=== PATIENT | male | born 1960 | race Caucasian/White ===

== ENCOUNTER → 2017-07-27 07:38 | Outpatient (CLI) | payer BC, SELFPAY ==
--- NOTE | 2017-07-27 07:53 | CA_ITS ---
PROCEDURE: 2-D M-mode and color Doppler study INDICATIONS FOR THE TEST: Chest pain COPD Heart Murmur+ Tobacco Smoking Palpitations+ Fatigue+ Syncope Edema Hypertension+Diabetes Mellitus Rheumatic Fever SOB SHELDON+Obesity Hyperlipidemia Family History HD+ Additional History JULIO, Bradycardia PATIENT INFORMATION HEIGHT: 70 WEIGHT: 229 GENDER: Male B/P: 163/85 2-D/M-MODE INTERPRETATION: 2-D MEASUREMENTS OBSERVED VALUES IN CMS Right Ventricular Dimension (RVDd) 2.0 Interventricular Septum (Thickness)(IVsd) 1.0 Left Ventricular Internal Dimensions(LVIDd) 5.3 Left Ventricular Posterior Wall (Thickness)(LVPWd) 1.0 Aortic Root 3.3 Aortic Cusp Separation 2.1 Left Atrial Dimensions (LAD) 4.3 2D 1. Left atrium is mildly enlarged, left ventricle is normal size, mild concentric left ventricular hypertrophy, visually estimated ejection fraction 55% with no obvious regional wall motion abnormality. 2. The right atrium and right ventricle are normal size and contractility. 3. The aortic valve is minimally thickened and fibrosed. 4. The mitral and tricuspid valve leaflets are minimally thickened. 5. The pulmonic valve is poorly visualized. 6. No significant pericardial effusion noted. DOPPLER INTERROGATION: Doppler interrogation of the aortic, mitral and tricuspid valvular presence of mild mitral and tricuspid regurgitation, tricuspid regurgitant jet velocity is insufficient for calculation of the right ventricular systolic pressure, grade 1 diastolic dysfunction seen with tissue Doppler evidence of raised left atrial pressure. CONCLUSION: 1. Mildly enlarged left atrium, normal left ventricular size, mild concentric left ventricular hypertrophy, visually estimated ejection fraction 55% with no obvious regional wall motion abnormality, grade 1 diastolic dysfunction seen with tissue Doppler evidence of raised left atrial pressure. 2. Mild mitral and tricuspid regurgitation 3. No significant pericardial effusion noted.
--- NOTE | 2017-07-27 09:01 | CT_ITS ---
CT heart w calcium score CLINICAL INDICATION: ITS.REASON: JULIO SYNDROME, FATIGUE, PALPITIONS, HTN, BRADYCARDIA ORDERING PHYSICIAN: Tulio Meyer MD PATIENT AGE: 57 years COMPARISON: None FINDINGS: Coronary artery calcium score is 31 indicating mild plaque burden with moderate cardiovascular disease risk IMPRESSION: Coronary artery calcium score indicating mild plaque burden with moderate cardiovascular disease risk
== END ==
LOC: RT 07:45
PROVIDERS: Family Provider Family Medicine; PCP Family Medicine; Visit Provider Internal Medicine
DX: R53.83 Other fatigue (principal); R00.2 Palpitations; I10 Essential (primary) hypertension; R00.1 Bradycardia, unspecified; G47.33 Obstructive sleep apnea (adult) (pediatric)
CPT/HCPCS: 75571; 93306

== ENCOUNTER → 2017-07-31 11:34 | Outpatient (CLI) | payer BC, SELFPAY | PROVIDERS: PCP Family Medicine; Visit Provider Internal Medicine Cardiovascular Disease | DX: R00.2 Palpitations (principal); R53.83 Other fatigue; G47.33 Obstructive sleep apnea (adult) (pediatric); I10 Essential (primary) hypertension; R93.1 Abnormal findings on diagnostic imaging of heart and coronary circulation; Z13.220 Encounter for screening for lipoid disorders | CPT/HCPCS: 93225 ==

== ENCOUNTER → 2017-08-04 06:17 | Outpatient (CLI) | payer BC, SELFPAY ==
--- NOTE | 2017-08-04 06:29 | NM_ITS ---
NM killian perf SPECT rest str CLINICAL INDICATION: ITS.REASON: PALPITATIONS,FATIGUE, JULIO SYNDROME, HTN ORDERING PHYSICIAN: Valeriano Ford MD PATIENT AGE: 57 years COMPARISON: None available DOSE: 10.89 mCi technetium Myoview intravenously at rest followed by 31.1 mCi technetium Myoview at stress. The patient exercised7 minutes 45 seconds achieving a heart rate 125 bpm. Projected heart rate is 163 bpm. Resting blood pressure is 141/76. Stress blood pressure 180/80. FINDINGS: Ejection fraction is calculated to be 49% is slightly low. There is mild global hypokinesia SPECT and polar map images obtained.. There is slight decrease activity in the inferior wall towards the base of the heart showed some increased activity in this region on the delayed images suggesting a small area of ischemia. This is most prominent on the vertical long axis images. No fixed defects are evident IMPRESSION: 1. Slightly low ejection fraction of 49%. 2. Decrease activity in the inferior wall showing some redistribution on the delayed images consistent with ischemic change in the inferior wall
[2017-08-04 07:15] LABS: Alanine Aminotransferase 41 U/L (12-78); Albumin Level 3.8 gm/dL (3.4-5.0); Alkaline Phosphatase 92 U/L (46-116); Aspartate Amino Transferase 17 U/L (15-37); Bilirubin,Direct 0.1 mg/dL (0.0-0.2); Bilirubin,Total 0.3 mg/dL (0.2-1.0); Chol/HDL Ratio 5.3 (1-3.5); Cholesterol 175 mg/dL (140-200); HDL Cholesterol 33 mg/dL (27-67); LDL Cholesterol 117 mg/dL (0-130); Total Protein,Serum 7.3 gm/dL (6.4-8.2); Triglycerides 127 mg/dL (30-200); VLDL Cholesterol 25 mg/dL (0-40)
--- NOTE | 2017-08-04 07:31 | HMH.ITSHM ---
OLMESARTAN BISOPROLOL FINASTERIDE OMEPRAZOLE ASA
== END ==
PROVIDERS: Family Provider Family Medicine; PCP Family Medicine; Visit Provider Internal Medicine Cardiovascular Disease
DX: R00.2 Palpitations (principal); R53.83 Other fatigue; I10 Essential (primary) hypertension; G47.33 Obstructive sleep apnea (adult) (pediatric); R93.1 Abnormal findings on diagnostic imaging of heart and coronary circulation; Z13.220 Encounter for screening for lipoid disorders
CPT/HCPCS: 78452; 80061; 80076; 93017; A9502

== ENCOUNTER → 2017-08-11 15:30 | Outpatient (CLI) | payer BC, SELFPAY | PROVIDERS: PCP Family Medicine; Visit Provider Internal Medicine Cardiovascular Disease | DX: G47.33 Obstructive sleep apnea (adult) (pediatric) (principal); R53.83 Other fatigue; R00.2 Palpitations; I10 Essential (primary) hypertension; R00.1 Bradycardia, unspecified | CPT/HCPCS: G0399 ==

== ENCOUNTER 2017-08-17 07:16 | Day surgery (SDC) | payer BC, SELFPAY ==
[2017-08-17] VITALS (14 sets, daily range): BP systolic 105–147; BP diastolic 56–87; PULSE 48–57; RESP 16–20; TEMP 36.4; O2SAT 92–96; BMI 35.0
--- NOTE | 2017-08-17 | IR_ITS ---
CARDIAC CATHETERIZATION DATE OF CATHETERIZATION:08/17/2017 8:14 AM PROCEDURES: 1. Left heart catheterization 2. Left ventriculogram 3. Selective coronary angiogram INDICATION FOR TEST: 1. Abnormal Myoview high risk 2. Risk factors for coronary artery disease 3. Angina pectoris Informed consent was obtained prior to the procedure. COMPLICATIONS: None ESTIMATED BLOOD LOSS: Less than 10 ml. TECHNIQUE: One percent lidocaine used to anesthetize the right anterior aspect of the wrist. The right radial artery was accessed via the Seldinger technique. A 6 Welsh sheath was placed in the right radial artery. 2.5 mg of verapamil, 800 mcg of nitroglycerin and 5000 U Heparin were given through the arterial sheath. The trap catheter was also used to perform left heart catheterization and left ventriculography. At the end of the procedure the patient was transferred to the post-op holding area in stable condition for arterial sheath removal. ANGIOGRAPHIC RESULTS: 1. The left main artery normal 2. The left anterior descending artery is proximally normal and has a mid vessel concentric 40% stenosis 3. The circumflex artery nondominant and normal 4. The right coronary artery dominant normal 5. The JORGENSEN ventriculogram reveals normal 65% 6. The left ventricular end-diastolic pressure 15 mmHg IMPRESSION: 1. Moderate mid LAD disease which is nonflow limiting 2. Normal ejection fraction 3. Mildly elevated LVEDP PLAN: 1. Risk factor modification 2. LDL less than 55 3. Medical management
[2017-08-17 07:52] LABS: Basophils % 0.4 % (0.1-2.0); Eosinophils # 0.2 K/mm3 (0.0-0.4); Eosinophils % 2.2 % (0.1-12.0); Hematocrit 44.6 % (42.0-52.0); Hemoglobin 14.9 g/dL (14.1-18.0); Lymphocytes # 2.2 K/mm3 (0.7-4.5); Lymphocytes % 32.2 K/mm3 (10-50); Mean Corpuscular HGB Conc 33.3 g/dL (31.8-35.4); Mean Corpuscular Hemoglobin 31.3 pg (27.0-31.2); Mean Corpuscular Volume 93.9 fl (80-94); Mean Platelet Volume 8.5 fl (7.4-10.4); Monocytes # 0.5 K/mm3 (0.1-1.0); Monocytes % 6.9 % (1.7-9.3); Neutrophils % 58.4 % (37.0-80.0); Platelet Count 255 K/mm3 (142-424); Red Blood Count 4.75 M/mm3 (4.60-6.20); Red Cell Distribution Width 13.7 % (11.5-17.5); White Blood Count 6.9 K/mm3 (4.8-10.8)
[2017-08-17 08:02] LABS: Anion Gap 13.1 mEq/L (5-15); Blood Urea Nitrogen 16 mg/dL (7-18); Carbon Dioxide 27 mmol/L (21.0-32.0); Chloride 103 mmol/L (98-107); Creatinine Clearance Estimated 122 mL/min (0-300); Creatinine,Serum 1.02 mg/dL (0.70-1.30); Estimated Glomerular Filt Rate 75 ml/min (>60); GFR (African American) 91 ML/MIN (>60); Glucose 108 mg/dL (74-106); Potassium 4.1 mmoL/L (3.5-5.1); Sodium 139 mmol/L (136-145)
== END 2017-08-17 12:29 | disposition home or self-care (01) ==
LOC: CATHLAB 07:18
PROVIDERS: Family Provider Family Medicine; PCP Family Medicine; Visit Provider Internal Medicine
DX: R94.39 Abnormal result of other cardiovascular function study (principal); I10 Essential (primary) hypertension; R53.83 Other fatigue; R06.09 Other forms of dyspnea; R00.2 Palpitations
CPT/HCPCS: 80048; 85025; 93458; C1725; C1769; J1644; Q9967

== ENCOUNTER 2017-08-17 18:50 | Emergency (ER) | payer BC, SELFPAY ==
[2017-08-17 18:53] VITALS: BP 145/85; PULSE 54; RESP 18; TEMP 36.8; O2SAT 96; BMI 33.5
--- NOTE | 2017-08-17 19:14 | HMH.EDWNDL ---
ED Disposition Clinical Impression: Post procedure discomfort Disposition: Home, Self-Care Condition on Discharge: Good Instructions: DI for Cardiac Catheterization Additional Instructions: see dr horton in am Referrals: Francisco Chou MD [Primary Care Provider] - - Critical Care Critical Care Time: No Attestation: On , the high probability of a clinically significant, sudden or life threatening deterioration of the following system(s) required my full and direct attention, intervention and personal management. The time I documented below is in addition to time spent performing reported procedures but includes the following listed in this critical care notation. Medical Decision Making Vital Signs: 08/17/17 18:53 Temperature 98.3 F Temperature Source Oral Pulse Rate [Right Radial] 54 L Respiratory Rate 18 Blood Pressure [Left Arm] 145/85 Blood Pressure Mean [Left Arm] 105 02 Sat by Pulse Oximetry 96 - Physician Consults Physician Consulted: clifford Reason -: Pt condition - Mike Inquiry Pt receiving controlled substance: No Wound/Laceration HPI - General Chief Complaint: Extremity Injury, Upper Stated Complaint: SWELLING IN ARM Time Seen by Provider: 08/17/17 19:14 Mode of Arrival: Ambulatory Source of Information: Patient, Spouse, Medical Record Limitations: No Limitations Description of Symptoms (Recalled from ER Triage Doc. by RN): HEART CATH TODAY RIGHT WRIST SITE. NOTED TO BE SWOLLEN AT SITE AND UP ARM. NOT REDNESS. WARMTH IS NOTED. - History of Present Illness HPI narrative: this wm had heart cath this am and has elevated hand and presents with pain and hand swelling but no change in color Onset (ago): hour(s) Extremity Location: Right: hand Context: other (recent procedure ) Associated symptoms: pain - Related Data Home Medications Medication Instructions Recorded Confirmed bisoprolol fumarate 5 mg tablet 2.5 mg PO QDAY 07/09/17 finasteride 5 mg tablet 5 mg PO QDAY 07/09/17 Previous Rx's Medication Instructions Recorded olmesartan 20 1 tab PO QDAY #30 tab 07/14/17 mg-hydrochlorothiazide 12.5 mg tablet omeprazole 40 mg capsule,delayed 40 mg PO QDAY #30 cap 07/14/17 release Allergies Allergy/AdvReac Type Severity Reaction Status Date / Time codeine AdvReac Mild NA-NAUSEA/V Verified 08/17/17 19:01 OMITING hydrocodone AdvReac Mild NA-NAUSEA/V Verified 08/17/17 19:01 OMITING [facility] History I have reviewed the patient's past medical history: Yes Medical History: Reports:: Gastroesophageal Reflux Disease(GERD), Hypertension, Palpitations Denies:: Cancer, Diabetes Mellitus Type 1, Diabetes Mellitus Type 2, Internal Pacemaker, MRSA, Seizures Laterality Cases: Left: Arthroscopy Knee, Bilateral: Carpal Tunnel Release Other Surgeries: Yes: Hernia Repair. No: Pacemaker Amputation: No - Social History Smoking Status: Former smoker Tobacco Type: cigarettes Smoking End Date: 1990 Alcohol Intake: never Alcohol Intake Frequency:: other Occupational Status: employed Housing: house Household Members: spouse - Psychiatric History Expresses thoughts of harming self/others: None Suicide Plan Description: No Plan Family Hx:: Hypertension ROS Obtained: Yes All systems reviewed & no additional complaints - Constitutional Constitutional: Denies fever(s) - Eyes Eyes: Denies change in vision - ENT Ears, Nose, Mouth, and Throat: Denies sore throat - Cardiovascular Cardiovascular: Denies chest pain, Denies chest pain at rest - Respiratory Respiratory: No chest congestion, No cough - Gastrointestinal Gastrointestingal: Denies: abdominal pain - Genitourinary Male Genitourinary: Denies hematuria - Musculoskeletal Musculoskeletal: Denies joint pain, Reports other (see hx ) - Integumentary/Breasts Skin/Breast: Denies rash - Neurologic Neurologic: Denies seizure-like activity Physical Exam - General General appearance: a
--- NOTE | 2017-08-17 19:17 | ED_ITS ---
ED Disposition Clinical Impression: Post procedure discomfort Disposition: Home, Self-Care Condition on Discharge: Good Instructions: DI for Cardiac Catheterization Additional Instructions: see dr horton in am Referrals: Francisco Chou MD [Primary Care Provider] - - Critical Care Critical Care Time: No Attestation: On , the high probability of a clinically significant, sudden or life threatening deterioration of the following system(s) required my full and direct attention, intervention and personal management. The time I documented below is in addition to time spent performing reported procedures but includes the following listed in this critical care notation. Medical Decision Making Vital Signs: 08/17/17 18:53 Temperature 98.3 F Temperature Source Oral Pulse Rate [Right Radial] 54 L Respiratory Rate 18 Blood Pressure [Left Arm] 145/85 Blood Pressure Mean [Left Arm] 105 02 Sat by Pulse Oximetry 96 - Physician Consults Physician Consulted: clifford Reason -: Pt condition - Mike Inquiry Pt receiving controlled substance: No Wound/Laceration HPI - General Chief Complaint: Extremity Injury, Upper Stated Complaint: SWELLING IN ARM Time Seen by Provider: 08/17/17 19:14 Mode of Arrival: Ambulatory Source of Information: Patient, Spouse, Medical Record Limitations: No Limitations Description of Symptoms (Recalled from ER Triage Doc. by RN): HEART CATH TODAY RIGHT WRIST SITE. NOTED TO BE SWOLLEN AT SITE AND UP ARM. NOT REDNESS. WARMTH IS NOTED. - History of Present Illness HPI narrative: this wm had heart cath this am and has elevated hand and presents with pain and hand swelling but no change in color Onset (ago): hour(s) Extremity Location: Right: hand Context: other (recent procedure ) Associated symptoms: pain - Related Data Home Medications Medication Instructions Recorded Confirmed bisoprolol fumarate 5 mg tablet 2.5 mg PO QDAY 07/09/17 finasteride 5 mg tablet 5 mg PO QDAY 07/09/17 Previous Rx's Medication Instructions Recorded olmesartan 20 1 tab PO QDAY #30 tab 07/14/17 mg-hydrochlorothiazide 12.5 mg tablet omeprazole 40 mg capsule,delayed 40 mg PO QDAY #30 cap 07/14/17 release Allergies Allergy/AdvReac Type Severity Reaction Status Date / Time codeine AdvReac Mild NA-NAUSEA/V Verified 08/17/17 19:01 OMITING hydrocodone AdvReac Mild NA-NAUSEA/V Verified 08/17/17 19:01 OMITING [facility] History I have reviewed the patient's past medical history: Yes Medical History: Reports:: Gastroesophageal Reflux Disease(GERD), Hypertension, Palpitations Denies:: Cancer, Diabetes Mellitus Type 1, Diabetes Mellitus Type 2, Internal Pacemaker, MRSA, Seizures Laterality Cases: Left: Arthroscopy Knee, Bilateral: Carpal Tunnel Release Other Surgeries: Yes: Hernia Repair. No: Pacemaker Amputation: No - Social History Smoking Status: Former smoker Tobacco Type: cigarettes Smoking End Date: 1990 Alcohol Intake: never Alcohol Intake Frequency:: other Occupational Status: employed Housing: house Household Members: spouse - Psychiatric History Expresses thoughts of harming self/others: None Suicide Plan Description: No Plan Family Hx:: Hypertension ROS Obtained: Yes All systems reviewed &
[2017-08-17 19:34] VITALS: BP 135/55; PULSE 90; RESP 16; TEMP 36.7; O2SAT 99
== END 2017-08-17 19:25 | disposition home or self-care (01) ==
PROVIDERS: Emergency Provider Emergency Medicine; Family Provider Family Medicine; PCP Family Medicine
DX: G89.18 Other acute postprocedural pain (principal); I10 Essential (primary) hypertension; R00.2 Palpitations; Z87.891 Personal history of nicotine dependence; K21.9 Gastro-esophageal reflux disease without esophagitis; Z88.6 Allergy status to analgesic agent
CPT/HCPCS: 99281

== ENCOUNTER → 2017-09-18 06:55 | Outpatient (CLI) | payer BC, SELFPAY ==
[2017-09-18 10:12] LABS: Alanine Aminotransferase 36 U/L (12-78); Albumin Level 3.9 gm/dL (3.4-5.0); Alkaline Phosphatase 107 U/L (46-116); Aspartate Amino Transferase 19 U/L (15-37); Bilirubin,Direct 0.1 mg/dL (0.0-0.2); Bilirubin,Total 0.4 mg/dL (0.2-1.0); Chol/HDL Ratio 2.8 (1-3.5); Cholesterol 110 mg/dL (140-200); HDL Cholesterol 40 mg/dL (27-67); LDL Cholesterol 52 mg/dL (0-130); Total Protein,Serum 7.1 gm/dL (6.4-8.2); Triglycerides 88 mg/dL (30-200); VLDL Cholesterol 18 mg/dL (0-40)
== END ==
PROVIDERS: Family Provider Family Medicine; PCP Family Medicine; Visit Provider Internal Medicine
DX: I25.10 Atherosclerotic heart disease of native coronary artery without angina pectoris (principal); E78.5 Hyperlipidemia, unspecified; I10 Essential (primary) hypertension
CPT/HCPCS: 36415; 80061; 80076

== ENCOUNTER → 2017-12-28 08:28 | Outpatient (CLI) | payer BC, SELFPAY ==
--- NOTE | 2017-12-28 08:30 | CI_ITS ---
Cerebrovascular Exam IMPRESSIONS 1. The bilateral vertebral arteries are patent with normal antegrade flow. 2. Study suggests less than 20% stenosis involving the right internal carotid artery and the left internal carotid artery. No change from the study of 03-Jul-2014. History: Risk factors: Hypertension. Dizziness. Arm Numbness bilaterally. Headaches. Right leg pain when has headache on left side. Carotid duplex study. Complete study and Doppler flow study including spectral analysis, color and alberto scale imaging. Height: Height: 177.8cm. Height: 70in. Weight: Weight: 108.9kg. Weight: 239.5lb. Body mass index: BMI: 34.4kg/m^2. Body surface area: BSA: 2.36m^2. Location: Vascular laboratory. Patient status: Outpatient. Tables: Arterial flow: + +--------+--------+ Location V sys V ed + +--------+--------+ Right CCA - proximal 103cm/s 28.3cm/s + +--------+--------+ Right CCA - distal 72.6cm/s 18.9cm/s + +--------+--------+ Right ECA 103cm/s -------- + +--------+--------+ Right ICA - proximal 67.7cm/s 25.1cm/s + +--------+--------+ Right ICA - mid 81.7cm/s 32.1cm/s + +--------+--------+ Right ICA - distal 74.7cm/s 29.3cm/s + +--------+--------+ Right vertebral 56.6cm/s -------- + +--------+--------+ Left CCA - proximal 120cm/s 30.7cm/s + +--------+--------+ Left CCA - distal 76.8cm/s 24.4cm/s + +--------+--------+ Left ECA 86.6cm/s -------- + +--------+--------+ Left ICA - proximal 77.5cm/s 27.2cm/s + +--------+--------+ Left ICA - mid 83.8cm/s 30cm/s + +--------+--------+ Left ICA - distal 74.7cm/s 30cm/s + +--------+--------+ Left vertebral 47.5cm/s -------- + +--------+--------+ Velocity ratios: + + + + + + Right, V sys Right, V ed Left, V sys Left, V ed + + + + + + Max ICA/dist CCA 1.13 1.7 1.09 1.23 + + + + + + (Report amended ) Electronically signed by: Manuel Kraft [id number]
== END ==
PROVIDERS: Family Provider Family Medicine; PCP Family Medicine; Visit Provider Internal Medicine
DX: R42 Dizziness and giddiness (principal); R00.1 Bradycardia, unspecified; R20.0 Anesthesia of skin; I25.10 Atherosclerotic heart disease of native coronary artery without angina pectoris; I10 Essential (primary) hypertension; E78.4 Other hyperlipidemia
CPT/HCPCS: 93880

== ENCOUNTER → 2018-08-07 16:28 | Outpatient (CLI) | payer BC, SELFPAY ==
--- NOTE | 2018-08-07 | NVE_ITS ---
Venous Exam Indications: 729.81 Swelling of limb. IMPRESSIONS No evidence of deep or superficial vein thrombosis involving the right lower extremity History: Swelling of the right lower extremity. Risk factors: Hypertension. Medications: Clopidogrel (Plavix) daily. Patient had been taking an 81 mg ASA daily until a recent TIA. At which point he was switched to Plavix daily. He received Lovenox injections during his stay at [facility] 07/20/18-07/21/18 for treatment ofTIA. Kavita received a Lovenox injection last evening, 08/06/18, in the Emergency department. Right lower extremity venous duplex evaluation. Doppler flow study including spectral analysis, color and alberto scale imaging. Location: Vascular laboratory. Patient status: Outpatient. Tables: Venous flow and imaging: + +-------+ + Location Overall Flow properties + +-------+ + Right common femoral Patent Normal phasicity; spontaneous; normal augmentation; compressible + +-------+ + Right saphenofemoral junction Patent Compressible + +-------+ + Right profunda femoral Patent Compressible + +-------+ + Right femoral Patent Normal phasicity; spontaneous; normal augmentation; compressible + +-------+ + Right greater saphenous Patent Normal phasicity; spontaneous; normal augmentation; compressible + +-------+ + Right popliteal Patent Normal phasicity; spontaneous; normal augmentation; compressible + +-------+ + Right posterior tibial Patent Compressible + +-------+ + Right peroneal Patent Compressible + +-------+ + Right gastrocnemius Patent Compressible + +-------+ + Right soleal Patent Compressible + +-------+ + (Report amended ) Electronically signed by: Jayson Quinones [id number]
== END ==
PROVIDERS: PCP Family Medicine; Visit Provider Emergency Medicine
DX: M79.89 Other specified soft tissue disorders (principal); M79.604 Pain in right leg
CPT/HCPCS: 93971

== ENCOUNTER → 2018-10-14 07:20 | Outpatient (CLI) | payer BC, SELFPAY ==
[2018-10-14 09:24] LABS: Alanine Aminotransferase 35 U/L (12-78); Albumin Level 3.7 gm/dL (3.4-5.0); Alkaline Phosphatase 119 U/L (46-116); Aspartate Amino Transferase 18 U/L (15-37); Bilirubin,Direct 0.1 mg/dL (0.0-0.2); Bilirubin,Indirect 0.6 mg/dL (0.0-0.9); Bilirubin,Total 0.7 mg/dL (0.2-1.0); Chol/HDL Ratio 2.9 (1-3.5); Cholesterol 86 mg/dL (140-200); HDL Cholesterol 30 mg/dL (27-67); LDL Cholesterol 46 mg/dL (0-130); Total Protein,Serum 6.6 gm/dL (6.4-8.2); Triglycerides 48 mg/dL (30-200); VLDL Cholesterol 10 mg/dL (0-40)
== END ==
PROVIDERS: Visit Provider Urology
DX: E78.5 Hyperlipidemia, unspecified (principal); I10 Essential (primary) hypertension; I25.119 Atherosclerotic heart disease of native coronary artery with unspecified angina pectoris; R06.00 Dyspnea, unspecified
CPT/HCPCS: 36415; 80061; 80076

== ENCOUNTER → 2019-02-04 08:29 | Outpatient (CLI) | payer BC, SELFPAY ==
--- NOTE | 2019-02-04 08:30 | CA_ITS ---
APPROVED REPORT Lock Tender Chief Operator: MICHAEL Study Quality: Good Indications: Uncontrolled HTN Risk Factors Hypertension Hyperlipidemia Obesity Renal Artery Doppler Origin (R) 122.0/33.2 cm/sec Proximal (R) 122.0/34.1 cm/sec Mid (R) 69.3/21.1 cm/sec Distal (R) 97.2/29.9 cm/sec Renal Aorta Ratio (R) 1.90 Segmental A. (R) 50.7/16.1 cm/sec RI: 0.68 Segmental A. Sup (R) 57.0/16.1 cm/sec Segmental A. Mid (R) 55.5/18.3 cm/sec Segmental A. Inf (R) 39.5/13.9 cm/sec Origin (L) 102.0/30.3 cm/sec Proximal (L) 113.0/33.2 cm/sec Mid (L) 64.0/23.9 cm/sec Distal (L) 53.0/21.3 cm/sec Renal Aorta Ratio (L) 1.80 Segmental A. (L) 38.4/15.7 cm/sec RI: 0.59 Segmental A. Sup (L) 41.5/18.4 cm/sec Segmental A. Mid (L) 42.1/17.3 cm/sec Segmental A. Inf (L) 31.7/11.5 cm/sec Renal Measurements Kidney Size (R) 11.5x6.5 cm Cortical Thickness (R) 1.4 cm Kidney Size (L) 13.0x7.1 cm Cortical Thickness (L) 1.1 cm Aortic Doppler Velocity Waveform Sup Sabino Ao 62.9 cm/sec Findings Normal bilateral renal artery study. 1.1 cm cyst seen left kidney mid pole. Conclusion Normal bilateral renal artery study. 1.1 cm cyst seen left kidney mid pole. Electronically signed by : Jayson Quinones MD 02/04/2019 16:07:11
== END ==
PROVIDERS: PCP Family Medicine; Visit Provider Physician Assistant
DX: I10 Essential (primary) hypertension (principal); I25.10 Atherosclerotic heart disease of native coronary artery without angina pectoris; R07.9 Chest pain, unspecified
CPT/HCPCS: 93976

== ENCOUNTER → 2019-02-21 06:10 | Outpatient (CLI) | payer BC, SELFPAY ==
--- NOTE | 2019-02-21 | CA_ITS ---
APPROVED REPORT Exam: Pharmacologic Technologist: Eva Moore Ht: 5 ft 10 in Wt: 245 lbs BSA: 2.28 m2 HR: 62 bpm BP: 152/66 mmHg Indications: Chest pain Medical History Medications: Amlodipine,,,,, Irbesartan,,,,, Metoprolol,,,,, Sotalol,,,,, Pantoprazole,,,,, Atorvastatin,,,,, HCTZ,,,,, CloPIdogrel,,,,, Finasteride,,,,, Stress Test Details Test: LEXISCAN HR Resting HR: 62 bpm Max Heart Rate (APMHR): 162 bpm Max HR Achieved: 89 bpm Target HR (85% APMHR): 137 bpm % of APMHR: 54 Recovery HR: 74 bpm BP Resting BP: 152/66 mmHg Max BP: 152/66 mmHg Recovery BP: 114.0/72.0 mmHg ECG Clinical Exercise duration: 04:00 min Highest Stage Achieved: Exercise capacity: 1.0 METs Stress ECG Conclusion RESTING ECG: SINUS RHYTHM LEXISCAN PORTION COMPLETED. PATITNE COMPLAINED OF LEG WEAKNESS AND NAUSEA. RESOLVED IN RECOVERY. SYMPTOMS: NO CHEST PAIN, NO SHORTNESS OF BREATH. PATIENT COMPLAINED OF NAUSEA, NO VOMITING. PATIENT ALSO HAD LEG WEAKNESS. RESOLVED IN RECOVERY. ARRHYTHMIAS/ECTOPY: OCCAISONAL PVC AND OCCASIONAL VENTRICULAR BIGEMINY. ST-T CHANGES: LESS THAN 1.5mm ST DEPRESSION CONCLUSION: IMAGES TO FOLLOW. Electronically signed by : Valeriano Ford, 02/21/2019 19:38:11
--- NOTE | 2019-02-21 06:29 | NM_ITS ---
APPROVED REPORT Exam: Nuclear Stress Test Indication: Chest pain, SOB, HTN, High Cholesterol, Family hx, Pt has a pacemaker Patient Location: Outpatient Stress Tech: Eva Moore IN Tech:Yuli Leiva, ARRT, RT (R)(N) Ht: 5 ft 10 in Wt: 245 lbs BSA: 2.28 m2 HR: 62 bpm BP: 152/66 mmHg BMI: 35.1 History: Chest pain, SOB, HTN, High Cholesterol, Family hx, Pt has a pacemaker Procedure: Patient received a 0.4 mg of intravenous Lexiscan, resting heart rate 62 bpm, resting blood pressure 252/66 mmHg, with Lexiscan maximum heart rate achived was 85 bpm which is Less than 85 % of the maximum predicted heart rate and blood pressure was 125/66 mmHg. With Lexiscan, patient denied any complaint of chest pain. Electrocardiogram Resting electrocardiogram showed sinus rhythm, with Lexiscan there is less than 1.[address] segment depression noted from the baseline EKG. The EKG portion of the Lexiscan Myoview is nondiagnostic. Cardiac Stress and Resting SPECT Images: Cardiac Stress and Resting SPECT images were obtained using technetium 99m Myoview 32.0 mCi stress and 10.68 mCi at rest. Gated SPECT with analysis of segmental wall motion and calculation of the ejection fraction also done. Cardiac stress and resting SPECT images show a fixed defect involving the inferior wall with normal contractility gated SPECT is likely secondary to soft tissue attenuation, no reversible ischemia seen. Computer derived ejection fraction is over 65% with no regional wall motion abnormality, right ventricle is normal size and contractility. Conclusion: 1. The EKG portion of the Lexiscan Myoview is nondiagnostic. 2. No scintigraphic evidence of reversible ischemia seen, computer derived ejection fraction is over 65% with no regional wall motion abnormality, right ventricle is normal size and contractility. 3. Normal Lexiscan Myoview study. Electronically signed by : Valeriano Ford, 02/24/2019 16:32:24
--- NOTE | 2019-02-21 07:52 | HMH.ITSHM ---
Current Home Medications as stated by this patient Gabriel Funez True or personal banking representative. []SOTULOL AMLODIPINE IRBESARTAN EINASTERIDE HYDROCHLOROT PANTOPRAZOLE CLOPIDOGREL METOPROLOL ATORVASTATIN
== END ==
PROVIDERS: PCP Family Medicine; Visit Provider Nurse Practitioner Family
DX: I20.9 Angina pectoris, unspecified (principal); I10 Essential (primary) hypertension; I25.119 Atherosclerotic heart disease of native coronary artery with unspecified angina pectoris; R06.02 Shortness of breath; Z95.0 Presence of cardiac pacemaker
CPT/HCPCS: 78452; 93017; A9502; J2785

== ENCOUNTER 2019-07-12 11:21 | Observation (INO) ==
--- NOTE | 2019-07-12 11:25 | Emergency Department Note ---
ED Disposition Clinical Impression: Paresthesias, Shortness of breath Disposition: Admitted as Observation Condition on Discharge: Good Referrals: Tre Woodall MD [Primary Care Provider] - - Critical Care Critical Care Time: No Attestation: On , the high probability of a clinically significant, sudden or life threatening deterioration of the following system(s) required my full and direct attention, intervention and personal management. The time I documented below is in addition to time spent performing reported procedures but includes the following listed in this critical care notation. Medical Decision Making - Mike Inquiry Pt receiving controlled substance: No Vital Signs: 07/12/19 11:22 07/12/19 11:57 07/12/19 12:22 Temperature 98.1 F Temperature Source Oral Pulse Rate [Left Radial] 68 68 73 Respiratory Rate 18 16 22 Blood Pressure [Right Arm] 148/89 H 115/87 129/60 Blood Pressure Mean [Right Arm] 108 96 83 Blood Pressure Source [Right Arm] Automatic Cuff Automatic Cuff Blood Pressure Position [Right Arm] Sitting Sitting Supine 02 Sat by Pulse Oximetry 98 97 98 Oxygen Delivery Method Room Air Room Air Room Air 07/12/19 12:59 Temperature Temperature Source Pulse Rate [Left Radial] 72 Respiratory Rate 20 Blood Pressure [Right Arm] 136/88 Blood Pressure Mean [Right Arm] 104 Blood Pressure Source [Right Arm] Automatic Cuff Blood Pressure Position [Right Arm] Supine 02 Sat by Pulse Oximetry 99 Oxygen Delivery Method Room Air - Lab Data Lab Results 07/12/19 11:23: WBC 10.1, RBC 4.47 L, Hgb 13.8 L, Hct 40.5 L, MCV 90.8, MCH 30.9, MCHC 34.0, RDW 13.9, Plt Count 292, MPV 7.9, Neut % (Auto) 58.0, Lymph % (Auto) 33.0, [place] % (Auto) 6.7, Eos % (Auto) 1.9, Baso % (Auto) 0.4, Neut # (Auto) 5.9, Lymph # (Auto) 3.4, [place] # (Auto) 0.7, Eos # (Auto) 0.2, Baso # (Auto) 0.0 07/12/19 11:23: Sodium 140, Potassium 3.6, Chloride 103, Carbon Dioxide 23, Anion Gap 17.6 H, BUN 17, Creatinine 1.06, Estimated Creat Clear 116, Estimated GFR 72, Est GFR ( Amer) 87, Glucose 101, Calcium 9.6, Total Bilirubin 0.4, AST 19, ALT 26, Alkaline Phosphatase 132 H, Troponin I < 0.02, Total Protein 7.3, Albumin 3.8, Globulin 3.5 H, Albumin/Globulin Ratio 1.1 Result diagrams: 07/12/19 11:23 07/12/19 11:23 Orders (Tests/Meds): ORDERS Category Date Time Status Troponin I Q3H Lab 07/12/19 14:45 Ordered Troponin I Q3H Lab 07/12/19 17:45 Ordered - CT Data CT Scan: Head Time Received: 12:[address] Reviewed: Yes: I have viewed the radiologist's interpretation Findings Narrative: FINDINGS: No midline shift, mass effect, intracranial hemorrhage, hydrocephalus, or extra-axial fluid collection is evident. There is generalized atrophy with hypoattenuation of the periventricular white matter consistent with microangiopathic changes. The calvarium has an unremarkable appearance. No mastoid effusion. No sinus air-fluid level. IMPRESSION: No acute intracranial finding Dictated by: Jayson Quinones MD 07/12/2019 11:48 Electronically signed by Jayson Quinones MD in [place] 07/12/2019 11:48 - ECG Data Tracing #1 EKG interpreted by Delroy Weeks MD: Rhythm: Atrial electronic paced rhythm Rate: 60 Edgar: normal Ectopy: none Conduction: normal ST Segment Changes: none T Wave Changes: none Q Waves: none No evidence of acute ischemia or injury - Physician Consults Physician Consulted: Jose C Time: 12:50 Reason -: Admission, Pt condition Comment/Response: Agrees to admit the patient to the hospital. We discussed the patient's clinical information, including history, exam, laboratory and radiology results and ED course. Per hospital procedure, I will write temporary bridge inpatient orders on the patient. Specific orders requested by the admitting physician: Admit observation. He will investigate whether MRI can be done with the patient's pacemaker. Patient states that he sees Dr. Meyer. - Reevaluation(s) Time: 12:11 Reevaluation #1: States now only has tingling on the top of the scalp. States "left eye feels like it is drawing". No objective findings. Time: 12:41 Reevaluation #3: Complains of tingling all across his forehead and face and "starting to shake". Numbness also went down left arm. Appears very anxious. Time reevaluation 3: 13:35 Reevaluation #2: Symptoms have now resolved again Medical Decision Narrative: Reviewed visit from July 2018. At that time presented with a left-sided symptoms that had resolved on arrival. CT scan showed possible stroke in evolution. Transferred to [facility] where repeat CT scanning was negative and CT angiogram of head and neck were negative. Diagnosed with TIA likely due to small vessel disease. General Adult HPI - General Chief complaint: Weakness Stated complaint: WEAKNESS Time Seen by Provider: 07/12/19 11:21 - History of Present Illness HPI narrative: Patient says that about 1030 he began feeling numb all over. Feels short of breath. No focal weakness. No chest pain. He says it feels like his blood pressure might have dropped. He has had this before. He says that he had it in July 2018 and at that time was diagnosed with a TIA. He notes that he has a pacemaker. No history of [place]. - Related Data Home Medications Medication Instructions Recorded Confirmed finasteride 5 mg tablet 5 mg PO DAILY 07/09/17 05/24/19 Amlodipine Besylate [Amlodipine 10 mg PO DAILY 05/09/19 05/24/19 10mg Tab] Clopidogrel Bisulfate [Plavix 75mg 75 mg PO DAILY 05/09/19 05/24/19 Tab] Irbesartan [Irbesartan 300mg 300 mg PO DAILY 05/09/19 05/24/19 Tablet] Pantoprazole Sodium [Protonix 40mg 40 mg PO DAILY 05/09/19 05/24/19 tablet] Sodium, Potassium,Mag Sulfates See Rx Instructions PO .COMPLEX 05/09/19 05/24/19 [Suprep Bowel Prep Kit] Previous Rx's Medication Instructions Recorded sotalol 80 mg tablet 40 mg PO BID #60 tab 04/11/19 atorvastatin 80 mg tablet 80 mg PO DAILY #90 tab 05/09/19 hydrochlorothiazide 25 mg tablet 25 mg PO DAILY #30 tab 06/23/19 metoprolol succinate 50 mg 50 mg PO DAILY #90 tab 06/30/19 tablet,extended release 24 hr Allergies Allergy/AdvReac Type Severity Reaction Status Date / Time codeine AdvReac Mild NA-NAUSEA/V Verified 05/24/19 11:30 OMITING hydrocodone AdvReac Mild NA-NAUSEA/V Verified 05/24/19 11:30 OMITING [facility] History - Hepatitis A Screen Attestation statement:: This patient has been screened for Hepatitis A risk factors. I have reviewed the patient's past medical history: Yes Medical History: Reports:: Coronary Artery Disease, Gastroesophageal Reflux Disease(GERD), Hyperlipidemia, Hypertension, Internal Pacemaker, Palpitations Denies:: Cancer, Diabetes Mellitus Type 1, Diabetes Mellitus Type 2, Lung Disease, MRSA, Seizures Other Medical History: Denies: Blood Transfusion Reaction Laterality Cases: Left: Arthroscopy Knee, Bilateral: Carpal Tunnel Release Other Surgeries: Yes: Cardiac Catheterization, Colonoscopy, Hernia Repair, Pacemaker Amputation: No Fractures: No - Social History Smoking Status: Never smoker Tobacco Type: cigarettes Alcohol Intake: never Alcohol Intake Frequency:: other Substance Use Type: denies use Occupational Status: employed Housing: house Household Members: spouse Family Hx:: Hypertension ROS Obtained: Yes All systems reviewed & no additional complaints - Constitutional Constitutional: Denies fever(s) - Eyes Eyes: Denies change in vision - Cardiovascular Cardiovascular: Denies chest pain - Respiratory Respiratory: Yes dyspnea - Gastrointestinal Gastrointestingal: Denies: abdominal pain, diarrhea, vomiting - Neurologic Neurologic: Reports tingling Physical Exam - General General appearance: alert, in no apparent distress - Head Head exam: atraumatic, normocephalic - Eye Eye exam: Present: normal appearance, EOMI - ENT ENT exam: Present: mucous membranes moist - Neck Neck exam: Present: normal inspection, trachea midline - Chest Chest inspection: Present: normal inspection, symmetric chest wall rise - Respiratory Respiratory exam: Present: normal lung sounds bilaterally. Absent: respiratory distress - Cardiovascular Cardiovascular exam: Present: regular rate, normal rhythm, normal heart sounds - Abdominal Exam Abdominal exam: Present: soft, normal bowel sounds. Absent: distention, tenderness - Extremities Exam Extremities exam: Present: normal inspection - Neurological Exam Neurological exam: Present: alert, oriented X3, CN II-XII intact. Absent: motor sensory deficit - Psychiatric Psychiatric exam: Present: anxious - Skin Skin exam: Present: warm, dry. Absent: cyanosis, diaphoresis
[2019-07-12 11:42] LABS: Basophils % 0.4 % (0.1-2.0); Eosinophils # 0.2 K/mm3 (0.0-0.4); Eosinophils % 1.9 % (0.1-12.0); Hematocrit 40.5 % (42.0-52.0); Hemoglobin 13.8 g/dL (14.1-18.0); Lymphocytes # 3.4 K/mm3 (0.7-4.5); Mean Corpuscular Volume 90.8 fl (80-94); Mean Platelet Volume 7.9 fl (7.4-10.4); Monocytes # 0.7 K/mm3 (0.1-1.0); Monocytes % 6.7 % (1.7-9.3); Neutrophils # 5.9 K/mm3 (1.8-7.8); Platelet Count 292 K/mm3 (142-424); Red Blood Count 4.47 M/mm3 (4.60-6.20); Red Cell Distribution Width 13.9 % (11.5-17.5); White Blood Count 10.1 K/mm3 (4.8-10.8)
[2019-07-12 11:51] LABS: Alanine Aminotransferase 26 U/L (12-78); Albumin Level 3.8 gm/dL (3.4-5.0); Albumin/Globulin Ratio 1.1 (1.1-1.8); Alkaline Phosphatase 132 U/L (46-116); Anion Gap 17.6 mEq/L (5-15); Aspartate Amino Transferase 19 U/L (15-37); Bilirubin,Total 0.4 mg/dL (0.2-1.0); Blood Urea Nitrogen 17 mg/dL (7-18); Calcium 9.6 mg/dL (8.5-10.1); Carbon Dioxide 23 mmol/L (21.0-32.0); Chloride 103 mmol/L (98-107); Globulin 3.5 gm/dl (1.3-3.2); Glucose 101 mg/dL (74-106); Sodium 140 mmol/L (136-145); Total Protein,Serum 7.3 gm/dL (6.4-8.2)
--- NOTE | 2019-07-12 15:27 | Pharmacy Consult Notes ---
[facility] Pharmacy VTE Monitoring - Patient Demographics Admission date: 07/12/19 Report Date: 07/12/19 Time: 15:27 Allergies/Adverse Reactions: Patient Allergies codeine Adverse Reaction (Mild, Verified 05/24/19 11:30) NA-NAUSEA/VOMITING hydrocodone Adverse Reaction (Mild, Verified 05/24/19 11:30) NA-NAUSEA/VOMITING Height: 1.78 m Weight: 111.3 kg Patient Problems: Current Active Problems Paresthesias (Acute) SOB (shortness of breath) (Acute) - VTE Risk Labs: VTE Related Lab Results Hgb 13.8 g/dL (14.1-18.0) L 07/12/19 11:23 Hct 40.5 % (42.0-52.0) L 07/12/19 11:23 Plt Count 292 K/mm3 (142-424) 07/12/19 11:23 BUN 17 mg/dL (7-18) 07/12/19 11:23 Creatinine 1.06 mg/dL (0.70-1.30) 07/12/19 11:23 Estimated Creat Clear 116 mL/min (50-200) 07/12/19 11:23 Clinical Trial Participant: No - Prophylaxis VTE Prophylaxis Ordered?: Yes Types of VTE Prophylaxis: TEDS Knee High
--- NOTE | 2019-07-12 15:32 | Electrocardiograph Report ---
APPROVED REPORT Exam: Resting ECG HR:60 bpm ECG Measurements Heart Rate 60 AXES SD 166 P 54 QRSd 100 QRS -10 QT 442 T-13 QTc 442 <Conclusion> Electronic atrial pacemaker Electronically signed by : Francisco Mixon, 07/12/2019 15:32:04
--- NOTE | 2019-07-12 17:11 | Progress Note ---
Internal Medicine - PN: Subj *Date: 07/12/19 *Time: 17:07 Interval history: Patient presented to [facility] ER today with tingling all over his body and thought he was having a stroke. Symptoms spontaneously resolved then he had some scalp tingling and it resolved. Pt had workup for TIA in Jul 2018 at , unsure if he ever had an MRI. Exam Vital signs and Labs for Last 24 Hours: Temp Pulse Resp BP Pulse Ox 98.1 F 57 L 16 137/76 96 07/12/19 16:00 07/12/19 16:00 07/12/19 16:00 07/12/19 16:00 07/12/19 16:00 Laboratory Results - last 24 hr 07/12/19 11:23: WBC 10.1, RBC 4.47 L, Hgb 13.8 L, Hct 40.5 L, MCV 90.8, MCH 30.9, MCHC 34.0, RDW 13.9, Plt Count 292, MPV 7.9, Neut % (Auto) 58.0, Lymph % (Auto) 33.0, [place] % (Auto) 6.7, Eos % (Auto) 1.9, Baso % (Auto) 0.4, Neut # (Auto) 5.9, Lymph # (Auto) 3.4, [place] # (Auto) 0.7, Eos # (Auto) 0.2, Baso # (Auto) 0.0 07/12/19 11:23: Sodium 140, Potassium 3.6, Chloride 103, Carbon Dioxide 23, Anion Gap 17.6 H, BUN 17, Creatinine 1.06, Estimated Creat Clear 116, Estimated GFR 72, Est GFR ( Amer) 87, Glucose 101, Calcium 9.6, Total Bilirubin 0.4, AST 19, ALT 26, Alkaline Phosphatase 132 H, Troponin I < 0.02, Total Protein 7.3, Albumin 3.8, Globulin 3.5 H, Albumin/Globulin Ratio 1.1 07/12/19 14:53: Troponin I < 0.02 I & O for Last 24 hours: Intake & Output 07/09/19 07/10/19 07/11/19 07/12/19 23:59 23:59 23:59 23:59 Intake Total 240 / 240 Balance 240 / 240 Weight 245 lb 6 oz - Constitutional no acute distress - *Routine HEENT Exam Head: Present: normocephalic Eye: Present: EOMI, PERRL ENT: Present: mucous membranes moist - *Routine Neck Exam Present: supple. Absent: lymphadenopathy - *Routine Respiratory Exam Present: CTA bilaterally - *Routine Cardiovascular Exam Present: RRR - *Routine Abdominal Exam Present: soft, normoactive bowel sounds. Absent: tenderness - *Routine Extremities Exam Absent: cyanosis, clubbing, edema - *Routine Skin Exam Present: warm. Absent: rash - *Routine Neurological Exam Present: alert, oriented X3 Assessment and Plan (1) Paresthesias Current visit: Yes Status: Acute Category: Medical Code(s): R20.2 - Paresthesia of skin (2) HTN (hypertension) Current visit: No Status: Chronic Qualifiers: Hypertension type: essential hypertension Qualified Code(s): I10 - Essential (primary) hypertension Category: Medical Code(s): I10 - Essential (primary) hypertension - Assessment and plan all Dx Assessment and Plan for all problems:: Patient admitted for observation and neuro checks. He is normal now, plan to recheck labs tomorrow.
--- NOTE | 2019-07-12 18:00 | History & Physical Report ---
*Admission Date: 07/12/19 <Pat Torres 07/12/19 18:07> *Chief complaint: Tingling all over <Pat Torres 07/12/19 18:07> *History of present illness: Mr. 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 He Described some shaking with the and some shortness of air. He felt he might of been hyperventilating. He had some numbness going down his left arm. He denied having chest pain, nausea, and heart palpitations. He has experienced no upper respiratory symptoms. Patient is noted for having a TIA in July 2018 at which time he was transferred to the [facility]. CT scan was negative. He was diagnosed there with TIA likely due to small vessel disease. He states his insurance would not pay for an MRI. With evaluation in the emergency room CT scan showed no acute intracranial findings. Laboratory data reviewed showed a hemoglobin of 13.8 hematocrit of 40.5; blood chemistries with normal electrolytes and BUN of 17 with creatinine of 1.06: Troponin I has been normal x2. At the time of this exam patient is comfortable. He has just completed his dinner. He denies having any further tingling or dizziness. He is comfortable. <TorresCarolePat 07/12/19 18:07> [facility] History Medical History: Reports:: BPH, Coronary Artery Disease, Gastroesophageal Reflux Disease(GERD), Hyperlipidemia, Hypertension, Internal Pacemaker, Palpitations, Transient Ischemic Attacks (TIA) Denies:: Cancer, Diabetes Mellitus Type 1, Diabetes Mellitus Type 2, Lung Disease, MRSA, Seizures <Pat Trores 07/12/19 18:07> *Have you ever received a pneumonia vaccine?: No <Pat Torres 07/12/19 18:07> *Have you received a flu vaccine this season?: Yes <Pat Torres 07/12/19 18:07> Other Medical History: Denies: Blood Transfusion Reaction <Pat Torres 07/12/19 18:07> Laterality Cases: Left: Arthroscopy Knee, Bilateral: Carpal Tunnel Release <Pat Torres 07/12/19 18:07> Other Surgeries: Yes: Cardiac Catheterization, Colonoscopy, Hernia Repair, Pacemaker, Other (Left knee meniscus repair) <Pat Torres 07/12/19 18:07> Amputation: No <Pat Torres 07/12/19 18:07> Fractures: No <Pat Torres 07/12/19 18:07> - *Social History Educational Level: Completed High School <Pat Torres 07/12/19 18:07> Smoking Status: Former smoker <Pat Torres 07/12/19 18:07> Tobacco Type: cigarettes <Pat Torres 07/12/19 18:07> # Packs/Day (cigarettes): 1 <Pat Torres 07/12/19 18:07> Smoking End Date: 1990 <Pat Torres 07/12/19 18:07> Alcohol Intake: never <Pat Torres 07/12/19 18:07> Alcohol Intake Frequency:: other <Pat Torres 07/12/19 18:07> Substance Use Type: denies use <Pat Torres 07/12/19 18:07> *Occupational Status:: employed <Pat Torres 07/12/19 18:07> Housing: house <Pat Torres 07/12/19 18:07> Household Members: spouse <Pat Torres 07/12/19 18:07> *Travel in the last 8 weeks: None <Pat Torres 07/12/19 18:07> Family Hx:: Diabetes, Heart Attack, Hypertension <Pat Torres 07/12/19 18:07> Review of Systems - Constitutional Denies fever(s), Denies weight loss <Pat Torres 07/12/19 18:07> - Eyes Denies change in vision <Pat Torres 07/12/19 18:07> - ENT Denies ear pain, Denies headache(s), Denies nasal congestion, Denies nasal discharge, Denies sore throat <Pat Torres 07/12/19 18:07> - *Cardiovascular Denies chest pain <[facility] 07/12/19 18:07> - *Respiratory Denies chest congestion, Denies cough, Denies shortness of breath, Denies coughing up blood <[facility] 07/12/19 18:07> - *Gastrointestinal Denies abdominal pain, Denies change in bowel habits, Denies bright, red blood in stools, Denies black, tarry stools, Denies nausea, Denies vomiting <[facility] 07/12/19 18:07> - *Genitourinary Denies difficulty urinating <[facility] 07/12/19 18:07> - *Musculoskeletal Denies abnormal walking, Denies joint pain <Torres,[facility] 07/12/19 18:07> - *Neurologic Reports dizziness, Reports tingling, Denies abnormal speech, Denies behavioral changes <[facility] 07/12/19 18:07> Meds Home Medications Medication Instructions Recorded Confirmed Type finasteride 5 mg tablet 5 mg PO DAILY 07/09/17 07/12/19 History sotalol 80 mg tablet 40 mg PO BID #60 tab 04/11/19 07/12/19 Rx Amlodipine Besylate [Amlodipine 10 mg PO DAILY 05/09/19 07/12/19 History 10mg Tab] Clopidogrel Bisulfate [Plavix 75mg 75 mg PO DAILY 05/09/19 07/12/19 History Tab] Irbesartan [Irbesartan 300mg 300 mg PO DAILY 05/09/19 07/12/19 History Tablet] Pantoprazole Sodium [Protonix 40mg 40 mg PO HS 05/09/19 07/12/19 History tablet] atorvastatin 80 mg tablet 80 mg PO DAILY #90 tab 05/09/19 07/12/19 Rx hydrochlorothiazide 25 mg tablet 25 mg PO DAILY #30 tab 06/23/19 07/12/19 Rx metoprolol succinate 50 mg 50 mg PO DAILY #90 tab 06/30/19 07/12/19 Rx tablet,extended release 24 hr <Tre Woodall - 07/12/19 20:42> Allergies Allergy/AdvReac Type Severity Reaction Status Date / Time codeine AdvReac Mild NA-NAUSEA/V Verified 05/24/19 11:30 OMITING hydrocodone AdvReac Mild NA-NAUSEA/V Verified 05/24/19 11:30 OMITING <Tre Woodall - 07/12/19 20:42> Exam Vital signs and Labs for Last 24 Hours: Temp Pulse Resp BP Pulse Ox 97.8 F 60 18 133/82 94 L 07/12/19 19:45 07/12/19 19:45 07/12/19 19:45 07/12/19 19:45 07/12/19 19:45 Laboratory Results - last 24 hr 07/12/19 11:23: WBC 10.1, RBC 4.47 L, Hgb 13.8 L, Hct 40.5 L, MCV 90.8, MCH 30.9, MCHC 34.0, RDW 13.9, Plt Count 292, MPV 7.9, Neut % (Auto) 58.0, Lymph % (Auto) 33.0, [place] % (Auto) 6.7, Eos % (Auto) 1.9, Baso % (Auto) 0.4, Neut # (Auto) 5.9, Lymph # (Auto) 3.4, [place] # (Auto) 0.7, Eos # (Auto) 0.2, Baso # (Auto) 0.0 07/12/19 11:23: Sodium 140, Potassium 3.6, Chloride 103, Carbon Dioxide 23, Anion Gap 17.6 H, BUN 17, Creatinine 1.06, Estimated Creat Clear 116, Estimated GFR 72, Est GFR ( Amer) 87, Glucose 101, Calcium 9.6, Total Bilirubin 0.4, AST 19, ALT 26, Alkaline Phosphatase 132 H, Troponin I < 0.02, Total Protein 7.3, Albumin 3.8, Globulin 3.5 H, Albumin/Globulin Ratio 1.1 07/12/19 14:53: Troponin I < 0.02 07/12/19 17:53: Troponin I < 0.02 <Tre Woodall - 07/12/19 20:42> Temp Pulse Resp BP Pulse Ox 98.1 F 57 L 16 137/76 96 07/12/19 16:00 07/12/19 16:00 07/12/19 16:00 07/12/19 16:00 07/12/19 16:00 Laboratory Results - last 24 hr 07/12/19 11:23: WBC 10.1, RBC 4.47 L, Hgb 13.8 L, Hct 40.5 L, MCV 90.8, MCH 30.9, MCHC 34.0, RDW 13.9, Plt Count 292, MPV 7.9, Neut % (Auto) 58.0, Lymph % (Auto) 33.0, [place] % (Auto) 6.7, Eos % (Auto) 1.9, Baso % (Auto) 0.4, Neut # (Auto) 5.9, Lymph # (Auto) 3.4, [place] # (Auto) 0.7, Eos # (Auto) 0.2, Baso # (Auto) 0.0 07/12/19 11:23: Sodium 140, Potassium 3.6, Chloride 103, Carbon Dioxide 23, Anion Gap 17.6 H, BUN 17, Creatinine 1.06, Estimated Creat Clear 116, Estimated GFR 72, Est GFR ( Amer) 87, Glucose 101, Calcium 9.6, Total Bilirubin 0.4, AST 19, ALT 26, Alkaline Phosphatase 132 H, Troponin I < 0.02, Total Protein 7.3, Albumin 3.8, Globulin 3.5 H, Albumin/Globulin Ratio 1.1 07/12/19 14:53: Troponin I < 0.02 <Pat Torres - 07/12/19 18:07> I & O for Last 24 hours: Intake & Output 07/09/19 07/10/19 07/11/19 07/12/19 23:59 23:59 23:59 23:59 Intake Total 240 / 240 Balance 240 / 240 Weight 245 lb 6 oz <Tre Woodall - 07/12/19 20:42> Intake & Output 07/10/19 07/11/19 07/12/19 07/13/19 11:59 11:59 11:59 11:59 Intake Total 240 / 240 Balance 240 / 240 Weight 240 lb 245 lb 6 oz <Pat Torres - 07/12/19 18:07> Radiology Reports for the Last 24 Hours: CT of the head without contrast 07/12/2019 IMPRESSION: No acute intracranial finding <Pat Torres 07/12/19 18:07> - Constitutional no acute distress <Pat Torres 07/12/19 18:07> Comments: Sitting up in the bed and is just completed dinner. is at bedside <Pat Torres 07/12/19 18:07> - *Routine HEENT Exam Head: Present: normocephalic, atraumatic <Pat Torres 07/12/19 18:07> Eye: Present: EOMI, PERRL. Absent: conjunctival icterus, scleral injection <Pat Torres 07/12/19 18:07> ENT: Present: mucous membranes moist, oropharynx clear <Pat Torres 07/12/19 18:07> - *Routine Neck Exam Present: supple. Absent: carotid bruit, lymphadenopathy, thyromegaly <Pat Torres 07/12/19 18:07> - *Routine Respiratory Exam Present: CTA bilaterally (Anteriorly and posteriorly) <Pat Torres 07/12/19 18:07> - *Routine Cardiovascular Exam Present: RRR (No ectopy) <Pat Torres 07/12/19 18:07> - *Routine Abdominal Exam Present: soft, normoactive bowel sounds. Absent: tenderness, guarding <Carole Torreshy 07/12/19 18:07> - *Routine Extremities Exam Present: FAY stockings. Absent: edema, calf tenderness <Pat Torres 07/12/19 18:07> - *Routine Neurological Exam Present: alert, oriented X3, CN II-XII intact <Carole Torreshy 07/12/19 18:07> Assessment and Plan (1) Paresthesias Current visit: Yes Status: Acute Category: Medical Code(s): R20.2 - Paresthesia of skin (2) HTN (hypertension) Current visit: No Status: Chronic Qualifiers: Hypertension type: essential hypertension Qualified Code(s): I10 - Essential (primary) hypertension Category: Medical Code(s): I10 - Essential (primary) hypertension (3) History of TIA (transient ischemic attack) Current visit: Yes Status: Acute Category: Medical Code(s): Z86.73 - Personal history of transient ischemic attack (TIA), and cerebral infarction without residual deficits (4) Pacemaker Current visit: No Status: Chronic Category: Medical Code(s): Z95.0 - Presence of cardiac pacemaker <Tre Woodall - 07/12/19 20:42> (1) Paresthesias Current visit: Yes Status: Acute Category: Medical Code(s): R20.2 - Paresthesia of skin (2) HTN (hypertension) Current visit: No Status: Chronic Qualifiers: Hypertension type: essential hypertension Qualified Code(s): I10 - Essential (primary) hypertension Category: Medical Code(s): I10 - Essential (primary) hypertension (3) History of TIA (transient ischemic attack) Current visit: Yes Status: Acute Category: Medical Code(s): Z86.73 - Personal history of transient ischemic attack (TIA), and cerebral infarction without residual deficits (4) Pacemaker Current visit: No Status: Chronic Category: Medical Code(s): Z95.0 - Presence of cardiac pacemaker <Pat Torres - 07/12/19 17:54> - Assessment and plan all Dx Assessment and Plan for all problems:: Saw patient, agree with above note. <Tre Woodall - 07/12/19 20:42> monitoring tech. Repeat labs in the am. <Pat Torres - 07/12/19 18:07>
[2019-07-13 06:11] LABS: Basophils % 0.2 % (0.1-2.0); Eosinophils # 0.2 K/mm3 (0.0-0.4); Eosinophils % 1.7 % (0.1-12.0); Hematocrit 39.7 % (42.0-52.0); Lymphocytes % 20.3 % (10-50); Mean Corpuscular HGB Conc 32.8 g/dL (31.8-35.4); Mean Corpuscular Volume 95.1 fl (80-94); Mean Platelet Volume 7.8 fl (7.4-10.4); Monocytes # 0.7 K/mm3 (0.1-1.0); Monocytes % 6.7 % (1.7-9.3); Neutrophils % 71.1 % (37.0-80.0); Platelet Count 279 K/mm3 (142-424); Red Blood Count 4.18 M/mm3 (4.60-6.20); White Blood Count 9.9 K/mm3 (4.8-10.8)
[2019-07-13 06:22] LABS: Anion Gap 13.8 mEq/L (5-15)
--- NOTE | 2019-07-13 08:18 | Progress Note ---
<Matilde Mcwilliams - Last Filed: 07/13/19 08:17> Internal Medicine - PN: Subj *Date: 07/13/19 *Time: 08:17 Interval history: Patient states he is feeling better today. He denies any shortness of breath or dizziness. He has had no further numbness and tingling. He states he slept decently well last night and ate all of his breakfast today. He still feels very fatigued. He denies any pain. Exam Vital signs and Labs for Last 24 Hours: Temp Pulse Resp BP Pulse Ox 98 F 60 16 135/65 95 07/13/19 08:00 07/13/19 08:00 07/13/19 08:00 07/13/19 08:00 07/13/19 08:00 Laboratory Results - last 24 hr 07/12/19 11:23: WBC 10.1, RBC 4.47 L, Hgb 13.8 L, Hct 40.5 L, MCV 90.8, MCH 30.9, MCHC 34.0, RDW 13.9, Plt Count 292, MPV 7.9, Neut % (Auto) 58.0, Lymph % (Auto) 33.0, [place] % (Auto) 6.7, Eos % (Auto) 1.9, Baso % (Auto) 0.4, Neut # (Auto) 5.9, Lymph # (Auto) 3.4, [place] # (Auto) 0.7, Eos # (Auto) 0.2, Baso # (Auto) 0.0 07/12/19 11:23: Sodium 140, Potassium 3.6, Chloride 103, Carbon Dioxide 23, Anion Gap 17.6 H, BUN 17, Creatinine 1.06, Estimated Creat Clear 116, Estimated GFR 72, Est GFR ( Amer) 87, Glucose 101, Calcium 9.6, Total Bilirubin 0.4, AST 19, ALT 26, Alkaline Phosphatase 132 H, Troponin I < 0.02, Total Protei n 7.3, Albumin 3.8, Globulin 3.5 H, Albumin/Globulin Ratio 1.1 07/12/19 14:53: Troponin I < 0.02 07/12/19 17:53: Troponin I < 0.02 07/13/19 05:35: WBC 9.9, RBC 4.18 L, Hgb 13.0 L, Hct 39.7 L, MCV 95.1 H, MCH 31.2, MCHC 32.8, RDW 14.0, Plt Count 279, MPV 7.8, Neut % (Auto) 71.1, Lymph % (Auto) 20.3, [place] % (Auto) 6.7, Eos % (Auto) 1.7, Baso % (Auto) 0.2, Neut # (Auto) 7.0, Lymph # (Auto) 2.0, [place] # (Auto) 0.7, Eos # (Auto) 0.2, Baso # (Auto) 0.0 07/13/19 05:35: Sodium 141, Potassium 3.8, Chloride 104, Carbon Dioxide 27, Anion Gap 13.8, BUN 15, Creatinine 0.97, Estimated Creat Clear 129, Estimated GFR 79, Est GFR ( Amer) 96, Glucose 103, Calcium 9.0 I & O for Last 24 hours: Intake & Output 07/10/19 07/11/19 07/12/19 07/13/19 11:59 11:59 11:59 11:59 Intake Total 240 / 240 Balance 240 / 240 Weight 240 lb 245 lb 1 oz - Constitutional no acute distress - *Routine Respiratory Exam Present: CTA bilaterally - *Routine Cardiovascular Exam Present: RRR - *Routine Abdominal Exam Present: soft, normoactive bowel sounds. Absent: tenderness - *Routine Extremities Exam Absent: cyanosis, clubbing, edema - *Routine Skin Exam Present: warm. Absent: rash - *Routine Neurological Exam Present: alert, oriented X3 Assessment and Plan (1) Paresthesias Current visit: Yes Status: Acute Category: Medical Code(s): R20.2 - Paresthesia of skin (2) HTN (hypertension) Current visit: No Status: Chronic Qualifiers: Hypertension type: essential hypertension Qualified Code(s): I10 - Essential (primary) hypertension Category: Medical Code(s): I10 - Essential (primary) hypertension (3) History of TIA (transient ischemic attack) Current visit: Yes Status: Acute Category: Medical Code(s): Z86.73 - Personal history of transient ischemic attack (TIA), and cerebral infarction without residual deficits (4) Pacemaker Current visit: No Status: Chronic Category: Medical Code(s): Z95.0 - Presence of cardiac pacemaker - Assessment and plan all Dx Assessment and Plan for all problems:: Patient can likely be discharged today. Will discuss with Dr. Woodall. <Tre Woodall - Last Filed: 07/13/19 09:16> Internal Medicine - PN: Subj *Date: 07/13/19 *Time: 09:16 Exam Vital signs and Labs for Last 24 Hours: Temp Pulse Resp BP Pulse Ox 98 F 60 16 135/65 95 07/13/19 08:00 07/13/19 08:00 07/13/19 08:00 07/13/19 08:00 07/13/19 08:00 Laboratory Results - last 24 hr 07/12/19 11:23: WBC 10.1, RBC 4.47 L, Hgb 13.8 L, Hct 40.5 L, MCV 90.8, MCH 30.9, MCHC 34.0, RDW 13.9, Plt Count 292, MPV 7.9, Neut % (Auto) 58.0, Lymph % (Auto) 33.0, [place] % (Auto) 6.7, Eos % (Auto) 1.9, Baso % (Auto) 0.4, Neut # (Auto) 5.9, Lymph # (Auto) 3.4, [place] # (Auto) 0.7, Eos # (Auto) 0.2, Baso # (Auto) 0.0 07/12/19 11:23: Sodium 140, Potassium 3.6, Chloride 103, Carbon Dioxide 23, Anion Gap 17.6 H, BUN 17, Creatinine 1.06, Estimated Creat Clear 116, Estimated GFR 72, Est GFR ( Amer) 87, Glucose 101, Calcium 9.6, Total Bilirubin 0.4, AST 19, ALT 26, Alkaline Phosphatase 132 H, Troponin I < 0.02, Total Protein 7.3, Albumin 3.8, Globulin 3.5 H, Albumin/Globulin Ratio 1.1 07/12/19 14:53: Troponin I < 0.02 07/12/19 17:53: Troponin I < 0.02 07/13/19 05:35: WBC 9.9, RBC 4.18 L, Hgb 13.0 L, Hct 39.7 L, MCV 95.1 H, MCH 31.2, MCHC 32.8, RDW 14.0, Plt Count 279, MPV 7.8, Neut % (Auto) 71.1, Lymph % (Auto) 20.3, [place] % (Auto) 6.7, Eos % (Auto) 1.7, Baso % (Auto) 0.2, Neut # (Auto) 7.0, Lymph # (Auto) 2.0, [place] # (Auto) 0.7, Eos # (Auto) 0.2, Baso # (Auto) 0.0 07/13/19 05:35: Sodium 141, Potassium 3.8, Chloride 104, Carbon Dioxide 27, Anion Gap 13.8, BUN 15, Creatinine 0.97, Estimated Creat Clear 129, Estimated GFR 79, Est GFR ( Amer) 96, Glucose 103, Calcium 9.0 I & O for Last 24 hours: Intake & Output 07/10/19 07/11/19 07/12/19 07/13/19 23:59 23:59 23:59 23:59 Intake Total 240 / 240 Balance 240 / 240 Weight 245 lb 6 oz 245 lb 1 oz Assessment and Plan (1) Paresthesias Current visit: Yes Status: Acute Category: Medical Code(s): R20.2 - Pare sthesia of skin (2) HTN (hypertension) Current visit: No Status: Chronic Qualifiers: Hypertension type: essential hypertension Qualified Code(s): I10 - Essential (primary) hypertension Category: Medical Code(s): I10 - Essential (primary) hypertension (3) History of TIA (transient ischemic attack) Current visit: Yes Status: Acute Category: Medical Code(s): Z86.73 - Personal history of transient ischemic attack (TIA), and cerebral infarction without residual deficits (4) Pacemaker Current visit: No Status: Chronic Category: Medical Code(s): Z95.0 - Presence of cardiac pacemaker - Assessment and plan all Dx Assessment and Plan for all problems:: Saw patient, agree with above note. OK for discharge today with office f/u in 6 days to discuss further evaluation.
--- NOTE | 2019-07-15 13:56 | Discharge Summary ---
General - General Admission date:: 07/12/19 Discharge date: 07/13/19 HPI HPI: Mr. 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 He had an episode which started before the emergency room visit and then had another episode which lasted 30 minutes. He described some shaking and some shortness of air. He felt he might have been hyperventilating. He had some numbness going down his left arm. He denied having chest pain, nausea, and heart palpitations. He has experienced no upper respiratory symptoms. Patient is noted for having a TIA in July 2018 at which time he was transferred to the [facility]. CT scan was negative. He was diagnosed there with TIA likely due to small vessel disease. He states his insurance would not pay for an MRI. With evaluation in the emergency room, CT scan showed no acute intracranial findings. Laboratory data reviewed showed a hemoglobin of 13.8 hematocrit of 40.5; blood chemistries with normal electrolytes and BUN of 17 with creatinine of 1.06: Troponin I has been normal x2. At the time of this exam patient is comfortable. He has just completed his dinner. He denies having any further tingling or dizziness. He is comfortable. Hospital Course Hospital Course: The patient's initial head CT showed nothing acute. He was admitted for observation and neuro checks. He was also placed on a arts manager. By the next morning, the patient was feeling much better. He denied any shortness of breath or dizziness and had no further episodes of the numbness and tingling. He slept well and ate most of his breakfast. He denied any pain. He was stable to be discharged home and will follow-up in the office in 6 days. Objective Vital signs: Temp Pulse Resp BP Pulse Ox 98 F 60 16 135/65 95 07/13/19 08:00 07/13/19 08:00 07/13/19 08:00 07/13/19 08:00 07/13/19 08:00 Narrative: - Constitutional no acute distress Comments: Sitting up in the bed and is just completed dinner. is at bedside - *Routine HEENT Exam Head: Present: normocephalic, atraumatic Eye: Present: EOMI, PERRL. Absent: conjunctival icterus, scleral injection ENT: Present: mucous membranes moist, oropharynx clear - *Routine Neck Exam Present: supple. Absent: carotid bruit, lymphadenopathy, thyromegaly - *Routine Respiratory Exam Present: CTA bilaterally (Anteriorly and posteriorly) - *Routine Cardiovascular Exam Present: RRR (No ectopy) - *Routine Abdominal Exam Present: soft, normoactive bowel sounds. Absent: tenderness, guarding - *Routine Extremities Exam Present: FAY stockings. Absent: edema, calf tenderness - *Routine Neurological Exam Present: alert, oriented X3, CN II-XII intact DS: Diagnosis - Discharge Diagnosis (1) Paresthesias Status: Acute (2) HTN (hypertension) Status: Chronic (3) History of TIA (transient ischemic attack) Status: Acute (4) Pacemaker Status: Chronic Discharge Plan - Patient Discharge Instructions ACTIVITY: Continue current activity DIET: continue same diet Patient Instructions: DI for Numbness/tingling - Follow up Plan Follow up with: Tre Woodall MD [Primary Care Provider] - 07/19/19 10:30 am Disposition: Home, Self-[facility] Medications: Home Medications Medication Instructions Recorded Confirmed Type finasteride 5 mg tablet 5 mg PO DAILY 07/09/17 07/12/19 History sotalol 80 mg tablet 40 mg PO BID #60 tab 04/11/19 07/12/19 Rx Amlodipine Besylate [Amlodipine 10 mg PO DAILY 05/09/19 07/12/19 History 10mg Tab] Clopidogrel Bisulfate [Plavix 75mg 75 mg PO DAILY 05/09/19 07/12/19 History Tab] Irbesartan [Irbesartan 300mg 300 mg PO DAILY 05/09/19 07/12/19 History Tablet] Pantoprazole Sodium [Protonix 40mg 40 mg PO HS 05/09/19 07/12/19 History tablet] atorvastatin 80 mg tablet 80 mg PO DAILY #90 tab 05/09/19 07/12/19 Rx hydrochlorothiazide 25 mg tablet 25 mg PO DAILY #30 tab 06/23/19 07/12/19 Rx metoprolol succinate 50 mg 50 mg PO DAILY #90 tab 01/16/20 01/28/20 Rx tablet,extended release 24 hr Prescriptions/Medication Reconciliation: Continued sotalol 80 mg tablet 40 mg PO BID #60 tab atorvastatin 80 mg tablet 80 mg PO DAILY #90 tab hydrochlorothiazide 25 mg tablet 25 mg PO DAILY #30 tab finasteride 5 mg tablet 5 mg PO DAILY metoprolol succinate 50 mg tablet,extended release 24 hr 50 mg PO DAILY #90 tab Pantoprazole Sodium [Protonix 40mg tablet] 40 mg PO HS Irbesartan [Irbesartan 300mg Tablet] 300 mg PO DAILY Clopidogrel Bisulfate [Plavix 75mg Tab] 75 mg PO DAILY Amlodipine Besylate [Amlodipine 10mg Tab] 10 mg PO DAILY - Problem Reconciliation Problems Reviewed?: Yes
== END 2019-07-13 10:20 | disposition home or self-care (01) ==
LOC: ER 11:21 → 2ND 11:21
PROVIDERS: ADMIT Family Medicine; ATTEND Family Medicine
CPT/HCPCS: 36415; 70450; 80048; 80053; 84484; 85025; 93005; 99284; G0378

== ENCOUNTER → 2019-11-28 10:30 | Outpatient (CLI) | payer BC, SELFPAY ==
[2019-11-28 11:41] LABS: Creatinine,Urine Random 156 mg/dL (Not Estab.)
[2019-11-28 11:45] LABS: Microalbumin < 6.000 mg/L (0-16.7)
[2019-11-28 11:56] LABS: Alanine Aminotransferase 21 U/L (12-78); Albumin Level 4.4 g/dl (3.5-5.0); Albumin/Globulin Ratio 1.7 (1.1-1.8); Alkaline Phosphatase 116 U/L (38-126); Anion Gap 14.3 mEq/L (5-15); Aspartate Amino Transferase 27 U/L (17-59); Bilirubin,Total 0.4 mg/dl (0.2-1.3); Blood Urea Nitrogen 16 mg/dl (9-20); Calcium 9.8 mg/dl (8.4-10.2); Carbon Dioxide 30 mmol/L (22.0-30.0); Chloride 99 mmol/L (98-107); Cholesterol 113 mg/dl (140-200); Estimated Glomerular Filt Rate 86 ml/min (>60); GFR (African American) 105 ML/MIN (>60); Globulin 2.6 g/dL (1.3-3.2); Glucose 108 mg/dl (74-100); HDL Cholesterol 38 mg/dl (40-60); Potassium 4.3 mmoL/L (3.5-5.1); Sodium 139 mmol/L (136-145); Triglycerides 129 mg/dl (30-150); VLDL Cholesterol 26 mg/dL (0-40)
[2019-11-28 12:25] LABS: Prostate Specific Ag Screen 0.3 ng/ml (0.0-4.0); Thyroid Stimulating Hormone 0.89 uIU/mL (0.465-4.68)
[2019-11-28 13:39] LABS: Direct LDL Cholesterol 63.17 mg/dL (100-129)
== END ==
PROVIDERS: Visit Provider Family Medicine
DX: E78.00 Pure hypercholesterolemia, unspecified (principal); I10 Essential (primary) hypertension; Z12.5 Encounter for screening for malignant neoplasm of prostate
CPT/HCPCS: 36415; 80053; 80061; 82043; 82570; 84443; G0103

== ENCOUNTER → 2019-11-29 11:15 | Outpatient (CLI) | payer BC, SELFPAY ==
--- NOTE | 2019-11-29 | CA_ITS ---
APPROVED REPORT Exam: Pharmacologic Technologist: Eva Moore Ht: 5 ft 9 in Wt: 248 lbs BSA: 2.26 m2 HR: 60 bpm BP: 141/87 mmHg Indications: Dizziness, Chest pain Medical History Medications: Amlodipine,,,,, Irbesartan,,,,, Sotalol,,,,, Pantoprazole,,,,, Atorvastatin,,,,, HCTZ,,,,, CloPIdogrel,,,,, Finasteride,,,,, Stress Test Details Test: LEXISCAN HR Resting HR: 60 bpm Max Heart Rate (APMHR): 161 bpm Max HR Achieved: 96 bpm Target HR (85% APMHR): 136 bpm % of APMHR: 59 Recovery HR: 66 bpm BP Resting BP: 141.0/87.0 mmHg Max BP: 141.0/87.0 mmHg Recovery BP: 135.0/80.0 mmHg ECG Clinical Exercise duration: 04:08 min Highest Stage Achieved: Exercise capacity: 1.0 METs Stress ECG Conclusion Resting ECG: Atrial paced rhythm, NS T wave abnormalities, PVC Symptoms: Mild chest pressure, malaise, cold chills, shakes/tremor, mild nausea Arrhythmias/Ectopy: Occasional PVC ST-T Changes: Exaggeration of baseline T wave abnormality Conclusion: Non-diagnostic Lexiscan stress. Myoview images reported separately. Test Summary REST . . . . . . . Resting REST 02:32 . . 60 . 141/ 87 . . Stage 1 . . . . . . . Myoview Injected Stage 1 01:00 . . 72 . . . . Stage 2 01:00 . . 79 . 121/ 71 . . Stage 3 01:00 . . 72 . . . . Stage 4 01:00 . . 68 . 115/ 68 . . Stage 4 01:08 . . 69 . 115/ 68 . Stop exercise at 04:08 RECOVERY 01:00 . . 69 . 121/ 69 . . RECOVERY 02:00 . . 68 . 121/ 69 . . RECOVERY 03:00 . . 70 . 111/ 75 . . RECOVERY 04:00 . . 71 . 132/ 75 . . RECOVERY 05:00 . . 71 . 132/ 75 . . RECOVERY 06:00 . . 73 . 132/ 75 . . RECOVERY 07:00 . . 82 . 132/ 75 . . RECOVERY . . . . . . . chest pressure RECOVERY 08:00 . . 85 . 132/ 75 . . RECOVERY 09:00 . . 82 . 132/ 75 . . RECOVERY 10:00 . . 75 . 132/ 75 . . RECOVERY 11:00 . . 67 . 132/ 75 . . RECOVERY 12:00 . . 79 . 132/ 75 . . RECOVERY 13:00 . . 65 . 132/ 75 . . RECOVERY 14:00 . . 63 . 135/ 80 . . RECOVERY 14:09 . . 63 . 135/ 80 . . Electronically signed by : Tulio Meyer, 12/02/2019 11:29:24
--- NOTE | 2019-11-29 11:15 | NM_ITS ---
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 With Lexiscan, patient denied any complaint of chest pain. Cardiac Stress and Resting SPECT Images: Cardiac Stress and Resting SPECT images were obtained using technetium 99m Myoview 31.4 mCi stress and 10.77 mCi at rest. Ejection fraction is lower normal at 55%. No fixed or reversible defects. No evidence of ischemia or infarction Conclusion: Ejection fraction is lower normal at 55%. No fixed or reversible defects. No evidence of ischemia or infarction Electronically signed by : Jayson Quinones MD 12/02/2019 14:32:35
--- NOTE | 2019-11-29 12:28 | HMH.ITSHM ---
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 []HYDROCHLOROT FINASTERIDE PANTOPRAZOLE ATORVASTATIN SOTALOL CLOPIDOGREL AMLODIPINE IRBESARTAN METOPROLOL
== END ==
LOC: RAD 11:15
PROVIDERS: PCP Family Medicine; Visit Provider Urology
DX: R42 Dizziness and giddiness (principal); R55 Syncope and collapse; R06.02 Shortness of breath; E78.2 Mixed hyperlipidemia; I10 Essential (primary) hypertension; I25.118 Atherosclerotic heart disease of native coronary artery with other forms of angina pectoris; I63.9 Cerebral infarction, unspecified; I65.29 Occlusion and stenosis of unspecified carotid artery; R20.0 Anesthesia of skin; E78.5 Hyperlipidemia, unspecified; I25.10 Atherosclerotic heart disease of native coronary artery without angina pectoris; Z86.73 Personal history of transient ischemic attack (TIA), and cerebral infarction without residual deficits; Z95.0 Presence of cardiac pacemaker
CPT/HCPCS: 78452; 93017; 93306; A9502; J2785

== ENCOUNTER 2020-04-04 09:34 | Emergency (ER) | payer BC, SELFPAY ==
[2020-04-04 09:45] VITALS: BP 145/84; PULSE 63; RESP 18; TEMP 36.7; O2SAT 97; BMI 34.4
--- NOTE | 2020-04-04 10:04 | HMH.EDUTC ---
[facility] [place]position Clinical Impression: Cough Sinusitis Qualifiers: Sinusitis location: unspecified location Chronicity: unspecified Qualified Code(s): J32.9 - Chronic sinusitis, unspecified Disposition: Home, Self-Care Condition on Discharge: Good Instructions: Sinusitis, Cough, DI for Sinusitis, Benzonatate, Amoxicillin and Clavulanic Acid, Fluticasone Nasal [place] Additional Instructions: ? Start antibiotic today. Be sure to complete entire prescription even if feeling better ? Monitor temp. Tylenol every 4 hours as needed and / or ibuprofen every 6 hours as needed ( As long as your primary care physician has told you that it ok to take both. For fever/aches/pains ER if no less than 101 despite Tylenol or Motrin ? Humidifier/vaporizer or hot steamy shower *Tessalon Perles will not cause drowsiness but use at bedtime to help stop cough so that you may get some rest. *Warm salt water gargles may help to soothe the throat *Throat Lozenges *Warm fluids like tea with honey may help to soothe the throat *Sleep elevated *Humidifier/Vaporizer *Flonase 2 sprays in each nostril daily but be aware that it may take 2-3 days before you notice improvement Follow up IMMEDIATELY for new or worsening of symptoms OR no noticeable improvement over the next 48-72 hours. 911 immediately for any life threatening symptoms such as chest pain or difficulty breathing Prescriptions: Amoxicillin/Potassium Clav [Augmentin 875-125 Tablet] 1 tab PO Q12H 7 Days #14 tab Transmission Status: Received by [id number] Fluticasone Propionate [Flonase 50mcg nasal spray 16gm] 1 spr NS DAILY #1 bottle Transmission Status: Received by [id number] Benzonatate [Tessalon Perle 100mg Cap*] 100 mg PO TID PRN #15 cap PRN Reason: Cough Transmission Status: Received by [id number] Referrals: Tre Woodall MD [Primary Care Provider] - As needed Time of Disposition: 10:14 Medical Decision Making - Mike Inquiry Pt receiving controlled substance: No Mike was queried for this patient: No Vital Signs: 04/04/20 09:45 04/04/20 10:27 Temperature 98.1 F 98.1 F Temperature Source Oral Oral Pulse Rate 63 Pulse Rate [Radial] 63 Respiratory Rate 18 18 Blood Pressure 145/84 H Blood Pressure [Right Arm] 145/84 H Blood Pressure Mean [Right Arm] 104 Blood Pressure Source Automatic Cuff Blood Pressure Source [Right Arm] Automatic Cuff Blood Pressure Position Sitting Blood Pressure Position [Right Arm] Sitting 02 Sat by Pulse Oximetry 97 Oxygen Delivery Method Room Air Room Air [facility] [place] HPI - General Stated complaint: cough,runny nose Time Seen by Provider: 04/04/20 10:04 Mode of Arrival: Ambulatory Source of Information: Patient Limitations: No Limitations Description of Symptoms (Recalled from Triage Doc. by RN): cough, runny nose HEENT Symptoms (Recalled from RN notes): Yes Resp Symptoms (Recalled from RN notes): No Skin Symptoms (Recalled from RN notes): No MS Symptoms (Recalled from RN notes): No Functional Status (Recalled from RN notes): wnl - History of Present Illness Provider Complaint: Patient state that he has been having sinus pain and pressure along with cough for about two weeks States that he spoke with PCP last week and was given a script for antihistamine and he has been taking it but hasn't helped much State that cough is worse when he lays down and drainage went from clear to yellowish green - Related Data Home Medications Medication Instructions Recorded Confirmed finasteride 5 mg tablet 5 mg PO DAILY 07/09/17 12/07/19 Amlodipine Besylate [Amlodipine 10 mg PO DAILY 05/09/19 12/07/19 10mg Tab] Pantoprazole Sodium [Protonix 40mg 40 mg PO HS 05/09/19 12/07/19 tablet] Previous Rx's Medication Instructions Recorded sotalol 80 mg tablet 40 mg PO BID #60 tab 04/11/19 atorvastatin 80 mg tablet 80 mg PO DAILY #90 tab 05/09/19 metoprolol succinate 50 mg 50 mg PO DAILY #90 tab 06/15
[2020-04-04 10:27] VITALS: BP 145/84; PULSE 63; RESP 18; TEMP 36.7; O2SAT 97
== END 2020-04-04 10:28 | disposition home or self-care (01) ==
PROVIDERS: Emergency Provider Nurse Practitioner; PCP Family Medicine
DX: J32.9 Chronic sinusitis, unspecified (principal); I25.10 Atherosclerotic heart disease of native coronary artery without angina pectoris; K21.9 Gastro-esophageal reflux disease without esophagitis; E78.5 Hyperlipidemia, unspecified; I10 Essential (primary) hypertension; Z95.0 Presence of cardiac pacemaker; Z87.891 Personal history of nicotine dependence; Z86.73 Personal history of transient ischemic attack (TIA), and cerebral infarction without residual deficits
CPT/HCPCS: 99201

== ENCOUNTER → 2020-07-30 11:55 | Outpatient (CLI) | payer BC, SELFPAY ==
[2020-07-30 12:42] LABS: Basophils % 0.3 % (0.1-2.0); Eosinophils # 0.1 K/mm3 (0.0-0.4); Eosinophils % 0.8 % (0.1-12.0); Hematocrit 40.8 % (42.0-52.0); Hemoglobin 13.9 g/dL (14.1-18.0); Lymphocytes # 2.3 K/mm3 (0.7-4.5); Mean Corpuscular Hemoglobin 30.9 pg (27.0-31.2); Mean Platelet Volume 8.1 fl (7.4-10.4); Monocytes # 0.7 K/mm3 (0.1-1.0); Neutrophils # 5.6 K/mm3 (1.8-7.8); Neutrophils % 64.8 % (37.0-80.0); Platelet Count 294 K/mm3 (142-424); Red Blood Count 4.49 M/mm3 (4.60-6.20); Red Cell Distribution Width 14.2 % (11.5-17.5); White Blood Count 8.6 K/mm3 (4.8-10.8)
== END ==
PROVIDERS: PCP Family Medicine; Visit Provider Family Medicine
DX: Z20.822 Contact with and (suspected) exposure to COVID-19 (principal)
CPT/HCPCS: 36415; 85025; 87275; 87276; U0003

== ENCOUNTER → 2020-12-11 15:55 | Outpatient (CLI) | payer BC, SELFPAY | PROVIDERS: Visit Provider Surgery | DX: Z01.818 Encounter for other preprocedural examination (principal) | CPT/HCPCS: U0003 ==

== ENCOUNTER 2020-12-13 07:48 | Day surgery (SDC) | payer BC, SELFPAY ==
[2020-12-13] VITALS (9 sets, daily range): BP systolic 108–129; BP diastolic 45–91; PULSE 58–69; RESP 16–18; TEMP 36.7–37; O2SAT 94–98
--- NOTE | 2020-12-13 09:44 | P.PCN_ITS ---
- Procedure: Date: 12/13/20 Patient Date of :: 1960 Procedure Performed:: Colonoscopy Indications:: History of colon polyps Performing Provider:: Edilson Mcnamara MD Referring Provider:: . Sedation:: Monitored anesthesia care Procedure:: After informed consent was obtained the patient was taken to the endoscopy suite. Sedation ensued after the patient was transferred to the left lateral decubitus position. Pulse, blood pressure, and oxygen saturation were monitored throughout the procedure. Digital rectal exam revealed no significant abnor mality. The colonoscope was placed in position. The entire colon was evaluated. The colonoscope was carefully removed and the patient was transferred to recovery in stable condition. Please see findings and specimens below for detail. Findings:: Bowel preparation relatively fair Fairly significant spasticity and tortuosity Mild scattered sigmoid diverticulosis Specimens:: None Recommendations:: Repeat colonoscopy in 3 years secondary to history of complex polyps and history of limited visualization. Complications:: No immediate Estimated blood obtained (mL): 0
--- NOTE | 2020-12-13 10:45 | XR_ITS ---
PROCEDURE: XR ACUTE ABDOMEN SERIES CLINICAL INDICATION: abdominal pain s/p colonoscopy COMPARISON: No exams were available for comparison FINDINGS: Upright and supine views of the abdomen demonstrates a moderate amount colonic gas status post colonoscopy. No obvious free air is evident however the apex of the diaphragm on the right is clipped off on the upright view and should be repeated at no additional charge. Cardiac pacemaker device is present. IMPRESSION: Gaseous filled: Status post colonoscopy. No definite free air however, the right hemidiaphragm is clipped on the exam and should be repeated at no additional charge. Dictated by: Jayson Quinones MD 12/13/2020 11:08 Jayson Quinones MD in [place] 12/13/2020 11:08
--- NOTE | 2020-12-13 13:13 | HMH.ANESCL ---
[facility] Anesthesia Checklist - Patient Identification Patient Identification: Arm Band - Structural Data Admitted From: Home Planned Operative Procedure/s: Colonoscopy Consent for Planned Operative Procedure(s) Verified: Yes Verified Documents: Surgical Consent, History and Physical - NPO Status Verified Time NPO: 00:00 - Additional verifications Anesthesia Reactions: No Hx Blood Transfusions: No Blood Transfusion Reaction: No - Airway Assessment C-Spine Mobility Assessed: Yes TMJ Mobility Assessed: Yes Dentition: Good Dentition - Neurological Assessment Level of Consciousness: Awake, Alert - Anesthesia Plan Anesthesia Risk discussed: Yes Anesthesia Plan: Verified ASA Class: III Anesthesia Type: MAC [facility] History Medical History: Reports:: BPH, Carotid Stenosis, Coronary Artery Disease, Gastroesophageal Reflux Disease(GERD), Hyperlipidemia, Hypertension, Internal Pacemaker, Palpitations, Transient Ischemic Attacks (TIA) Denies:: Cancer, Diabetes Mellitus Type 1, Diabetes Mellitus Type 2, Lung Disease, MRSA, Seizures *Have you ever received a pneumonia vaccine?: No *Have you received a flu vaccine this season?: Yes Other Medical History: Denies: Blood Transfusion Reaction Anesthesia experience/problems:: None Laterality Cases: Left: Arthroscopy Knee, Bilateral: Carpal Tunnel Release Other Surgeries: Yes: No Previous Surgery, Cardiac Catheterization, Colonoscopy, Hernia Repair, Pacemaker, Other (Left knee meniscus repair) Amputation: No Fractures: No - *Social History Smoking Status: Former smoker Tobacco Type: cigarettes # Packs/Day (cigarettes): 1 Alcohol Intake: never Alcohol Intake Frequency:: other Substance Use Type: denies use *Occupational Status:: employed Housing: house Household Members: spouse *Travel in the last 8 weeks: None Family Hx:: Diabetes, Heart Attack, Hypertension
== END 2020-12-13 11:49 | disposition home or self-care (01) ==
LOC: OUTP 07:49
PROVIDERS: PCP Family Medicine; Visit Provider Surgery
PROC: 0DJD8ZZ Inspection of Lower Intestinal Tract, Via Natural or Artificial Opening Endoscopic (ICD-10-PCS; CPT 45378; principal; 2020-12-13 08:30)
DX: Z12.11 Encounter for screening for malignant neoplasm of colon (principal); Z86.010 Personal history of colon polyps; K56.2 Volvulus; K57.30 Diverticulosis of large intestine without perforation or abscess without bleeding
CPT/HCPCS: 45378; 74021

== ENCOUNTER → 2021-06-14 01:02 | Outpatient (CLI) | payer BC, SELFPAY | PROVIDERS: PCP Family Medicine; Visit Provider Nurse Practitioner | DX: U07.1 COVID-19 (principal) | CPT/HCPCS: C9803; U0003; U0005 ==

== ENCOUNTER 2021-11-30 13:14 | Emergency (ER) | payer BC, SELFPAY ==
[2021-11-30] VITALS (10 sets, daily range): BP systolic 110–141; BP diastolic 67–81; PULSE 60–66; RESP 15–20; TEMP 36.8; O2SAT 95–97; BMI 36.1
--- NOTE | 2021-11-30 13:18 | ECG_ITS ---
APPROVED REPORT Exam: Resting ECG HR:65 bpm ECG Measurements Heart Rate 65 AXES AR 176 P 47 QRSd 102 QRS -17 QT 393 T -5 QTc 404 Conclusion SINUS RHYTHM NORMAL ECG UNCONFIRMED REPORT Electronically signed by : Francisco Mixon MD 12/01/2021 18:42:53
--- NOTE | 2021-11-30 13:24 | XR_ITS ---
PROCEDURE INFORMATION: Exam: XR Chest Exam date and time: 11/30/2021 2:07 PM Age: 61 years old Clinical indication: Chest wall pain; Additional info: Chest pain TECHNIQUE: Imaging protocol: Radiologic exam of the chest. Views: 1 view. COMPARISON: CR CXR2V XR chest 2V 08/06/2018 8:10 PM FINDINGS: Tubes, catheters and devices: There is a pacemaker in place from a left-sided approach. Lungs: No consolidation. Pleural spaces: No pleural effusion. No pneumothorax. Heart/Mediastinum: No cardiomegaly. Vasculature: The aorta is tortuous. Bones/joints: There are degenerative changes of the spine shoulders. IMPRESSION: 1. No evidence of active pulmonary disease. 2. A followup PA and lateral radiograph is recommended when the patient is clinically able.
--- NOTE | 2021-11-30 13:25 | CT_ITS ---
PROCEDURE INFORMATION: Exam: CT Head Without Contrast Exam date and time: 11/30/2021 1:58 PM Age: 61 years old Clinical indication: Weakness, extremity; Bilateral; Additional info: Weakness in bilateral arms TECHNIQUE: Imaging protocol: Computed tomography of the head without contrast. Radiation optimization: All CT scans at this facility use at least one of these dose optimization techniques: automated exposure control; mA and/or kV adjustment per patient size (includes targeted exams where dose is matched to clinical indication); or iterative reconstruction. COMPARISON: CT HEAD/BRAIN WO CON 07/12/2019 11:31 AM FINDINGS: Brain: No acute hemorrhage. There are some areas of low attenuation within the periventricular white matter most consistent with the sequela of prior small vessel ischemia. No mass effect. Cerebral ventricles: No ventriculomegaly. Paranasal sinuses: There are retention cysts/polyps in the right maxillary sinus with the largest measuring up to 2.5 cm. Mastoid air cells: Visualized mastoid air cells are well aerated. Auditory system: There is material in the external auditory canals bilaterally, which presumably represents cerumen. Bones/joints: No acute fracture. Soft tissues: Unremarkable. IMPRESSION: There is no acute intracranial abnormality.
--- NOTE | 2021-11-30 13:25 | HMH.EDGENADL ---
ED Disposition Clinical Impression: Dizziness, Numbness and tingling in both hands Chest pain Qualifiers: Chest pain type: unspecified Qualified Code(s): R07.9 - Chest pain, unspecified Disposition: Home, Self-Care Condition on Discharge: Good Referrals: Tre Woodall MD [Primary Care Provider] - - Critical Care Critical Care Time: Yes Attestation: On , the high probability of a clinically significant, sudden or life threatening deterioration of the following system(s) required my full and direct attention, intervention and personal management. The time I documented below is in addition to time spent performing reported procedures but includes the following listed in this critical care notation. Total Critical Care Time: 30 Vital system(s) involved:: Central Nervous System My critical care processes included: Assessment & monitoring of V/S, Initial and Re-exams, Data Review/Interpretation, Documentation Medical Decision Making - Medical Records Medical records reviewed: Yes: I reviewed the patient's medical records. - Mike Inquiry Pt receiving controlled substance: No Vital Signs: 11/30/21 13:14 11/30/21 14:30 11/30/21 15:01 Temperature 98.2 F Temperature Source Oral Pulse Rate 66 62 Pulse Rate [Left Radial] 66 Respiratory Rate 18 20 15 Blood Pressure 110/71 118/67 Blood Pressure [Right Arm] 141/71 H Blood Pressure Mean 81 83 Blood Pressure Mean [Right Arm] 94 Blood Pressure Source [Right Arm] Automatic Cuff Blood Pressure Position [Right Arm] Sitting 02 Sat by Pulse Oximetry 97 95 97 Oxygen Delivery Method Room Air 11/30/21 15:31 11/30/21 16:01 Temperature Temperature Source Pulse Rate 62 62 Pulse Rate [Left Radial] Respiratory Rate 18 19 Blood Pressure 115/74 123/69 Blood Pressure [Right Arm] Blood Pressure Mean 81 79 Blood Pressure Mean [Right Arm] Blood Pressure Source [Right Arm] Blood Pressure Position [Right Arm] 02 Sat by Pulse Oximetry 95 96 Oxygen Delivery Method - Lab Data Lab results reviewed: Yes: I reviewed the patient's lab results. Lab Results 11/30/21 13:15: Sodium 141, Potassium 3.6, Chloride 108 H, Carbon Dioxide 24, Anion Gap 12.6, BUN 17, Creatinine 1.10, Estimated Creat Clear 111, Estimated GFR 68, Est GFR ( Amer) 82, Glucose 121 H, Calcium 9.9, Troponin I < 0.01 11/30/21 13:15: WBC 10.2, RBC 4.49 L, Hgb 13.9 L, Hct 41.7 L, MCV 93.0, MCH 31.0, MCHC 33.4, RDW 14.6, Plt Count 291, MPV 8.7, Neut % (Auto) 73.3, Lymph % (Auto) 18.5, Butts % (Auto) 5.0, Eos % (Auto) 2.6, Baso % (Auto) 0.6, Neut # (Auto) 7.5, Lymph # (Auto) 1.9, Butts # (Auto) 0.5, Eos # (Auto) 0.3, Baso # (Auto) 0.1 11/30/21 13:18: POC Glucose 110 11/30/21 16:45: Troponin I < 0.01 Result diagrams: 11/30/21 13:15 11/30/21 13:15 Orders (Tests/Meds): ED MEDICATIONS Discontinued Medications Generic Name Dose Route Start Last Admin Trade Name Bridger PRN Reason Stop Dose Admin Lactated Ringer's 1,000 mls @ 999 mls/hr 11/30/21 14:30 11/30/21 14:30 Lactated Ringer's 1000 Ml Bag IV 11/30/21 15:30 999 mls/hr .Q1H1M SLADE Administration Iopamidol 100 ml 11/30/21 14:54 11/30/21 14:55 Iopamidol-370 (76%);100ml Bottle IV 11/30/21 14:55 100 ml ONCE ONE Administration Sodium Chloride 50 ml 11/30/21 14:54 11/30/21 14:55 0.9 % Sodium Chloride 50 Ml Vial IV 11/30/21 14:55 50 ml ONCE ONE Administration Sodium Chloride 10 ml 11/30/21 14:54 11/30/21 14:55 Sodium Chloride 0.9% 10ml Syr (Rad Only) IV 11/30/21 14:55 10 ml ONCE ONE Administration ORDERS Category Date Time Status Troponin I Q3H Lab 11/30/21 19:30 Ordered Medical Decision Narrative: Patient is a 61-year-old male with a history of CAD and TIAs presenting with a chief complaint of presyncope, generalized weakness and bilateral tingling of upper extremities. Differential diagnosis includes, but is not limited to, heat exhaustion, heat stroke, TIA, CVA, e
[2021-11-30 13:27] LABS: POC Glucose,Bedside 110 (70-110)
[2021-11-30 13:45] LABS: Chloride 108 mmol/L (98-107); Sodium 141 mmol/L (136-145)
[2021-11-30 13:46] LABS: Potassium 3.6 mmoL/L (3.5-5.1)
[2021-11-30 13:49] LABS: Anion Gap 12.6 mEq/L (5-15); Blood Urea Nitrogen 17 mg/dl (9-20); Carbon Dioxide 24 mmol/L (22.0-30.0); Creatinine Clearance Estimated 111 mL/min (50-200); Estimated Glomerular Filt Rate 68 ml/min (>60); GFR (African American) 82 ML/MIN (>60)
--- NOTE | 2021-11-30 13:53 | PC.NURSE ---
came out of pt room stating that she wants a stroke alert called on pt at this time.
--- NOTE | 2021-11-30 13:54 | PC.NURSE ---
Radiology has been called for patient.
--- NOTE | 2021-11-30 13:54 | PC.NURSE ---
radiology notified of ct head needing done for stroke alert
[2021-11-30 13:55] LABS: Calcium 9.9 mg/dl (8.4-10.2); Glucose 121 mg/dl (74-100)
--- NOTE | 2021-11-30 14:02 | PC.NURSE ---
PT TO RAD FOR CT
[2021-11-30 14:03] LABS: Basophils # 0.1 K/mm3 (0-0.2); Basophils % 0.6 % (0.1-2.0); Eosinophils # 0.3 K/mm3 (0.0-0.4); Eosinophils % 2.6 % (0.1-12.0); Hematocrit 41.7 % (42.0-52.0); Hemoglobin 13.9 g/dL (14.1-18.0); Lymphocytes # 1.9 K/mm3 (0.7-4.5); Lymphocytes % 18.5 % (10-50); Mean Corpuscular HGB Conc 33.4 g/dL (31.8-35.4); Mean Platelet Volume 8.7 fl (7.4-10.4); Monocytes # 0.5 K/mm3 (0.1-1.0); Neutrophils # 7.5 K/mm3 (1.8-7.8); Neutrophils % 73.3 % (37.0-80.0); Platelet Count 291 K/mm3 (142-424); Red Blood Count 4.49 M/mm3 (4.60-6.20); Red Cell Distribution Width 14.6 % (11.5-17.5); White Blood Count 10.2 K/mm3 (4.8-10.8)
[2021-11-30 14:04] LABS: Troponin I < 0.01 ng/ml (0.00-0.034)
--- NOTE | 2021-11-30 14:04 | PC.NURSE ---
ZENOBIA GARNER ON PHONE WITH [facility] FOR REQUEST FOR TRANSFER
--- NOTE | 2021-11-30 14:13 | CT_ITS ---
PROCEDURE INFORMATION: Exam: CTA Head With Contrast, Arteriography Exam date and time: 11/30/2021 2:34 PM Age: 61 years old Clinical indication: Stroke-like symptoms; Dizziness/giddiness and drowsines/somnolence; Rudy upper extremity and RT lower extremity weakness; Additional info: Acute rle weakness, bilateral arm tingling TECHNIQUE: Imaging protocol: Computed tomographic angiography of the head with contrast. Exam focused on the arteries. 3D rendering (Not supervised by radiologist): MIP and/or 3D reconstructed images were created by the technologist. Radiation optimization: All CT scans at this facility use at least one of these dose optimization techniques: automated exposure control; mA and/or kV adjustment per patient size (includes targeted exams where dose is matched to clinical indication); or iterative reconstruction. Contrast material: ISOVUE; Contrast volume: 100 ml; Contrast route: INTRAVENOUS (IV); COMPARISON: CT HEAD/BRAIN WO CON 11/30/2021 1:58 PM FINDINGS: ANTERIOR CIRCULATION: Right internal carotid artery: Intracranial segment is patent with no significant stenosis. No aneurysm. Right middle cerebral artery: No occlusion or significant stenosis. No aneurysm. Right anterior cerebral artery: The right A1 segment is diminutive. The right A2 is small. Left internal carotid artery: Intracranial segment is patent with no significant stenosis. No aneurysm. Left middle cerebral artery: No occlusion or significant stenosis. No aneurysm. Left anterior cerebral artery: No occlusion or significant stenosis. No aneurysm. POSTERIOR CIRCULATION: Right vertebral artery: No occlusion or significant stenosis. No aneurysm. Left vertebral artery: The intradural segment of the left vertebral artery is diminutive. Basilar artery: No occlusion or significant stenosis. No aneurysm. Right posterior cerebral artery: There is a origin of the right [employer]. Left posterior cerebral artery: No occlusion or significant stenosis. No aneurysm. IMPRESSION: No intracranial large vessel stenosis or occlusion.
--- NOTE | 2021-11-30 14:15 | CT_ITS ---
PROCEDURE INFORMATION: Exam: CTA Neck With Contrast Exam date and time: 11/30/2021 2:34 PM Age: 61 years old Clinical indication: Stroke-like symptoms; Additional info: Acute rle weankess TECHNIQUE: Imaging protocol: Computed tomographic angiography of the neck with contrast. 3D rendering (Not supervised by radiologist): MIP and/or 3D reconstructed images were created by the technologist. Radiation optimization: All CT scans at this facility use at least one of these dose optimization techniques: automated exposure control; mA and/or kV adjustment per patient size (includes targeted exams where dose is matched to clinical indication); or iterative reconstruction. Contrast material: ISOVUE; Contrast volume: 100 ml; Contrast route: INTRAVENOUS (IV); COMPARISON: US CA carotid duplex BI 12/28/2017 9:28 AM FINDINGS: Tubes, catheters and devices: There is a pacemaker in place from a left-sided approach. Right common carotid artery: No stenosis. No dissection or occlusion. Right internal carotid artery: There is atherosclerotic disease at the origin right ICA without narrowing. Right external carotid artery: No occlusion or stenosis of the origin. Left common carotid artery: No stenosis. No dissection or occlusion. Left internal carotid artery: There is atherosclerotic disease at the origin left ICA without narrowing. Left external carotid artery: No occlusion or stenosis of the origin. Right vertebral artery: No stenosis. No dissection or occlusion. Left vertebral artery: No stenosis. No dissection or occlusion. Soft tissues: Normal. No significant soft tissue swelling. Bones/joints: There are degenerative changes throughout the spine. The maxilla is edentulous. IMPRESSION: No cervical arterial stenosis or occlusion. REFERENCES: NASCET CRITERIA. The degree of internal carotid artery stenosis is based on NASCET criteria. Normal is no stenosis. Mild is less than 50% stenosis. Moderate is 50-69% stenosis. Severe is 70% to 99% stenosis. Total occlusion is no detectable patent lumen.
--- NOTE | 2021-11-30 15:48 | PC.NURSE ---
Went in to check on patient. Patient and family did not need anything at this time.
[2021-11-30 17:27] LABS: Troponin I < 0.01 ng/ml (0.00-0.034)
== END 2021-11-30 18:30 | disposition home or self-care (01) ==
PROVIDERS: Emergency Provider Emergency Medicine; PCP Family Medicine
DX: R07.9 Chest pain, unspecified (principal); R00.2 Palpitations; R55 Syncope and collapse; R53.1 Weakness; R20.2 Paresthesia of skin; R53.82 Chronic fatigue, unspecified; I25.10 Atherosclerotic heart disease of native coronary artery without angina pectoris; I65.29 Occlusion and stenosis of unspecified carotid artery; E78.5 Hyperlipidemia, unspecified; K21.9 Gastro-esophageal reflux disease without esophagitis; E11.9 Type 2 diabetes mellitus without complications; N40.0 Benign prostatic hyperplasia without lower urinary tract symptoms; Z79.02 Long term (current) use of antithrombotics/antiplatelets; Z79.899 Other long term (current) drug therapy; Z88.5 Allergy status to narcotic agent; Z88.6 Allergy status to analgesic agent; Z95.0 Presence of cardiac pacemaker; Z86.73 Personal history of transient ischemic attack (TIA), and cerebral infarction without residual deficits; Z87.891 Personal history of nicotine dependence; Z82.49 Family history of ischemic heart disease and other diseases of the circulatory system; Z83.3 Family history of diabetes mellitus
CPT/HCPCS: 36415; 70450; 70496; 70498; 71045; 80048; 82962; 84484; 85025; 93005; 96360; 99285; Q9967

== ENCOUNTER → 2022-08-14 12:08 | Outpatient (CLI) | payer BC, SELFPAY ==
[2022-08-14 13:35] LABS: Chloride 103 mmol/L (98-107); Sodium 139 mmol/L (136-145)
[2022-08-14 13:38] LABS: Blood Urea Nitrogen 17 mg/dl (9-20); Carbon Dioxide 29 mmol/L (22.0-30.0); Estimated Glomerular Filt Rate 86 ml/min (>60); GFR (African American) 103 ML/MIN (>60)
[2022-08-14 13:39] LABS: Calcium 9.2 mg/dl (8.4-10.2); Glucose 104 mg/dl (74-100)
== END ==
LOC: LAB 12:09
PROVIDERS: PCP Family Medicine; Visit Provider Nurse Practitioner Family
DX: R06.00 Dyspnea, unspecified (principal); I25.118 Atherosclerotic heart disease of native coronary artery with other forms of angina pectoris
CPT/HCPCS: 36415; 80048

== ENCOUNTER → 2022-09-08 10:46 | Outpatient (CLI) | payer BC, SELFPAY ==
--- NOTE | 2022-09-08 10:53 | XR_ITS ---
FINAL REPORT CLINICAL HISTORY: LOW BACK PAIN...no trauma FINDINGS: LUMBAR SPINE AP, lateral, and oblique views of the lumbar spine were obtained. There is no acute fracture or acute malalignment. Vertebral body height is preserved. There is multilevel degenerative disc disease, most pronounced at L5-S1. No acute paraspinal abnormality is identified. IMPRESSION: No acute osseous abnormalities. Multilevel degenerative disc disease, most pronounced at L5-S1. Reviewed, Interpreted and Dictated by Blank Perera MD Transcribed by Mireya Hi Authenticated and [facility][1]
== END ==
LOC: RAD 10:47
PROVIDERS: PCP Family Medicine; Visit Provider Family Medicine
DX: M54.41 Lumbago with sciatica, right side (principal)
CPT/HCPCS: 72110

== ENCOUNTER → 2022-09-10 08:10 | Outpatient (CLI) | payer BC, SELFPAY ==
[2022-09-10 09:06] LABS: Basophils % 0.3 % (0.1-2.0); Eosinophils # 0.3 K/mm3 (0.0-0.4); Hematocrit 42.2 % (42.0-52.0); Hemoglobin 13.3 g/dL (14.1-18.0); Lymphocytes # 2.5 K/mm3 (0.7-4.5); Lymphocytes % 28.9 % (10-50); Mean Corpuscular HGB Conc 31.5 g/dL (31.8-35.4); Mean Corpuscular Hemoglobin 29.6 pg (27.0-31.2); Mean Corpuscular Volume 94.1 fl (80-94); Mean Platelet Volume 7.1 fl (7.4-10.4); Monocytes # 0.6 K/mm3 (0.1-1.0); Monocytes % 6.7 % (1.7-9.3); Neutrophils # 5.3 K/mm3 (1.8-7.8); Neutrophils % 61.1 % (37.0-80.0); Platelet Count 290 K/mm3 (142-424); Red Blood Count 4.49 M/mm3 (4.60-6.20); Red Cell Distribution Width 14.4 % (11.5-17.5); White Blood Count 8.7 K/mm3 (4.8-10.8)
[2022-09-10 09:49] LABS: Blood Urea Nitrogen 19 mg/dl (9-20); Calcium 8.9 mg/dl (8.4-10.2); Carbon Dioxide 25 mmol/L (22.0-30.0); Chloride 102 mmol/L (98-107); Estimated Glomerular Filt Rate 98 ml/min (>60); GFR (African American) 119 ML/MIN (>60); Glucose 110 mg/dl (74-100); Sodium 135 mmol/L (136-145)
== END ==
PROVIDERS: PCP Family Medicine; Visit Provider Nurse Practitioner Family
DX: I48.0 Paroxysmal atrial fibrillation (principal)
CPT/HCPCS: 36415; 80048; 85025

== ENCOUNTER → 2022-10-01 15:09 | Outpatient (CLI) | payer BC, SELFPAY | PROVIDERS: PCP Family Medicine; Visit Provider Nurse Practitioner Family | DX: G47.33 Obstructive sleep apnea (adult) (pediatric) (principal); R06.83 Snoring; R40.0 Somnolence; I48.0 Paroxysmal atrial fibrillation | CPT/HCPCS: G0399 ==

== ENCOUNTER 2022-10-08 09:30 | Emergency (ER) | payer BC, SELFPAY ==
[2022-10-08 09:29] VITALS: BP 169/85; PULSE 62; RESP 16; TEMP 36.3; O2SAT 96; BMI 35.2
--- NOTE | 2022-10-08 09:30 | ECG_ITS ---
APPROVED REPORT Exam: Resting ECG HR:60 bpm ECG Measurements Heart Rate 60 AXES AR 207 P 128 QRSd 109 QRS -12 QT 410 T -1 QTc 410 Conclusion ELECTRONIC ATRIAL PACEMAKER ABNORMAL RHYTHM ECG UNCONFIRMED REPORT Electronically signed by : Francisco Mixon MD 10/08/2022 20:28:24
--- NOTE | 2022-10-08 09:33 | PC.NURSE ---
called Anat, pt's , per patient's request. pt spoke with her on the phone updating her on being in the ED.
[2022-10-08 09:35] VITALS: BMI 35.2
--- NOTE | 2022-10-08 09:38 | XR_ITS ---
FINAL REPORT CLINICAL HISTORY: heart palpitations COMPARISON: 11/30/2021 FINDINGS: A single portable view of the chest was obtained. A left subclavian pacemaker is noted. The heart size and pulmonary vascularity are within normal limits. The mediastinum is within normal limits. No acute pulmonary abnormality is identified. The bony thorax is intact. IMPRESSION: No active cardiopulmonary disease. Reviewed, Interpreted and Dictated by Melchor Hare III, MD Transcribed by Paloma Hendrickson Authenticated and [facility]
--- NOTE | 2022-10-08 09:49 | HMH.EDCP ---
Discharge Plan Disposition Patient Disposition: Home, Self-Care Chief Complaint: Chest Pain Prescriptions Prescriptions: No Action finasteride 5 mg tablet 5 mg PO DAILY irbesartan 300 mg tablet See Rx Instructions .ROUTE .COMPLEX Qty: 90 2RF Dose Instruction: Take 1 tablet by mouth once daily for blood pressure Rx Instructions: Take 1 tablet by mouth once daily for blood pressure hydrochlorothiazide 25 mg tablet See Rx Instructions .ROUTE .COMPLEX Qty: 90 2RF Dose Instruction: Take 1 tablet by mouth once daily for blood pressure Rx Instructions: Take 1 tablet by mouth once daily for blood pressure atorvastatin 80 mg tablet 80 mg PO DAILY Qty: 90 3RF sotalol 80 mg tablet 40 mg PO BID Qty: 60 5RF amlodipine 10 mg tablet 10 mg PO DAILY Qty: 90 2RF pantoprazole 40 mg tablet,delayed release (DR/EC) See Rx Instructions .ROUTE .COMPLEX Qty: 90 1RF Dose Instruction: Take 1 tablet by mouth once daily Rx Instructions: Take 1 tablet by mouth once daily metoprolol succinate 50 mg tablet extended release 24 hr See Rx Instructions .ROUTE .COMPLEX Qty: 90 1RF Dose Instruction: Take 1 tablet by mouth once daily for blood pressure Rx Instructions: Take 1 tablet by mouth once daily for blood pressure Xarelto 20 mg tablet 20 mg PO DAILY Qty: 90 3RF Rx Instructions: must administer with evening meal clopidogrel 75 mg tablet 75 mg PO DAILY Qty: 90 1RF Referrals Follow up/Referrals: Provider,Referral, MD [Referring] - See instructions Clinical Impressions Clinical Impression: Palpitations, Pacemaker Instructions Patient Instructions: DI for Palpitations Discharge ED Provider: Thao (ED)Darryl Chest Pain HPI General Chief Complaint: Chest Pain Stated Complaint: chest pain Time Seen by Provider: 10/08/22 09:30 Mode of Arrival: Wheelchair Source of Information: Patient and Medical Record Limitations: No Limitations Description of Symptoms (Recalled from ER Triage Doc. by RN): pt to ED from PT department via wheelchair. pt reports he was in lumbar traction for about 7 minutes when he began to get flushed and experience heart palpitations. pt denies any chest pain or SOB at this time and states his symptoms has since resolved History of Present Illness HPI narrative: pt was at physical therapyand was in lumbar traction and felt flushed and inc hr - no loc and no sob - has pacemaker complaint: chest pain indicative of cardiac Duration: now resolved Associated symptoms: palpitations Risk Factors for CAD: Hypertension and Family Hx of CAD Treatments prior to or on arrival for Cardiac Chest Pain: none TEVIN Score for Non-Stemi Age of Patient: 60-69 years old Heart Rate: 50-69 bpm Systolic Blood Pressure: 120-139 mmhg Serum Creatinine: 0.80-1.19 mg/dl CHF [place] Class: I-No CHF Other Risk Factors: None Non-Stemi Risk Score: 102 Risk Stratification: 1-108 = Low Risk Related Data Home Medications Medication Instructions Recorded Confirmed finasteride 5 mg tablet 5 mg PO DAILY PROSTATE 07/09/17 09/11/22 Previous Rx's Medication Instructions Recorded hydrochlorothiazide 25 mg tablet See Rx Instructions .Route 02/25/21 .COMPLEX #90 tabs irbesartan 300 mg tablet See Rx Instructions .Route 02/25/21 .COMPLEX #90 tabs atorvastatin 80 mg tablet 80 mg PO DAILY cholestrol #90 tabs 05/24/21 sotalol 80 mg tablet 40 mg PO BID Heart disease #60 tabs 06/04/21 amlodipine 10 mg tablet 10 mg PO DAILY blood pressure #90 02/19/22 tabs pantoprazole 40 mg tablet,delayed See Rx Instructions .Route 06/24/22 release .COMPLEX #90 tabs metoprolol succinate 50 mg See Rx Instructions .Route 06/30/22 tablet,extended release 24 hr .COMPLEX #90 tabs rivaroxaban 20 mg tablet (Xarelto) 20 mg PO DAILY #90 tabs 08/14/22 clopidogrel 75 mg tablet 75 mg PO DAILY Blood thinner #90 08/28/22 tabs Allergies Allergy/AdvReac
[2022-10-08 09:50] LABS: Basophils % 0.4 % (0.1-2.0); Eosinophils # 0.3 K/mm3 (0.0-0.4); Eosinophils % 3.5 % (0.1-12.0); Hematocrit 43.2 % (42.0-52.0); Lymphocytes # 2.2 K/mm3 (0.7-4.5); Lymphocytes % 24.8 % (10-50); Mean Corpuscular HGB Conc 32.4 g/dL (31.8-35.4); Mean Corpuscular Hemoglobin 30.2 pg (27.0-31.2); Mean Platelet Volume 7.9 fl (7.4-10.4); Monocytes # 0.6 K/mm3 (0.1-1.0); Monocytes % 7.1 % (1.7-9.3); Neutrophils # 5.6 K/mm3 (1.8-7.8); Neutrophils % 64.3 % (37.0-80.0); Platelet Count 321 K/mm3 (142-424); Red Blood Count 4.64 M/mm3 (4.60-6.20); Red Cell Distribution Width 14.4 % (11.5-17.5); White Blood Count 8.7 K/mm3 (4.8-10.8)
[2022-10-08 09:54] LABS: Chloride 101 mmol/L (98-107); Potassium 3.6 mmoL/L (3.5-5.1); Sodium 137 mmol/L (136-145)
[2022-10-08 09:57] LABS: Anion Gap 11.6 mEq/L (5-15); Blood Urea Nitrogen 14 mg/dl (9-20); Carbon Dioxide 28 mmol/L (22.0-30.0); Creatinine Clearance Estimated 120 mL/min (50-200); Estimated Glomerular Filt Rate 98 ml/min (>60); GFR (African American) 119 ML/MIN (>60)
[2022-10-08 09:58] LABS: Calcium 9.3 mg/dl (8.4-10.2); Glucose 109 mg/dl (74-100)
[2022-10-08 10:13] LABS: Troponin I < 0.01 ng/ml (0.00-0.034)
[2022-10-08 10:19] VITALS: BP 133/83; PULSE 67; RESP 16; TEMP 36.4; O2SAT 98
== END 2022-10-08 10:32 | disposition home or self-care (01) ==
PROVIDERS: Emergency Provider Emergency Medicine; PCP Family Medicine
DX: R07.9 Chest pain, unspecified (principal); R00.2 Palpitations; Z95.0 Presence of cardiac pacemaker
CPT/HCPCS: 71045; 80048; 84484; 85025; 93005; 96360; 99285

== ENCOUNTER 2022-10-17 08:30 | Outpatient (RCR) | payer BC, SELFPAY ==
--- NOTE | 2022-09-24 09:19 | HMH.PTOPEV ---
PT Outpatient Evaluation Rehab PT Outpatient Evaluation Start: 09/24/22 08:13 Freq: Status: Active Protocol: Document 09/24/22 08:15 SRI (Rec: 09/24/22 09:19 SRI [id number]) E-signed By Cameron Lauren, PT Outpatient Therapy Subjective History Subjective History Pt reports subacute onset of right sided LBP beginning ~5-6 weeks ago when 'I started coming off my meloxicam.' Pt reports right sided LBP progressed to right glut mm area pain and then to radicular from hip to foot. Pt reports weakness in RLE as well. PMH:pacemaker Chief Complaint Pain,Stiff,Paresthesia, Weakness Symptom Type Ache,Sharp,Dull,Numbness, Tingling Symptoms Relieved By Rest/Positioning,Heat,Ice,OTC Meds,Prescription Meds Symptoms Aggravated By Physical Activity,Lifting Prior Functional Limitations Lifting,Housework,Driving, Sleeping Current Functional Limitations Lifting,Housework,Driving, Sleeping Symptom Description Constant but Variable Level of pain today (0-10) 7 Pain scale - at its best (0-10) 7 Pain scale - at its worst (0-10) 9 Lumbopelvic Eval Posture Thoracic Spine Posture Standing Position Neutral Lumbar Spine Posture Standing Position Increased Lordosis Assistive device Assistive Devices None / NA Gait Observation General Gait Pattern Observation Antalgic Gait Palapation tenderness right lumbar spinal tenderness Yes: 2/4 paraspinal tenderness Yes: 3/4 buttock tenderness Yes: 3/4 Lumbar/Sacral Palpation Findings Tenderness Accessory Movement L-spine Vertebrae Accessory Movements Central P/A [place] that [place] Symptoms L4 right L5 right S1 right Range of Motion Lumbar Spine Active Flexion Range of 0-70 Motion (degrees) Lumbar Spine Active Extension Range of 0-15 Motion (degrees) Left Lumbar Spine Lateral Flexion Active 0-20 Range of Motion (degrees) Right Lumbar Spine Lateral Flexion 0-10 Active Range of Motion (degrees) Lumbar Spine ROM Limitations Pain Manual Muscle Test Left Knee Extension Strength Grade 5 Normal Knee Flexion Strength Grade 5 Normal Hip Flexion Strength Grade 5 Normal Extensor Hallucis Longus Strength Grade 5 Normal Ankle Dorsiflexion Strength Grade 5 Normal
== END 2022-10-17 08:35 | disposition home or self-care (01) ==
LOC: PT 08:30
PROVIDERS: PCP Family Medicine; Visit Provider Family Medicine
DX: M54.41 Lumbago with sciatica, right side (principal)
CPT/HCPCS: 97010; 97012; 97110; 97163

== ENCOUNTER → 2022-12-03 08:46 | Outpatient (POV) | payer BC, SELFPAY ==
[2022-12-03 10:06] VITALS: BP 149/63; PULSE 56; RESP 19; O2SAT 95; BMI 36.3
--- NOTE | 2022-12-03 10:41 | EXP.PAIN.OV ---
HPI Data of Consult Patient: new to practice Consult date: 12/03/22 Requesting Physician: Chelo Xie APRN Primary Care Provider: Tre Woodall MD Consult Narrative Reason for consult: Low back pain, right leg pain History of present illness: Mr. Calle is a 62 year old male who presents today as a new patient. He is a referral from Dr. Woodall's office. Today he rates his pain a 5 out of 10. Patient states his pain is all in his low back with radiating symptoms into his right lower extremity. Patient does describe this as a sharp knifelike sensation that is worse with increased activity. He does state this has been going on for almost 3 months and just randomly started. Patient denies any specific trauma or injury. He states he has tried [id number] Tylenol along with heat and ice and topicals with no additional change. He does state that the ice will temporarily help. Patient has been taking gabapentin however he states he has not noticed significant improvement. Patient had gone to physical therapy with his last visit approximately 3 weeks ago and states he had no additional change. Patient does have a significant heart history including A-fib and does have a pacemaker in place which limits the ability to do imaging such as an MRI. Patient does state when he was younger he did have spinal neuritis and is unsure if this has any effect on his current circumstances. Patient is currently on 2 different blood thinners that is prescribed by Dr. Meyer's office. He does state that his pain does interfere with his ability perform activities of daily living such as cooking and cleaning. He states he does continue to do daily exercise including walking at least 1 mile per day. Patient states he has been having a little symptoms onto his left leg but believes this is related to altering his gait for the pain he has on the right side. Patient does state that he has previous surgical history on his left knee. He is currently managed with gabapentin 300 mg twice a day from Dr. Woodall's office. His Mike is [phone]. Its been reviewed and appropriate. CC: Chelo Xie APRN [facility] Disclaimer: The information contained in this section may have been updated after the patient was seen, as this information can be updated by other users. Medical History CAD (coronary artery disease) Carotid artery stenosis Daytime somnolence Dizziness Dyspnea Edema of right forearm HLD (hyperlipidemia) HTN (hypertension) Left arm numbness Paroxysmal atrial fibrillation Snoring Surgical History H/O arthroscopy of left knee History of carpal tunnel release of both wrists Family History Other Diabetes Heart attack Hypertension Social History (Updated 12/03/22 @ 10:12 by Devora Blanco RN) Smoking Status: Former smoker second hand exposure: No alcohol intake: never counseling provided: none substance use type: denies use 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al status: retired Travel in the last 8 weeks: None household members: spouse housing: house marital status: 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al exposures/hazards: No caffeine: Yes Review of Systems Review of Systems Review of systems:: pertinent systems reviewed and negative unless documented below Review of systems (narrative): Review of Systems: General: No recent weight changes, no fever, no sleep disturbances Respiratory: No cough, no shortness of air, no recurring pulmonary infections Cardiovascular/peripheral vascular: No chest pain, no palpitations, no edema, no shortness of breath Gastrointestinal: No new onset incontinence, normal bowel movements reported Genitourinary: No new onset incontinence Musculoskeletal: Low back pain, right leg pain Psychiatric:
== END ==
PROVIDERS: PCP Family Medicine; Visit Provider Nurse Practitioner Family
DX: M51.16 Intervertebral disc disorders with radiculopathy, lumbar region (principal); M47.26 Other spondylosis with radiculopathy, lumbar region; M48.061 Spinal stenosis, lumbar region without neurogenic claudication
CPT/HCPCS: 99202; G0463

== ENCOUNTER 2022-12-23 08:06 | Day surgery (SDC) | payer BC, SELFPAY ==
[2022-12-23 08:19] VITALS: BP 157/86; PULSE 61; RESP 18; TEMP 36.6; O2SAT 96; BMI 36.1
--- NOTE | 2022-12-23 08:34 | P.PCN_ITS ---
Procedure Date: 12/23/22 Time: 08:15 Anesthesiologist:: Darren Tran CRNA Complications:: None Pre-procedure Diagnosis:: Degenerative disc lumbar spine multilevels. Disc bulge lumbar spine L3-4, L4-5. Spinal stenosis lumbar spine. Post-procedure Diagnosis:: Same. Indications for Procedure:: Patient is a very pleasant 62-year-old male that comes our clinic today with right hip and leg radicular symptoms to the foot. He complains the pain is constant, dull, aching from the posterior hip on the right to the foot. He reports pain intensifies when ambulating, sitting, or standing. He rates his pain 9/10. Procedure Details:: Details of the procedure were explained to the patient. The patient was taken the procedure room placed in the prone position. The area of the lumbar spine was cleansed using chlorhexidine as a cleansing solution. At this time using fluoroscopy guidance markers were placed on the right lateral border of the L3 and L4 vertebral body. The skin and subcutaneous tissue was anesthetized using 1% lidocaine and 25-gauge needle. At this time using a 22-gauge 3-1/2 inch spinal needle the right upper one third of the L3-4 foramen was accessed. The same was done at the right L4-5 foramen. Needle positions were confirmed and a lateral view using fluoroscopy and contrast dye. At this time 1 cc of 1% lidocaine +20 mg of Depo-Medrol was injected at each level after negative aspiration. [place] were removed. Band-Aid applied. Patient tolerated the procedure without difficulty. There are no complications. Plan and Disposition:: Patient was discharged without incident. Patient was reevaluated 10 minutes prior to discharge. He reports minimal to no pain in the right hip and leg at this time.
[2022-12-23 08:37] VITALS: BP 151/84; PULSE 59; RESP 18; O2SAT 96
[2022-12-23 08:41] VITALS: BP 132/85; PULSE 60; RESP 18; O2SAT 97
[2022-12-23 08:46] VITALS: BP 149/86; PULSE 64; RESP 18; O2SAT 97
== END 2022-12-23 08:37 | disposition home or self-care (01) ==
PROVIDERS: PCP Family Medicine; Visit Provider Nurse Anesthetist, Certified Registered
DX: M51.36 Other intervertebral disc degeneration, lumbar region (principal); M48.061 Spinal stenosis, lumbar region without neurogenic claudication
CPT/HCPCS: 64483; 64484; J1030; Q9966

== ENCOUNTER → 2023-01-12 09:21 | Outpatient (POV) | payer BC, SELFPAY ==
[2023-01-12 10:15] VITALS: BP 143/111; PULSE 61; RESP 18; O2SAT 97; BMI 35.9
--- NOTE | 2023-01-12 10:35 | EXP.PAIN.SOA ---
[facility] Pain Management SOAP Note Subjective:: Patient is a pleasant 62-year-old male who presents today for follow-up of right transforaminal epidural steroid injection L3-L4 and L4-L5 on 12/23/2022. We are currently treating the patient for degenerative disc disease of lumbar spine with lumbar radiculopathy symptoms, lumbar facet arthropathy, lumbar spinal stenosis. Today he rates his pain a 9 out of 10. Patient states he did have at least 50% improvement following this injection however it only lasted a few hours. Patient states he did increase his activity and mowed the yard which may have caused worsening pain. He denies any new trauma or injury. He continues to state he has pain in his low back along the right side with symptoms into his right hip. Patient does describe this as an aching, throbbing sensation that is worse with increased activity. He does state the pain interferes with his ability to perform activities of daily living such as cooking and cleaning. Patient is currently prescribed compounding cream that he does state has been helping and that he recently ordered a second tube. Patient is also managed with gabapentin 300 mg 4 times a day from Dr. Woodall's office. He denies any side effects from this medication however he states he does not notice significant relief with it. He also states he does frequently experience charley horses in his lower legs that is worse at night his Mike is [phone]. Its been reviewed and appropriate. Review of Systems: General: No recent weight changes, no fever, no sleep disturbances Respiratory: No cough, no shortness of air, no recurring pulmonary infections Cardiovascular/peripheral vascular: No chest pain, no palpitations, no edema, no shortness of breath Gastrointestinal: No new onset incontinence, normal bowel movements reported Genitourinary: No new onset incontinence Musculoskeletal: Low back pain, right hip pain Psychiatric: [Normal mood/affect] Neurological: [Denies weakness in extremities], [denies balance issues] Objective:: Physical Exam: General: Alert and oriented x3, no acute distress, pleasant and cooperative Lungs: Respirations even and unlabored, symmetrical chest expansion Eyes: PERRL Musculoskeletal: Flexion and extension of lumbar [spine] somewhat guarded secondary to pain, [antalgic gait noted] point tenderness along right SI with positive right Gissel's, Gerson's, Gaenslen's, compression and distraction exam Neurological: Speech clear, no gross sensory deficit Assessment:: Degenerative disc disease of lumbar spine with lumbar radiculopathy symptoms, lumbar facet arthropathy, lumbar spinal stenosis, sacroiliitis Plan:: Patient continues to experience significant pain in his low back and right hip. Patient had limited range of motion of his lumbar spine during today's visit and point tenderness along his right SI with a positive right Gissel's, Gerson's, Gaenslen's, compression and distraction exam. I have discussed with the patient that he may benefit from a right SI injection. Risk and benefits were discussed with the patient and he would like to proceed forward with this plan of care. I will also send in a 14-day supply of ropinirole 0.25 mg at bedtime. Patient will be scheduled for a right SI injection. Patient has been instructed to contact the clinic with any concerns before the next appointment. Dr. Lion has reviewed this note and agrees with this plan of care. This note was dictated using voice recognition software and make contain errors or omissions. [facility] Disclaimer: The information contained in this section may have been updated after the patient was seen, as this information can be updated by other users. Medical History CAD (coronary artery disease) Carotid artery stenosis Daytime somnolence Dizziness Dyspnea Edema of right forearm HLD (hyperlipidemia) HTN (hypertension) Left arm numbness Paroxysmal
== END | disposition home or self-care (01) ==
PROVIDERS: Visit Provider Nurse Practitioner Family
DX: M51.16 Intervertebral disc disorders with radiculopathy, lumbar region (principal); M47.26 Other spondylosis with radiculopathy, lumbar region; M48.061 Spinal stenosis, lumbar region without neurogenic claudication; M46.1 Sacroiliitis, not elsewhere classified
CPT/HCPCS: 99212; G0463

== ENCOUNTER 2023-01-23 12:27 | Day surgery (SDC) | payer BC, SELFPAY ==
[2023-01-23 12:57] VITALS: BP 130/74; PULSE 76; RESP 16; TEMP 36.9; O2SAT 96; BMI 35.2
--- NOTE | 2023-01-23 13:07 | EXP.PAIN.PRO ---
Procedure Date: 01/23/23 Time: 13:15 Anesthesiologist:: Darren Tran CRNA Complications:: None Pre-procedure Diagnosis:: Degenerative disc lumbar spine multilevels. Lumbar radiculopathy. Right sacroiliitis. Post-procedure Diagnosis:: Same. Indications for Procedure:: Patient is a pleasant 62-year-old male that presents our clinic today for right sacroiliac joint injection. Patient is status post right transforaminal epidural steroid injection at the L3-4 and L4-5 level on 12/23/2022. Patient reports minimal no relief with that prior injection. He has extreme point tenderness upon examination over the right sacroiliac joint. Patient reports difficulty standing and or ambulating secondary to pain in the posterior right hip. He also reports difficulty transitioning from sitting to standing. He rates his pain 8/10. Procedure Details:: Procedure: Right sacroliliac joint injection under fluoroscopy Informed consent was obtained and the risk and benefits of the procedure were explained to the patient.~ The patient was taken to the procedure room and noninvasive monitors were placed including noninvasive blood pressure cuff and pulse oximeter.~ The patient was placed prone on the procedure table.~ The~ right hip was cleansed using Betadine as a cleansing solution.~ C-arm fluorosocpy was used to view the right SI joint.~ The skin and subcutaneous tissues were anesthetized using Lidocaine 1.5% and a 25-gauge needle.~ After this, a 22-gauge spinal needle was inserted under fluoroscopic guidance into the inferior aspect of the right SI joint.~ Omnipaque dye was injected and a good spread was seen throughout the joint.~ After this, approximately 5 mL of bupivacaine 0.25% and Depo-Medrol 40 mg was incrementally injected into the sacroiliac joint.~ The patient tolerated the procedure well with no complications.~ The patient was observed in the Pain Clinic, then discharged home neurologically intact.~ Plan and Disposition:: Patient was discharged without incident.
[2023-01-23 13:09] VITALS: BP 124/63; PULSE 60; RESP 18; O2SAT 94
[2023-01-23 13:13] VITALS: BP 124/63; PULSE 60; RESP 18; O2SAT 94
[2023-01-23 13:15] VITALS: BP 123/71; PULSE 60; RESP 16; O2SAT 96
== END 2023-01-23 13:15 | disposition home or self-care (01) ==
PROVIDERS: PCP Family Medicine; Visit Provider Nurse Anesthetist, Certified Registered
DX: M46.1 Sacroiliitis, not elsewhere classified (principal); M51.16 Intervertebral disc disorders with radiculopathy, lumbar region
CPT/HCPCS: 27096; G0260; J1040

== ENCOUNTER → 2023-02-02 14:12 | Outpatient (POV) | payer BC, SELFPAY ==
--- NOTE | 2023-02-02 14:32 | EXP.PAIN.SOA ---
[facility] Pain Management SOAP Note Subjective:: Patient is a pleasant 62-year-old male who presents today for follow-up of right SI injection on 01/23/2023. We are currently treating the patient for degenerative disc disease of lumbar spine with lumbar radiculopathy symptoms, lumbar facet arthropathy, lumbar spinal stenosis. Today he rates his pain a 7 out of 10. Patient states he did have at least 50% improvement following this injection lasting 2 days however he states that he had gone to a restaurant and missed a step causing significant pain. He does feel like he is back to his baseline during today's visit. Patient continues to state that he has pain in his low back that is an aching, throbbing sensation with numbness and tingling into his right lower leg. He does state that he frequently has his leg give out due to the numbness and tingling. Patient states this is a constant pain that does make it difficult to do any activities of daily living such as cooking or cleaning or even simple ambulation. He is managed with gabapentin 300 mg 4 times a day from Dr. Woodall's office and compounding cream from our office. He denies any side effects from this medication. His Mike is [phone]. Its been reviewed and appropriate. Review of Systems: General: No recent weight changes, no fever, no sleep disturbances Respiratory: No cough, no shortness of air, no recurring pulmonary infections Cardiovascular/peripheral vascular: No chest pain, no palpitations, no edema, no shortness of breath Gastrointestinal: No new onset incontinence, normal bowel movements reported Genitourinary: No new onset incontinence Musculoskeletal: Low back pain, right hip pain, right leg pain Psychiatric: [Normal mood/affect] Neurological: [Denies weakness in extremities], [denies balance issues] Objective:: Physical Exam: General: Alert and oriented x3, no acute distress, pleasant and cooperative Lungs: Respirations even and unlabored, symmetrical chest expansion Eyes: PERRL Musculoskeletal: Flexion and extension of lumbar [spine] somewhat guarded secondary to pain, [antalgic gait noted] positive right leg raise with point tenderness at right SI with positive Gissel's test and diminished reflexes and sensation to light touch along the right leg Neurological: Speech clear, no gross sensory deficit Assessment:: Degenerative disc disease of lumbar spine with lumbar radiculopathy symptoms, lumbar facet arthropathy, lumbar spinal stenosis Plan:: Patient continues to experience significant pain in his low back and right leg with limited range of motion. Patient did continue to have a positive Gissel's test and point tenderness along his right SI however the previous injection only provided 2 days of relief at 50% improvement. I have discussed with the patient due to the limited improvement and short-term relief that insurance would most likely deny an additional SI injection however patient did also have a positive right leg raise and diminished reflexes with diminished sensation in the right leg. I have discussed with patient that he may benefit from a right transforaminal epidural steroid injection. Risk and benefits were explained to the patient and he would like to proceed forward with this injection. Patient has previously had this injection that did provide 50% improvement or more. Patient is currently on Xarelto and Plavix written by Dr. Meyer's office. We will contact his office to confirm he can come off this medication prior to the injection. Patient will be scheduled for a right transforaminal epidural steroid injection L4-L5 and L5-S1. Patient has been instructed to contact the clinic with any concerns before the next appointment. Dr. Lion has reviewed this note and agrees with this plan of care. This note was dictated using voice recognition software and make contain errors or omissions. [facility] Disclaimer: The information contained in this section may have been updated af
[2023-02-02 15:24] VITALS: BP 134/81; PULSE 60; RESP 18; O2SAT 96; BMI 35.9
== END ==
PROVIDERS: PCP Family Medicine; Visit Provider Nurse Practitioner Family
DX: M51.16 Intervertebral disc disorders with radiculopathy, lumbar region (principal); M47.26 Other spondylosis with radiculopathy, lumbar region; M48.061 Spinal stenosis, lumbar region without neurogenic claudication
CPT/HCPCS: 99212; G0463

== ENCOUNTER 2023-02-17 09:15 | Day surgery (SDC) | payer BC, SELFPAY ==
[2023-02-17 09:32] VITALS: BP 137/74; PULSE 43; RESP 18; TEMP 36.2; O2SAT 99; BMI 35.2
[2023-02-17 11:04] VITALS: BP 137/54; PULSE 60; RESP 18; O2SAT 95
[2023-02-17 11:05] VITALS: BP 137/54; PULSE 60; RESP 18; O2SAT 95
--- NOTE | 2023-02-17 11:13 | PC.NURSE ---
1055-pt returned from Cardiology clinic eval for low heart rate, reports that symptoms have subsided. This scientific technical writer spoke with GIGI Ozuna who evaluated patient's pacemaker. César cleared patient for his injection.
[2023-02-17 11:15] VITALS: BP 152/87; PULSE 59; RESP 20
--- NOTE | 2023-02-17 12:51 | P.PCN_ITS ---
Procedure Date: 02/17/23 Time: 12:00 Anesthesiologist:: Darren Tran CRNA Complications:: None Pre-procedure Diagnosis:: Degenerative disc lumbar spine multilevels. Lumbar radiculopathy. Disc bulge multilevel lumbar spine. Post-procedure Diagnosis:: Same. Indications for Procedure:: Patient is a pleasant 62-year-old male that comes our clinic for right L4-5, L5- S1 transforaminal epidural steroid injection. Patient has had this in the past with minimal to moderate results. He complains of low lumbar pain. Right posterior hip pain including right leg radicular symptoms to the foot. He rates his pain 7/10. Procedure Details:: Details of the procedure were explained to the patient. The patient was taken the procedure room placed in the prone position. The area of the lumbar spine was cleansed using chlorhexidine as a cleansing solution. At this time using fluoroscopy guidance markers were placed on the right lateral border of the L4 and L5 vertebral body. The skin and subcutaneous tissue was anesthetized using 1% lidocaine and 25-gauge needle. At this time using a 22-gauge 3-1/2 inch spinal needle the right upper one third of the L4-5 foramen was accessed. The same was done at the right L5-S1 foramen. Needle positions were confirmed and a lateral view using fluoroscopy and contrast dye. At this time 1 cc of 1% lidocaine +20 mg of Depo-Medrol was injected at each level after negative aspiration. [place] were removed. Band-Aid applied. Patient tolerated the procedure without difficulty. There are no complications. Plan and Disposition:: Patient was discharged without incident.
== END 2023-02-17 11:16 | disposition home or self-care (01) ==
LOC: SC.PAINP 09:15
PROVIDERS: PCP Family Medicine; Visit Provider Nurse Anesthetist, Certified Registered
DX: M51.16 Intervertebral disc disorders with radiculopathy, lumbar region (principal)
CPT/HCPCS: 64483; 64484; J1030

== ENCOUNTER → 2023-02-27 11:30 | Outpatient (POV) | payer BC, SELFPAY ==
--- NOTE | 2023-02-27 12:35 | A.OFFVIS_ITS ---
[facility] Pain Management SOAP Note Subjective:: This patient is a very pleasant 62-year-old male that comes our clinic today for follow-up visit after receiving a second round of right transforaminal epidural steroid injection at the L4-5 and L5-S1 level. Patient reports minimal relief in terms of his low back pain as well as right hip and leg radicular symptoms. He rates his pain today 7/10. Patient received minimal relief with the first round of the same injections at the same levels. Patient's lumbar spine shows degenerative disc multilevels. He suffers from significant right hip and leg radicular symptoms to the foot. I discussed in detail with the patient regarding options. Patient requesting a Dr. Valadez referral for surgery consultation. I think this is reasonable. We will set this up for him. Patient continues taking gabapentin 300 mg 1 p.o. 3 times daily. Objective:: Patient is awake alert [place] x3. In no acute distress. Flexion-extension lumbar spine somewhat guarded secondary to pain. Deep tendon reflexes upper and lower extremities normal. Motor strength upper and lower extremities normal. There is no gross sensory deficit. Gait is normal. Assessment:: Degenerative disc lumbar spine multilevels. Lumbar radiculopathy Plan:: We will set up for the patient a Dr. Valadez referral for spine surgery patient's Mike #[id number] has been reviewed and appropriate. Consultation. [facility] Disclaimer: The information contained in this section may have been updated after the patient was seen, as this information can be updated by other users. Medical History CAD (coronary artery disease) Carotid artery stenosis Daytime somnolence Dizziness Dyspnea Edema of right forearm HLD (hyperlipidemia) HTN (hypertension) Left arm numbness Paroxysmal atrial fibrillation Active follow-up with [facility] cardiology [place] Surgical History H/O arthroscopy of left knee History of carpal tunnel release of both wrists Family History Other Diabetes Heart attack Hypertension Social History Smoking Status: Former smoker second hand exposure: No alcohol intake: never counseling provided: none substance use type: denies use 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al status: retired Travel in the last 8 weeks: None household members: spouse housing: house marital status: 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 [employer] 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al exposures/hazards: No caffeine: Yes
[2023-02-27 12:51] VITALS: BP 143/89; PULSE 60; RESP 18; O2SAT 95; BMI 35.2
== END ==
PROVIDERS: Visit Provider Nurse Anesthetist, Certified Registered
DX: M51.16 Intervertebral disc disorders with radiculopathy, lumbar region (principal)
CPT/HCPCS: 99212; G0463

== ENCOUNTER → 2023-03-12 12:03 | Outpatient (CLI) | payer BC, SELFPAY ==
[2023-03-12 12:49] LABS: Alanine Aminotransferase 29 U/L (12-78); Albumin Level 4.5 g/dl (3.5-5.0); Alkaline Phosphatase 126 U/L (38-126); Anion Gap 17.2 mEq/L (5-15); Aspartate Amino Transferase 24 U/L (17-59); Bilirubin,Direct 0.2 mg/dl (0.0-0.4); Bilirubin,Indirect 0.3 mg/dL (0.0-0.9); Bilirubin,Total 0.5 mg/dl (0.2-1.3); Bilirubin,Unconjugated 0.4 mg/dL (0.0-1.1); Blood Urea Nitrogen 15 mg/dl (9-20); Calcium 9.8 mg/dl (8.4-10.2); Carbon Dioxide 24 mmol/L (22.0-30.0); Chloride 103 mmol/L (98-107); Chol/HDL Ratio 3.4 (1-3.5); Cholesterol 95 mg/dl (140-200); Estimated Glomerular Filt Rate 86 ml/min (>60); GFR (African American) 103 ML/MIN (>60); Glucose 106 mg/dl (74-100); HDL Cholesterol 28 mg/dl (40-60); Potassium 4.2 mmoL/L (3.5-5.1); Sodium 140 mmol/L (136-145); Total Protein,Serum 7.3 g/dl (6.3-8.2); Triglycerides 120 mg/dl (30-150); VLDL Cholesterol 24 mg/dL (0-40)
[2023-03-12 12:52] LABS: Basophils % 0.5 % (0.1-2.0); Eosinophils # 0.2 K/mm3 (0.0-0.4); Eosinophils % 2.4 % (0.1-12.0); Hematocrit 44.8 % (42.0-52.0); Hemoglobin 14.4 g/dL (14.1-18.0); Lymphocytes # 2.3 K/mm3 (0.7-4.5); Lymphocytes % 25.9 % (10-50); Mean Corpuscular HGB Conc 32.1 g/dL (31.8-35.4); Mean Corpuscular Hemoglobin 30.2 pg (27.0-31.2); Mean Corpuscular Volume 94.1 fl (80-94); Mean Platelet Volume 8.3 fl (7.4-10.4); Monocytes # 0.7 K/mm3 (0.1-1.0); Monocytes % 7.9 % (1.7-9.3); Neutrophils # 5.7 K/mm3 (1.8-7.8); Neutrophils % 63.4 % (37.0-80.0); Platelet Count 312 K/mm3 (142-424); Red Blood Count 4.76 M/mm3 (4.60-6.20); Red Cell Distribution Width 14.7 % (11.5-17.5)
[2023-03-12 13:00] LABS: Direct LDL Cholesterol 51.74 mg/dL (100-129)
[2023-03-12 13:07] LABS: Free T4 (Free Thyroxine) 0.91 ng/dl (0.78-2.19)
[2023-03-12 13:20] LABS: Thyroid Stimulating Hormone 1.16 uIU/mL (0.465-4.68)
== END ==
PROVIDERS: PCP Family Medicine; Visit Provider Nurse Practitioner
DX: R00.2 Palpitations (principal); I25.10 Atherosclerotic heart disease of native coronary artery without angina pectoris; I10 Essential (primary) hypertension; E78.5 Hyperlipidemia, unspecified; G47.33 Obstructive sleep apnea (adult) (pediatric); Z95.0 Presence of cardiac pacemaker
CPT/HCPCS: 36415; 80048; 80061; 80076; 83735; 84439; 84443; 85025

== ENCOUNTER 2023-04-21 11:36 | Emergency (ER) | payer BC, SELFPAY ==
[2023-04-21 11:40] VITALS: BP 146/71; PULSE 62; RESP 20; TEMP 36.6; O2SAT 96; BMI 34.4
--- NOTE | 2023-04-21 11:55 | HMH.EDGENADL ---
Discharge Plan Disposition Patient Disposition: Xfer Other Chief Complaint: Back Pain/Injury Prescriptions Prescriptions: No Action cyclobenzaprine 5 mg tablet 5 mg PO DAILY gabapentin 300 mg capsule 600 mg PO Q12H Patient Comments: TAKE 1 CAPSULE BY MOUTH TWICE DAILY finasteride 5 mg tablet 5 mg PO DAILY atorvastatin 80 mg tablet 80 mg PO DAILY Qty: 90 3RF sotalol 80 mg tablet 40 mg PO BID Qty: 60 5RF amlodipine 10 mg tablet 10 mg PO DAILY Qty: 90 2RF clopidogrel 75 mg tablet 75 mg PO DAILY Qty: 90 1RF pantoprazole 40 mg tablet,delayed release (DR/EC) See Rx Instructions .ROUTE .COMPLEX Qty: 90 1RF Rx Instructions: Take 1 tablet by mouth once daily metoprolol succinate 50 mg tablet extended release 24 hr See Rx Instructions .ROUTE .COMPLEX Qty: 90 3RF Rx Instructions: Take 1 tablet by mouth once daily for blood pressure ropinirole 0.25 mg tablet 0.25 mg PO HS Rx Instructions: administer 1-3 hours before bedtime hydrochlorothiazide 25 mg tablet See Rx Instructions .ROUTE .COMPLEX Rx Instructions: Take 1 tablet by mouth once daily for blood pressure irbesartan 300 mg tablet See Rx Instructions .ROUTE .COMPLEX Rx Instructions: Take 1 tablet by mouth once daily for blood pressure Xarelto 20 mg tablet 20 mg PO DAILY Hold Instructions: nose bleeds Rx Instructions: must administer with evening meal Referrals Follow up/Referrals: Tre Woodall MD [Primary Care Provider] - See instructions Clinical Impressions Clinical Impression: Right leg weakness, Multilevel neural foraminal stenosis, Central stenosis of spinal canal Instructions Patient Instructions: DI for Low Back Pain Discharge ED Provider: Krysta Vasquez General Adult HPI General Chief complaint: Back Pain/Injury Stated complaint: back/Rt leg pain, no accident Time Seen by Provider: 04/21/23 11:40 History of Present Illness HPI narrative: Patient is a 63-year-old male presents today with right lower extremity pain and weakness and significant back pain that is been chronic over the last 7 months. He has been seen by Dr. Lion with pain medicine and has had multiple epidural injections without any significant improvement. Also has been referred to Dr. Valadez at [facility] with spine surgery and had an outpatient MRI done 2 weeks ago which had multiple abnormal findings including: L1-L2 disc bulge with mild bilateral neural foraminal stenosis without central stenosis L2-L3 there is a broad-based disc bulge with mild canal central stenosis and moderate bilateral neural foraminal stenosis at L3 and L4 there is a broad-based disc bulge with moderate central canal stenosis and severe bilateral neural foraminal stenosis at L4-L5 broad-based disc bulge with moderate central canal stenosis and mild right and moderate left neuroforaminal stenosis and L5-S1 broad-based disc bulge with moderate and severe left neural foraminal stenosis. States that his right lower extremity weakness has significantly worsened over the last week he is unable to lift his leg up not from a painful standpoint but from a true effort related standpoint cannot extend his knee and also has significant weakness in dorsiflexion and plantarflexion of the ankle and toe in the right lower extremity. Denies any bowel or bladder incontinence or any urinary retention or saddle anesthesia. Related Data Home Medications Medication Instructions Recorded Confirmed finasteride 5 mg tablet 5 mg PO DAILY PROSTATE 07/09/17 03/12/23 cyclobenzaprine 5 mg tablet 5 mg PO DAILY Pain 10/09/22 03/12/23 gabapentin 300 mg capsule 600 mg PO Q12H Pain 12/03/22 03/12/23 hydrochlorothiazide 25 mg tablet See Rx Instructions .Route 12/03/22 03/12/23 .COMPLEX Fluid irbesartan 300 mg tablet See Rx Instructions .Route 12/03/22 03/12/23 .COMPLEX BLOOD PRESSURE rivaroxaban 20 mg tablet (Xarelto)
[2023-04-21 12:01] VITALS: BP 122/75; PULSE 59; O2SAT 97
[2023-04-21 12:08] VITALS: BMI 34.4
--- NOTE | 2023-04-21 12:10 | PC.NURSE ---
Called [facility] to consult with Spine Doctor per Dr Vasquez about this patient
[2023-04-21 12:31] VITALS: BP 138/83; PULSE 62; O2SAT 96
--- NOTE | 2023-04-21 12:33 | PC.NURSE ---
[facility] called and advised that Dr Valadez was not available but Dr Campbell was advised they would call us back in about 20 mins
--- NOTE | 2023-04-21 12:41 | PC.NURSE ---
[facility] called back and Dr Campbell was connected with Dr Vasquez
--- NOTE | 2023-04-21 12:53 | PC.NURSE ---
Dr Penn from [facility] called back and asked to speak with Dr Vasquez
--- NOTE | 2023-04-21 14:18 | PC.NURSE ---
report called to cory bingham at [facility] called for transport
--- NOTE | 2023-04-21 14:19 | PC.NURSE ---
pt c/o pain at this time. new orders per MD
[2023-04-21 14:58] VITALS: BP 115/57; PULSE 80; RESP 20; TEMP 36.7; O2SAT 97
--- NOTE | 2023-04-21 14:59 | PC.NURSE ---
pt transported via [facility] at this time
== END 2023-04-21 14:59 | disposition other institution (70) ==
PROVIDERS: Emergency Provider Student in an Organized Health Care Education/Training Program; PCP Family Medicine
DX: R53.1 Weakness (principal); M48.00 Spinal stenosis, site unspecified; M54.9 Dorsalgia, unspecified; M99.63 Osseous and subluxation stenosis of intervertebral foramina of lumbar region; I25.10 Atherosclerotic heart disease of native coronary artery without angina pectoris; I10 Essential (primary) hypertension
CPT/HCPCS: 96374; 99285; 99291; J0131

== ENCOUNTER 2023-05-06 19:53 | Emergency (ER) | payer BC, SELFPAY ==
[2023-05-06 19:54] VITALS: BP 129/85; PULSE 71; RESP 16; TEMP 36.6; O2SAT 99; BMI 34.4
--- NOTE | 2023-05-06 20:43 | HMH.EDGENADL ---
Discharge Plan Disposition Patient Disposition: Home, Self-Care Prescriptions Prescriptions: No Action cyclobenzaprine 5 mg tablet 5 mg PO DAILY gabapentin 300 mg capsule 600 mg PO Q12H Patient Comments: TAKE 1 CAPSULE BY MOUTH TWICE DAILY finasteride 5 mg tablet 5 mg PO DAILY atorvastatin 80 mg tablet 80 mg PO DAILY Qty: 90 3RF sotalol 80 mg tablet 40 mg PO BID Qty: 60 5RF amlodipine 10 mg tablet 10 mg PO DAILY Qty: 90 2RF clopidogrel 75 mg tablet 75 mg PO DAILY Qty: 90 1RF pantoprazole 40 mg tablet,delayed release (DR/EC) See Rx Instructions .ROUTE .COMPLEX Qty: 90 1RF Rx Instructions: Take 1 tablet by mouth once daily metoprolol succinate 50 mg tablet extended release 24 hr See Rx Instructions .ROUTE .COMPLEX Qty: 90 3RF Rx Instructions: Take 1 tablet by mouth once daily for blood pressure ropinirole 0.25 mg tablet 0.25 mg PO HS Rx Instructions: administer 1-3 hours before bedtime hydrochlorothiazide 25 mg tablet See Rx Instructions .ROUTE .COMPLEX Rx Instructions: Take 1 tablet by mouth once daily for blood pressure irbesartan 300 mg tablet See Rx Instructions .ROUTE .COMPLEX Rx Instructions: Take 1 tablet by mouth once daily for blood pressure Xarelto 20 mg tablet 20 mg PO DAILY Hold Instructions: nose bleeds Rx Instructions: must administer with evening meal Referrals Follow up/Referrals: Tre Woodall MD [Primary Care Provider] - See instructions Activity Restrictions/Add. Instructions Additional Instructions/Restrictions: Is much as possible avoid tissue adhesive this with any type of bandage you may use nonocclusive or nonadhesive bandages and paper tape or superficial a lot of tape around the dressings. Your wounds overall look good there is no evidence of any infection. Please follow-up the primary care doctor as needed. You may also take Benadryl for the itching but your symptoms should resolve if you remove the offending agents by avoiding the tissue adhesive. Clinical Impressions Clinical Impression: Allergy to adhesive tape Instructions Patient Instructions: DI for Laceration Repair Discharge ED Provider: Krysta Vasquez General Adult HPI General Chief complaint: Wound/Laceration Stated complaint: post op 04/27, red spot on back Time Seen by Provider: 05/06/23 20:36 Mode of Arrival: Wheelchair Source of Information: Patient Limitations: No Limitations Description of Symptoms (Recalled from ER Triage Doc. by RN): pt states had back surgery 9 days and bought bandages. pt c/o red rash where bandage was. incision is dry and intact History of Present Illness HPI narrative: Patient is a 63-year-old male with recent spine surgery presenting today with some slight pain and itching around adhesive sites of the bandages on the backside of his back he has no pain or swelling or erythema or purulent drainage coming from his incision areas. Related Data Home Medications Medication Instructions Recorded Confirmed finasteride 5 mg tablet 5 mg PO DAILY PROSTATE 07/09/17 03/12/23 cyclobenzaprine 5 mg tablet 5 mg PO DAILY Pain 10/09/22 03/12/23 gabapentin 300 mg capsule 600 mg PO Q12H Pain 12/03/22 03/12/23 hydrochlorothiazide 25 mg tablet See Rx Instructions .Route 12/03/22 03/12/23 .COMPLEX Fluid irbesartan 300 mg tablet See Rx Instructions .Route 12/03/22 03/12/23 .COMPLEX BLOOD PRESSURE rivaroxaban 20 mg tablet (Xarelto) 20 mg PO DAILY Blood thinner 12/03/22 03/12/23 ropinirole 0.25 mg tablet 0.25 mg PO HS rls 01/23/23 03/12/23 Previous Rx's Medication Instructions Recorded atorvastatin 80 mg tablet 80 mg PO DAILY cholestrol #90 tabs 05/24/21 sotalol 80 mg tablet 40 mg PO BID Heart disease #60 tabs 06/04/21 amlodipine 10 mg tablet 10 mg PO DAILY blood pressure #90 02/19/22 tabs clopidogrel 75 mg tablet 75 mg PO DAILY Blood thinner #90 08/28/22 tabs
[2023-05-06 20:51] VITALS: BP 131/79; PULSE 67; RESP 16; TEMP 36.6; O2SAT 99
== END 2023-05-06 20:52 | disposition home or self-care (01) ==
PROVIDERS: Emergency Provider Student in an Organized Health Care Education/Training Program; PCP Family Medicine
DX: L23.1 Allergic contact dermatitis due to adhesives (principal); Z91.048 Other nonmedicinal substance allergy status
CPT/HCPCS: 99282

== ENCOUNTER 2023-06-07 09:53 | Emergency (ER) | payer BC, SELFPAY ==
--- NOTE | 2023-06-07 10:04 | XR_ITS ---
PROCEDURE INFORMATION: Exam: XR Chest Exam date and time: 06/07/2023 10:44 AM Age: 63 years old Clinical indication: Shortness of breath; Patient HX: Back surgery 2 weeks ago , edema in legs; Additional info: Dyspnea TECHNIQUE: Imaging protocol: Radiologic exam of the chest. Views: 1 view. COMPARISON: CR XR CHEST PORTABLE 10/08/2022 9:59 AM FINDINGS: Lungs: Unremarkable. No consolidation. Pleural spaces: Unremarkable. No pleural effusion. No pneumothorax. Heart/Mediastinum: Dual chamber transvenous pacemaker leads are unchanged in position. No cardiomegaly. Bones/joints: Unremarkable. IMPRESSION: No acute findings.
--- NOTE | 2023-06-07 10:07 | [facility].EDGENADL ---
Discharge Plan Disposition Patient Disposition: Home, Self-Care Prescriptions Prescriptions: No Action cyclobenzaprine 5 mg tablet 5 mg PO DAILY gabapentin 300 mg capsule 600 mg PO Q12H Patient Comments: TAKE 1 CAPSULE BY MOUTH TWICE DAILY finasteride 5 mg tablet 5 mg PO DAILY atorvastatin 80 mg tablet 80 mg PO DAILY Qty: 90 3RF sotalol 80 mg tablet 40 mg PO BID Qty: 60 5RF amlodipine 10 mg tablet 10 mg PO DAILY Qty: 90 2RF clopidogrel 75 mg tablet 75 mg PO DAILY Qty: 90 1RF pantoprazole 40 mg tablet,delayed release (DR/EC) See Rx Instructions .ROUTE .COMPLEX Qty: 90 1RF Rx Instructions: Take 1 tablet by mouth once daily hydrochlorothiazide 25 mg tablet See Rx Instructions .ROUTE .COMPLEX Rx Instructions: Take 1 tablet by mouth once daily for blood pressure irbesartan 300 mg tablet See Rx Instructions .ROUTE .COMPLEX Rx Instructions: Take 1 tablet by mouth once daily for blood pressure Referrals Follow up/Referrals: Tre Woodall MD [Primary Care Provider] - See instructions Activity Restrictions/Add. Instructions Additional Instructions/Restrictions: No emergency cause of your bilateral lower extremity swelling was identified today please keep your follow-up appoint with Dr. Cosme was previously instructed. Clinical Impressions Clinical Impression: Fatigue, Bilateral leg edema Instructions Patient Instructions: DI for Skin Abscess Discharge ED Provider: Krysta Vasquez General Adult HPI General Chief complaint: Skin/Abscess/Foreign Body Stated complaint: bilateral leg pain, no accident Time Seen by Provider: 06/07/23 09:58 History of Present Illness HPI narrative: Send is a 63-year-old male present today with bilateral lower extremity edema and swelling. Patient had spine surgery at [facility] 6 weeks ago and was asymptomatic up until about 4 days ago he stated. States that he has been extremely fatigued and more tired. Denies any shortness of breath or chest pain. Denies any history of heart failure but does have a history of an arrhythmia requiring a pacemaker which was placed in 2018 he is followed by Dr. Meyer for this. No history of coronary artery disease. States he has had good urine output no history of kidney or liver failure that he is aware of. His lower extremity edema is bilateral but states he has more discomfort in his right leg than his left but both legs are painful at the moment. Related Data Home Medications Medication Instructions Recorded Confirmed finasteride 5 mg tablet 5 mg PO DAILY PROSTATE 07/09/17 05/27/23 cyclobenzaprine 5 mg tablet 5 mg PO DAILY Pain 10/09/22 05/27/23 gabapentin 300 mg capsule 600 mg PO Q12H Pain 12/03/22 05/27/23 hydrochlorothiazide 25 mg tablet See Rx Instructions .Route 12/03/22 05/27/23 .COMPLEX Fluid irbesartan 300 mg tablet See Rx Instructions .Route 12/03/22 05/27/23 .COMPLEX BLOOD PRESSURE Previous Rx's Medication Instructions Recorded atorvastatin 80 mg tablet 80 mg PO DAILY cholestrol #90 tabs 05/24/21 sotalol 80 mg tablet 40 mg PO BID Heart disease #60 tabs 06/04/21 amlodipine 10 mg tablet 10 mg PO DAILY blood pressure #90 02/19/22 tabs clopidogrel 75 mg tablet 75 mg PO DAILY Blood thinner #90 08/28/22 tabs pantoprazole 40 mg tablet,delayed See Rx Instructions .Route 12/09/22 release .COMPLEX GERD #90 tabs Allergies Allergy/AdvReac Type Severity Reaction Status Date / Time codeine AdvReac Mild NA-NAUSEA/V Verified 05/27/23 10:18 OMITING hydrocodone AdvReac Mild NA-NAUSEA/V Verified 05/27/23 10:18 OMITING PFSH PFSH Disclaimer: The information contained in this section may have been updated after the patient was seen, as this information can be updated by other users. Medical History (Updated 06/07/23 @ 10:10 by Krysta Vasquez MD) CAD (coronary artery disease) Carotid artery stenosis Daytime s
[2023-06-07 10:09] VITALS: BP 128/84; PULSE 79; RESP 20; TEMP 36.8; O2SAT 95; BMI 34.2
--- NOTE | 2023-06-07 10:25 | ECG_ITS ---
APPROVED REPORT Exam: Resting ECG HR:73 bpm ECG Measurements Heart Rate 73 AXES TX 172 P 28 QRSd 103 QRS -22 QT 375 T 0 QTc 401 Conclusion SINUS RHYTHM BORDERLINE LEFT AXIS DEVIATION [QRS AXIS < -20] BORDERLINE ECG UNCONFIRMED REPORT Electronically signed by : Francisco Mixon MD 06/10/2023 09:06:16
[2023-06-07 10:55] LABS: Appearance,Urine CLEAR (Clear); Bilirubin,Urine Negative (Negative); Blood, Urine Negative (Negative); Color,Urine YELLOW (Yellow); Glucose,Urine (UA) Negative (Negative); Ketones,Urine Negative (Negative); Leukocyte Esterase,Urine Negative (Negative); Microscopic, Urine URINE MICROSCOPIC (MICROSCOPIC); Nitrate,Urine Negative (Negative); Protein,Urine Negative (Negative); Specific Gravity, Urine <= 1.005 (1.005-1.030); Urobilinogen,Urine 0.2 EU/dl (0.2)
[2023-06-07 11:09] VITALS: PULSE 70; O2SAT 97
[2023-06-07 11:30] VITALS: BP 121/75; PULSE 76; O2SAT 93
[2023-06-07 11:50] LABS: Basophils % 0.4 % (0.1-2.0); Eosinophils # 0.3 K/mm3 (0.0-0.4); Eosinophils % 3.1 % (0.1-12.0); Hematocrit 39.7 % (42.0-52.0); Hemoglobin 13.4 g/dL (14.1-18.0); Lymphocytes # 1.9 K/mm3 (0.7-4.5); Lymphocytes % 18.7 % (10-50); Mean Corpuscular HGB Conc 33.8 g/dL (31.8-35.4); Mean Corpuscular Hemoglobin 31.8 pg (27.0-31.2); Mean Corpuscular Volume 94.2 fl (80-94); Mean Platelet Volume 8.1 fl (7.4-10.4); Monocytes # 0.6 K/mm3 (0.1-1.0); Monocytes % 6.2 % (1.7-9.3); Neutrophils # 7.4 K/mm3 (1.8-7.8); Neutrophils % 71.6 % (37.0-80.0); Platelet Count 258 K/mm3 (142-424); Red Blood Count 4.21 M/mm3 (4.60-6.20); Red Cell Distribution Width 14.3 % (11.5-17.5); White Blood Count 10.3 K/mm3 (4.8-10.8)
[2023-06-07 11:54] LABS: Chloride 102 mmol/L (98-107); Potassium 3.9 mmoL/L (3.5-5.1); Sodium 140 mmol/L (136-145)
[2023-06-07 11:57] LABS: Alanine Aminotransferase 23 U/L (12-78); Albumin Level 4.4 g/dl (3.5-5.0); Albumin/Globulin Ratio 1.5 (1.1-1.8); Alkaline Phosphatase 192 U/L (38-126); Anion Gap 10.9 mEq/L (5-15); Aspartate Amino Transferase 25 U/L (17-59); Bilirubin,Total 0.5 mg/dl (0.2-1.3); Blood Urea Nitrogen 13 mg/dl (9-20); Calcium 9.4 mg/dl (8.4-10.2); Carbon Dioxide 31 mmol/L (22.0-30.0); Creatine Kinase 47 U/L (55-170); Creatinine Clearance Estimated 116 mL/min (50-200); Estimated Glomerular Filt Rate 98 ml/min (>60); GFR (African American) 118 ML/MIN (>60); Glucose 99 mg/dl (74-100); Total Protein,Serum 7.4 g/dl (6.3-8.2)
[2023-06-07 11:59] LABS: INR 1.06 (0.9-1.1); Prothrombin Time 11.4 seconds (10.1-12.5)
[2023-06-07 12:00] VITALS: BP 111/79; PULSE 68; O2SAT 96
[2023-06-07 12:06] LABS: D-Dimer 0.55 ug/mL (0.0-0.5)
[2023-06-07 12:07] LABS: NT Pro Brain Natriuretic Pep. 21.7 pg/mL (0-125)
[2023-06-07 12:10] LABS: Troponin I < 0.01 ng/ml (0.00-0.034)
[2023-06-07 12:35] VITALS: BP 118/81; PULSE 64; RESP 19; TEMP 36.8; O2SAT 96
== END 2023-06-07 12:35 | disposition home or self-care (01) ==
PROVIDERS: Emergency Provider Student in an Organized Health Care Education/Training Program; PCP Family Medicine
DX: R22.43 Localized swelling, mass and lump, lower limb, bilateral (principal); R53.83 Other fatigue; I25.10 Atherosclerotic heart disease of native coronary artery without angina pectoris; I65.29 Occlusion and stenosis of unspecified carotid artery; E78.5 Hyperlipidemia, unspecified; I10 Essential (primary) hypertension; I48.0 Paroxysmal atrial fibrillation; Z95.0 Presence of cardiac pacemaker
CPT/HCPCS: 71045; 80053; 81001; 82550; 83880; 84484; 85025; 85378; 85610; 93005; 99285

== ENCOUNTER → 2023-06-11 12:44 | Outpatient (CLI) | payer BC, SELFPAY ==
--- NOTE | 2023-06-11 12:45 | CA_ITS ---
APPROVED REPORT EXAM: Comprehensive 2D, Doppler, and color-flow Echocardiogram Horticulture Instructor: Virgen Pablo CRT Ht: 5 ft 10 in Wt: 240lbs BSA: 2.26 BP: 125/85 mmHg Indications: Shortness of Breath, Atrial Fibrillation, CAD, Hyperlipidemia, Hypertension/HDD, PACER, tachybrady syndrome, right hip mass 2D Dimensions Left Atrium 4.52 cm M: 3.0 - 4.0 LA Volume 89.50 mL LVOT 2.17 cm (M/F) 1.5-2.5 LA Volume Index 39.60 mL/m2 (M/F) 16-34 EF AP4 65.40 % GL Strain -19.6 % M-Mode Dimensions RVDd 3.50 cm (0.9-2.6) LVDd 6.05 cm (3.5-5.7) Ao Diam 3.92 cm (2.0-3.7) LVDs 3.39 cm (3.5-5.7) IVSd 1.45 cm (0.6-1.1) PWd 0.68 cm (0.6-1.1) EF (Teich) 74.30% FS 44.00% EDV (Teich) 183.40 mL TAPSE 2.47 (<1.7) ESV (Teich) 47.10 mL LV Diastology E Decel Time 228 (160-240 msec) E/A Ratio 0.8 MED E' 6.2 (>= 7 cm/sec) MED A' 11.80 cm/s E'/MED E' Ratio 9.82 (<= 14) LAT E' 10.7 (>= 10 cm/sec) LAT A' 16.60 cm/s E/LAT E' Ratio 5.69 (<= 14) Aortic Valve LVOT Max 147.0 (70-110 cm/s) SHERI Index 1.23 cm2/m2 LVOT VTI 33.15 cm AoV Peak Jose. 216.0 (50-130 cm/s) AO Peak GR. 16.80 mmHg AO Mean GR. 8.90 (<5 mmHg) AO VTI 44.0 (18-25 cm) SHERI (VTI) 2.79 (2.5-4.5 cm2) Mitral Valve MV E Max Jose. 61.0 (40-130 cm/s) MV A Velocity 74.0 (40-130 cm/s) E/A Ratio 0.82 MV Decel. Time 228 (160-240 ms) Tricuspid Valve TR P. Velocity 345.00 cm/s RAP Estimate 10.00 mmHg RVSP 57.60 mmHg Left Ventricle The left ventricle is normal size. The left ventricular systolic function is normal. The left ventricular ejection fraction is within the normal range. There is increased LV wall thickness. There is normal LV segmental wall motion. Transmitral Doppler flow pattern suggests impaired LV relaxation. LVEF is 55%. Right Ventricle Right ventricle is mildly dilated. The right ventricular systolic function is normal. There is a device lead in the right ventricle. Atria Left atrium is moderately dilated. Right atrium is mildly dilated. An interatrial shunt is likely present on color Doppler. Aortic Valve The aortic valve is mildly thickened. There is focal nodular thickening of the left coronary cusp. There is no aortic valvular stenosis. No aortic regurgitation. Mitral Valve The mitral valve leaflets are thin and pliable. Mild mitral regurgitation. Tricuspid Valve The tricuspid valve leaflets are thin and pliable. Mild tricuspid regurgitation. RVSP is 30-35 mmHg. Pulmonic Valve The pulmonary valve is normal in structure. Mild pulmonic regurgitation. Great Vessels The aortic root is normal in size. The ascending aorta is normal in size. IVC is normal in size and collapses >50% with inspiration. Pericardium There is no pericardial effusion. Other Information Study Quality: Technically Difficult Conclusion Technically difficult study due to poor accoustic windows. Normal biventricular systolic function. Mild RV dilation. Biatrial dilation. Mild MR. Mild TR. Mild NV. Interatrial shunt is likely present on color Doppler. Electronically signed by : Melany Pino MD 06/13/2023 23:15:10
== END ==
PROVIDERS: PCP Family Medicine; Visit Provider Nurse Practitioner Family
DX: R60.0 Localized edema (principal); G47.31 Primary central sleep apnea; I10 Essential (primary) hypertension; I48.0 Paroxysmal atrial fibrillation; M48.00 Spinal stenosis, site unspecified; Z95.0 Presence of cardiac pacemaker
CPT/HCPCS: 93306

== ENCOUNTER 2023-09-02 19:16 | Emergency (ER) | payer BC, SELFPAY ==
[2023-09-02 19:18] VITALS: BP 127/81; PULSE 90; RESP 17; TEMP 36.9; O2SAT 95; BMI 34.1
--- NOTE | 2023-09-02 19:35 | ED_ITS ---
<Statement entered by Chelo Jacome DO - 09/02/23 21:40> I was consulted by the ULISSES, and we discussed the complexity of the problems being addressed. I approved the treatment and management plan for this patient's care in the emergency department, thus performing a substantive portion of the medical decision making. Chelo Jacome DO Discharge Plan Disposition Patient Disposition: Home, Self-Care Condition: Good Prescriptions Prescriptions: No Action cyclobenzaprine 5 mg tablet 5 mg PO Q8H gabapentin 300 mg capsule 300 mg PO DAILY oxycodone-acetaminophen 5-325 mg tablet 1 tab PO Q6H Patient Comments: TAKE 1 TABLET BY MOUTH EVERY 6 HOURS metoprolol succinate 50 mg tablet extended release 24 hr 50 mg PO DAILY Qty: 30 11RF finasteride 5 mg tablet 5 mg PO DAILY furosemide 20 mg tablet 20 mg PO DAILY atorvastatin 80 mg tablet 80 mg PO DAILY Qty: 90 3RF sotalol 80 mg tablet 40 mg PO BID Qty: 60 5RF clopidogrel 75 mg tablet 75 mg PO DAILY Qty: 90 1RF pantoprazole 40 mg tablet,delayed release (DR/EC) See Rx Instructions .ROUTE .COMPLEX Qty: 90 4RF Dose Instruction: Take 1 tablet by mouth once daily Rx Instructions: Take 1 tablet by mouth once daily hydrochlorothiazide 25 mg tablet See Rx Instructions .ROUTE .COMPLEX Rx Instructions: Take 1 tablet by mouth once daily for blood pressure irbesartan 300 mg tablet See Rx Instructions .ROUTE .COMPLEX Rx Instructions: Take 1 tablet by mouth once daily for blood pressure Referrals Follow up/Referrals: Tre Woodall MD [Primary Care Provider] - See instructions Activity Restrictions/Add. Instructions Additional Instructions/Restrictions: Follow-up with PCP or return to ER as needed for any change in her symptoms or worsening of condition. May take 1000 mg Tylenol alternating with 800 mg of Motrin every 4 hours as needed for constitutional symptoms. Do not exceed more than 4 g of Tylenol in a 24-hour period Clinical Impressions Clinical Impression: Myalgia Fever Qualifiers: Fever type: unspecified Qualified Code(s): R50.9 - Fever, unspecified Discharge ED Provider: Chelo Jacome General Adult HPI General Chief complaint: Fever Stated complaint: fever,heart racing, cancer pt. Time Seen by Provider: 09/02/23 19:35 History of Present Illness HPI narrative: Patient presents for evaluation of acute onset of subjective fever malaise and myalgias. Patient has a past medical history of chronic renal insufficiency, struct of sleep apnea, history of TIA, atherosclerotic cardiovascular disease, history of previous CVA, history of having a pacemaker, history of hyperlipidemia and essential hypertension most recently chondrosarcoma. Patient was in his PCPs office today for routine follow-up of bilateral lower extremity edema. Patient states by the time he got home he felt like he had a subjective fever he felt his heart rate was higher than normal given that he has a pacemaker and generally felt unwell. Patient has no focal symptoms including no chest pain shortness of breath chills hemoptysis hematochezia melena hematemesis nausea vomiting dysuria diarrhea. Related Data Home Medications Medication Instructions Recorded Confirmed finasteride 5 mg tablet 5 mg PO DAILY PROSTATE 07/09/17 08/10/23 hydrochlorothiazide 25 mg tablet See Rx Instructions .Route 12/03/22 08/10/23 .COMPLEX Fluid irbesartan 300 mg tablet See Rx Instructions .Route 12/03/22 08/10/23 .COMPLEX BLOOD PRESSURE cyclobenzaprine 5 mg tablet 5 mg PO Q8H Pain 06/10/23 08/10/23 oxycodone-acetaminophen 5 mg-325 1 tab PO Q6H 06/10/23 08/10/23 mg tablet furosemide 20 mg tablet 20 mg PO DAILY 08/10/23 08/10/23 gabapentin 300 mg capsule 300 mg PO DAILY Pain 08/10/23 08/10/23 Previous Rx's Medication Instructions Recorded atorvastatin 80 mg tablet 80 mg PO DAILY cholestrol #90 tabs 05/24/21 sotalol 80 mg tablet 40 mg (1/2 x 80 mg) PO BID Heart 06/04/21 disease #60 tabs clopidogrel 75 mg tablet 75 mg PO DAILY Blood thinner #90 08/28/22 tabs pantoprazole 40 mg tablet,delayed See Rx Instructions .Route 06/24/23 release .COMPLEX #90 tabs metoprolol succinate 50 mg 50 mg PO DAILY #30 tabs 06/25/23 tablet,extended release 24 hr Allergies Allergy/AdvReac Type Severity Reaction Status Date / Time codeine AdvReac Mild NA-NAUSEA/V Verified 06/25/23 11:25 OMITING hydrocodone AdvReac Mild NA-NAUSEA/V Verified 06/25/23 11:25 OMITING PFSH PFSH Disclaimer: The information contained in this section may have been updated after the patient was seen, as this information can be updated by other users. Medical History CAD (coronary artery disease) Carotid artery stenosis Daytime somnolence Dizziness Dyspnea Edema of right forearm Epistaxis HLD (hyperlipidemia) HTN (hypertension) Left arm numbness Paroxysmal atrial fibrillation Snoring Surgical History H/O arthroscopy of left knee History of back surgery History of carpal tunnel release of both wrists Family History Other Diabetes Heart attack Hypertension Social History Smoking Status: Never smoker second hand exposure: No alcohol intake: never counseling provided: none substance use type: denies use 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al status: retired Travel in the last 8 weeks: None household members: spouse housing: house marital status: 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al exposures/hazards: No caffeine: Yes ROS Obtained: Yes Systems reviewed as appropriate & no additional complaints except as documented Physical Exam General General appearance: alert and in no apparent distress Head Head exam: atraumatic and normal inspection Eye Eye exam: Present normal appearance, PERRL and EOMI ENT ENT exam: Present normal exam, normal oropharynx and mucous membranes moist Neck Neck exam: Present normal inspection and full ROM; Absent lymphadenopathy Chest Chest inspection: Present normal inspection and symmetric chest wall rise Respiratory Respiratory exam: Present normal lung sounds bilaterally; Absent respiratory distress, wheezes, stridor or accessory muscle use Cardiovascular Cardiovascular exam: Present regular rate and normal rhythm Abdominal Exam Abdominal exam: Present soft, tenderness and normal bowel sounds; Absent guarding or rebound Extremities Exam Extremities exam: Present normal inspection and full ROM; Absent tenderness Back Exam Back exam: Present normal inspection and full ROM; Absent tenderness Neurological Exam Neurological exam: Present alert and oriented X3 Psychiatric Psychiatric exam: Present normal affect and normal mood Skin Skin exam: Present warm, dry and normal color Other Other exam information: In summary patient is a 63-year-old male who presents to the emergency department for evaluation of fever malaise myalgias. Patient is hemodynamically stable with a normal blood pressure of 127/81 pulse 90 respiratory rate 17 O2 sat 95% on room air upon arrival, with a temperature of 98.4. 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 Differential diagnosis includes viral versus bacterial infection versus pneumonia versus flu versus COVID versus UTI versus less being immunosuppressed. Initial workup will be conducted with hematologic labs plain film chest x-ray additionally flu and COVID swabs then broadened to a full respiratory panel. Initial interventions include Toradol Tylenol and IV fluid bolus. Initial workup reviewed by me shows a slightly elevated white count with a left shift. Negative troponin. D-dimer 0.60. My informal interpretation of his plain film x-ray shows no acute processes. Upon repeat evaluation patient reports subjective improvement in his constitutional symptoms of fever malaise and rapid heart rate. Given this patient is appropriate for discharge with close follow-up with PCP. Via shared decision making we discussed doing advanced imaging and the risk of benefits of such. We did like it to be far further imaging at this time and patient will follow-up closely with his PCP. Medical Decision Making Medical Records Medical records reviewed: Yes I reviewed the patient's medical records. Mike Inquiry Pt receiving controlled substance: No Vital Signs: 09/02/23 19:18 09/02/23 19:38 09/02/23 20:15 Temperature 98.4 F Temperature Source Oral Temporal Artery Scan Pulse Rate 92 H Pulse Rate [Left] 90 Respiratory Rate 17 13 Blood Pressure 128/72 Blood Pressure [Right Arm] 127/81 Blood Pressure Mean Blood Pressure Mean [Right Arm] 96 02 Sat by Pulse Oximetry 95 97 Oxygen Delivery Method Room Air 09/02/23 20:29 09/02/23 20:30 09/02/23 21:00 Temperature Temperature Source Pulse Rate 87 87 93 H Pulse Rate [Left] Respiratory Rate 17 19 15 Blood Pressure 128/72 127/71 131/74 Blood Pressure [Right Arm] Blood Pressure Mean 99 102 101 Blood Pressure Mean [Right Arm] 02 Sat by Pulse Oximetry 93 L 93 L 95 Oxygen Delivery Method Lab Data Lab results reviewed: Yes I reviewed the patient's lab results. Lab Results 09/02/23 19:28: SARS-CoV-2 (PCR) Not detected, Influenza A Untype (PCR) Not detected, Influenza Type B (PCR) Not detected 09/02/23 19:51: WBC 11.4 H, RBC 4.01 L, Hgb 12.5 L, Hct 37.9 L, MCV 94.5 H, MCH 31.1, MCHC 32.9, RDW 14.1, Plt Count 299, MPV 8.1, Neut % (Auto) 76.2, Lymph % (Auto) 14.3, [place] % (Auto) 6.8, Eos % (Auto) 2.3, Baso % (Auto) 0.5, Neut # (Auto) 8.7 H, Lymph # (Auto) 1.6, [place] # (Auto) 0.8, Eos # (Auto) 0.3, Baso # (Auto) 0.1, D-Dimer 0.60 H, Sodium 134 L, Potassium 3.4 L, Chloride 97 L, Carbon Dioxide 32 H, Anion Gap 8.4, BUN 11, Creatinine 0.80, Estimated Creat Clear 115, Estimated GFR 98, Est GFR ( Amer) 118, Glucose 118 H, Lactate 1.5, Calcium 9.4, Magnesium 1.8, Total Bilirubin 0.3, AST 29, ALT 21, Alkaline Phosphatase 344 H, Total Protein 7.0, Albumin 4.1, Globulin 2.9, Albumin/Globulin Ratio 1.4, Procalcitonin 0.069, Thyroxine (T4) 9.4 09/02/23 21:03: Urine Color Yellow, Urine Appearance Clear, Urine pH 8.5, Ur Specific [place] 1.015, Urine Protein Negative, Urine Glucose (UA) Negative, Urine Ketones Negative, Urine Blood Trace-i, Urine Nitrate Negative, Urine Bilirubin Negative, Urine Urobilinogen 4.0, Ur Leukocyte Esterase Negative, Urine RBC Occasional, Urine WBC None, Ur Squamous Epith Cells None, Urine Bacteria None 09/02/23 19:51 09/02/23 19:51 Orders (Tests/Meds): ED MEDICATIONS Discontinued Medications Generic Name Dose Route Start Last Admin Trade Name Markq PRN Reason Stop Dose Admin Acetaminophen 1,000 mg 09/02/23 19:36 09/02/23 20:19 Acetaminophen 1,000mg/100ml Vial IV 09/02/23 19:37 1,000 mg ONCE ONE Administration Lactated Ringer's 1,000 mls @ 999 mls/hr 09/02/23 19:36 09/02/23 20:18 Lactated Ringer's 1000 Ml Bag IV 09/02/23 20:36 999 mls/hr .Q1H1M ONE Administration Ketorolac Tromethamine 15 mg 09/02/23 19:36 09/02/23 20:19 Ketorolac 30mg/Ml Vial IV 09/02/23 19:37 15 mg ONCE ONE Administration ORDERS Category Date Time Status Chest XR -- portable [XR chest portable] Stat Exams 09/02/23 19:38 Completed CBC w/Auto Diff [Complete Blood Count Auto Diff] Stat Lab 09/02/23 19:51 Completed CMP [Comprehensive Metabolic Panel] Stat Lab 09/02/23 19:51 Completed D-Dimer Stat Lab 09/02/23 19:51 Completed Full Resp Panel w/COVID ([facility]) Routine Lab 09/02/23 20:50 Ordered Lactic Acid Stat Lab 09/02/23 19:51 Completed Magnesium Stat Lab 09/02/23 19:51 Completed Procalcitonin Stat Lab 09/02/23 19:51 Completed Rapid PCR Covid and Flu A/B Stat Lab 09/02/23 19:28 Completed T4 (Thyroxine) Stat Lab 09/02/23 19:51 Results Thyroid Stimulating Hormone Stat Lab 09/02/23 19:51 Results UA [Urinalysis and Microscopic] Stat Lab 09/02/23 21:03 Completed Blood Culture Stat Micro 09/02/23 20:13 Received Medical Decision Narrative: In summary patient is a 63-year-old male who presents to the emergency department for evaluation of fever malaise myalgias. Patient is hemodynamically stable with a normal blood pressure of 127/81 pulse 90 respiratory rate 17 O2 sat 95% on room air upon arrival, with a temperature of 98.4. 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 Differential diagnosis includes viral versus bacterial infection versus pneumonia versus flu versus COVID versus UTI versus less being immunosuppressed. Initial workup will be conducted with hematologic labs plain film chest x-ray additionally flu and COVID swabs then broadened to a full respiratory panel. Initial interventions include Toradol Tylenol and IV fluid bolus. Initial workup reviewed by me shows a slightly elevated white count with a left shift. Negative troponin. D-dimer 0.60. My informal interpretation of his plain film x-ray shows no acute processes. Upon repeat evaluation patient reports subjective improvement in his constitutional symptoms of fever malaise and rapid heart rate. Given this patient is appropriate for discharge with close follow-up with PCP. Via shared decision making we discussed doing advanced imaging and the risk of benefits of such. We did like it to be far further imaging at this time and patient will follow-up closely with his PCP. Critical Care Critical Care Time Critical Care Time: No
--- NOTE | 2023-09-02 19:38 | XR_ITS ---
PROCEDURE INFORMATION: Exam: XR Chest Exam date and time: 09/02/2023 7:36 PM Age: 63 years old Clinical indication: Fever; Prior surgery; Surgery date: 6+ months; Surgery type: Pacemaker; Additional info: Fever, malaise, immunosuppressed TECHNIQUE: Imaging protocol: Radiologic exam of the chest. Views: 1 view. COMPARISON: CR XR CHEST PORTABLE 06/07/2023 10:44 AM FINDINGS: Tubes, catheters and devices: Interval placement of a right chest port with the catheter extending to the distal SVC. Lungs: Low lung volumes. The lungs appear clear. Pleural spaces: Normal. No pleural effusion. No pneumothorax. Heart/Mediastinum: No cardiomegaly. Unchanged left chest wall dual lead pacemaker with lead tips extending to the right atrium and right ventricle. Vasculature: Tortuous atherosclerotic thoracic aorta. Bones/joints: Mild thoracic spine degenerative change. IMPRESSION: No acute findings.
[2023-09-02 19:42] LABS: Coronavirus 19, PCR Not Detected (NotDetected); Influenza A, PCR Not Detected (NotDetected); Influenza B, PCR Not Detected (NotDetected)
[2023-09-02 20:01] LABS: Basophils # 0.1 K/mm3 (0-0.2); Basophils % 0.5 % (0.1-2.0); Eosinophils # 0.3 K/mm3 (0.0-0.4); Eosinophils % 2.3 % (0.1-12.0); Hematocrit 37.9 % (42.0-52.0); Hemoglobin 12.5 g/dL (14.1-18.0); Lymphocytes # 1.6 K/mm3 (0.7-4.5); Lymphocytes % 14.3 % (10-50); Mean Corpuscular HGB Conc 32.9 g/dL (31.8-35.4); Mean Corpuscular Hemoglobin 31.1 pg (27.0-31.2); Mean Corpuscular Volume 94.5 fl (80-94); Mean Platelet Volume 8.1 fl (7.4-10.4); Monocytes # 0.8 K/mm3 (0.1-1.0); Monocytes % 6.8 % (1.7-9.3); Neutrophils # 8.7 K/mm3 (1.8-7.8); Neutrophils % 76.2 % (37.0-80.0); Platelet Count 299 K/mm3 (142-424); Red Blood Count 4.01 M/mm3 (4.60-6.20); Red Cell Distribution Width 14.1 % (11.5-17.5); White Blood Count 11.4 K/mm3 (4.8-10.8)
[2023-09-02 20:08] LABS: Albumin Level 4.1 g/dl (3.5-5.0); Albumin/Globulin Ratio 1.4 (1.1-1.8); Alkaline Phosphatase 344 U/L (38-126); Anion Gap 8.4 mEq/L (5-15); Bilirubin,Total 0.3 mg/dl (0.2-1.3); Blood Urea Nitrogen 11 mg/dl (9-20); Calcium 9.4 mg/dl (8.4-10.2); Carbon Dioxide 32 mmol/L (22.0-30.0); Chloride 97 mmol/L (98-107); Creatinine Clearance Estimated 115 mL/min (50-200); Estimated Glomerular Filt Rate 98 ml/min (>60); GFR (African American) 118 ML/MIN (>60); Globulin 2.9 g/dL (1.3-3.2); Glucose 118 mg/dl (74-100); Magnesium 1.8 mg/dl (1.6-2.3); Potassium 3.4 mmoL/L (3.5-5.1); Sodium 134 mmol/L (136-145)
[2023-09-02 20:09] LABS: Lactic Acid 1.5 mmol/L (0.7-2.1)
[2023-09-02 20:15] VITALS: BP 128/72; PULSE 92; RESP 13; O2SAT 97
[2023-09-02] MEDS: LACTATED RINGERS 1000ML 1,000 ML 999 ML IV (20:18)
[2023-09-02] MEDS: KETOROLAC 30MG/ML VIAL 15 MG IV (20:19)
[2023-09-02] MEDS: ACETAMINOPHEN 1,000MG/100ML VIAL 1000 MG IV (20:19)
[2023-09-02 20:25] LABS: Procalcitonin 0.069 ng/mL (0.0-2.0)
[2023-09-02 20:29] VITALS: BP 128/72; PULSE 87; RESP 17; O2SAT 93
[2023-09-02 20:30] VITALS: BP 127/71; PULSE 87; RESP 19; O2SAT 93
[2023-09-02 20:35] LABS: Alanine Aminotransferase 21 U/L (12-78); Aspartate Amino Transferase 29 U/L (17-59)
[2023-09-02 21:00] VITALS: BP 131/74; PULSE 93; RESP 15; O2SAT 95
[2023-09-02 21:09] LABS: Microscopic, Urine URINE MICROSCOPIC (MICROSCOPIC)
[2023-09-02 21:13] LABS: Appearance,Urine CLEAR (Clear); Bilirubin,Urine Negative (Negative); Blood, Urine TRACE-I (Negative); Color,Urine YELLOW (Yellow); Glucose,Urine (UA) Negative (Negative); Ketones,Urine Negative (Negative); Leukocyte Esterase,Urine Negative (Negative); Nitrate,Urine Negative (Negative); PH,Urine 8.5 (5.0-8.5); Protein,Urine Negative (Negative); Specific Gravity, Urine 1.015 (1.005-1.030)
[2023-09-02 21:26] LABS: T4 (Thyroxine) 9.4 ug/dl (5.53-11.0)
[2023-09-02 21:27] LABS: RBC,Urine Occasional #/hpf (0-3)
[2023-09-02 21:41] LABS: Adenovirus,PCR Not Detected (NotDetected); Coronavirus 19, PCR Not Detected (NotDetected); Coronavirus 229E Not Detected (NotDetected); Coronavirus NL63 Not Detected (NotDetected); Coronavirus OC43 Not Detected (NotDetected); Coronovirus HKU1,PCR Not Detected (NotDetected); Human Metapneumovirus Not Detected (NotDetected); Influenza A, PCR Not Detected (NotDetected); Influenza AH1, 2009 Not Detected (NotDetected); Influenza AH1, PCR Not Detected (NotDetected); Influenza AH3,PCR Not Detected (NotDetected); Influenza B, PCR Not Detected (NotDetected); Parainfluenza 1, PCR Not Detected (NotDetected); Parainfluenza 2, PCR Not Detected (NotDetected); Parainfluenza 3, PCR Not Detected (NotDetected); Parainfluenza 4, PCR Not Detected (NotDetected); Respiratory Syncytial Virus Not Detected (NotDetected); Rhinovirus/Enterovirus Not Detected (NotDetected)
[2023-09-02 21:43] VITALS: BP 121/79; PULSE 84; RESP 13; TEMP 37; O2SAT 95
== END 2023-09-02 21:44 | disposition home or self-care (01) ==
PROVIDERS: Physician Assistant; Emergency Provider Emergency Medicine; PCP Family Medicine
DX: R50.9 Fever, unspecified (principal); R53.81 Other malaise; I25.10 Atherosclerotic heart disease of native coronary artery without angina pectoris; I65.29 Occlusion and stenosis of unspecified carotid artery; E78.5 Hyperlipidemia, unspecified; I12.9 Hypertensive chronic kidney disease with stage 1 through stage 4 chronic kidney disease, or unspecified chronic kidney disease; I48.0 Paroxysmal atrial fibrillation; N18.9 Chronic kidney disease, unspecified; G47.33 Obstructive sleep apnea (adult) (pediatric); Z86.73 Personal history of transient ischemic attack (TIA), and cerebral infarction without residual deficits; Z95.0 Presence of cardiac pacemaker; C41.9 Malignant neoplasm of bone and articular cartilage, unspecified
CPT/HCPCS: 71045; 80053; 81001; 83605; 83735; 84145; 84436; 84443; 85025; 85378; 87040; 87581; 87632; 87635; 87636; 87798; 96361; 96374; 96375; 99285; J0131

== ENCOUNTER 2023-09-03 19:46 | Observation (INO) | payer BC, SELFPAY ==
--- NOTE | 2023-09-03 19:49 | ED_ITS ---
<Statement entered by Chelo Jacome DO - 09/03/23 22:26> I was consulted by the ULISSES, and we discussed the complexity of the problems being addressed. I approved the treatment and management plan for this patient's care in the emergency department, thus performing a substantive portion of the medical decision making. Chelo Jacome DO Discharge Plan Disposition Patient Disposition: Admitted Clinical Impressions Clinical Impression: Sepsis without septic shock, Fever of unknown origin Metastatic neoplastic disease Qualifiers: Area of secondary neoplastic involvement: unspecified site Qualified Code(s): C 79.9 - Secondary malignant neoplasm of unspecified site Discharge ED Provider: Chelo Jacome General Adult HPI General Chief complaint: Fever Stated complaint: fever, body aches, VIGIL Time Seen by Provider: 09/03/23 19:49 History of Present Illness HPI narrative: Patient presents 24 hours after being seen yesterday with symptoms of fever malaise asthenia and headache. Workup yesterday showed a slightly elevated white count but the remainder of his laboratory investigations did not reveal a cause including a completely negative full viral respiratory panel. Patient had improvement with administration of IV fluids and Toradol and acetaminophen. Patient has felt worse today with a temperature of 100.8 orally on arrival. No other new constitutional symptoms including chest pain hemoptysis hematochezia melena hematemesis hematuria dysuria cough or shortness of breath. 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 He does have a port that has been recently placed. Related Data Home Medications Medication Instructions Recorded Confirmed finasteride 5 mg tablet 5 mg PO DAILY PROSTATE 07/09/17 08/10/23 hydrochlorothiazide 25 mg tablet See Rx Instructions .Route 12/03/22 08/10/23 .COMPLEX Fluid irbesartan 300 mg tablet See Rx Instructions .Route 12/03/22 08/10/23 .COMPLEX BLOOD PRESSURE cyclobenzaprine 5 mg tablet 5 mg PO Q8H Pain 06/10/23 08/10/23 oxycodone-acetaminophen 5 mg-325 1 tab PO Q6H 06/10/23 08/10/23 mg tablet furosemide 20 mg tablet 20 mg PO DAILY 08/10/23 08/10/23 gabapentin 300 mg capsule 300 mg PO DAILY Pain 08/10/23 08/10/23 Previous Rx's Medication Instructions Recorded atorvastatin 80 mg tablet 80 mg PO DAILY cholestrol #90 tabs 05/24/21 sotalol 80 mg tablet 40 mg (1/2 x 80 mg) PO BID Heart 06/04/21 disease #60 tabs clopidogrel 75 mg tablet 75 mg PO DAILY Blood thinner #90 08/28/22 tabs pantoprazole 40 mg tablet,delayed See Rx Instructions .Route 06/24/23 release .COMPLEX #90 tabs metoprolol succinate 50 mg 50 mg PO DAILY #30 tabs 06/25/23 tablet,extended release 24 hr Allergies Allergy/AdvReac Type Severity Reaction Status Date / Time codeine AdvReac Mild NA-NAUSEA/V Verified 06/25/23 11:25 OMITING hydrocodone AdvReac Mild NA-NAUSEA/V Verified 06/25/23 11:25 OMITING PFSH PFSH Disclaimer: The information contained in this section may have been updated after the patient was seen, as this information can be updated by other users. Medical History CAD (coronary artery disease) Carotid artery stenosis Daytime somnolence Dizziness Dyspnea Edema of right forearm Epistaxis HLD (hyperlipidemia) HTN (hypertension) Left arm numbness Paroxysmal atrial fibrillation Snoring Surgical History H/O arthroscopy of left knee History of back surgery History of carpal tunnel release of both wrists Family History Other Diabetes Heart attack Hypertension Social History Smoking Status: Unknown if ever smoked second hand exposure: No alcohol intake: never counseling provided: none substance use type: denies use 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al status: retired Travel in the last 8 weeks: None household members: spouse housing: house marital status: 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 [employer] 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al exposures/hazards: No caffeine: Yes ROS Obtained: Yes Systems reviewed as appropriate & no additional complaints except as documented Physical Exam General General appearance: alert and in no apparent distress Head Head exam: atraumatic and normal inspection Eye Eye exam: Present normal appearance, PERRL and EOMI ENT ENT exam: Present normal exam, normal oropharynx and mucous membranes moist Neck Neck exam: Present normal inspection, full ROM and trachea midline; Absent tenderness, meningismus or lymphadenopathy Chest Chest inspection: Present normal inspection, symmetric chest wall rise and other (I took down the Steri-Strips in the right anterior chest to evaluate for any infection of the port placement site. There is no redness fluctuance or visible signs of infection. It appears to be appropriately healing.) Respiratory Respiratory exam: Present normal lung sounds bilaterally; Absent respiratory distress, wheezes or accessory muscle use Cardiovascular Cardiovascular exam: Present regular rate, normal rhythm, normal heart sounds, +S1 and +S2 Abdominal Exam Abdominal exam: Present soft and normal bowel sounds; Absent tenderness Extremities Exam Extremities exam: Present normal inspection, full ROM and edema (3+ bilateral pitting edema) Back Exam Back exam: Present normal inspection and full ROM Neurological Exam Neurological exam: Present alert, oriented X3 and CN II-XII intact Psychiatric Psychiatric exam: Present normal affect and normal mood Skin Skin exam: Present warm, dry and normal color Lymphatic Lymphatic Findings: no adenopathy Medical Decision Making Medical Records Medical records reviewed: Yes I reviewed the patient's medical records. Mike Inquiry Pt receiving controlled substance: No Vital Signs: 09/03/23 20:00 09/03/23 20:08 Temperature 100.8 F H Temperature Source Oral Tympanic Pulse Rate [Left Radial] 89 Respiratory Rate 20 Blood Pressure [Right Arm] 106/80 L Blood Pressure Mean [Right Arm] 88 Blood Pressure Source [Right Arm] Automatic Cuff Blood Pressure Position [Right Arm] Sitting 02 Sat by Pulse Oximetry 94 L Oxygen Delivery Method Room Air Lab Data Lab results reviewed: Yes I reviewed the patient's lab results. Lab Results 09/03/23 20:08: WBC 11.6 H, RBC 3.74 L, Hgb 11.3 L, Hct 35.7 L, MCV 95.5 H, MCH 30.3, MCHC 31.7 L, RDW 14.2, Plt Count 298, MPV 8.1, Neut % (Auto) 79.6, Lymph % (Auto) 11.8, [place] % (Auto) 7.5, Eos % (Auto) 0.8, Baso % (Auto) 0.3, Neut # (Auto) 9.3 H, Lymph # (Auto) 1.4, [place] # (Auto) 0.9, Eos # (Auto) 0.1, Baso # (Auto) 0.0, Sodium 133 L, Potassium 3.3 L, Chloride 99, Carbon Dioxide 26, Anion Gap 11.3, BUN 15 D, Creatinine 0.90, Estimated Creat Clear 115, Estimated GFR 85, Est GFR ( Amer) 103, Glucose 169 H, Calcium 8.9, Total Bilirubin 0.5, AST 26, ALT 19, Alkaline Phosphatase 304 H, Total Protein 6.6, Albumin 3.7, Globulin 2.9, Albumin/Globulin Ratio 1.3, Procalcitonin 0.087 09/03/23 20:08 09/03/23 20:08 Orders (Tests/Meds): ED MEDICATIONS Generic Name Dose Route Start Last Admin Trade Name Freq PRN Reason Stop Dose Admin Acetaminophen 650 mg 09/03/23 22:19 Acetaminophen 325mg Tab PO 10/03/23 22:09 Q6HP PRN Fever or Mild Pain (1-3) Lactated Ringer's 1,000 mls @ 100 mls/hr 09/03/23 22:19 Lactated Ringer's 1000 Ml Bag IV 10/03/23 22:14 .Q10H [facility] Piperacillin Sod/Tazobactam 100 mls @ 200 mls/hr 09/04/23 04:00 Sod 4.5 gm/ Sodium Chloride IV 09/13/23 21:59 Q6H [facility] Vancomycin HCl 2,500 mg/ 250 mls @ 125 mls/hr 09/03/23 22:19 Sodium Chloride IV 09/04/23 00:14 ONCE ONE Miscellaneous 1 each 09/03/23 22:19 Vancomycin Consult Request NOTAPPLIC 10/03/23 21:59 CONSULT PHARMACY [facility] Discontinued Medications Generic Name Dose Route Start Last Admin Trade Name Freq PRN Reason Stop Dose Admin Acetaminophen 1,000 mg 09/03/23 19:57 09/03/23 20:05 Acetaminophen 1,000mg/100ml Vial IV 09/03/23 19:58 Not Given ONCE ONE Acetaminophen 650 mg 09/03/23 22:10 Acetaminophen 325mg Tab PO 10/03/23 22:09 Q6HP PRN Fever or Mild Pain (1-3) Lactated Ringer's 500 mls @ 250 mls/hr 09/03/23 20:23 09/03/23 20:44 Lactated Ringer's 500ml IV 09/03/23 22:22 250 mls/hr .Q2H ONE Administration Piperacillin Sod/Tazobactam 100 mls @ 200 mls/hr 09/03/23 22:00 Sod 4.5 gm/ Sodium Chloride IV 09/13/23 21:59 Q6H [facility] Vancomycin HCl 2,500 mg/ 250 mls @ 125 mls/hr 09/03/23 22:15 Sodium Chloride IV 09/04/23 00:14 ONCE ONE Lactated Ringer's 1,000 mls @ 100 mls/hr 09/03/23 22:15 Lactated Ringer's 1000 Ml Bag IV 10/03/23 22:14 .Q10H [facility] Ibuprofen 800 mg 09/03/23 19:57 Ibuprofen 800 Mg Tablet PO 10/03/23 19:56 Q8HP PRN Fever or Mild Pain (1-3) Ibuprofen 600 mg 09/03/23 20:03 09/03/23 20:04 Ibuprofen 600 Mg Tablet PO 09/03/23 20:04 600 mg ONCE ONE Administration Iopamidol 80 ml 09/03/23 21:29 09/03/23 21:33 Iopamidol-370 (76%);100ml Bottle IV 09/03/23 21:30 80 ml ONCE ONE Administration Ketorolac Tromethamine 15 mg 09/03/23 19:57 09/03/23 20:19 Ketorolac 30mg/Ml Vial IV 09/03/23 19:58 Not Given ONCE ONE Miscellaneous 1 each 09/03/23 22:00 Vancomycin Consult Request NOTAPPLIC 10/03/23 21:59 CONSULT PHARMACY [facility] Sodium Chloride 10 ml 09/03/23 21:29 09/03/23 21:33 Sodium Chloride 0.9% 10ml Syr (Rad Only) IV 09/03/23 21:30 10 ml ONCE ONE Administration ORDERS Category Date Time Status CT abdomen pelvis w con Stat Cat Scan 09/03/23 19:[address] angio chest PE protocol Stat Cat Scan 09/03/23 19:57 Taken CBC w/Auto Diff [Complete Blood Count Auto Diff] Stat Lab 09/03/23 20:08 Completed CMP [Comprehensive Metabolic Panel] Stat Lab 09/03/23 20:08 Completed Procalcitonin Stat Lab 09/03/23 20:08 Completed Blood Culture Stat Micro 09/03/23 20:21 Ordered Medical Decision Narrative: In summary patient is a 63-year-old male who presents to the emergency department for evaluation of fever headache and malaise, [facility] ([place]). Patient is normotensive slightly tachycardic upon arrival, and febrile. Physical exam is nonfocal other than his bilateral pitting edema and known pelvic pain which are chronic issues. Port site appears to be healing appropriately after taking down the Steri-Strips with no evidence of fluctuance or drainage.. Differential diagnosis includes sepsis, port infection, viral syndrome, occult bacterial infection, meningitis.. Initial workup will be conducted with hematologic labs CT scan of the head chest abdomen pelvis. I did consider possible spinal tap however patient has no focal neurologic signs has no meningeal signs and is mentating appropriately have deferred for now. I do feel the patient could have evidence of sepsis with a wart being the possible source however given his volume overload peripheral edema and history of CHF I have elected against the sepsis bolus. Initial interventions include crystalloid bolus, IV Toradol and p.o. ibuprofen. Initial workup reviewed by me shows that the white count is still elevated with slightly increasing neutrophil count. The remainder of his laboratory vesication's are nonactionable.. Upon repeat evaluation ports interval subjective improvement in his constitutional symptoms. Given this I discussed the patient's management with Dr. Woodall his PCP. Decision is to admit for IV antibiotics until his first set of cultures results at least. Critical Care Critical Care Time Critical Care Time: Yes Attestation: On 09/03/23, the high probability of a clinically significant, sudden or life threatening deterioration of the following system(s) required my full and direct attention, intervention and personal management. The time I documented below is in addition to time spent performing reported procedures but includes the following listed in this critical care notation. Total Time Total Critical Care Time: 30
--- NOTE | 2023-09-03 19:57 | CT_ITS ---
TECHNIQUE: Axial CT images were performed from the lung bases through the symphysis pubis after the administration of intravenous contrast. This study was performed with techniques to keep radiation doses as low as reasonably achievable (ALARA). Individualized dose reduction techniques using automated exposure control or adjustment of mA and/or kV according to the patient's size were employed. CLINICAL HISTORY: Malaise, fever, known malignant neoplastic disease FINDINGS: LOWER CHEST: The heart is normal size. There is right lung base atelectasis. ABDOMEN/PELVIS: Liver, gallbladder and bile ducts: The liver enhances homogeneously without suspicious focal hepatic lesion. The gallbladder is unremarkable. There is no definite biliary duct dilatation. Adrenal glands: The adrenal glands are morphologically unremarkable without suspicious lesion. Kidneys, ureter and urinary bladder: No suspicious renal lesion. No hydronephrosis. Urinary bladder is unremarkable. Spleen: The spleen is normal size. Pancreas: The pancreas is grossly unremarkable. GI systems and mesentery: There is a moderate colonic stool burden. No evidence of bowel obstruction. The appendix is visualized and unremarkable in appearance. No significant mesenteric inflammation. Lymph nodes: No definite pathologically enlarged abdominal or pelvic lymph nodes present. Vessels: The aorta and abdominal arteries are grossly patent. The IVC and portal vein are patent and grossly unremarkable. Peritoneum: No free intraperitoneal fluid or pneumoperitoneum. Pelvic viscera: No acute findings. Body wall: No body wall contusion. No significant body wall hernias. Bones: There is a large lesion arising from the right innominate bone with probable soft tissue extension into the right pelvis, right gluteal muscle, and right iliacus muscle. This measures about 11.5 cm x 6.5 cm, including the soft tissue component, and is best visualized on image 102 of series 5. No acute fracture. IMPRESSION: Right iliac bone lesion with soft tissue extension to the adjacent gluteal soft tissues. This could represent primary neoplasm of bone or metastatic disease. Correlate with patient history. Reviewed, Interpreted and Dictated by Kamran Frederick, Transcribed by Christina Vasquez Signed by Kamran Frederick on 09/03/2023 10:33:12 PM, Eastern Time CHAVO ERVIN
--- NOTE | 2023-09-03 19:57 | CT_ITS ---
TECHNIQUE: Multiple axial CT images were obtained through the chest following IV contrast using a CTA/PE protocol. 3D/MIP reconstruction images were also performed. This study was performed with techniques to keep radiation doses as low as reasonably achievable (ALARA). Individualized dose reduction techniques using automated exposure control or adjustment of mA and/or kV according to the patient's size were employed. CLINICAL HISTORY: fever, FINDINGS: PAs and aorta: No pulmonary embolus. Thoracic aorta is unremarkable. There is coronary artery disease. Heart/mediastinum: No evidence for right heart strain. No pericardial effusion. The heart is normal in size. Lungs: There is right lung base atelectasis. There is no consolidation. Lymph nodes: No pathologically enlarged thoracic lymph nodes. Pleura: No pneumothorax or pleural effusion. Chest Wall: As a right chest wall Port-A-Cath and a left chest wall implanted cardiac device. Bones: No acute fracture. Upper abdomen: No acute findings in the upper abdomen. IMPRESSION: No pulmonary embolus. No acute findings in the chest. Reviewed, Interpreted and Dictated by Kamran Frederick, Transcribed by Christina Vasquez Signed by Kamran Frederick on 09/04/2023 12:05:15 AM, Eastern Time MTDD
--- NOTE | 2023-09-03 19:59 | PC.NURSE ---
pt placed in gown for assessment. H2T skin assessment performed via primary nurse with this nurse assist. No primary infectious areas located.
[2023-09-03 20:00] VITALS: BP 106/80; PULSE 89; RESP 20; TEMP 38.2; O2SAT 94; BMI 34.1
[2023-09-03] MEDS: IBUPROFEN 600 MG TABLET PO (20:04)
[2023-09-03 20:21] LABS: Basophils % 0.3 % (0.1-2.0); Eosinophils # 0.1 K/mm3 (0.0-0.4); Eosinophils % 0.8 % (0.1-12.0); Hematocrit 35.7 % (42.0-52.0); Hemoglobin 11.3 g/dL (14.1-18.0); Lymphocytes # 1.4 K/mm3 (0.7-4.5); Lymphocytes % 11.8 % (10-50); Mean Corpuscular HGB Conc 31.7 g/dL (31.8-35.4); Mean Corpuscular Hemoglobin 30.3 pg (27.0-31.2); Mean Corpuscular Volume 95.5 fl (80-94); Mean Platelet Volume 8.1 fl (7.4-10.4); Monocytes # 0.9 K/mm3 (0.1-1.0); Monocytes % 7.5 % (1.7-9.3); Neutrophils # 9.3 K/mm3 (1.8-7.8); Neutrophils % 79.6 % (37.0-80.0); Platelet Count 298 K/mm3 (142-424); Red Blood Count 3.74 M/mm3 (4.60-6.20); Red Cell Distribution Width 14.2 % (11.5-17.5); White Blood Count 11.6 K/mm3 (4.8-10.8)
[2023-09-03 20:38] LABS: Alanine Aminotransferase 19 U/L (12-78); Albumin Level 3.7 g/dl (3.5-5.0); Albumin/Globulin Ratio 1.3 (1.1-1.8); Alkaline Phosphatase 304 U/L (38-126); Anion Gap 11.3 mEq/L (5-15); Aspartate Amino Transferase 26 U/L (17-59); Bilirubin,Total 0.5 mg/dl (0.2-1.3); Blood Urea Nitrogen 15 mg/dl (9-20); Calcium 8.9 mg/dl (8.4-10.2); Carbon Dioxide 26 mmol/L (22.0-30.0); Chloride 99 mmol/L (98-107); Creatinine Clearance Estimated 115 mL/min (50-200); Estimated Glomerular Filt Rate 85 ml/min (>60); GFR (African American) 103 ML/MIN (>60); Globulin 2.9 g/dL (1.3-3.2); Glucose 169 mg/dl (74-100); Sodium 133 mmol/L (136-145); Total Protein,Serum 6.6 g/dl (6.3-8.2)
[2023-09-03] MEDS: RINGERS SOLUTION,LACTATED 500 ML 250 ML IV (20:44)
[2023-09-03 20:49] LABS: Potassium 3.3 mmoL/L (3.5-5.1)
[2023-09-03 20:54] LABS: Procalcitonin 0.087 ng/mL (0.0-2.0)
--- NOTE | 2023-09-03 21:30 | PC.NURSE ---
Awaiting on [facility] for CT reads due to technical problems with transmission and reads at this time.
[2023-09-03] MEDS: SODIUM CHLORIDE 0.9% 10ML SYR (RAD ONLY) 10 ML IV (21:33)
[2023-09-03] MEDS: IOPAMIDOL-370 (76%);100ML BOTTLE 80 ML IV (21:33)
--- NOTE | 2023-09-03 22:11 | PC.NURSE ---
called aron, supervisor [facility] for bed assignment. dx: fever unknown origin, sepsis w/o septic shock. chuck-mauro pete.
--- NOTE | 2023-09-03 22:12 | PC.NURSE ---
OBSERVATION ADMISSION TO 205 WITH DX OF FEVER OF UNKNOWN ORGIN, SEPSIS TO SERVICE OF DR. MANZANARES.
--- NOTE | 2023-09-03 22:22 | PC.NURSE ---
Attempted report to [place] at this time, nurse requested to return call for report.
--- NOTE | 2023-09-03 22:32 | PC.NURSE ---
Nurse to nurse report given to [place] HEBERT.
--- NOTE | 2023-09-03 22:38 | PC.NURSE ---
RECEIVED PHONE REPORT FROM CAROLYN RN/ED NURSE AT [id number]. PATIENT IS A 63 YO MALE R/O SEPSIS. NEW CANCER PATIENT.
[2023-09-03] MEDS: VANCOMYCIN HCL 2,500 MG in 0.9 % SODIUM CHLORIDE 250 ML 125 MG IV (22:44)
[2023-09-03 22:46] VITALS: BP 124/78; PULSE 70; RESP 19; TEMP 37.1; O2SAT 95
[2023-09-03 23:00] VITALS: BP 116/60; PULSE 75; RESP 18; TEMP 37.1; O2SAT 94; BMI 32.8
--- NOTE | 2023-09-03 23:05 | PC.NURSE ---
Patient arrived to floor via wheelchair from ED at 23:04.
[2023-09-03] MEDS: LACTATED RINGERS 1000ML 1,000 ML 100 ML IV (23:15)
[2023-09-04] MEDS: LACTATED RINGERS 1000ML 1,000 ML 100 ML IV ×3 (02:20→22:34)
[2023-09-04 04:00] VITALS: BP 142/88; PULSE 72; RESP 14; TEMP 36.9; O2SAT 95; BMI 32.8
[2023-09-04] MEDS: PIPERACILLIN/TAZO 4.5 GM in 0.9 % SODIUM CHLORIDE 100 ML IV ×4 (05:20→21:22)
--- NOTE | 2023-09-04 06:36 | PC.NURSE ---
HAS RESTED IN RECLINER CHAIR. DOES NOT TOLERATE LAYING IN BED. HAS BEEN AFEBRILE SINCE ADMISSION. RECEIVING VANCOMYCIN AND ZOSYN IV ANTIBIOTICS. TOLERATED WELL.
--- NOTE | 2023-09-04 07:35 | HMH.PHAINT1 ---
Pharmacy Intervention Comments: MEDICATION RECONCILIATION COMPLETED ON PATIENT USING EXTERNAL FILL HISTORY FROM PHARMACY AND ASHLEY REPORT. -TOÑITO HAMPTON, JENNIFERD
[2023-09-04 08:00] VITALS: BP 167/76; PULSE 117; RESP 19; TEMP 37; O2SAT 97
--- NOTE | 2023-09-04 08:43 | P.HP_ITS ---
History of Present Illness *Admission Date: 09/03/23 *Reason for visit:: fever, body aches *History of present illness: Patient presents 24 hours after being seen yesterday with symptoms of fever, malaise, asthenia, and headache. Workup yesterday showed a slightly elevated white count, but the remainder of his laboratory investigations did not reveal a cause including a completely negative full viral respiratory panel. Patient had improvement with administration of IV fluids and Toradol and acetaminophen. Patient has felt worse today with a temperature of 100.8 orally on arrival. No other new constitutional symptoms including chest pain hemoptysis, hematochezia, melena, hematemesis, hematuria, dysuria, cough, or shortness of breath. 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 He does have a port that has been recently placed. (above as per ER physician) The patient states he is still feeling poorly today. He is achy and chilling. [facility] Disclaimer: The information contained in this section may have been updated after the patient was seen, as this information can be updated by other users. 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 Epistaxis Daytime somnolence Snoring Paroxysmal atrial fibrillation Dyspnea Left arm numbness Carotid artery stenosis Dizziness Edema of right forearm HLD (hyperlipidemia) HTN (hypertension) CAD (coronary artery disease) Surgical History History of back surgery History of carpal tunnel release of both wrists H/O arthroscopy of left knee Family History Other Diabetes Heart attack Hypertension Social History Smoking Status: Unknown if ever smoked second hand exposure: No alcohol intake: never counseling provided: none substance use type: denies use 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al status: retired Travel in the last 8 weeks: None household members: spouse housing: house marital status: 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 [employer] 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al exposures/hazards: No caffeine: Yes Review of Systems Constitutional Constitutional: Reports chills, Reports fatigue, Reports fever(s), Denies headache(s), Reports malaise and Reports weakness Eyes Eyes: Denies blurry vision and Denies diplopia ENT Ears, Nose, Mouth, and Throat: Denies headache(s), Denies nasal congestion, Denies sore throat and Reports vertigo *Cardiovascular Cardiovascular: Denies chest pain and Denies dyspnea *Respiratory Respiratory: Denies cough and Denies dyspnea *Gastrointestinal Gastrointestinal: Denies abdominal pain, Denies loose stools, Denies nausea and Denies vomiting *Genitourinary Genitourinary: Denies difficulty urinating and Denies dysuria *Musculoskeletal Musculoskeletal: Reports arthralgias (right pelvis and hip) *Neurologic Neurologic: Denies headache(s), Reports vertigo and Reports weakness Endocrine Endocrine: Reports fatigue Meds Home Medications and Allergies Home Medications Medication Instructions Recorded Confirmed Type finasteride 5 mg tablet 5 mg PO DAILY Prostate 07/09/17 09/04/23 History atorvastatin 80 mg tablet 80 mg PO DAILY cholestrol #90 tabs 05/24/21 09/04/23 Rx sotalol 80 mg tablet 40 mg (1/2 x 80 mg) PO BID Heart 06/04/21 09/03/23 Rx disease #60 tabs hydrochlorothiazide 25 mg tablet 25 mg PO DAILY Fluid 12/03/22 09/04/23 History irbesartan 300 mg tablet 300 mg PO DAILY High Blood Pressure 12/03/22 09/04/23 History oxycodone-acetaminophen 5 mg-325 1 tab PO Q4HP PRN Moderate Pain 06/10/23 09/04/23 History mg tablet (Scale Score 5-6) clopidogrel 75 mg tablet 75 mg PO DAILY Platelet Inhibitor 09/04/23 09/04/23 History cyclobenzaprine 10 mg tablet 10 mg PO TID Muscle Spasm 09/04/23 09/04/23 History furosemide 40 mg tablet 40 mg PO DAILY Fluid 09/04/23 09/04/23 History morphine 30 mg tablet,extended 30 mg PO BID Pain 09/04/23 09/04/23 History release pantoprazole 40 mg tablet,delayed 40 mg PO DAILY Acid Reflux 09/04/23 09/04/23 History release potassium chloride 10 mEq 10 meq PO DAILY Supplement 09/04/23 09/04/23 History capsule,extended release New Prescriptions to Start Prescriptions: Allergies Allergy/AdvReac Type Severity Reaction Status Date / Time codeine AdvReac Mild NA-NAUSEA/V Verified 06/25/23 11:25 OMITING hydrocodone AdvReac Mild NA-NAUSEA/V Verified 06/25/23 11:25 OMITING Exam Data for Last 24 hours Vital signs and Labs for Last 24 Hours: Temp Pulse Resp BP Pulse Ox O2 Del Method 98.6 F 117 H 19 167/76 H 97 Room Air 09/04/23 08:00 09/04/23 08:00 09/04/23 08:00 09/04/23 08:00 09/04/23 08:00 09/04/23 08:00 Laboratory Results - last 24 hr 09/03/23 20:08: WBC 11.6 H, RBC 3.74 L, Hgb 11.3 L, Hct 35.7 L, MCV 95.5 H, MCH 30.3, MCHC 31.7 L, RDW 14.2, Plt Count 298, MPV 8.1, Neut % (Auto) 79.6, Lymph % (Auto) 11.8, [place] % (Auto) 7.5, Eos % (Auto) 0.8, Baso % (Auto) 0.3, Neut # (Auto) 9.3 H, Lymph # (Auto) 1.4, [place] # (Auto) 0.9, Eos # (Auto) 0.1, Baso # (Auto) 0.0, Sodium 133 L, Potassium 3.3 L, Chloride 99, Carbon Dioxide 26, Anion Gap 11.3, BUN 15 D, Creatinine 0.90, Estimated Creat Clear 115, Estimated GFR 85, Est GFR ( Amer) 103, Glucose 169 H, Calcium 8.9, Total Bilirubin 0.5, AST 26, ALT 19, Alkaline Phosphatase 304 H, Total Protein 6.6, Albumin 3.7, Globulin 2.9, Albumin/Globulin Ratio 1.3, Procalcitonin 0.087 I & O for Last 24 hours: Intake & Output 09/01/23 09/02/23 09/03/23 09/04/23 11:59 11:59 11:59 11:59 Intake Total 1393 / 1393 Output Total Balance 1392 / 1392 Weight 229 lb 12.8 oz Constitutional Constitutional: no acute distress *Routine HEENT Exam Head: Present normocephalic and atraumatic Eye: Present EOMI and PERRL ENT: Present mucous membranes moist *Routine Neck Exam Neck: Present supple and full ROM *Routine Respiratory Exam Respiratory: Present CTA bilaterally *Routine Cardiovascular Exam Cardiovascular: Present RRR *Routine Abdominal Exam Abdominal: Present soft and normoactive bowel sounds; Absent tenderness *Routine Rectal Exam Rectal:: deferred *Routine Genitalia Exam Genitalia:: deferred *Routine Extremities Exam Extremities: Absent cyanosis, clubbing or edema Comments: pain with movement of the right leg *Routine Skin Exam Skin: Present intact; Absent erythema *Routine Neurological Exam Neurological: Present alert and oriented X3 H&P: Result Impressions CXR - nothing acute CTA - No pulmonary embolus. No acute findings in the chest. Abd/Pelvic CT -Right iliac bone lesion with soft tissue extension to the adjacent gluteal soft tissues. This could represent primary neoplasm of bone or metastatic disease. Correlate with patient history. Assessment and Plan *Assessment and plan (1) Fever of unknown origin: Status: Acute Category: Medical Code(s): R50.9 - Fever, unspecified (2) Chondrosarcoma: Problem Comment: right pelvis, [facility] appts 08/12/2023 Status: Acute Category: Medical Code(s): C41.9 - Malignant neoplasm of bone and articular cartilage, unspecified (3) Metastatic neoplastic disease: Status: Acute Qualifiers: Area of secondary neoplastic involvement: unspecified site Qualified Code(s): C79.9 - Secondary malignant neoplasm of unspecified site Category: Medical Code(s): C79.9 - Secondary malignant neoplasm of unspecified site (4) Pacemaker: Status: Chronic Category: Medical Code(s): Z95.0 - Presence of cardiac pacemaker (5) History of TIA (transient ischemic attack): Status: Chronic Category: Medical Code(s): Z86.73 - Personal history of transient ischemic attack (TIA), and cerebral infarction without residual deficits (6) Complex sleep apnea syndrome: Problem Comment: Severe JULIO w/ CSA in the setting of chronic narcotics initially prescribed in the setting of severe stenosis but now, newly diagnosed malignancy. Difficulty sleeping due to pain. Appt with oncologist today. Status: Chronic Category: Medical Code(s): G47.31 - Primary central sleep apnea (7) Right leg weakness: Status: Acute Category: Medical Code(s): R29.898 - Other symptoms and signs involving the musculoskeletal system (8) Central stenosis of spinal canal: Status: Acute Category: Medical Code(s): M48.00 - Spinal stenosis, site unspecified (9) Lumbar spinal stenosis: Status: Acute Category: Medical Code(s): M48.061 - Spinal stenosis, lumbar region without neurogenic claudication (10) Paroxysmal atrial fibrillation: Status: Chronic Category: Medical Code(s): I48.0 - Paroxysmal atrial fibrillation (11) Chronic GERD: Status: Acute Category: Medical Code(s): K21.9 - Gastro-esophageal reflux disease without esophagitis (12) HLD (hyperlipidemia): Status: Chronic Qualifiers: Hyperlipidemia type: mixed hyperlipidemia Qualified Code(s): E78.2 - Mixed hyperlipidemia Category: Medical Code(s): E78.5 - Hyperlipidemia, unspecified (13) HTN (hypertension): Status: Chronic Qualifiers: Hypertension type: essential hypertension Qualified Code(s): I10 - Essential (primary) hypertension Category: Medical Code(s): I10 - Essential (primary) hypertension (14) CAD (coronary artery disease): Status: Chronic Qualifiers: Associated angina: with other forms of angina Coronary Disease- Associated Artery/Lesion type: [place] artery [place] vs. transplanted heart: [place] heart Qualified Code(s): I25.118 - Atherosclerotic heart disease of [place] coronary artery with other forms of angina pectoris Category: Medical Code(s): I25.10 - Atherosclerotic heart disease of [place] coronary artery without angina pectoris (15) Fatigue: Status: Acute Category: Medical Code(s): R53.83 - Other fatigue (16) Hypokalemia: Status: Acute Category: Medical Code(s): E87.6 - Hypokalemia Plan Patient has been started on IV abx and IVF's. He will need potassium replaced. Will discuss further care with Dr. Woodall. Dr. Woodall entry - Saw patient, agree with above note, will resume some of his home medications, start Lovenox for DVT prophylaxis. Will continue Zosyn for now, await blood cultures. He does not appear to have pneumonia.
[2023-09-04] MEDS: ACETAMINOPHEN 325MG TAB 650 MG PO (09:42)
[2023-09-04] MEDS: MORPHINE 30MG EXTENDED RELEASE TAB 30 MG PO ×2 (10:34→20:37)
[2023-09-04] MEDS: ENOXAPARIN 40MG/0.4ML SYRINGE 40 MG SQ (10:35)
[2023-09-04 13:15] VITALS: BP 147/79; PULSE 86
[2023-09-04] MEDS: CLOPIDOGREL 75MG TAB 75 MG PO (13:15)
[2023-09-04] MEDS: OXYCODONE 5MG W/APAP 325MG TABLET 1 EACH PO (13:15)
[2023-09-04] MEDS: IRBESARTAN 300MG TABLET 300 MG PO (13:15)
[2023-09-04] MEDS: CYCLOBENZAPRINE 10MG TABLET 10 MG PO ×2 (13:15→20:38)
[2023-09-04] MEDS: FINASTERIDE 5MG TABLET 5 MG PO (13:16)
[2023-09-04] MEDS: SOTALOL 80MG TABLET 40 MG PO ×2 (13:16→20:37)
[2023-09-04 14:35] VITALS: BMI 32.8
[2023-09-04 15:28] VITALS: BP 131/79; PULSE 76; RESP 18; TEMP 37.1; O2SAT 95
--- NOTE | 2023-09-04 16:16 | PC.NURSE ---
Patient stated he had talked to his doctors office and stated that the doctors office wanted to check his port on thursday and start chemo thursday. Told patient that I would pass information on to the doctor at rounds. VS stable and patient remained on room air. Pain treated with prn pain medication and some relief noted. Bilateral feet edema +3 and pitting, patient unable to elevate extremities due to right hip pain.
[2023-09-04] MEDS: PROMETHAZINE HCL 25MG/ML 1ML VIAL 12.5 MG IV ×2 (16:37→20:13)
[2023-09-04] MEDS: SODIUM CHLORIDE 0.9% 25ML BAG 25 ML IV ×2 (16:37→20:13)
[2023-09-04] MEDS: CALCIUM CARBONATE 500MG CHEWTAB 1000 MG PO (18:50)
[2023-09-04] MEDS: FAMOTIDINE 20MG TABLET 40 MG PO (18:50)
--- NOTE | 2023-09-04 18:50 | PC.NURSE ---
Patient stated he had pain in his back that radiated up. Patient then stated he had some chest pain. Patient stated he would get the pain in his back when he had indigestion. EKG ordered.
--- NOTE | 2023-09-04 18:54 | PC.NURSE ---
Pepcid 40 mg and calcium carbonate 1000 mg given at [address] order, verified with parul neal
--- NOTE | 2023-09-04 19:10 | ECG_ITS ---
APPROVED REPORT Exam: Resting ECG HR:77 bpm ECG Measurements Heart Rate 77 AXES WI 168 P 14 QRSd 103 QRS 12 QT 370 T -20 QTc 402 Conclusion SINUS RHYTHM NONSPECIFIC ST & T-WAVE changes are present since 2022 BORDERLINE ECG UNCONFIRMED REPORT Electronically signed by : Francisco Mixon MD 09/05/2023 08:35:49
[2023-09-04 20:00] VITALS: BP 119/77; PULSE 77; RESP 18; TEMP 37.2; O2SAT 97
[2023-09-04] MEDS: PANTOPRAZOLE 40MG TABLET 40 MG PO (20:38)
[2023-09-04] MEDS: ATORVASTATIN 40MG TABLET 80 MG PO (20:38)
[2023-09-04] MEDS: SIMETHICONE 80MG CHEWABLE TABLET 160 MG PO (21:45)
[2023-09-04] MEDS: METOCLOPRAMIDE 10MG TABLET 10 MG PO (21:45)
[2023-09-04] MEDS: OXYCODONE 10MG W/APAP 325MG TABLET 1 EACH PO (22:42)
--- NOTE | 2023-09-04 22:46 | PC.NURSE ---
patient states belching and indigestion subsided but still has pain in back and legs 4-10/22. pain alittle better but persistant. medicated with percocet 10mg/325mg 1 tab po. assisted patint back into bed from chair.
--- NOTE | 2023-09-05 02:24 | PC.NURSE ---
patient is pain free at this time. was able to sleep 2 hours.
[2023-09-05] MEDS: PIPERACILLIN/TAZO 4.5 GM in 0.9 % SODIUM CHLORIDE 100 ML IV ×4 (03:48→21:03)
[2023-09-05 04:00] VITALS: BP 125/76; PULSE 63; RESP 18; TEMP 36.9; O2SAT 97; BMI 32.8
[2023-09-05 07:58] VITALS: BP 126/66; PULSE 73; RESP 18; TEMP 36.5; O2SAT 96
[2023-09-05] MEDS: FAMOTIDINE 20MG TABLET 40 MG PO (08:15)
[2023-09-05] MEDS: SOTALOL 80MG TABLET 40 MG PO ×2 (08:15→21:03)
[2023-09-05] MEDS: FINASTERIDE 5MG TABLET 5 MG PO (08:16)
[2023-09-05] MEDS: IRBESARTAN 300MG TABLET 300 MG PO (08:16)
[2023-09-05] MEDS: CYCLOBENZAPRINE 10MG TABLET 10 MG PO ×3 (08:16→21:05)
[2023-09-05] MEDS: CLOPIDOGREL 75MG TAB 75 MG PO (08:16)
[2023-09-05] MEDS: ENOXAPARIN 40MG/0.4ML SYRINGE 40 MG SQ (08:17)
--- NOTE | 2023-09-05 08:18 | EXP.ACUTE.PN ---
Subjective *Date: 09/05/23 *Time: 08:22 Interval history: Patient feels much better this morning, no N/V, no fever. Medical Exam Vital signs and Labs for Last 24 Hours: Vital Signs Temp Pulse Resp BP Pulse Ox O2 Del Method 09/05/23 07:58 97.7 F 73 18 126/66 96 Room Air 09/05/23 06:40 Room Air 09/05/23 05:00 Room Air 09/05/23 04:00 98.4 F 63 18 125/76 97 Room Air 09/05/23 03:00 Room Air 09/05/23 01:00 Room Air 09/04/23 23:00 Room Air 09/04/23 20:54 Room Air 09/04/23 20:00 97 Room Air 09/04/23 20:00 99.0 F 77 18 119/77 97 Room Air 09/04/23 18:41 Room Air 09/04/23 16:41 Room Air 09/04/23 15:28 98.8 F 76 18 131/79 95 Room Air 09/04/23 15:00 Room Air 09/04/23 13:15 86 147/79 H 09/04/23 13:00 Room Air 09/04/23 10:53 Room Air 09/04/23 08:50 Room Air 09/04/23 08:50 Room Air Intake and Output 09/04/23 09/05/23 09/05/23 23:59 07:59 15:59 Intake Total 680 / 3119 1512 / 1512 Output Total 0 1 Balance 680 / 3118 1511 / 1511 Intake: Intake, Oral Amount 480 / 1440 600 / 600 Intake, Total IV Amount 200 / 1679 912 / 912 Lactated Ringers 1000ML 1,000 912 / 912 ml @ 100 mls/hr IV .Q10H [facility] Rx #:[id number] Piperacillin/Tazo 4.5 gm In 0.9 100 / 200 % Sodium Chloride 100 ml @ 200 mls/hr IV Q6H [facility] Rx#:[id number] Piperacillin/Tazo 4.5 gm In 0.9 100 / 100 % Sodium Chloride 100 ml @ 200 mls/hr IV Q6H [facility] Rx#:[id number] Output: Output, Urine Amount 0 / Other: Number of Unmeasured Voids 1 1 Weight 229 lb 4.492 oz Patient Weight 09/05/23 23:59 Weight 229 lb 4.492 oz I & O for Labs for Last 24 Hours: Intake & Output 09/02/23 09/03/23 09/04/23 09/05/23 23:59 23:59 23:59 23:59 Intake Total 2879 / 3119 1512 / 1512 Output Total Balance 2878 / 3118 1511 / 1511 Weight 229 lb 12.8 oz 229 lb 4.492 oz 229 lb 4.492 oz Constitutional: Present no acute distress Respiratory: Present normal respiratory effort Cardiac: Present Reg Rate and Rhythm GI: Present normal bowel sounds; Absent tenderness Skin: Present intact; Absent erythema Neuro: Present Grossly Intact and moves all extremities Assessment and Plan *Assessment and plan (1) Fever of unknown origin: Status: Acute Category: Medical Code(s): R50.9 - Fever, unspecified (2) Chondrosarcoma: Problem Comment: right pelvis, [facility] appts 08/12/2023 Status: Acute Category: Medical Code(s): C41.9 - Malignant neoplasm of bone and articular cartilage, unspecified (3) Metastatic neoplastic disease: Status: Acute Qualifiers: Area of secondary neoplastic involvement: unspecified site Qualified Code(s): C79.9 - Secondary malignant neoplasm of unspecified site Category: Medical Code(s): C79.9 - Secondary malignant neoplasm of unspecified site (4) Pacemaker: Status: Chronic Category: Medical Code(s): Z95.0 - Presence of cardiac pacemaker (5) History of TIA (transient ischemic attack): Status: Chronic Category: Medical Code(s): Z86.73 - Personal history of transient ischemic attack (TIA), and cerebral infarction without residual deficits (6) Complex sleep apnea syndrome: Problem Comment: Severe JULIO w/ CSA in the setting of chronic narcotics initially prescribed in the setting of severe stenosis but now, newly diagnosed malignancy. Difficulty sleeping due to pain. Appt with oncologist today. Status: Chronic Category: Medical Code(s): G47.31 - Primary central sleep apnea (7) Right leg weakness: Status: Acute Category: Medical Code(s): R29.898 - Other symptoms and signs involving the musculoskeletal system (8) Central stenosis of spinal canal: Status: Acute Category: Medical Code(s): M48.00 - Spinal stenosis, site unspecified (9) Lumbar spinal stenosis: Status: Acute Category: Medical Code(s): M48.061 - Spinal stenosis, lumbar region without neurogenic claudication (10) Paroxysmal atrial fibrillation: Status: Chronic Category: Medical Code(s): I48.0 - Paroxysmal atrial fibrillation (11) Chronic GERD: Status: Acute Category: Medical Code(s): K21.9 - Gastro-esophageal reflux disease without esophagitis (12) HLD (hyperlipidemia): Status: Chronic Qualifiers: Hyperlipidemia type: mixed hyperlipidemia Qualified Code(s): E78.2 - Mixed hyperlipidemia Category: Medical Code(s): E78.5 - Hyperlipidemia, unspecified (13) HTN (hypertension): Status: Chronic Qualifiers: Hypertension type: essential hypertension Qualified Code(s): I10 - Essential (primary) hypertension Category: Medical Code(s): I10 - Essential (primary) hypertension (14) CAD (coronary artery disease): Status: Chronic Qualifiers: Associated angina: with other forms of angina Coronary Disease-Associated Artery/Lesion type: [place] artery [place] vs. transplanted heart: [place] heart Qualified Code(s): I25.118 - Atherosclerotic heart disease of [place] coronary artery with other forms of angina pectoris Category: Medical Code(s): I25.10 - Atherosclerotic heart disease of [place] coronary artery without angina pectoris (15) Fatigue: Status: Acute Category: Medical Code(s): R53.83 - Other fatigue (16) Hypokalemia: Status: Acute Category: Medical Code(s): E87.6 - Hypokalemia Plan AM labs are pending now, plan to keep patient ti at least tomorrow morning when cultures with be past 48 hours, continue current care.
[2023-09-05] MEDS: MORPHINE 30MG EXTENDED RELEASE TAB 30 MG PO ×2 (08:22→21:04)
[2023-09-05 08:30] LABS: Chloride 103 mmol/L (98-107); Potassium 3.4 mmoL/L (3.5-5.1); Sodium 136 mmol/L (136-145)
[2023-09-05 08:33] LABS: Anion Gap 5.4 mEq/L (5-15); Blood Urea Nitrogen 13 mg/dl (9-20); Carbon Dioxide 31 mmol/L (22.0-30.0); Creatinine Clearance Estimated 111 mL/min (50-200); Estimated Glomerular Filt Rate 98 ml/min (>60); GFR (African American) 118 ML/MIN (>60)
[2023-09-05 08:34] LABS: Calcium 9.1 mg/dl (8.4-10.2); Glucose 113 mg/dl (74-100)
[2023-09-05 08:43] LABS: Basophils % 0.3 % (0.1-2.0); Eosinophils # 0.1 K/mm3 (0.0-0.4); Eosinophils % 0.9 % (0.1-12.0); Hematocrit 33.3 % (42.0-52.0); Hemoglobin 10.7 g/dL (14.1-18.0); Lymphocytes # 1.2 K/mm3 (0.7-4.5); Lymphocytes % 12.2 % (10-50); Mean Corpuscular HGB Conc 32.1 g/dL (31.8-35.4); Mean Corpuscular Hemoglobin 30.6 pg (27.0-31.2); Mean Corpuscular Volume 95.5 fl (80-94); Mean Platelet Volume 7.7 fl (7.4-10.4); Monocytes # 0.6 K/mm3 (0.1-1.0); Monocytes % 6.4 % (1.7-9.3); Neutrophils # 8.1 K/mm3 (1.8-7.8); Neutrophils % 80.2 % (37.0-80.0); Platelet Count 295 K/mm3 (142-424); Red Blood Count 3.49 M/mm3 (4.60-6.20); White Blood Count 10.1 K/mm3 (4.8-10.8)
[2023-09-05 11:56] VITALS: BP 136/97; PULSE 69; RESP 18; TEMP 37.2; O2SAT 98
[2023-09-05] MEDS: OXYCODONE 10MG W/APAP 325MG TABLET 1 EACH PO (13:24)
[2023-09-05] MEDS: POTASSIUM CHLORIDE 20MEQ TAB 20 MEQ PO ×2 (13:26→21:03)
[2023-09-05 15:39] VITALS: BP 137/66; PULSE 70; RESP 18; TEMP 36.9; O2SAT 97
--- NOTE | 2023-09-05 16:33 | PC.NURSE ---
VS stable and patient remained on room air. Pain relieved with prn pain medication. IV antibiotics given. Patient afebrile.
[2023-09-05] MEDS: ACETAMINOPHEN 325MG TAB 650 MG PO (18:56)
[2023-09-05 20:00] VITALS: BP 129/74; PULSE 78; RESP 20; TEMP 37.4; O2SAT 95
[2023-09-05] MEDS: PANTOPRAZOLE 40MG TABLET 40 MG PO (21:03)
[2023-09-05] MEDS: ATORVASTATIN 40MG TABLET 80 MG PO (21:04)
[2023-09-06] VITALS: BP 131/83; PULSE 68; RESP 20; TEMP 37; O2SAT 98
[2023-09-06] MEDS: PIPERACILLIN/TAZO 4.5 GM in 0.9 % SODIUM CHLORIDE 100 ML IV (03:35)
[2023-09-06] MEDS: OXYCODONE 10MG W/APAP 325MG TABLET 1 EACH PO (03:36)
--- NOTE | 2023-09-06 03:52 | PC.NURSE ---
Pt is alert and oriented x4, and currently tolerating RA well. Pt was febrile at thew beginning of the shift and was given tylenol to treat fever. Pt temp decreased. Pt has C/o severe pain in his R hip and has been treated per MAR pain that is only relieved for a short time after pain meds. Pt has tolerated antibiotic therapy well. Pt bilateral lower extremities remain swollen and pt remains sitting up in chair states that he can not elevate legs due to pain in right hip.
[2023-09-06 04:00] VITALS: BP 122/87; PULSE 66; RESP 16; TEMP 37; O2SAT 95; BMI 32.8
[2023-09-06 08:00] VITALS: BP 125/76; PULSE 74; RESP 17; TEMP 36.7; O2SAT 94
[2023-09-06] MEDS: IRBESARTAN 300MG TABLET 300 MG PO (08:09)
[2023-09-06] MEDS: SOTALOL 80MG TABLET 40 MG PO (08:09)
[2023-09-06] MEDS: MORPHINE 30MG EXTENDED RELEASE TAB 30 MG PO (08:09)
[2023-09-06] MEDS: POTASSIUM CHLORIDE 20MEQ TAB 20 MEQ PO (08:10)
[2023-09-06] MEDS: CYCLOBENZAPRINE 10MG TABLET 10 MG PO (08:10)
[2023-09-06] MEDS: ENOXAPARIN 40MG/0.4ML SYRINGE 40 MG SQ (08:10)
[2023-09-06] MEDS: FINASTERIDE 5MG TABLET 5 MG PO (08:10)
[2023-09-06] MEDS: CLOPIDOGREL 75MG TAB 75 MG PO (08:10)
[2023-09-06] MEDS: FAMOTIDINE 20MG TABLET 40 MG PO (08:10)
--- NOTE | 2023-09-06 08:48 | EXP.ACUTE.PN ---
Subjective *Date: 09/06/23 *Time: 08:48 Interval history: Patient slept well, feels better this morning, wants to go home. Medical Exam Vital signs and Labs for Last 24 Hours: Vital Signs Temp Pulse Resp BP Pulse Ox O2 Del Method 09/06/23 08:00 98.0 F 74 17 125/76 94 L Room Air 09/06/23 06:42 Room Air 09/06/23 05:00 Room Air 09/06/23 04:00 98.6 F 66 16 122/87 95 Room Air 09/06/23 03:00 Room Air 09/06/23 01:00 Room Air 09/06/23 00:00 98.6 F 68 20 131/83 98 Room Air 09/05/23 22:45 Room Air 09/05/23 21:00 Room Air 09/05/23 20:00 95 Room Air 09/05/23 20:00 99.3 F 78 20 129/74 95 Room Air 09/05/23 19:00 Room Air 09/05/23 17:10 Room Air 09/05/23 15:39 98.5 F 70 18 137/66 97 Room Air 09/05/23 15:00 Room Air 09/05/23 13:00 Room Air 09/05/23 11:56 99.0 F 69 18 136/97 H 98 Room Air 09/05/23 10:55 Room Air 09/05/23 09:00 Room Air Intake and Output 09/05/23 09/06/23 09/06/23 23:59 07:59 15:59 Intake Total 560 / 2802 340 / 520 180 / 520 Output Total 0 / 1 0 / 0 Balance 560 / 2801 340 / 520 180 / 520 Intake: Intake, Oral Amount 360 / 1590 240 / 420 180 / 420 Intake, Total IV Amount 200 / 1212 100 / 100 Piperacillin/Tazo 4.5 gm In 0.9 200 / 300 100 / 100 % Sodium Chloride 100 ml @ 200 mls/hr IV Q6H [facility] Rx#:[id number] Output: Output, Urine Amount 0 / 1 0 / 0 Other: Number of Unmeasured Voids 1 1 Weight 229 lb 4.492 oz Patient Weight 09/06/23 23:59 Weight 229 lb 4.492 oz I & O for Labs for Last 24 Hours: Intake & Output 03/21/09/04/23 09/05/23 09/06/23 23:59 23:59 23:59 23:59 Intake Total 2878 / 3119 2462 / 2802 520 / 520 Output Total 0 / 0 Balance 8 / 3118 2461 / 2801 520 / 520 Weight 229 lb 12.8 oz 229 lb 4.492 oz 229 lb 4.492 oz 229 lb 4.492 oz Constitutional: Present no acute distress Respiratory: Present normal respiratory effort Cardiac: Present Reg Rate and Rhythm GI: Present normal bowel sounds; Absent tenderness Extremities: Present edema (1+ bilateral legs) Skin: Present intact; Absent erythema Neuro: Present Grossly Intact and moves all extremities Assessment and Plan *Assessment and plan (1) Fever of unknown origin: Status: Acute Category: Medical Code(s): R50.9 - Fever, unspecified (2) Chondrosarcoma: Problem Comment: right pelvis, [facility] appts 08/12/2023 Status: Acute Category: Medical Code(s): C41.9 - Malignant neoplasm of bone and articular cartilage, unspecified (3) Metastatic neoplastic disease: Status: Acute Qualifiers: Area of secondary neoplastic involvement: unspecified site Qualified Code(s): C79.9 - Secondary malignant neoplasm of unspecified site Category: Medical Code(s): C79.9 - Secondary malignant neoplasm of unspecified site (4) Pacemaker: Status: Chronic Category: Medical Code(s): Z95.0 - Presence of cardiac pacemaker (5) History of TIA (transient ischemic attack): Status: Chronic Category: Medical Code(s): Z86.73 - Personal history of transient ischemic attack (TIA), and cerebral infarction without residual deficits (6) Complex sleep apnea syndrome: Problem Comment: Severe JULIO w/ CSA in the setting of chronic narcotics initially prescribed in the setting of severe stenosis but now, newly diagnosed malignancy. Difficulty sleeping due to pain. Appt with oncologist today. Status: Chronic Category: Medical Code(s): G47.31 - Primary central sleep apnea (7) Right leg weakness: Status: Acute Category: Medical Code(s): R29.898 - Other symptoms and signs involving the musculoskeletal system (8) Central stenosis of spinal canal: Status: Acute Category: Medical Code(s): M48.00 - Spinal stenosis, site unspecified (9) Lumbar spinal stenosis: Status: Acute Category: Medical Code(s): M48.061 - Spinal stenosis, lumbar region without neurogenic claudication (10) Paroxysmal atrial fibrillation: Status: Chronic Category: Medical Code(s): I48.0 - Paroxysmal atrial fibrillation (11) Chronic GERD: Status: Acute Category: Medical Code(s): K21.9 - Gastro-esophageal reflux disease without esophagitis (12) HLD (hyperlipidemia): Status: Chronic Qualifiers: Hyperlipidemia type: mixed hyperlipidemia Qualified Code(s): E78.2 - Mixed hyperlipidemia Category: Medical Code(s): E78.5 - Hyperlipidemia, unspecified (13) HTN (hypertension): Status: Chronic Qualifiers: Hypertension type: essential hypertension Qualified Code(s): I10 - Essential (primary) hypertension Category: Medical Code(s): I10 - Essential (primary) hypertension (14) CAD (coronary artery disease): Status: Chronic Qualifiers: Coronary Disease-Associated Artery/Lesion type: [place] artery [place] vs. transplanted heart: [place] heart Associated angina: with other forms of angina Qualified Code(s): I25.118 - Atherosclerotic heart disease of [place] coronary artery with other forms of angina pectoris Category: Medical Code(s): I25.10 - Atherosclerotic heart disease of [place] coronary artery without angina pectoris (15) Fatigue: Status: Acute Category: Medical Code(s): R53.83 - Other fatigue (16) Hypokalemia: Status: Acute Category: Medical Code(s): E87.6 - Hypokalemia (17) Anemia: Status: Acute Category: Medical Code(s): D64.9 - Anemia, unspecified Plan Blood cultures from 09/02/23 still with no growth. OK to discharge home today without antibiotics. Plan to start chemo in 2 days, f/u by phone in 5 or 6 days.
--- NOTE | 2023-09-07 16:04 | CARE MANAGER ---
Called and spoke patient regarding recent discharge. Patient stated that he was very satisfied with service and had no concerns at time of call.
--- NOTE | 2023-09-09 11:29 | P.DS_ITS ---
General Admission date:: 09/03/23 Discharge date: 09/06/23 HPI HPI HPI: Patient presents 24 hours after being seen yesterday with symptoms of fever, malaise, asthenia, and headache. Workup yesterday showed a slightly elevated white count, but the remainder of his laboratory investigations did not reveal a cause including a completely negative full viral respiratory panel. Patient had improvement with administration of IV fluids and Toradol and acetaminophen. Patient has felt worse today with a temperature of 100.8 orally on arrival. No other new constitutional symptoms including chest pain hemoptysis, hematochezia, melena, hematemesis, hematuria, dysuria, cough, or shortness of breath. 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 He does have a port that has been recently placed. (above as per ER physician) The patient states he is still feeling poorly today. He is achy and chilling. Hospital Course Hospital Course Hospital Course: The patient's chest x-ray showed nothing acute. His CTA was normal. His abdominal pelvic CT showed a right iliac bone lesion with soft tissue extension to the adjacent gluteal soft tissues. He was admitted and started on IV antibiotics and IV fluids. His potassium was replaced. He was started on Lovenox for DVT prophylaxis. By 09/05/2023, he felt much better. He had no nausea or vomiting and his fever had resolved. By 09/06/2023, his blood cultures still showed no growth and he was stable to be discharged home without antibiotics. He will start chemo in the next few days. Exam Data for Last 24 hours Vital signs and Labs for Last 24 Hours: Temp Pulse Resp BP Pulse Ox O2 Del Method 98.0 F 74 17 125/76 94 L Room Air 09/06/23 08:00 09/06/23 08:00 09/06/23 08:00 09/06/23 08:00 09/06/23 08:00 09/06/23 08:00 I & O for Last 24 hours: Intake & Output 09/06/23 09/07/23 09/08/23 09/09/23 11:59 11:59 11:59 11:59 Intake Total 1350 / 1350 Output Total 0 / 0 Balance 1350 / 1350 Weight 229 lb 4.492 oz Microbiology Reports for the Last 24 Hours: Microbiology 09/03/23 22:23 Blood Blood Culture - Preliminary 09/03/23 22:23 Blood Blood Culture - Preliminary Narrative: Constitutional Constitutional: no acute distress *Routine HEENT Exam Head: Present normocephalic and atraumatic Eye: Present EOMI and PERRL ENT: Present mucous membranes moist *Routine Neck Exam Neck: Present supple and full ROM *Routine Respiratory Exam Respiratory: Present CTA bilaterally *Routine Cardiovascular Exam Cardiovascular: Present RRR *Routine Abdominal Exam Abdominal: Present soft and normoactive bowel sounds; Absent tenderness *Routine Rectal Exam Rectal:: deferred *Routine Genitalia Exam Genitalia:: deferred *Routine Extremities Exam Extremities: Absent cyanosis, clubbing or edema Comments: pain with movement of the right leg *Routine Skin Exam Skin: Present intact; Absent erythema *Routine Neurological Exam Neurological: Present alert and oriented X3 Results Data Completed and Pending Labs on day of discharge: Preliminary micro results at discharge 09/03/23 22:23 Blood Culture - Preliminary Blood 09/03/23 22:23 Blood Culture - Preliminary Blood DS: Diagnosis Discharge Diagnosis (1) Fever of unknown origin: Status: Acute Code(s): R50.9 - Fever, unspecified (2) Chondrosarcoma: Status: Acute Code(s): C41.9 - Malignant neoplasm of bone and articular cartilage, unspecified Problem details: right pelvis, [facility] [place] appts 08/12/2023 (3) Metastatic neoplastic disease: Status: Acute Code(s): C79.9 - Secondary malignant neoplasm of unspecified site Qualifiers: Area of secondary neoplastic involvement: unspecified site Qualified Code(s): C79.9 - Secondary malignant neoplasm of unspecified site (4) Pacemaker: Status: Chronic Code(s): Z95.0 - Presence of cardiac pacemaker (5) History of TIA (transient ischemic attack): Status: Chronic Code(s): Z86.73 - Personal history of transient ischemic attack (TIA), and cerebral infarction without residual deficits (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 Difficulty sleeping due to pain. Appt with oncologist today. (7) Right leg weakness: Status: Acute Code(s): R29.898 - Other symptoms and signs involving the musculoskeletal system (8) Central stenosis of spinal canal: Status: Acute Code(s): M48.00 - Spinal stenosis, site unspecified (9) Lumbar spinal stenosis: Status: Acute Code(s): M48.061 - Spinal stenosis, lumbar region without neurogenic claudication (10) Paroxysmal atrial fibrillation: Status: Chronic Code(s): I48.0 - Paroxysmal atrial fibrillation (11) Chronic GERD: Status: Acute Code(s): K21.9 - Gastro-esophageal reflux disease without esophagitis (12) HLD (hyperlipidemia): Status: Chronic Code(s): E78.5 - Hyperlipidemia, unspecified Qualifiers: Hyperlipidemia type: mixed hyperlipidemia Qualified Code(s): E78.2 - Mixed hyperlipidemia (13) HTN (hypertension): Status: Chronic Code(s): I10 - Essential (primary) hypertension Qualifiers: Hypertension type: essential hypertension Qualified Code(s): I10 - Essential (primary) hypertension (14) CAD (coronary artery disease): Status: Chronic Code(s): I25.10 - Atherosclerotic heart disease of [place] coronary artery without angina pectoris Qualifiers: Coronary Disease-Associated Artery/Lesion type: [place] artery [place] vs. transplanted heart: [place] heart Associated angina: with other forms of angina Qualified Code(s): I25.118 - Atherosclerotic heart disease of [place] coronary artery with other forms of angina pectoris (15) Fatigue: Status: Acute Code(s): R53.83 - Other fatigue (16) Hypokalemia: Status: Acute Code(s): E87.6 - Hypokalemia (17) Anemia: Status: Acute Code(s): D64.9 - Anemia, unspecified Meds Home Medications and Allergies Home Medications Medication Instructions Recorded Confirmed Type finasteride 5 mg tablet 5 mg PO DAILY Prostate 07/09/17 09/04/23 History atorvastatin 80 mg tablet 80 mg PO DAILY cholestrol #90 tabs 05/24/21 09/04/23 Rx sotalol 80 mg tablet 40 mg (1/2 x 80 mg) PO BID Heart 06/04/21 09/03/23 Rx disease #60 tabs hydrochlorothiazide 25 mg tablet 25 mg PO DAILY Fluid 12/03/22 09/04/23 History irbesartan 300 mg tablet 300 mg PO DAILY High Blood Pressure 12/03/22 09/04/23 History oxycodone-acetaminophen 5 mg-325 1 tab PO Q4HP PRN Moderate Pain 06/10/23 09/04/23 History mg tablet (Scale Score 5-6) clopidogrel 75 mg tablet 75 mg PO DAILY Platelet Inhibitor 09/04/23 09/04/23 History cyclobenzaprine 10 mg tablet 10 mg PO TID Muscle Spasm 09/04/23 09/04/23 History furosemide 40 mg tablet 40 mg PO DAILY Fluid 09/04/23 09/04/23 History morphine 30 mg tablet,extended 30 mg PO BID Pain 09/04/23 09/04/23 History release pantoprazole 40 mg tablet,delayed 40 mg PO DAILY Acid Reflux 09/04/23 09/04/23 History release potassium chloride 10 mEq 10 meq PO DAILY Supplement 09/04/23 09/04/23 History capsule,extended release New Prescriptions to Start Prescriptions: Allergies Allergy/AdvReac Type Severity Reaction Status Date / Time codeine AdvReac Mild NA-NAUSEA/V Verified 06/25/23 11:25 OMITING hydrocodone AdvReac Mild NA-NAUSEA/V Verified 06/25/23 11:25 OMITING Discharge Plan Disposition Patient Disposition: Home, Self-Care Condition: Fair Follow up Plan Follow up with: Tre Woodall MD [Primary Care Provider] - Enter time for follow up (Via phone in 5 or 6 days) Prescriptions/Medication Reconciliation: Continued oxycodone-acetaminophen 5-325 mg tablet 1 tab PO Q4HP PRN (Reason: Moderate Pain (Scale Score 5-6)) Patient Comments: TAKE 1 TABLET BY MOUTH EVERY 6 HOURS finasteride 5 mg tablet 5 mg PO DAILY atorvastatin 80 mg tablet 80 mg PO DAILY Qty: 90 3RF sotalol 80 mg tablet 40 mg PO BID Qty: 60 5RF hydrochlorothiazide 25 mg tablet 25 mg PO DAILY irbesartan 300 mg tablet 300 mg PO DAILY cyclobenzaprine 10 mg tablet 10 mg PO TID Patient Comments: TAKE 1 TABLET BY MOUTH THREE TIMES DAILY furosemide 40 mg tablet 40 mg PO DAILY potassium chloride 10 mEq capsule, extended release 10 meq PO DAILY clopidogrel 75 mg tablet 75 mg PO DAILY Patient Comments: TAKE 1 TABLET BY MOUTH ONCE DAILY FOR 90 DAYS morphine 30 mg tablet extended release 30 mg PO BID Patient Comments: TAKE 1 TABLET BY MOUTH TWICE DAILY FOR 30 DAYS (MAX DAILY AMOUNT 60GM) pantoprazole 40 mg tablet,delayed release (DR/EC) 40 mg PO DAILY Patient Comments: TAKE 1 TABLET BY MOUTH ONCE DAILY Problem Reconciliation Problems Reviewed?: Yes Patient Discharge Instructions ACTIVITY: Continue current activity DIET: continue same diet Patient Instructions: Iron-Deficiency Anemia, Anemia, Fever of Unknown Origin, DI for Hypokalemia Providers Primary Care Provider: Tre Woodall Admit Provider: Tre Woodall Attending Provider: Tre Woodall
== END 2023-09-06 09:37 | disposition home or self-care (01) ==
LOC: ER 19:56 → 2ND 22:13
PROVIDERS: Physician Assistant; Admitting Provider Family Medicine; Emergency Provider Emergency Medicine; PCP Family Medicine; Visit Provider Family Medicine
DX: R50.9 Fever, unspecified (principal); Z79.899 Other long term (current) drug therapy; Z79.02 Long term (current) use of antithrombotics/antiplatelets; Z95.0 Presence of cardiac pacemaker; C41.4 Malignant neoplasm of pelvic bones, sacrum and coccyx; M48.061 Spinal stenosis, lumbar region without neurogenic claudication; I48.0 Paroxysmal atrial fibrillation; G47.31 Primary central sleep apnea; E87.6 Hypokalemia; D64.9 Anemia, unspecified; I10 Essential (primary) hypertension; C79.89 Secondary malignant neoplasm of other specified sites; I25.10 Atherosclerotic heart disease of native coronary artery without angina pectoris
CPT/HCPCS: 36415; 71275; 74177; 80048; 80053; 84145; 85025; 87040; 93005; 99291; G0378; J2543; J3370; Q9967

== ENCOUNTER 2023-10-08 11:22 | Outpatient (CLI) | payer BC, SELFPAY ==
--- NOTE | 2023-10-08 | CA_ITS ---
APPROVED REPORT Exam: Pharmacologic Technologist: Mague Rush, Ht: 5 ft 10 in Wt: 213 lbs BSA: 2.14 m2 HR: 66 bpm BP: 110/76 mmHg Rhythm: NSR Indications: Afib, Preop Medical History Medications: Irbesartan,,,,, Potassium Chloride,,,,, Trazadone,,,,, Sotalol,,,,, Pantoprazole,,,,, Atorvastatin,,,,, PERCOCET,,,,, CloPIdogrel,,,,, MoRPHINE,,,,, Finasteride,,,,, Cyclobenzaprine,,,,, CompAZINE,,,,, Stress Test Details Test: LEXISCAN Reason for pharmacologic stress test: physical limitation. Reversal agent Aminophyline 100.0 mg, given intravenously for nausea. HR Resting HR: 71 bpm Max Heart Rate (APMHR): 157 bpm Max HR Achieved: 99 bpm Target HR (85% APMHR): 133 bpm % of APMHR: 63 Recovery HR: 78 bpm BP Resting BP: 110.0/76.0 mmHg Max BP: 129.0/74.0 mmHg Recovery BP: 121.0/73.0 mmHg ECG Resting ECG: NSR, PVCs, T wave abns inferiorly and anteriorly Stress ECG: No significant ST changes Arrhythmia: Occasional PVCs Clinical Exercise duration: 04:00 min Highest Stage Achieved: Stress ECG Conclusion Mild SOA, very mild chest tightness. Nausea Nausea/ vomiting Aminophylline 100mg slow IV given feels much better Symptoms: SOA, mild chest tightness, N/V Arrhythmias/Ectopy: Occ PVC ST-T Changes: No significant ST changes. Conclusion: Unremarkable Lexiscan stress. Myoview images reported separately. Test Summary REST . . . . . . . Resting REST 03:26 . . 71 . 110/ 76 . . Stage 1 01:00 . . 80 . . . . Stage 2 01:00 . . 86 . . . . Stage 3 01:00 . . 81 . 124/ 79 . . Stage 4 01:00 . . 86 . . . Stop exercise at 04:00 RECOVERY 01:00 . . 95 . . . . RECOVERY 02:00 . . 83 . . . . RECOVERY 03:00 . . 83 . . . . RECOVERY 04:00 . . 77 . . . . RECOVERY 05:00 . . 78 . 129/ 74 . . RECOVERY 05:17 . . 78 . 121/ 83 . . Electronically signed by : Melany Pino MD 10/12/2023 12:52:55
--- NOTE | 2023-10-08 11:23 | NM_ITS ---
APPROVED REPORT Exam: Nuclear Stress Test Indication: palpitations..fatigue..pre-op..hypertension Patient Location: Outpatient Stress Tech: Mague Al[place] Tech:Gabi Dalal AZBelinda RT(R)(N) Ht: 5 ft 10 in Wt: 230 lbs HR: 71 bpm BP: 110/76 mmHg BSA: 2.21 m2 Rhythm: NSR TID: 1.17 BMI: 32.9 History: palpitations..fatigue..pre-op..hypertension Procedure: Patient received 0.4 mg of intravenous Lexiscan, resting heart rate 71 bpm, resting blood pressure 110/76 mmHg, with Lexiscan maximum heart rate achieved was 99 bpm which is 85 % of the maximum predicted heart rate and blood pressure was 129/74 mmHg. With Lexiscan, patient denied any complaint of chest pain. Cardiac Stress and Resting SPECT Images: Cardiac Stress and Resting SPECT images were obtained using technetium 99m Myoview 32.6 mCi stress and 9.90 mCi at rest. Resting and stress imaging in supine and prone positions demonstrate a medium sized, moderate, fixed perfusion defect in the basal to mid inferior and inferior septal LV herman. Gated imaging demonstrates mild reduction in global LV systolic function. There is moderate hypokinesis of the basal inferior LV wall. LVEF is calculated at 44%. Conclusion: Medium sized, moderate, fixed perfusion defect in the basal to mid inferior and inferior septal LV herman. Gated imaging demonstrates mild reduction in global LV systolic function. There is moderate hypokinesis of the basal inferior LV wall. LVEF is calculated at 44%. Electronically signed by : Melany Pino MD 10/12/2023 12:54:32
[2023-10-08] MEDS: REGADENOSON 0.4MG/5ML SYRINGE 0.400000000000000022 MG IV (13:45)
[2023-10-08] MEDS: ISOTOPE MYOVIEW (PER STUDY) 1 DOSE IV (13:45)
[2023-10-08] MEDS: SODIUM CHLORIDE 0.9% 10ML SYR (RAD ONLY) 10 ML IV ×2 (13:45)
== END 2023-10-08 23:59 | disposition home or self-care (01) ==
LOC: RAD 11:23
PROVIDERS: PCP Family Medicine; Visit Provider Physician Assistant
DX: I25.118 Atherosclerotic heart disease of native coronary artery with other forms of angina pectoris (principal); I48.0 Paroxysmal atrial fibrillation; I49.9 Cardiac arrhythmia, unspecified; I10 Essential (primary) hypertension; E78.2 Mixed hyperlipidemia
CPT/HCPCS: 78452; 93017; 93018; A9502; J0280; J2785

== ENCOUNTER 2023-11-01 11:45 | Inpatient (IN) | payer BC, SELFPAY ==
[2023-11-01] VITALS (22 sets, daily range): BP systolic 96–152; BP diastolic 50–85; PULSE 60–66; RESP 16–22; TEMP 36.6–37.3; O2SAT 94–100; BMI 28.5; BMI 29.5
[2023-11-01 12:43] LABS: Chloride 101 mmol/L (98-107)
[2023-11-01 12:44] LABS: Potassium 3.3 mmoL/L (3.5-5.1); Sodium 137 mmol/L (136-145)
[2023-11-01 12:46] LABS: Alanine Aminotransferase 19 U/L (12-78); Albumin Level 3.6 g/dl (3.5-5.0); Albumin/Globulin Ratio 1.5 (1.1-1.8); Alkaline Phosphatase 135 U/L (38-126); Anion Gap 11.3 mEq/L (5-15); Aspartate Amino Transferase 24 U/L (17-59); Bilirubin,Total 0.4 mg/dl (0.2-1.3); Blood Urea Nitrogen 25 mg/dl (9-20); Carbon Dioxide 28 mmol/L (22.0-30.0); Creatinine Clearance Estimated 60 mL/min (50-200); Estimated Glomerular Filt Rate 44 ml/min (>60); GFR (African American) 53 ML/MIN (>60); Globulin 2.4 g/dL (1.3-3.2)
[2023-11-01 12:47] LABS: Calcium 7.9 mg/dl (8.4-10.2); Glucose 99 mg/dl (74-100)
[2023-11-01] MEDS: LACTATED RINGERS 1000ML 1,000 ML 999 ML IV (12:51)
[2023-11-01] MEDS: ONDANSETRON 4MG/2ML VIAL 4 MG IV (12:51)
[2023-11-01 13:05] LABS: Basophils % 0.4 % (0.1-2.0); Eosinophils % 0.2 % (0.1-12.0); Lymphocytes # 1.1 K/mm3 (0.7-4.5); Lymphocytes % 22.7 % (10-50); Mean Corpuscular HGB Conc 33.7 g/dL (31.8-35.4); Mean Corpuscular Hemoglobin 30.2 pg (27.0-31.2); Mean Corpuscular Volume 89.5 fl (80-94); Mean Platelet Volume 10.4 fl (7.4-10.4); Monocytes # 0.4 K/mm3 (0.1-1.0); Monocytes % 7.7 % (1.7-9.3); Neutrophils # 3.5 K/mm3 (1.8-7.8); Neutrophils % 69.1 % (37.0-80.0); Red Blood Count 2.29 M/mm3 (4.60-6.20)
[2023-11-01 13:11] LABS: Hematocrit 20.5 % (42.0-52.0); Hemoglobin 6.9 g/dL (14.1-18.0); Platelet Count 48 K/mm3 (142-424)
--- NOTE | 2023-11-01 13:23 | PC.NURSE ---
DR. AZEVEDO AT BS TO UPDATE PT ON POC
--- NOTE | 2023-11-01 13:29 | PC.NURSE ---
DR NANDO GIBBS FOR DR MANZANARES
--- NOTE | 2023-11-01 13:34 | PC.NURSE ---
DR AZEVEDO AT BEDSIDE
--- NOTE | 2023-11-01 13:36 | PC.NURSE ---
DR AZEVEDO SPEAKING WITH DR COLLIER FOR ADMISSION FOR DR MANZANARES
--- NOTE | 2023-11-01 13:37 | PC.NURSE ---
INVESTOR RELATIONS COORDINATOR NOTIFIED OF ADMISSION
--- NOTE | 2023-11-01 13:38 | ED_ITS ---
Discharge Plan Disposition Patient Disposition: Admitted Chief Complaint: Nausea/Vomiting/Diarrhea Prescriptions Prescriptions: No Action finasteride 5 mg tablet 5 mg PO DAILY trazodone 50 mg tablet 50 mg PO HS PRN promethazine 12.5 mg tablet 12.5 mg PO HS PRN prochlorperazine maleate 10 mg tablet 10 mg PO PRN lidocaine-prilocaine 2.5-2.5 % cream 1 applic topical ONCE PRN oxycodone-acetaminophen 10-325 mg tablet 1 tab PO Q4-6H PRN Patient Comments: TAKE 1 TABLET BY MOUTH EVERY 6 HOURS NEEDED FOR PAIN. MAX DAILY AMOUNT: 4 TABLETS atorvastatin 80 mg tablet 80 mg PO DAILY Qty: 90 3RF sotalol 80 mg tablet 40 mg PO BID Qty: 60 5RF hydrochlorothiazide 12.5 mg tablet 12.5 mg PO DAILY Qty: 30 3RF irbesartan 150 mg tablet 150 mg PO DAILY Qty: 30 3RF cyclobenzaprine 10 mg tablet 10 mg PO TID Patient Comments: TAKE 1 TABLET BY MOUTH THREE TIMES DAILY furosemide 40 mg tablet 40 mg PO DAILY potassium chloride 10 mEq capsule, extended release 10 meq PO DAILY clopidogrel 75 mg tablet 75 mg PO DAILY Patient Comments: TAKE 1 TABLET BY MOUTH ONCE DAILY FOR 90 DAYS morphine 30 mg tablet extended release 30 mg PO BID Patient Comments: TAKE 1 TABLET BY MOUTH TWICE DAILY FOR 30 DAYS (MAX DAILY AMOUNT 60GM) pantoprazole 40 mg tablet,delayed release (DR/EC) 40 mg PO DAILY Patient Comments: TAKE 1 TABLET BY MOUTH ONCE DAILY Referrals Follow up/Referrals: Tre Woodall MD [Primary Care Provider] - See instructions Clinical Impressions Clinical Impression: Acute dehydration, Anemia, SUNNY (acute kidney injury), Thrombocytopenia, Chemotherapy-induced nausea and vomiting Instructions Patient Instructions: DI for Nausea -- Adult, DI for Nausea -- Child, DI for Diarrhea and Traveler's Diarrhea -- Adult, DI for Diarrhea and Traveler's Diarrhea -- Child Discharge ED Provider: Krysta Vasquez General Adult HPI General Chief complaint: Nausea/Vomiting/Diarrhea Stated complaint: weakness loss of appitite dry heaving Time Seen by Provider: 11/01/23 13:00 Mode of Arrival: Ambulatory Source of Information: Patient Limitations: No Limitations Description of Symptoms (Recalled from ER Triage Doc. by RN): PT REPORTS WEAKNESS, VOMITING SINCE THURSDAY. PT ADMITTED BY ONCOLOGIST ON 10/22, DISCHARGED ON 10/25 FOR ABNORMAL LABS. HAS TAKEN ALL MEDS AT HOME WITH NO RELIEF OF NAUSEA/VOMITING. REPORTS DECREASED PO INTAKE. RECENT CHEMO ON 10/19-10/20. DENIES FEVER History of Present Illness HPI narrative: Patient is a 63-year-old here with nausea vomiting since Thursday. He has a known history of diagnosed chondrosarcoma of his right hip followed by [facility] recently on chemo. Most recently was administered chemo on . Has not required blood transfusion in the past. Has been trying to manage his nausea at home but is been unsuccessful which is what brought him to the emergency department today. Related Data Home Medications Medication Instructions Recorded Confirmed finasteride 5 mg tablet 5 mg PO DAILY Prostate 07/09/17 09/04/23 clopidogrel 75 mg tablet 75 mg PO DAILY Platelet Inhibitor 09/04/23 09/04/23 cyclobenzaprine 10 mg tablet 10 mg PO TID Muscle Spasm 09/04/23 09/04/23 furosemide 40 mg tablet 40 mg PO DAILY Fluid 09/04/23 09/04/23 morphine 30 mg tablet,extended 30 mg PO BID Pain 09/04/23 09/04/23 release pantoprazole 40 mg tablet,delayed 40 mg PO DAILY Acid Reflux 09/04/23 09/04/23 release potassium chloride 10 mEq 10 meq PO DAILY Supplement 09/04/23 09/04/23 capsule,extended release lidocaine-prilocaine 2.5 %-2.5 % 1 applic topical ONCE PRN 09/24/23 09/24/23 topical cream oxycodone-acetaminophen 10 mg-325 1 tab PO Q4-6H PRN 09/24/23 09/24/23 mg tablet prochlorperazine maleate 10 mg 10 mg PO PRN 09/24/23 09/24/23 tablet promethazine 12.5 mg tablet 12.5 mg PO HS PRN 09/24/23 09/24/23 trazodone 50 mg tablet 50 mg PO HS PRN 09/24/23 09/24/23 Previous Rx's Medication Instructions Recorded atorvastatin 80 mg tablet 80 mg PO DAILY cholestrol #90 tabs 05/24/21 sotalol 80 mg tablet 40 mg (1/2 x 80 mg) PO BID Heart 06/04/21 disease #60 tabs hydrochlorothiazide 12.5 mg tablet 12.5 mg PO DAILY #30 tabs 10/02/23 irbesartan 150 mg tablet 150 mg PO DAILY #30 tabs 10/02/23 Allergies Allergy/AdvReac Type Severity Reaction Status Date / Time codeine AdvReac Mild NA-NAUSEA/V Verified 09/24/23 09:45 OMITING hydrocodone AdvReac Mild NA-NAUSEA/V Verified 09/24/23 09:45 OMITING PFSH PFSH Disclaimer: The information contained in this section may have been updated after the patient was seen, as this information can be updated by other users. Medical History Cerebrovascular accident Pacemaker History of TIA (transient ischemic attack) Complex sleep apnea syndrome Severe JULIO w/ CSA in the setting of chronic narcotics initially prescribed in the setting of severe stenosis but now, newly diagnosed malignancy. Difficulty sleeping due to pain. Appt with oncologist today. Metastatic neoplastic disease Chondrosarcoma right pelvis, [facility] appts 08/12/2023 Epistaxis Daytime somnolence Snoring Paroxysmal atrial fibrillation Dyspnea Left arm numbness Carotid artery stenosis Dizziness Edema of right forearm HLD (hyperlipidemia) HTN (hypertension) CAD (coronary artery disease) Surgical History History of back surgery History of carpal tunnel release of both wrists H/O arthroscopy of left knee Family History Other Diabetes Heart attack Hypertension Social History Smoking Status: Never smoker second hand exposure: No alcohol intake: never counseling provided: none substance use type: denies use 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al status: retired Travel in the last 8 weeks: None household members: spouse housing: house marital status: 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 [employer] 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al exposures/hazards: No caffeine: Yes ROS Obtained: Yes All systems reviewed & no additional complaints except as documented Physical Exam General General appearance: alert and in no apparent distress Respiratory Respiratory exam: Present normal lung sounds bilaterally; Absent respiratory distress Cardiovascular Cardiovascular exam: Present regular rate and normal rhythm Neurological Exam Neurological exam: Present alert and oriented X3 Medical Decision Making Mike Inquiry Pt receiving controlled substance: No Vital Signs: 11/01/23 11:46 11/01/23 12:17 Temperature 97.8 F Temperature Source Oral Pulse Rate 62 Pulse Rate [Radial] 66 Respiratory Rate 18 Blood Pressure 96/65 L Blood Pressure [Right Arm] 128/78 Blood Pressure Mean 78 Blood Pressure Mean [Right Arm] 94 Blood Pressure Source [Right Arm] Automatic Cuff Blood Pressure Position [Right Arm] Sitting 02 Sat by Pulse Oximetry 99 98 Oxygen Delivery Method Room Air Lab Data Lab results reviewed: Yes I reviewed the patient's lab results. Lab Results 11/01/23 12:15: WBC 5.0, RBC 2.29 L, Hgb 6.9 L, Hct 20.5 L*, MCV 89.5, MCH 30.2, MCHC 33.7, RDW 16.0, Plt Count 48 L*, MPV 10.4, Neut % (Auto) 69.1, Lymph % (Auto) 22.7, Will % (Auto) 7.7, Eos % (Auto) 0.2, Baso % (Auto) 0.4, Neut # (Auto) 3.5, Lymph # (Auto) 1.1, Will # (Auto) 0.4, Eos # (Auto) 0.0, Baso # (Auto) 0.0, Sodium 137, Potassium 3.3 L, Chloride 101, Carbon Dioxide 28, Anion Gap 11.3, BUN 25 H, Creatinine 1.60 H, Estimated Creat Clear 60, Estimated GFR 44 L, Est GFR ( Amer) 53 L, Glucose 99, Calcium 7.9 L, Total Bilirubin 0.4, AST 24, ALT 19, Alkaline Phosphatase 135 H, Total Protein 6.0 L, Albumin 3.6, Globulin 2.4, Albumin/Globulin Ratio 1.5 11/01/23 12:15 11/01/23 12:15 Orders (Tests/Meds): ED MEDICATIONS Generic Name Dose Route Start Last Admin Trade Name Freq PRN Reason Stop Dose Admin Sodium Chloride 250 mls @ 25 mls/hr 11/01/23 13:30 Sod Chlor 0.9% 250ml Bag IV 11/02/23 13:29 .Q10H SLADE Discontinued Medications Generic Name Dose Route Start Last Admin Trade Name Freq PRN Reason Stop Dose Admin Lactated Ringer's 1,000 mls @ 999 mls/hr 11/01/23 12:37 11/01/23 12:51 Lactated Ringer's 1000 Ml Bag IV 11/01/23 13:37 999 mls/hr .Q1H1M ONE Administration Ondansetron HCl 4 mg 11/01/23 12:37 11/01/23 12:51 Ondansetron 4mg/2ml Vial IV 11/01/23 12:38 4 mg ONCE ONE Administration ORDERS Category Date Time Status Transfuse RBC's [Red Blood Cells] Stat [employer] 11/01/23 13:25 Ordered Type and Screen Stat [employer] [facility] 11/01/23 13:25 Ordered Complete Blood Count Auto Diff Stat Lab 11/01/23 12:15 Completed Comprehensive Metabolic Panel Stat Lab 11/01/23 12:15 Completed Medical Decision Narrative: Patient above history and physical presenting today with nausea and vomiting after chemotherapy for almost a week at this point. He is clinically dehydrated has acute kidney injury with a creatinine of 1.6 baseline 0.8 mildly hypokalemic this is all been addressed with IV fluids also is symptomatic from a anemia standpoint has acutely dropped his H&H no signs or symptoms of bleeding from historical standpoint likely secondary to his chemo. 1 unit of PRBCs has been ordered. I given the option of having these things replaced in the emergency department and following up outpatient or being admitted he would prefer to be admitted given the duration of the symptoms has been experiencing. His abdominal exam is benign do not suspect surgical pathology. She was admitted for further evaluation and management. Critical Care Critical Care Time Critical Care Time: Yes Attestation: On 11/01/23, the high probability of a clinically significant, sudden or life threatening deterioration of the following system(s) required my full and direct attention, intervention and personal management. The time I documented below is in addition to time spent performing reported procedures but includes the following listed in this critical care notation. Total Time Total Critical Care Time: 35
--- NOTE | 2023-11-01 14:08 | PC.NURSE ---
NO BEDS AVAILABLE AT THIS TIME, PT WILL BOARD IN ER
--- NOTE | 2023-11-01 15:44 | PC.NURSE ---
ROUNDED ON PT, UPDATED ON BED STATUS. NO NEEDS AT THIS TIME
--- NOTE | 2023-11-01 16:32 | PC.NURSE ---
REPORT CALLED TO EMILEE FARLEY AWAITING ROOM/BED TO BE CLEANED BEFORE TRANSFER
[2023-11-01] MEDS: 0.9 % SODIUM CHLORIDE 1000ML 1,000 ML 75 ML IV (18:27)
--- NOTE | 2023-11-01 20:14 | PC.NURSE ---
Report given to EMILEE Cantu at this time. Pt transferred to ICU unit room 266
--- NOTE | 2023-11-01 20:18 | PC.NURSE ---
Patient arrived to room 266 via bed accompanied by staff, patient in stable condition
[2023-11-02] VITALS (20 sets, daily range): BP systolic 108–146; BP diastolic 72–88; PULSE 58–67; RESP 16–19; TEMP 36.5–36.9; O2SAT 96–99; BMI 29.5
[2023-11-02 01:50] LABS: Hematocrit 20.6 % (42.0-52.0)
--- NOTE | 2023-11-02 04:31 | PC.NURSE ---
After arriving to his new room and getting settled in the patient has had a good shift. Patient tolerated the blood transfusion well. Patient has been up to the bathroom and had a BM. Patient has had no complaints
[2023-11-02 07:33] LABS: Basophils % 0.3 % (0.1-2.0); Eosinophils % 0.2 % (0.1-12.0); Hemoglobin 7.2 g/dL (14.1-18.0); Lymphocytes # 1.2 K/mm3 (0.7-4.5); Lymphocytes % 22.4 % (10-50); Mean Corpuscular HGB Conc 34.8 g/dL (31.8-35.4); Mean Corpuscular Hemoglobin 30.2 pg (27.0-31.2); Mean Corpuscular Volume 86.9 fl (80-94); Mean Platelet Volume 10.3 fl (7.4-10.4); Monocytes # 0.4 K/mm3 (0.1-1.0); Monocytes % 7.3 % (1.7-9.3); Neutrophils # 3.8 K/mm3 (1.8-7.8); Neutrophils % 69.7 % (37.0-80.0); Red Blood Count 2.39 M/mm3 (4.60-6.20); Red Cell Distribution Width 16.8 % (11.5-17.5); White Blood Count 5.5 K/mm3 (4.8-10.8)
[2023-11-02 07:38] LABS: Hematocrit 20.8 % (42.0-52.0); Platelet Count 46 K/mm3 (142-424)
[2023-11-02 07:42] LABS: Anion Gap 9.3 mEq/L (5-15); Blood Urea Nitrogen 23 mg/dl (9-20); Calcium 7.3 mg/dl (8.4-10.2); Carbon Dioxide 29 mmol/L (22.0-30.0); Chloride 102 mmol/L (98-107); Creatinine Clearance Estimated 67 mL/min (50-200); Estimated Glomerular Filt Rate 47 ml/min (>60); GFR (African American) 57 ML/MIN (>60); Glucose 79 mg/dl (74-100); Potassium 3.3 mmoL/L (3.5-5.1); Sodium 137 mmol/L (136-145)
--- NOTE | 2023-11-02 08:13 | P.HP_ITS ---
History of Present Illness *Admission Date: 11/02/23 *History of present illness: Mr. Calle is a 63-year-old male patient with a history of chondrosarcoma, bradycardia with pacemaker per Dr. Meyer April 2018, hypertension, hyperlipidemia, BPH, GERD, history of TIA, and atrial fibrillation who presented to [facility] emergency room for evaluation due to ongoing dry heaving and diarrhea. Patient was noted to have been recently hospitalized at [facility] from 10/22 to 10/25/2023 directly from the oncology clinic due to elevated serum creatinine. He has noted to be on neoadjunctive chemotherapy with doxorubicin and cisplatin and has received 3 treatments. He is scheduled to receive surgical resection at [facility] at the end of the month. This time serum creatinine was 2 with previous noted 1.1 on 10/20/2023. He was also noted to have poor appetite due to the chemotherapy with induced nausea. Hemoglobin at this time was 8.2 at discharge with a platelet count of 371,000. At discharge from [facility] he was told to hold his irbesartan and hydrochlorothiazide with follow-up with primary care doctor in a week. With evaluation in the [facility] emergency room he was noted to have been vomiting since the previous Thursday. He did try to manage the nausea at home but was unsuccessful. He was noted to be clinically dehydrated with acute kidney injury. He was given IV fluids in the emergency room with planned administration of packed red blood cells. This a.m. at time of exam patient is trying to eat breakfast. He is somewhat nauseated but not has not had any vomiting since admission but has had diarrhea after eating some of his breakfast. He has noted no blood in urine or stool. He has voided twice since admission. He has been able to ambulate to the bathroom. He denies chest pain and shortness of breath. Laboratory data this morning shows a hemoglobin of 7.2 and hematocrit of 20.8. Platelet count is a little lower at 46,000. Potassium is low at 3.3. BUN is 23 and creatinine is 1.5. [facility] Disclaimer: The information contained in this section may have been updated after the patient was seen, as this information can be updated by other users. Medical History Cerebrovascular accident Pacemaker History of TIA (transient ischemic attack) Complex sleep apnea syndrome Severe JULIO w/ CSA in the setting of chronic narcotics initially prescribed in the setting of severe stenosis but now, newly diagnosed malignancy. Difficulty sleeping due to pain. Appt with oncologist today. Metastatic neoplastic disease Chondrosarcoma right pelvis, [facility] appts 08/12/2023 Epistaxis Daytime somnolence Snoring Paroxysmal atrial fibrillation Dyspnea Left arm numbness Carotid artery stenosis Dizziness Edema of right forearm HLD (hyperlipidemia) HTN (hypertension) CAD (coronary artery disease) Surgical History History of back surgery History of carpal tunnel release of both wrists H/O arthroscopy of left knee Family History Other Diabetes Heart attack Hypertension Social History (Updated 11/01/23 @ 17:09 by Tanya Ferguson RN) Smoking Status: Never smoker second hand exposure: No alcohol intake: never counseling provided: none substance use type: denies use 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al status: retired Travel in the last 8 weeks: None household members: spouse housing: house marital status: 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 [employer] 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al exposures/hazards: No caffeine: Yes Review of Systems Constitutional Constitutional: Denies chills, Denies fever(s), Denies frequent falls, Denies headache(s) and Reports poor appetite Eyes Eyes: Denies change in vision ENT Ears, Nose, Mouth, and Throat: Denies disequilibrium, Denies dizziness, Reports dry mouth, Denies otalgia, Denies headache(s), Reports nasal discharge (Since starting the chemotherapy) and Denies sore throat *Cardiovascular Cardiovascular: Denies chest pain and Denies dyspnea *Respiratory Respiratory: Denies chest congestion, Denies cough and Denies dyspnea *Gastrointestinal Gastrointestinal: Denies abdominal pain, Denies dyspepsia, Denies heartburn, Denies hematemesis, Reports loose stools, Denies melena, Reports nausea and Reports vomiting *Genitourinary Genitourinary: Denies difficulty urinating and Reports oliguria *Musculoskeletal Musculoskeletal: Reports muscle weakness (Has been using a cane with ambulation) *Neurologic Neurologic: Denies confusion, Denies disequilibrium, Denies dizziness, Denies frequent falls and Denies headache(s) Psychiatric Psychiatric: Denies confusion Meds Home Medications and Allergies Home Medications Medication Instructions Recorded Confirmed Type finasteride 5 mg tablet 5 mg PO DAILY 07/09/17 11/02/23 History atorvastatin 80 mg tablet 80 mg PO DAILY cholestrol #90 tabs 05/24/21 11/02/23 Rx sotalol 80 mg tablet 40 mg (1/2 x 80 mg) PO BID Heart 06/04/21 11/02/23 Rx disease #60 tabs clopidogrel 75 mg tablet 75 mg PO DAILY 09/04/23 11/02/23 History furosemide 40 mg tablet 40 mg PO DAILY 09/04/23 11/02/23 History pantoprazole 40 mg tablet,delayed 40 mg PO DAILY 09/04/23 11/02/23 History release potassium chloride 10 mEq 10 meq PO DAILY 09/04/23 11/02/23 History capsule,extended release oxycodone-acetaminophen 10 mg-325 1 tab PO Q6HP PRN Pain (Scale 09/24/23 11/02/23 History mg tablet Score 4-6) trazodone 50 mg tablet 50 mg PO HSP PRN Sleep 09/24/23 11/02/23 History hydrochlorothiazide 12.5 mg tablet 12.5 mg PO DAILY #30 tabs 10/02/23 11/02/23 Rx irbesartan 150 mg tablet 150 mg PO DAILY #30 tabs 10/02/23 11/02/23 Rx loperamide 2 mg capsule 2 mg PO Q2HP PRN Diarrhea 11/02/23 11/02/23 History metoprolol succinate 50 mg 50 mg PO DAILY 11/02/23 11/02/23 History tablet,extended release 24 hr promethazine 25 mg tablet 25 mg PO Q6HP PRN Nausea 11/02/23 11/02/23 History New Prescriptions to Start Prescriptions: Allergies Allergy/AdvReac Type Severity Reaction Status Date / Time codeine AdvReac Mild NA-NAUSEA/V Verified 09/24/23 09:45 OMITING hydrocodone AdvReac Mild NA-NAUSEA/V Verified 09/24/23 09:45 OMITING Exam Data for Last 24 hours Vital signs and Labs for Last 24 Hours: Temp Pulse Resp BP Pulse Ox O2 Del Method 98.5 F 61 17 128/77 96 Room Air 11/02/23 04:00 11/02/23 04:00 11/02/23 04:00 11/02/23 04:00 11/02/23 04:00 11/02/23 07:00 Laboratory Results - last 24 hr 11/01/23 12:15: WBC 5.0, RBC 2.29 L, Hgb 6.9 L, Hct 20.5 L*, MCV 89.5, MCH 30.2, MCHC 33.7, RDW 16.0, Plt Count 48 L*, MPV 10.4, Neut % (Auto) 69.1, Lymph % (Auto) 22.7, [place] % (Auto) 7.7, Eos % (Auto) 0.2, Baso % (Auto) 0.4, Neut # (Auto) 3.5, Lymph # (Auto) 1.1, [place] # (Auto) 0.4, Eos # (Auto) 0.0, Baso # (Auto) 0.0, Sodium 137, Potassium 3.3 L, Chloride 101, Carbon Dioxide 28, Anion Gap 11.3, BUN 25 H, Creatinine 1.60 H, Estimated Creat Clear 60, Estimated GFR 44 L, Est GFR ( Amer) 53 L, Glucose 99, Calcium 7.9 L, Total Bilirubin 0.4, AST 24, ALT 19, Alkaline Phosphatase 135 H, Total Protein 6.0 L, Albumin 3.6, Globulin 2.4, Albumin/Globulin Ratio 1.5, Blood Type Confirm O Positive 11/01/23 13:50: Blood Type O Positive, Antibody Screen Negative, Crossmatch (AHG) See Detail 11/02/23 00:30: Hgb 7.0 L, Hct 20.6 L* 11/02/23 06:02: WBC 5.5, RBC 2.39 L, Hgb 7.2 L, Hct 20.8 L*, MCV 86.9, MCH 30.2, MCHC 34.8, RDW 16.8, Plt Count 46 L*, MPV 10.3, Neut % (Auto) 69.7, Lymph % (Auto) 22.4, [place] % (Auto) 7.3, Eos % (Auto) 0.2, Baso % (Auto) 0.3, Neut # (Auto) 3.8, Lymph # (Auto) 1.2, [place] # (Auto) 0.4, Eos # (Auto) 0.0, Baso # (Auto) 0.0, Sodium 137, Potassium 3.3 L, Chloride 102, Carbon Dioxide 29, Anion Gap 9.3, BUN 23 H, Creatinine 1.50 H, Estimated Creat Clear 67, Estimated GFR 47 L, Est GFR ( Amer) 57 L, Glucose 79 D, Calcium 7.3 L I & O for Last 24 hours: Intake & Output 10/30/23 10/31/23 11/01/23 11/02/23 11:59 11:59 11:59 11:59 Intake Total 350 / 350 Output Total 0 / 0 Balance 350 / 350 Weight 199 lb 206 lb 11.216 oz Constitutional Constitutional: no acute distress Comments: Sitting on the bedside trying to eat breakfast *Routine HEENT Exam Head: Present normocephalic and atraumatic Eye: Present PERRL; Absent conjunctival icterus, scleral injection or conjunctivae pink ENT: Present mucous membranes moist and oropharynx clear *Routine Neck Exam Neck: Present supple; Absent lymphadenopathy or thyromegaly *Routine Respiratory Exam Respiratory: Present CTA bilaterally (Anteriorly and posteriorly) *Routine Cardiovascular Exam Cardiovascular: Present RRR *Routine Abdominal Exam Abdominal: Present soft and normoactive bowel sounds; Absent tenderness, distended or guarding *Routine Rectal Exam Rectal:: deferred *Routine Genitalia Exam Genitalia:: deferred *Routine Extremities Exam Extremities: Absent edema or calf tenderness *Routine Neurological Exam Neurological: Present alert and oriented X3 Assessment and Plan *Assessment and plan (1) Chondrosarcoma: Problem Comment: right pelvis, [facility] appts 08/12/2023 Status: Acute Category: Medical Code(s): C41.9 - Malignant neoplasm of bone and articular cartilage, unspecified (2) Pacemaker: Status: Chronic Category: Medical Code(s): Z95.0 - Presence of cardiac pacemaker (3) History of TIA (transient ischemic attack): Status: Chronic Category: Medical Code(s): Z86.73 - Personal history of transient ischemic attack (TIA), and cerebral infarction without residual deficits (4) Complex sleep apnea syndrome: Problem Comment: Severe JULIO w/ CSA in the setting of chronic narcotics initially prescribed in the setting of severe stenosis but now, newly diagnosed malignancy. Difficulty sleeping due to pain. Appt with oncologist today. Status: Chronic Category: Medical Code(s): G47.31 - Primary central sleep apnea (5) Right leg weakness: Status: Acute Category: Medical Code(s): R29.898 - Other symptoms and signs involving the musculoskeletal system (6) Central stenosis of spinal canal: Status: Acute Category: Medical Code(s): M48.00 - Spinal stenosis, site unspecified (7) Lumbar spinal stenosis: Status: Acute Category: Medical Code(s): M48.061 - Spinal stenosis, lumbar region without neurogenic claudication (8) Paroxysmal atrial fibrillation: Status: Chronic Category: Medical Code(s): I48.0 - Paroxysmal atrial fibrillation (9) Chronic GERD: Status: Acute Category: Medical Code(s): K21.9 - Gastro-esophageal reflux disease without esophagitis (10) HLD (hyperlipidemia): Status: Chronic Qualifiers: Hyperlipidemia type: mixed hyperlipidemia Qualified Code(s): E78.2 - Mixed hyperlipidemia Category: Medical Code(s): E78.5 - Hyperlipidemia, unspecified (11) HTN (hypertension): Status: Chronic Qualifiers: Hypertension type: essential hypertension Qualified Code(s): I10 - Essential (primary) hypertension Category: Medical Code(s): I10 - Essential (primary) hypertension (12) CAD (coronary artery disease): Status: Chronic Qualifiers: Associated angina: with other forms of angina Coronary Disease- Associated Artery/Lesion type: [place] artery [place] vs. transplanted heart: [place] heart Qualified Code(s): I25.118 - Atherosclerotic heart disease of [place] coronary artery with other forms of angina pectoris Category: Medical Code(s): I25.10 - Atherosclerotic heart disease of [place] coronary artery without angina pectoris (13) Fatigue: Status: Acute Category: Medical Code(s): R53.83 - Other fatigue (14) Hypokalemia: Status: Acute Category: Medical Code(s): E87.6 - Hypokalemia (15) Anemia: Status: Acute Category: Medical Code(s): D64.9 - Anemia, unspecified Plan Will give an additional unit of packed red blood cells. Continue with IV fluids. Add p.o. potassium. Monitor labs. Dr. Woodall entry - Saw patient, agree with above note.
[2023-11-02] MEDS: POTASSIUM CHLORIDE 20MEQ TAB 20 MEQ PO ×2 (09:43→20:07)
[2023-11-02] MEDS: D5W/0.45% NaCl w/40mEq KCl 1,000 ML 75 ML IV (10:27)
--- NOTE | 2023-11-02 10:35 | HMH.PHAINT1 ---
Pharmacy Intervention Comments: MEDICATION RECONCILIATION COMPLETED ON PATIENT USING EXTERNAL FILL HISTORY FROM PHARMACY, LIST FROM [facility] OFFICE, AND [facility]LEY REPORT. -JENNIFER SMITHD
[2023-11-02] MEDS: ONDANSETRON 4MG/2ML VIAL 4 MG IV (12:31)
--- NOTE | 2023-11-02 14:24 | PC.NURSE ---
blood verified at 1305 with EMILEE Subramanian, and was started at 1320
[2023-11-03] VITALS (8 sets, daily range): BP systolic 143–148; BP diastolic 73–88; PULSE 60–80; RESP 16–28; TEMP 36.4–36.7; O2SAT 96–98; BMI 30.1
[2023-11-03] MEDS: D5W/0.45% NaCl w/40mEq KCl 1,000 ML 75 ML IV ×2 (03:48→18:45)
[2023-11-03 06:21] LABS: Anion Gap 10.6 mEq/L (5-15); Basophils % 0.3 % (0.1-2.0); Blood Urea Nitrogen 19 mg/dl (9-20); Calcium 7.4 mg/dl (8.4-10.2); Carbon Dioxide 27 mmol/L (22.0-30.0); Chloride 103 mmol/L (98-107); Creatinine Clearance Estimated 73 mL/min (50-200); Eosinophils % 0.2 % (0.1-12.0); Estimated Glomerular Filt Rate 51 ml/min (>60); GFR (African American) 62 ML/MIN (>60); Glucose 94 mg/dl (74-100); Hematocrit 24.4 % (42.0-52.0); Lymphocytes # 1.3 K/mm3 (0.7-4.5); Lymphocytes % 16.8 % (10-50); Mean Corpuscular HGB Conc 33.7 g/dL (31.8-35.4); Mean Corpuscular Hemoglobin 29.4 pg (27.0-31.2); Mean Corpuscular Volume 87.4 fl (80-94); Mean Platelet Volume 9.8 fl (7.4-10.4); Monocytes # 0.5 K/mm3 (0.1-1.0); Monocytes % 6.2 % (1.7-9.3); Neutrophils % 76.5 % (37.0-80.0); Platelet Count 66 K/mm3 (142-424); Potassium 3.6 mmoL/L (3.5-5.1); Red Cell Distribution Width 16.5 % (11.5-17.5); Sodium 137 mmol/L (136-145); White Blood Count 7.8 K/mm3 (4.8-10.8)
[2023-11-03 06:24] LABS: Hemoglobin 8.3 g/dL (14.1-18.0)
[2023-11-03] MEDS: ONDANSETRON 4MG/2ML VIAL 4 MG IV ×3 (07:41→23:58)
--- NOTE | 2023-11-03 08:11 | P.PN_ITS ---
Subjective *Date: 11/03/23 *Time: 11:08 Interval history: Patient feels better this morning. He was able to sleep more during the night. He has ambulated in the room to the bathroom without any dizziness or other issues. He is able to eat. He has had no nausea and no vomiting. He had a formed stool. He is voiding QS. He did receive another unit of packed red blood cells yesterday. Hemoglobin this morning is 8.3 with hematocrit of 24.4. Platelet count has increased to 66,000. Electrolytes are normal. Renal function continues to improve with a BUN of 19 and a creatinine of 1.4 Medical Exam Vital signs and Labs for Last 24 Hours: Vital Signs Temp Pulse Pulse Resp BP BP Pulse Ox 11/03/23 07:00 11/03/23 05:00 11/03/23 04:00 97.7 F 66 17 143/73 H 98 11/03/23 03:53 60 11/03/23 02:42 11/03/23 00:44 11/03/23 00:35 60 11/02/23 23:15 11/02/23 20:44 11/02/23 20:00 98.0 F 60 18 124/83 97 11/02/23 20:00 11/02/23 18:59 11/02/23 17:45 60 11/02/23 17:00 11/02/23 15:45 97.9 F 60 18 135/76 96 11/02/23 15:20 98.0 F 61 17 128/73 98 11/02/23 15:00 11/02/23 14:20 97.8 F 62 18 127/77 97 11/02/23 14:05 97.8 F 63 18 133/83 96 11/02/23 13:50 98.0 F 64 17 136/74 96 11/02/23 13:35 98.0 F 64 16 118/76 98 11/02/23 13:30 97.9 F 67 18 123/73 97 11/02/23 13:25 98.0 F 66 17 108/73 L 98 11/02/23 13:20 97.8 F 66 18 133/73 98 11/02/23 13:00 11/02/23 13:00 97.8 F 62 18 133/88 96 11/02/23 12:58 97.7 F 67 17 140/72 98 11/02/23 12:58 97.7 F 67 17 140/72 98 11/02/23 11:00 11/02/23 09:00 11/02/23 08:15 O2 Del Method 11/03/23 07:00 Room Air 11/03/23 05:00 Room Air 11/03/23 04:00 Room Air 11/03/23 03:53 11/03/23 02:42 Room Air 11/03/23 00:44 Room Air 11/03/23 00:35 11/02/23 23:15 Room Air 11/02/23 20:44 Room Air 11/02/23 20:00 Room Air 11/02/23 20:00 Room Air 11/02/23 18:59 Room Air 11/02/23 17:45 11/02/23 17:00 Room Air 11/02/23 15:45 11/02/23 15:20 11/02/23 15:00 Room Air 11/02/23 14:20 11/02/23 14:05 11/02/23 13:50 11/02/23 13:35 11/02/23 13:30 11/02/23 13:25 11/02/23 13:20 11/02/23 13:00 Room Air 11/02/23 13:00 Room Air 11/02/23 12:58 11/02/23 12:58 11/02/23 11:00 Room Air 11/02/23 09:00 Room Air 11/02/23 08:15 Room Air Intake and Output 11/02/23 11/03/23 11/03/23 19:59 03:59 11:59 Intake Total 720 / 720 Output Total 0 / 0 0 / 0 Balance 720 / 720 0 / 720 0 / 720 Intake: Intake, Oral Amount 720 / 720 Output: Output, Urine Amount 0 / 0 0 / 0 Other: Number of Unmeasured Voids 1 1 Number of Bowel Movements 1 Weight 210 lb 9.6 oz Patient Weight 11/03/23 11:59 Weight 210 lb 9.6 oz Laboratory Results - last 24 hr 11/01/23 13:50: Blood Type O Positive, Antibody Screen Negative, Crossmatch ( AHG) See Detail 11/03/23 05:35: WBC 7.8 D, RBC 2.80 L, Hgb 8.3 L D, Hct 24.4 L, MCV 87.4, MCH 29.4, MCHC 33.7, RDW 16.5, Plt Count 66 L D, MPV 9.8, Neut % (Auto) 76.5, Lymph % (Auto) 16.8, [place] % (Auto) 6.2, Eos % (Auto) 0.2, Baso % (Auto) 0.3, Neut # (Auto) 6.0, Lymph # (Auto) 1.3, [place] # (Auto) 0.5, Eos # (Auto) 0.0, Baso # (Auto) 0.0, Sodium 137, Potassium 3.6, Chloride 103, Carbon Dioxide 27, Anion Gap 10.6, BUN 19, Creatinine 1.40 H, Estimated Creat Clear 73, Estimated GFR 51 L, Est GFR ( Amer) 62, Glucose 94, Calcium 7.4 L I & O for Labs for Last 24 Hours: Intake & Output 10/31/23 11/01/23 11/02/23 11/03/23 11:59 11:59 11:59 11:59 Intake Total 710 / 710 720 / 720 Output Total 0 / 0 0 / 0 Balance 710 / 710 720 / 720 Weight 199 lb 206 lb 11.216 oz 210 lb 9.6 oz Constitutional: Present no acute distress Comment:: Awakened for exam Respiratory: Present CTA bilaterally (Anteriorly and posteriorly) Cardiac: Present Reg Rate and Rhythm GI: Present soft and normal bowel sounds; Absent distention, tenderness or guarding Extremities: Present full ROM; Absent edema or calf tenderness Neuro: Present alert and oriented x 3 Assessment and Plan *Assessment and plan (1) Nausea vomiting and diarrhea: Status: Acute Category: Medical Code(s): R11.2 - Nausea with vomiting, unspecified; R19.7 - Diarrhea, unspecified (2) Anemia: Status: Acute Category: Medical Code(s): D64.9 - Anemia, unspecified (3) Hypokalemia: Status: Acute Category: Medical Code(s): E87.6 - Hypokalemia (4) Chondrosarcoma: Problem Comment: right pelvis, [facility] appts 08/12/2023 Status: Acute Category: Medical Code(s): C41.9 - Malignant neoplasm of bone and articular cartilage, unspecified (5) Pacemaker: Status: Chronic Category: Medical Code(s): Z95.0 - Presence of cardiac pacemaker (6) History of TIA (transient ischemic attack): Status: Chronic Category: Medical Code(s): Z86.73 - Personal history of transient ischemic attack (TIA), and cerebral infarction without residual deficits (7) Right leg weakness: Status: Acute Category: Medical Code(s): R29.898 - Other symptoms and signs involving the musculoskeletal system (8) Central stenosis of spinal canal: Status: Acute Category: Medical Code(s): M48.00 - Spinal stenosis, site unspecified (9) Lumbar spinal stenosis: Status: Acute Category: Medical Code(s): M48.061 - Spinal stenosis, lumbar region without neurogenic claudication (10) Paroxysmal atrial fibrillation: Status: Chronic Category: Medical Code(s): I48.0 - Paroxysmal atrial fibrillation (11) Chronic GERD: Status: Acute Category: Medical Code(s): K21.9 - Gastro-esophageal reflux disease without esophagitis (12) HLD (hyperlipidemia): Status: Chronic Qualifiers: Hyperlipidemia type: mixed hyperlipidemia Qualified Code(s): E78.2 - Mixed hyperlipidemia Category: Medical Code(s): E78.5 - Hyperlipidemia, unspecified (13) HTN (hypertension): Status: Chronic Qualifiers: Hypertension type: essential hypertension Qualified Code(s): I10 - Essential (primary) hypertension Category: Medical Code(s): I10 - Essential (primary) hypertension (14) CAD (coronary artery disease): Status: Chronic Qualifiers: Associated angina: with other forms of angina Coronary Disease- Associated Artery/Lesion type: [place] artery [place] vs. transplanted heart: [place] heart Qualified Code(s): I25.118 - Atherosclerotic heart disease of [place] coronary artery with other forms of angina pectoris Category: Medical Code(s): I25.10 - Atherosclerotic heart disease of [place] coronary artery without angina pectoris (15) Complex sleep apnea syndrome: Problem Comment: Severe JULIO w/ CSA in the setting of chronic narcotics initially prescribed in the setting of severe stenosis but now, newly diagnosed malignancy. Difficulty sleeping due to pain. Appt with oncologist today. Status: Chronic Category: Medical Code(s): G47.31 - Primary central sleep apnea (16) Fatigue: Status: Acute Category: Medical Code(s): R53.83 - Other fatigue Plan Patient most likely can be discharged home today. Renal function is improved and potassium has normalized. Dr. Woodall entry - Saw patient. Labs have improved, he had some nausea and vomited once. Will evaluate again later today for possible discharge.
[2023-11-03] MEDS: POTASSIUM CHLORIDE 20MEQ TAB 20 MEQ PO ×2 (09:38→20:22)
[2023-11-03] MEDS: LORATADINE 10MG TABLET 10 MG PO (16:32)
--- NOTE | 2023-11-03 16:36 | PC.NURSE ---
3581 mls total cleared off pump, 871mls for this shift
--- NOTE | 2023-11-03 16:39 | PC.NURSE ---
Pt has rested in bed the majority of the day. He's complained of nausea t/o of the shift w/2 episodes of vomiting. Zofran administered per mar with pt reporting relief on reassessment. He's also complained of having copious amounts of drainage. call box wirer physician (Oral) notified and 10mg of claritin po daily ordered. He's been NSR/paced on tele. Ambulates to the bathroom with cane and assist x1. Appetite has been fair, eating 75% & 50% for breakfast and lunch. Family has been to visit intermittently t/o the day. He is currently resting in bed w/his eyes closed. Bed is locked and in the lowest position, call light is within reach.
--- NOTE | 2023-11-03 20:57 | PC.NURSE ---
This RN asked patient if he wanted to take a bath tonight and he refused r/t likely getting DC'd tomorrow and wanting to shower at home instead.
[2023-11-04] VITALS: PULSE 60
--- NOTE | 2023-11-04 00:01 | PC.NURSE ---
Addendum entered by Marco A Kerr RN 11/04/23 00:33: asleep upon reassessment. Original Note: patient woke up dry heaving and vomiting. administered zofran.
[2023-11-04 04:00] VITALS: BP 137/92; PULSE 60; PULSE 75; RESP 18; TEMP 36.4; O2SAT 97; BMI 30.4
[2023-11-04] MEDS: ONDANSETRON 4MG/2ML VIAL 4 MG IV (07:49)
[2023-11-04 08:00] VITALS: BP 155/91; PULSE 60; RESP 24; TEMP 36.4; O2SAT 99
--- NOTE | 2023-11-04 08:21 | P.PN_ITS ---
Subjective *Date: 11/04/23 *Time: 08:21 Interval history: Patient feels better today, had one episode of diarrhea overnight. Medical Exam Vital signs and Labs for Last 24 Hours: Vital Signs Temp Pulse Pulse Resp BP Pulse Ox O2 Del Method 11/04/23 08:00 97.5 F L 60 24 155/91 H 99 Room Air 11/04/23 06:14 Room Air 11/04/23 05:00 Room Air 11/04/23 04:00 97.6 F 75 18 137/92 H 97 Room Air 11/04/23 04:00 60 11/04/23 03:00 Room Air 11/04/23 01:00 Room Air 11/04/23 00:00 60 11/03/23 22:56 Room Air 11/03/23 20:58 Room Air 11/03/23 20:00 Room Air 11/03/23 20:00 80 11/03/23 19:41 97.6 F 68 18 143/86 H 96 Room Air 11/03/23 18:38 Room Air 11/03/23 16:37 Room Air 11/03/23 16:00 98.1 F 64 28 H 148/88 H 98 Room Air 11/03/23 16:00 60 11/03/23 15:00 Room Air 11/03/23 13:00 Room Air 11/03/23 12:00 60 11/03/23 11:00 Room Air 11/03/23 09:00 Room Air Intake and Output 11/03/23 11/04/23 11/04/23 23:59 07:59 15:59 Intake Total 3581 / 4301 120 / 370 250 / 370 Output Total 0 / 0 0 / 0 0 / 0 Balance 3581 / 4301 120 / 370 250 / 370 Intake: Intake, Oral Amount 0 / 720 120 / 370 250 / 370 Intake, Total IV Amount 3581 / 3581 D5W/0.45% NaCl w/40mEq KCl 1, 3581 / 3581 000 ml @ 75 mls/hr IV .[id number] [facility] Rx#:[id number] Output: Output, Urine Amount 0 / 0 0 / 0 0 / 0 Other: Number of Unmeasured Voids 1 1 Number of Bowel Movements 1 1 Weight 212 lb 14.4 oz Patient Weight 11/04/23 23:59 Weight 212 lb 14.4 oz Laboratory Results - last 24 hr 11/01/23 13:50: Crossmatch (AHG) See Detail I & O for Labs for Last 24 Hours: Intake & Output 11/01/23 11/02/23 11/03/23 11/04/23 23:59 23:59 23:59 23:59 Intake Total 0 / 100 1430 / 1430 4181 / 4301 370 / 370 Output Total 0 / 0 0 / 0 0 / 0 Balance 0 / 100 1430 / 1430 4181 / 4301 370 / 370 Weight 206 lb 11.2 oz 206 lb 11.216 oz 210 lb 9.6 oz 212 lb 14.4 oz Constitutional: Present no acute distress Respiratory: Present CTA bilaterally (Anteriorly and posteriorly) Cardiac: Present Reg Rate and Rhythm GI: Present soft and normal bowel sounds; Absent distention, tenderness or guarding Extremities: Present full ROM; Absent edema or calf tenderness Neuro: Present alert and oriented x 3 Assessment and Plan *Assessment and plan (1) Nausea vomiting and diarrhea: Status: Acute Category: Medical Code(s): R11.2 - Nausea with vomiting, unspecified; R19.7 - Diarrhea, unspecified (2) Anemia: Status: Acute Category: Medical Code(s): D64.9 - Anemia, unspecified (3) Hypokalemia: Status: Acute Category: Medical Code(s): E87.6 - Hypokalemia (4) Chondrosarcoma: Problem Comment: right pelvis, [facility] appts 08/12/2023 Status: Acute Category: Medical Code(s): C41.9 - Malignant neoplasm of bone and articular cartilage, unspecified (5) Pacemaker: Status: Chronic Category: Medical Code(s): Z95.0 - Presence of cardiac pacemaker (6) History of TIA (transient ischemic attack): Status: Chronic Category: Medical Code(s): Z86.73 - Personal history of transient ischemic attack (TIA), and cerebral infarction without residual deficits (7) Right leg weakness: Status: Acute Category: Medical Code(s): R29.898 - Other symptoms and signs involving the musculoskeletal system (8) Central stenosis of spinal canal: Status: Acute Category: Medical Code(s): M48.00 - Spinal stenosis, site unspecified (9) Lumbar spinal stenosis: Status: Acute Category: Medical Code(s): M48.061 - Spinal stenosis, lumbar region without neurogenic claudication (10) Paroxysmal atrial fibrillation: Status: Chronic Category: Medical Code(s): I48.0 - Paroxysmal atrial fibrillation (11) Chronic GERD: Status: Acute Category: Medical Code(s): K21.9 - Gastro-esophageal reflux disease without esophagitis (12) HLD (hyperlipidemia): Status: Chronic Qualifiers: Hyperlipidemia type: mixed hyperlipidemia Qualified Code(s): E78.2 - Mixed hyperlipidemia Category: Medical Code(s): E78.5 - Hyperlipidemia, unspecified (13) HTN (hypertension): Status: Chronic Qualifiers: Hypertension type: essential hypertension Qualified Code(s): I10 - Essential (primary) hypertension Category: Medical Code(s): I10 - Essential (primary) hypertension (14) CAD (coronary artery disease): Status: Chronic Qualifiers: Coronary Disease-Associated Artery/Lesion type: [place] artery [place] vs. 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 Difficulty sleeping due to pain. Appt with oncologist today. Status: Chronic Category: Medical Code(s): G47.31 - Primary central sleep apnea (16) Fatigue: Status: Acute Category: Medical Code(s): R53.83 - Other fatigue Plan OK for discharge home today.
--- NOTE | 2023-11-04 08:42 | HMH.PHAINT1 ---
Pharmacy Intervention Comments: DISCHARGE MEDICATION COUNSELING PROVIDED. DISCUSSED STARTING ZOFRAN (FOR NAUSEA, EVERY 8 HOURS NEEDED, HEADACHE, SEDATION POSSIBLE). NO QUESTIONS VERBALIZED AT THIS TIME.
--- NOTE | 2023-11-05 07:03 | EXP.DC.SUM ---
General Admission date:: 11/01/23 Discharge date: 11/04/23 HPI HPI HPI: Mr. 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 Patient was noted to have been recently hospitalized at [facility] from 10/22 to 10/25/2023 directly from the oncology clinic due to elevated serum creatinine. He has noted to be on neoadjunctive chemotherapy with doxorubicin and cisplatin and has received 3 treatments. He is scheduled to receive surgical resection at [facility] at the end of the month. This time serum creatinine was 2 with previous noted 1.1 on 10/20/2023. He was also noted to have poor appetite due to the chemotherapy with induced nausea. Hemoglobin at this time was 8.2 at discharge with a platelet count of 371,000. At discharge from [facility] he was told to hold his irbesartan and hydrochlorothiazide with follow-up with primary care doctor in a week. With evaluation in the [facility] emergency room he was noted to have been vomiting since the previous Thursday. He did try to manage the nausea at home but was unsuccessful. He was noted to be clinically dehydrated with acute kidney injury. He was given IV fluids in the emergency room with planned administration of packed red blood cells. This a.m. at time of exam patient is trying to eat breakfast. He is somewhat nauseated but not has not had any vomiting since admission but has had diarrhea after eating some of his breakfast. He has noted no blood in urine or stool. He has voided twice since admission. He has been able to ambulate to the bathroom. He denies chest pain and shortness of breath. Laboratory data this morning shows a hemoglobin of 7.2 and hematocrit of 20.8. Platelet count is a little lower at 46,000. Potassium is low at 3.3. BUN is 23 and creatinine is 1.5. Hospital Course Hospital Course Hospital Course: Patient did receive 2 units of packed red blood cells while hospitalized raising hemoglobin up to 8.3 from 6.9 on admission. Renal function gradually did improve. He also received p.o. and IV potassium along with IV fluids With normalization of potassium. He received antiemetics and pain control. Diarrhea, nausea, and vomiting did improve and on 11/03 he felt better with only 1 episode of diarrhea during the night. He was felt stable to be discharged home With antiemetics and other meds as per medication reconciliation sheet. Follow-up with Dr. Woodall. Exam Data for Last 24 hours Vital signs and Labs for Last 24 Hours: Temp Pulse Resp BP Pulse Ox O2 Del Method 97.5 F L 60 24 155/91 H 99 Room Air 11/04/23 08:00 11/04/23 08:00 11/04/23 08:00 11/04/23 08:00 11/04/23 08:00 11/04/23 08:00 I & O for Last 24 hours: Intake & Output 11/02/23 11/03/23 11/04/23 11/05/23 11:59 11:59 11:59 11:59 Intake Total 710 / 710 970 / 970 4301 / 4301 Output Total 0 / 0 0 / 0 0 / 0 Balance 710 / 710 970 / 970 4301 / 4301 Weight 206 lb 11.216 oz 210 lb 9.6 oz 212 lb 14.4 oz Narrative: Constitutional: Present no acute distress Respiratory: Present CTA bilaterally (Anteriorly and posteriorly) Cardiac: Present Reg Rate and Rhythm GI: Present soft and normal bowel sounds; Absent distention, tenderness or guarding Extremities: Present full ROM; Absent edema or calf tenderness Neuro: Present alert and oriented x 3 Results Data Completed and Pending Completed studies during hospitalization [Text1]: 11/01/23 13:50: Blood Type O Positive, Antibody Screen Negative, Crossmatch (AHG) See Detail 11/03/23 05:35: WBC 7.8 D, RBC 2.80 L, Hgb 8.3 L D, Hct 24.4 L, MCV 87.4, MCH 29.4, MCHC 33.7, RDW 16.5, Plt Count 66 L D, MPV 9.8, Neut % (Auto) 76.5, Lymph % (Auto) 16.8, [place] % (Auto) 6.2, Eos % (Auto) 0.2, Baso % (Auto) 0.3, Neut # (Auto) 6.0, Lymph # (Auto) 1.3, [place] # (Auto) 0.5, Eos # (Auto) 0.0, Baso # (Auto) 0.0, Sodium 137, Potassium 3.6, Chloride 103, Carbon Dioxide 27, Anion Gap 10.6, BUN 19, Creatinine 1.40 H, Estimated Creat Clear 73, Estimated GFR 51 L, Est GFR ( Amer) 62, Glucose 94, Calcium 7.4 L 11/01/23 12:15: WBC 5.0, RBC 2.29 L, Hgb 6.9 L, Hct 20.5 L*, MCV 89.5, MCH 30.2, MCHC 33.7, RDW 16.0, Plt Count 48 L*, MPV 10.4, Neut % (Auto) 69.1, Lymph % (Auto) 22.7, [place] % (Auto) 7.7, Eos % (Auto) 0.2, Baso % (Auto) 0.4, Neut # (Auto) 3.5, Lymph # (Auto) 1.1, [place] # (Auto) 0.4, Eos # (Auto) 0.0, Baso # (Auto) 0.0, Sodium 137, Potassium 3.3 L, Chloride 101, Carbon Dioxide 28, Anion Gap 11.3, BUN 25 H, Creatinine 1.60 H, Estimated Creat Clear 60, Estimated GFR 44 L, Est GFR ( Amer) 53 L, Glucose 99, Calcium 7.9 L, Total Bilirubin 0.4, AST 24, ALT 19, Alkaline Phosphatase 135 H, Total Protein 6.0 L, Albumin 3.6, Globulin 2.4, Albumin/Globulin Ratio 1.5, Blood Type Confirm O Positive 11/01/23 13:50: Blood Type O Positive, Antibody Screen Negative, Crossmatch (AHG) See Detail 11/02/23 00:30: Hgb 7.0 L, Hct 20.6 L* 11/02/23 06:02: WBC 5.5, RBC 2.39 L, Hgb 7.2 L, Hct 20.8 L*, MCV 86.9, MCH 30.2, MCHC 34.8, RDW 16.8, Plt Count 46 L*, MPV 10.3, Neut % (Auto) 69.7, Lymph % (Auto) 22.4, [place] % (Auto) 7.3, Eos % (Auto) 0.2, Baso % (Auto) 0.3, Neut # (Auto) 3.8, Lymph # (Auto) 1.2, [place] # (Auto) 0.4, Eos # (Auto) 0.0, Baso # (Auto) 0.0, Sodium 137, Potassium 3.3 L, Chloride 102, Carbon Dioxide 29, Anion Gap 9.3, BUN 23 H, Creatinine 1.50 H, Estimated Creat Clear 67, Estimated GFR 47 L, Est GFR ( Amer) 57 L, Glucose 79 D, Calcium 7.3 L DS: Diagnosis Discharge Diagnosis (1) Nausea vomiting and diarrhea: Status: Acute Code(s): R11.2 - Nausea with vomiting, unspecified; R19.7 - Diarrhea, unspecified (2) Anemia: Status: Acute Code(s): D64.9 - Anemia, unspecified (3) Hypokalemia: Status: Acute Code(s): E87.6 - Hypokalemia (4) Chondrosarcoma: Status: Acute Code(s): C41.9 - Malignant neoplasm of bone and articular cartilage, unspecified Problem details: right pelvis, [facility] appts 08/12/2023 (5) Pacemaker: Status: Chronic Code(s): Z95.0 - Presence of cardiac pacemaker (6) History of TIA (transient ischemic attack): Status: Chronic Code(s): Z86.73 - Personal history of transient ischemic attack (TIA), and cerebral infarction without residual deficits (7) Right leg weakness: Status: Acute Code(s): R29.898 - Other symptoms and signs involving the musculoskeletal system (8) Central stenosis of spinal canal: Status: Acute Code(s): M48.00 - Spinal stenosis, site unspecified (9) Lumbar spinal stenosis: Status: Acute Code(s): M48.061 - Spinal stenosis, lumbar region without neurogenic claudication (10) Paroxysmal atrial fibrillation: Status: Chronic Code(s): I48.0 - Paroxysmal atrial fibrillation (11) Chronic GERD: Status: Acute Code(s): K21.9 - Gastro-esophageal reflux disease without esophagitis (12) HLD (hyperlipidemia): Status: Chronic Code(s): E78.5 - Hyperlipidemia, unspecified Qualifiers: Hyperlipidemia type: mixed hyperlipidemia Qualified Code(s): E78.2 - Mixed hyperlipidemia (13) HTN (hypertension): Status: Chronic Code(s): I10 - Essential (primary) hypertension Qualifiers: Hypertension type: essential hypertension Qualified Code(s): I10 - Essential (primary) hypertension (14) CAD (coronary artery disease): Status: Chronic Code(s): I25.10 - Atherosclerotic heart disease of [place] coronary artery without angina pectoris Qualifiers: Associated angina: with other forms of angina Coronary Disease-Associated Artery/Lesion type: [place] artery [place] vs. 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 Difficulty sleeping due to pain. Appt with oncologist today. (16) Fatigue: Status: Acute Code(s): R53.83 - Other fatigue Meds Home Medications and Allergies Home Medications Medication Instructions Recorded Confirmed Type finasteride 5 mg tablet 5 mg PO DAILY 07/09/17 11/02/23 History atorvastatin 80 mg tablet 80 mg PO DAILY cholestrol #90 tabs 05/24/21 11/02/23 Rx sotalol 80 mg tablet 40 mg (1/2 x 80 mg) PO BID Heart 06/04/21 11/02/23 Rx disease #60 tabs clopidogrel 75 mg tablet 75 mg PO DAILY 09/04/23 11/02/23 History furosemide 40 mg tablet 40 mg PO DAILY 09/04/23 11/02/23 History pantoprazole 40 mg tablet,delayed 40 mg PO DAILY 09/04/23 11/02/23 History release potassium chloride 10 mEq 10 meq PO DAILY 09/04/23 11/02/23 History capsule,extended release oxycodone-acetaminophen 10 mg-325 1 tab PO Q6HP PRN Pain (Scale 09/24/23 11/02/23 History mg tablet Score 4-6) trazodone 50 mg tablet 50 mg PO HSP PRN Sleep 09/24/23 11/02/23 History hydrochlorothiazide 12.5 mg tablet 12.5 mg PO DAILY #30 tabs 10/02/23 11/02/23 Rx irbesartan 150 mg tablet 150 mg PO DAILY #30 tabs 10/02/23 11/02/23 Rx loperamide 2 mg capsule 2 mg PO Q2HP PRN Diarrhea 11/02/23 11/02/23 History metoprolol succinate 50 mg 50 mg PO DAILY 11/02/23 11/02/23 History tablet,extended release 24 hr promethazine 25 mg tablet 25 mg PO Q6HP PRN Nausea 11/02/23 11/02/23 History ondansetron 4 mg disintegrating 4 mg PO Q8H PRN nausea and 11/04/23 Rx tablet vomiting #20 tabs New Prescriptions to Start Prescriptions: ondansetron Tre Woodall Allergies Allergy/AdvReac Type Severity Reaction Status Date / Time codeine AdvReac Mild NA-NAUSEA/V Verified 09/24/23 09:45 OMITING hydrocodone AdvReac Mild NA-NAUSEA/V Verified 09/24/23 09:45 OMITING Discharge Plan Disposition Patient Disposition: Home, Self-Care Condition: Fair Discharge Order Discharge Orders: Discharge Order (Routine); Ordered 11/04/23 Ordered By: Tre Woodall Follow up Plan Follow up with: Tre Woodall MD [Primary Care Provider] - 11/12/23 10:15 am Prescriptions/Medication Reconciliation: New ondansetron 4 mg tablet,disintegrating 4 mg PO Q8H PRN (Reason: nausea and vomiting) Qty: 20 1RF Continued finasteride 5 mg tablet 5 mg PO DAILY trazodone 50 mg tablet 50 mg PO HSP PRN (Reason: Sleep) oxycodone-acetaminophen 10-325 mg tablet 1 tab PO Q6HP PRN (Reason: Pain (Scale Score 4-6)) Patient Comments: TAKE 1 TABLET BY MOUTH EVERY 6 HOURS NEEDED FOR PAIN. MAX DAILY AMOUNT: 4 TABLETS atorvastatin 80 mg tablet 80 mg PO DAILY Qty: 90 3RF sotalol 80 mg tablet 40 mg PO BID Qty: 60 5RF hydrochlorothiazide 12.5 mg tablet 12.5 mg PO DAILY Qty: 30 3RF irbesartan 150 mg tablet 150 mg PO DAILY Qty: 30 3RF loperamide 2 mg capsule 2 mg PO Q2HP PRN (Reason: Diarrhea) metoprolol succinate 50 mg tablet extended release 24 hr 50 mg PO DAILY Patient Comments: TAKE 1 TABLET BY MOUTH ONCE DAILY promethazine 25 mg tablet 25 mg PO Q6HP PRN (Reason: Nausea) Patient Comments: TAKE 1 TABLET BY MOUTH EVERY 6 HOURS NEEDED FOR NAUSEA furosemide 40 mg tablet 40 mg PO DAILY potassium chloride 10 mEq capsule, extended release 10 meq PO DAILY clopidogrel 75 mg tablet 75 mg PO DAILY Patient Comments: TAKE 1 TABLET BY MOUTH ONCE DAILY FOR 90 DAYS pantoprazole 40 mg tablet,delayed release (DR/EC) 40 mg PO DAILY Patient Comments: TAKE 1 TABLET BY MOUTH ONCE DAILY Problem Reconciliation Problems Reviewed?: Yes Patient Discharge Instructions ACTIVITY: Continue current activity DIET: continue same diet Patient Instructions: Anemia, DI for Nausea -- Adult, DI for Acute Kidney Injury Providers Primary Care Provider: Tre Woodall Admit Provider: Francisco Mixon Attending Provider: Tre Woodall
--- NOTE | 2023-11-05 15:18 | CARE MANAGER ---
Called and spoke with patient regarding recent discharge. He states that he is doing well. Had a check up today and received IV fluids. No concerns voiced at time of call.
== END 2023-11-04 09:59 | disposition home or self-care (01) | DRG 543 ==
LOC: ER 13:55 → 2ND 16:30 → ICU 20:02
PROVIDERS: Admitting Provider Internal Medicine Adolescent Medicine; Emergency Provider Student in an Organized Health Care Education/Training Program; PCP Family Medicine; Visit Provider Family Medicine
DX: C41.9 Malignant neoplasm of bone and articular cartilage, unspecified (principal); N17.9 Acute kidney failure, unspecified; E87.6 Hypokalemia; Z95.0 Presence of cardiac pacemaker; Z86.73 Personal history of transient ischemic attack (TIA), and cerebral infarction without residual deficits; I10 Essential (primary) hypertension; I48.0 Paroxysmal atrial fibrillation; D63.0 Anemia in neoplastic disease; G47.30 Sleep apnea, unspecified; I25.118 Atherosclerotic heart disease of native coronary artery with other forms of angina pectoris; M48.061 Spinal stenosis, lumbar region without neurogenic claudication; E78.2 Mixed hyperlipidemia; N40.0 Benign prostatic hyperplasia without lower urinary tract symptoms; G47.31 Primary central sleep apnea; E86.0 Dehydration; R11.2 Nausea with vomiting, unspecified; D69.6 Thrombocytopenia, unspecified; T45.1X5A Adverse effect of antineoplastic and immunosuppressive drugs, initial encounter
CPT/HCPCS: 36415; 80048; 80053; 85014; 85018; 85025; 86850; J1642; J2405; P9016

== ENCOUNTER 2024-03-02 14:02 | Outpatient (CLI) | payer BC, SELFPAY ==
--- OUTSIDE RECORDS SUMMARY | 2024-03-02 14:05 | XMS_ITS ---
Author Organization [facility] Address [address] [facility] [address] [facility] [address] [place] [id number] Care Team Providers Care Supervisor Slitting And Shipping Name Role Phone Tre Woodall Primary Care Provider [phone] REASON FOR VISIT Refills MEDICATIONS Medication SIG (Take, Route, Fr equency, Duration) Notes Start Date End Date Status Furosemide 40 MG 1 tablet Orally Once a day 2023 Active Encounters Encounter Location Date Provider Diagnosis [facility] [address] [facility] [address] [facility] [address] [place] [id number] 03/01/2024 Tre Woodall PLAN OF TREATMENT Medication Medication Name Sig Start Date Stop Date Notes Furosemide 40 MG 1 tablet Orally Once a day 03/02/2024 Next Appt Details Provider Name:Tre Barrett ry, 04/19/2024 09:30:00 AM, [address] [facility] [address] [facility], [address], [place], [phone],
--- OUTSIDE RECORDS SUMMARY | 2024-03-02 14:05 | XMS_ITS ---
Author Organization [facility] Address [address] [facility] [address] [facility] [address] [place] [id number] Care Team Providers Care Bottom Polisher Name Role Phone Tre Woodall Primary Care Provider REASON FOR VISIT blood work Encounters Encounter Location Date Provider Diagnosis [facility] [address] [facility] [address] [place] [id number] 01/26/2024 Tre Woodall PLAN OF TREATMENT Next Appt Details Provider Name:Tre Barrett ry, 04/19/2024 09:30:00 AM, [address], [address], [place], [phone],
--- OUTSIDE RECORDS SUMMARY | 2024-03-02 14:05 | XMS_ITS ---
[facility] [address] [facility] [address] [place] [id number] Care Team Providers Care Battery Tester Field Name Role Phone Tre Woodall Primary Care Provider [phone] ALLERGIES Allergen (clinical drug ingredient) Drug/Non Drug Allergy documented on EMR Reaction Allergy Type Onset Date Status codeine Codeine Unknown Drug Allergy Active hydrocodone HYDROcodone Unknown Drug Allergy Act gabriella REASON FOR VISIT 6 Month Follow Up MEDICATIONS Medication SIG (Take, Route, Frequency, Duration) Notes Start Date End Date Status amLODIPine Besylate 10 MG 1 tablet Orall y Once a day Active hydroCHLOROthiazide 25 MG 1 tab(s) orall y once a day Active Metoprolol Succinate ER 50 MG 1 tab(s) o rally once a day Active Sotalol HCl 80 MG 1/2 tab(s) orally 2 times a day Active Irbesartan 300 MG 1 tab(s) orally once a day Active Morphine Sulfate ER 30 MG 1 capsule Orally bid Active Xarelto 20 MG 1 tab(s) orally once a day (in the evening) Active Gabapentin 600 MG 1/2 tablet Orally Twice A Day for 30 day(s) 01/19/2024 Active oxyCODONE HCl 10 MG 1 tablet as needed Orally every 6 hrs Active Potassium Chloride ER 10 MEQ 1 capsule w ith food Orally once daily for 90 days Active Atorvastatin Calcium 80 MG Take 1 tablet by mouth once daily for 90 days Active CPAP Supplies - as directed as directed 01/14/2024 Active Clotrimazole 1 % 1 application Externally Twice a day 10/15/2023 Active Finasteride 5 MG 1 tab(s) orally once a day Active Pantoprazole Sodium 40 MG 1 tab(s) orall y once a day Active Tylenol Extra Strength 500 MG 2 tablet a s needed Orally twice a day Active VITAL SIGNS Weight 000 lbs 02/08/2024 Blood pressure systolic 112 mm Hg 02/08/20 24 Blood pressure diastolic 72 mm Hg 024 Heart Rate 66 /min 02/08/2024 Height 70 in 02/08/2024 Encounters Encounter Location Date Provider Diagnosis [facility] [address] [place] [address] [address] [place], [place] [id number] 02/08/2024 Tre Woodall Essential hypertensi on I10 and Unable to ambulate R26.2 ASSESSMENTS Encounter Date Diagnosis Assessment Notes Treatment Notes Treatment Clinical Notes 02/08/2024 Essential hypertension (ICD-10 - I10) 02/08/2024 Unable to ambulate (ICD-10 - R26.2) Patient to continue physical therapy PLAN OF TREATMENT Medication Medication Name Sig Start Date Stop Date Notes amLODIPine Besylate 10 MG 1 tablet Orally Once a day hydroCHLOROthiazide 25 MG 1 tab(s) orally once a day Metoprolol Succinate ER 50 MG 1 tab(s) orally once a day Sotalol HCl 80 MG 1/2 tab(s) orally 2 times a day Irbesartan 300 MG 1 tab(s) orally once a day Treatment Notes Assessment Notes Unable to ambulate Patient to continue physical therapy Next Appt Details Follow Up: as scheduled,and prn, Reason: Provider Name:Tre T Arnold ry, 04/19/2024 09:30:00 AM, [address] [place] [address], [address], [place], [phone], Progress Notes * Examination Category Sub-Category Detail Notes General Examination Heart: RSR Lungs: clear to auscultatio n General Appearance: NAD, sitting in a wh eelchair, weight loss noted History and Physical Notes * HPI (History of Present Illness) Category Sub-Category Detail Notes Cardiology Blood Pressure Elevated Pt here for 6 mo f/u on hypertension, states he is doing well and does not have any concerns Hyperlipidemia Pt is not fasting to day
--- OUTSIDE RECORDS SUMMARY | 2024-03-02 14:06 | XMS_ITS | Patient Health Record ---
[facility] Address [address] [place] [id number] Care Team Providers Care Solid Waste Disposal Manager Name Role Phone Tre Woodall Primary Care Provider [phone] ALLERGIES Allergen (clinical drug ingredient) Drug/Non Drug Allergy documented on EMR Reaction Allergy Type Onset Date Status codeine Codeine Unknown Drug Allergy Active hydrocodone HYDROcodone Unknown Drug Allergy Act gabriella RESULTS Component Value Reference Range Notes P-Basic Metabolic Panel (BMP ) Reviewed date:09/03/2023 09:45:07 AM Interpretation: Performing Lab: Notes/Report: Test performed by [employer], [employer] [facility] [address] [place] [address] , [address], [place] [address] Zeb Medina MD, Supervisor [employer] CLIA: [id number] Sodium 138 135-145 mEq/L Potassium 3.7 3.5-5.3 mEq/L Chloride 98 97-108 mEq/L CO2 27 22-32 mEq/L Glucose 105 65-99 mg/dL BUN 9 8-23 mg/dL Creatinine 0.74 0.70-1.30 mg/dL Calcium 9.6 8.6-10.4 mg/dL eGFR by Creatinine 102 >59 mL/min/1.73m2 H-CBC Reviewed date:09/07/2023 08:32:59 AM Interpretation:Rbc 3.49, Hgb 10.7, Hct 33.3, Mcv 95.5, Ne% 80.2, Ne# 8.1 Performing Lab: Notes/Report: WBC 10.1 4.8-10.8 K/mm3 RBC 3.49 4.60-6.20 M/mm3 HGB 10.7 14.1-18.0 g/dL HCT 33.3 42.0-52.0 % MCV 95.5 80-94 fl MCH 30.6 27.0-31.2 pg MCHC 32.1 31.8-35.4 g/dL RDW 14.0 11.5-17.5 % PLT 295 142-424 K/mm3 MPV 7.7 7.4-10.4 fl NE% 80.2 37.0-80.0 % LY% 12.2 10-50 % MO% 6.4 1.7-9.3 % EO% 0.9 0.1-12.0 % BA% 0.3 0.1-2.0 % NE# 8.1 1.8-7.8 K/mm3 LY# 1.2 0.7-4.5 K/mm3 MO# 0.6 0.1-1.0 K/mm3 EO# 0.1 0.0-0.4 K/mm3 BA# 0.0 0-0.2 K/mm3 H-BMP Reviewed date:09/07/2023 08:32:59 AM Interpretation:K 3.4, Co2 31, Glu 113 Performing Lab: Notes/Report: NA 136 136-145 mmol/L K 3.4 3.5-5.1 mmoL/L CL 103 98-107 mmol/L CO2 31 22.0-30.0 mmol/L GAP 5.4 5-15 mEq/L BUN 13 9-20 mg/dl CREATT 0.80 0.66-1.25 mg/dl CRCLE 111 50-200 mL/min GFRAA 118 >60 ML/MIN EGFR 98 >60 ml/min GLU 113 74-100 mg/dl CA 9.1 8.4-10.2 mg/dl H-BMP Reviewed date:11/03/2023 09:11:56 AM Interpretation: Performing Lab: Notes/Report: NA 137 136-145 mmol/L K 3.6 3.5-5.1 mmoL/L CL 103 98-107 mmol/L CO2 27 22.0-30.0 mmol/L GAP 10.6 5-15 mEq/L BUN 19 9-20 mg/dl CREATT 1.40 0.66-1.25 mg/dl CRCLE 73 50-200 mL/min GFRAA 62 >60 ML/MIN EGFR 51 >60 ml/min GLU 94 74-100 mg/dl CA 7.4 8.4-10.2 mg/dl H-CBC Reviewed date:11/03/2023 09:11:56 AM Interpretation: Performing Lab: Notes/Report: WBC 7.8 4.8-10.8 K/mm3 Delta: 5.5 on 11/02/23 RBC 2.80 4.60-6.20 M/mm3 HGB 8.3 14.1-18.0 g/dL Delta: 7.2 on 11/02/23 HCT 24.4 42.0-52.0 % MCV 87.4 80-94 fl MCH 29.4 27.0-31.2 pg MCHC 33.7 31.8-35.4 g/dL RDW 16.5 11.5-17.5 % PLT 66 142-424 K/mm3 Delta: 46 on 0 11/02/23 MPV 9.8 7.4-10.4 fl NE% 76.5 37.0-80.0 % LY% 16.8 10-50 % MO% 6.2 1.7-9.3 % EO% 0.2 0.1-12.0 % BA% 0.3 0.1-2.0 % NE# 6.0 1.8-7.8 K/mm3 LY# 1.3 0.7-4.5 K/mm3 MO# 0.5 0.1-1.0 K/mm3 EO# 0.0 0.0-0.4 K/mm3 BA# 0.0 0-0.2 K/mm3 REASON FOR REFERRAL Reason Patient needs PT, pl ease use [id number] Diagnosis 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) Diagnosis 2 Unable to ambulate ( R26.2) Referral Organization [facility] Referring Provider First Name Tre Referring Provider Last Name Jose C Referring Provider Speciality [facility] Referred Provider Home, Health Referred Provider Specialty Home Health Agency General Notes Ellen Mcdaniel 4 3:49:07 PM > faxed referral to [id number] Referral Priority Routine MEDICATIONS Medication SIG (Take, Route, Frequency, Duration) Notes Start Date End Date Status hydroCHLOROthiazide 25 MG 1 tab(s) orall y once a day Active Clotrimazole 1 % 1 application Externally Twice a day 10/15/2023 Active Metoprolol Succinate ER 50 MG 1 tab(s) o rally once a day Active Sotalol HCl 80 MG 1/2 tab(s) orally 2 times a day Active Irbesartan 300 MG 1 tab(s) orally once a day Active oxyCODONE HCl 10 MG 1 tablet as needed Orally every 6 hrs Active amLODIPine Besylate 10 MG 1 tablet Orall y Once a day Active Finasteride 5 MG 1 tab(s) orally once a day Active Morphine Sulfate ER 30 MG 1 capsule Orally bid Active Pantoprazole Sodium 40 MG 1 tab(s) orall y once a day Active Xarelto 20 MG 1 tab(s) orally once a day (in the evening) Active Tylenol Extra Strength 500 MG 2 tablet a s needed Orally twice a day Active Gabapentin 600 MG 1/2 tablet Orally Twice A Day for 30 day(s) 01/19/2024 Active Potassium Chloride ER 10 MEQ 1 capsule w ith food Orally once daily for 90 days Active Atorvastatin Calcium 80 MG Take 1 tablet by mouth once daily for 90 days Active CPAP Supplies - as directed as directed 01/14/2024 Active Furosemide 40 MG 1 tablet Orally Once a day 03/02/2024 Active IMMUNIZATIONS Vaccine Route Administration Date Status Comme nts COVID 19 Moderna Unknown 06/20/2020 Administered COVID 19 Moderna Unknown 07/18/2020 Administered COVID 19 Moderna Unknown 06/03/2021 Administered Fluzone PF Quad (6-35 months) Unknown 05/10/2021 Admini stered Fluzone PF Quad (6-35 months) Unknown 05/27/2022 Admini stered Fluzone PF Quad (6-35 months) Unknown 04/29/2023 Admini stered SOCIAL HISTORY Sex Assigned At : Social History Observation Description Sex Assigned At Unknown PROBLEMS Problem Type ICD Code Onset Dates Problem Status W/U Status Risk SNOMED Code Notes Problem Gastro-esophageal reflux disease without esophagitis (K21.9) Active confirmed 749316997 Problem Essential hypertensi on (I10) Active confirmed 04155532 Problem Paresthesia (R20.2) Active confirmed 91 632172 Problem Paroxysmal atrial fibrillation (I48.0) Active confirmed 669009330 Problem Malignant neoplasm o f bone and articular cartilage, unspecified (C41.9) Active confirmed 500146459 Problem 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) Active confirmed 317962994 Problem Malignant (primary) neoplasm, unspecified (C80.1) Active confirmed 432567760 Problem Presence of cardiac pacemaker (Z95.0) Active confirmed 253392463 Problem Lumbar degenerative disc disease (M51.36) Active confirmed 52569616 Problem History of colon polyps (Z86.010) Active confirmed 696488701 Problem Pacemaker (Z95.0) Active confirmed 4415 15502 Problem New daily persistent headache (G44.52) Active confirmed 650126496088958 Problem PAF (paroxysmal atri al fibrillation) (I48.0) Active confirmed 249435130 Problem Atrial fibrillation, unspecified type (I48.91) Active confirmed 86881193 Problem Hyperlipidemia, unspecified hyperlipidemia type (E78.5) Active confirmed 92812183 Problem TIA (transient ischemic attack) (G45.9) Active confirmed 644708497 Problem Acute right-sided lo w back pain with right-sided sciatica (M54.41) Active confirmed 914080805 Problem Pure hypercholesterolemia (E78.00) Active confirmed 543445188 Problem Polyp of colon, unspecified part of colon, unspecified type (K63.5) Active confirmed 26427577 Problem Non morbid obesity (E66.9) Active confirmed 785404877 Problem Benign prostatic hyperplasia, unspecified whether lower urinary tract symptoms present (N40.0) Active confirmed 273771393 Problem Seasonal allergic rhinitis, unspecified trigger (J30.2) Active confirmed 116410191 Problem Unable to ambulate (R26.2) Active confirmed 882640755 Problem 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) Active confirmed 428319879 VITAL SIGNS Heart Rate 66 /min 02/08/2024 Blood pressure diastolic 72 mm Hg 02/08/2024 Height 70 in 02/08/2024 Blood pressure systolic 112 mm Hg 02/08/2024 Weight 000 lbs 02/08/2024 BMI 30.16 kg/m2 10/15/2023 Encounters Encounter Location Date Provider Diagnosis [facility] [address] [facility] [address] [place], [place] [id number] 03/08/2023 Tre [place]all Acute right-sided lo w back pain with right-sided sciatica M54.41 [facility] [address] [place], [place] [id number] 03/24/2023 [place] Essential hypertensi on I10 [facility] [address] [place], [place] [id number] 04/06/2023 [place] [facility] [address] [place] [id number] 04/30/2023 [place] [facility] [address] [place], [place] [id number] 05/12/2023 Tre [place] Essential hypertensi on I10 [facility] [address] [place], [place] [id number] 05/18/2023 Tre [place] Essential hypertensi on I10 [facility] [address] [place], [place] [id number] 07/20/2023 Tre [place] Peripheral edema R60 .0 [facility] [address] [place], [place] [id number] 07/22/2023 Tre [place] [facility] [address] [place], [place] [id number] 08/07/2023 Tre [place] Essential hypertensi on I10 ; Atrial fibrillation, unspecified type I48.91 and Peripheral edema R60.0 [facility] [address] [place], [place] [id number] 08/19/2023 Tre [place] Peripheral edema R60 .0 [facility] [address] [place], [place] [id number] 09/02/2023 Tre [place] Peripheral edema R60 .0 [facility] [address] [place], [place] [id number] 09/07/2023 Tre [place] [facility] [address] [place], [place] [id number] 10/05/2023 Tre [place] Essential hypertensi on I10 [facility] [address] [place], [place] [id number] 10/15/2023 Tre [place] Tinea cruris B35.6 [facility] [address] [place], [place] [id number] 11/12/2023 Tre [place] [facility] [address] [place], [place] [id number] 01/14/2024 Tre [place] Malignant neoplasm o f pelvic bone C41.4 and Unable to ambulate R26.2 [facility] [address] [place] [id number] 01/14/2024 Tre [place] [facility] [address] [place] [id number] 01/18/2024 Tre [place] [facility] [address] [place], [place] [id number] 01/18/2024 Tre [place] Peripheral edema R60 .9 [facility] [address] [place], [place] [id number] 01/19/2024 Tre [place] Acute right-sided lo w back pain with right-sided sciatica M54.41 [facility] [address] [place], [place] [id number] 01/20/2024 Tre [place] [facility] [address] [place] [id number] 01/26/2024 Tre [place] [facility] [address] [place], [place] [id number] 02/08/2024 Tre [place] Essential hypertensi on I10 and Unable to ambulate R26.2 [facility] [address] [place], [place] [id number] 03/01/2024 Tre [place] ASSESSMENTS Encounter Date Diagnosis Assessment Notes Treatment Notes Treatment Clinical Notes 03/08/2023 Acute right-sided low back pain with right-sided sciatica (ICD-10 - M54.41) 03/24/2023 Essential hypertension (ICD-10 - I10) 05/12/2023 Essential hypertension (ICD-10 - I10) 05/18/2023 Essential hypertension (ICD-10 - I10) 07/20/2023 Peripheral edema (ICD-10 - R60.0) 08/07/2023 Essential hypertension (ICD-10 - I10) 08/07/2023 Atrial fibrillation, unspecified type (ICD-10 - I48.91) 08/19/2023 Peripheral edema (ICD-10 - R60.0) 09/02/2023 Peripheral edema (ICD-10 - R60.0) 10/05/2023 Essential hypertension (ICD-10 - I10) 10/15/2023 Tinea cruris (ICD-10 - B35.6) 01/14/2024 Unable to ambulate (ICD-10 - R26.2) Requested PT recommendations restrictions from surgeon 01/14/2024 Malignant neoplasm of pelvic bone (ICD-10 - C41.4) Need notes from [facility] 01/19/2024 Acute right-sided low back pain with right-sided sciatica (ICD-10 - M54.41) 02/08/2024 Essential hypertension (ICD-10 - I10) 02/08/2024 Unable to ambulate (ICD-10 - R26.2) Patient to continue physical therapy 01/18/2024 Peripheral edema (ICD-10 - R60.9) 08/07/2023 Peripheral edema (ICD-10 - R60.0) PLAN OF TREATMENT Pending Test Test Name Order Date H-BMP 01/18/2024 Next Appt Details Provider Name:Tre Barrett ry, 04/19/2024 09:30:00 AM, [address] [facility], [address], [place], [place], [id number], Insurance Providers Payer Name Payer Address Payer Phone Subscriber Number Group Number Insured Name Patient Relationship to Insured Coverage Start Date Coverage End Date [facility] [employer] [address] [place] [address] [phone] [id number] DILSHAD HENNESSY Self - patient is the insured MEDICAL (GENERAL) HISTORY Medical History History ICD Code Bradycardia - Pacemaker - - Apr 2018 Hypertension Hyperlipidemia BPH Esophageal Reflux Mild Sleep Apnea- 11/2017 TIA dx. 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 Meyer 1 06/30/2017 Lumbar spinal fusion 04/2023 Hospitalization History Reason Date(Month/Year) Numbness, Stroke symptoms, Chest pain- [facility] ER 07/20/2018 TIA- ER 07/20/2018 Leg Edema- [facility] ER 07/2018 Paresthesias- [facility] 07/12-
[2024-03-02 15:00] LABS: Anion Gap 8.1 mEq/L (5-15); Blood Urea Nitrogen 27 mg/dl (9-20); Carbon Dioxide 28 mmol/L (22.0-30.0); Chloride 107 mmol/L (98-107); Estimated Glomerular Filt Rate 56 ml/min (>60); GFR (African American) 67 ML/MIN (>60); Glucose 91 mg/dl (74-100); Potassium 4.1 mmoL/L (3.5-5.1); Sodium 139 mmol/L (136-145)
== END 2024-03-02 23:59 | disposition home or self-care (01) ==
LOC: LAB 14:04
PROVIDERS: PCP Family Medicine; Visit Provider Family Medicine
DX: R60.9 Edema, unspecified (principal)
CPT/HCPCS: 36415; 80048

== ENCOUNTER 2024-04-11 18:06 | Emergency (ER) | payer BC, SELFPAY ==
[2024-04-11] VITALS (8 sets, daily range): BP systolic 112–144; BP diastolic 71–83; PULSE 62–74; RESP 13–24; TEMP 36.7; O2SAT 90–99; BMI 28.3
--- NOTE | 2024-04-11 18:07 | ECG_ITS ---
APPROVED REPORT Exam: Resting ECG HR:67 bpm ECG Measurements Heart Rate 67 AXES IL 171 P 62 QRSd 100 QRS 14 QT 378 T 21 QTc 393 Conclusion SINUS RHYTHM NORMAL ECG UNCONFIRMED REPORT Electronically signed by : Mayur Vasquez, 04/11/2024 22:57:38
--- NOTE | 2024-04-11 18:08 | XR_ITS ---
PROCEDURE INFORMATION: Exam: XR Chest Exam date and time: 04/11/2024 6:12 PM Age: 64 years old Clinical indication: Shortness of breath; Additional info: SOA TECHNIQUE: Imaging protocol: Radiologic exam of the chest. Views: 1 view. COMPARISON: CT ANGIO CHEST PE PROTOCOL 09/03/2023 9:04 PM FINDINGS: Tubes, catheters and devices: There is a left chest implanted cardiac device. There is a right chest port in place catheter tip projects over the SVC. Lungs: No evidence of acute pulmonary disease or infiltrates Pleural spaces: No large effusion or pneumothorax. Heart/Mediastinum: Stable cardiac and mediastinal contours. Bones/joints: No evidence of acute osseous abnormalities within the visualized portions of the thoracic spine and ribs. Osseous structures appear appropriate for patient age. IMPRESSION: No dense parenchymal consolidation, pleural effusion, or pneumothorax.
--- NOTE | 2024-04-11 18:09 | ED_ITS ---
<Statement entered by Krysta Vasquez MD - 04/11/24 22:41> I was consulted by the ULISSES, and we discussed the complexity of the problems being addressed. I approved the treatment and management plan for this patient's care in the emergency department, thus performing a substantive portion of the medical decision making. Krysta Vasquez MD, DUGLAS, FACEP Discharge Plan Disposition Patient Disposition: Home, Self-Care Condition: Good Chief Complaint: Chest Pain Prescriptions Prescriptions: No Action finasteride 5 mg tablet 5 mg PO DAILY trazodone 50 mg tablet 50 mg PO HSP PRN (Reason: Sleep) oxycodone-acetaminophen 10-325 mg tablet 1 tab PO Q6HP PRN (Reason: Pain (Scale Score 4-6)) Patient Comments: TAKE 1 TABLET BY MOUTH EVERY 6 HOURS NEEDED FOR PAIN. MAX DAILY AMOUNT: 4 TABLETS gabapentin 600 mg tablet 300 mg PO BID Patient Comments: TAKE 1/2 (ONE-HALF) TABLET BY MOUTH TWICE DAILY Xarelto 20 mg tablet 20 mg PO DAILY Qty: 30 5RF Rx Instructions: must administer with evening meal atorvastatin 80 mg tablet 80 mg PO DAILY Qty: 90 3RF sotalol 80 mg tablet 40 mg PO BID Qty: 60 5RF loperamide 2 mg capsule 2 mg PO Q2HP PRN (Reason: Diarrhea) metoprolol succinate 50 mg tablet extended release 24 hr 50 mg PO DAILY Patient Comments: TAKE 1 TABLET BY MOUTH ONCE DAILY promethazine 25 mg tablet 25 mg PO Q6HP PRN (Reason: Nausea) Patient Comments: TAKE 1 TABLET BY MOUTH EVERY 6 HOURS NEEDED FOR NAUSEA ondansetron 4 mg tablet,disintegrating 4 mg PO Q8H PRN (Reason: nausea and vomiting) Qty: 20 1RF potassium chloride 10 mEq capsule, extended release 10 meq PO DAILY pantoprazole 40 mg tablet,delayed release (DR/EC) 40 mg PO DAILY Patient Comments: TAKE 1 TABLET BY MOUTH ONCE DAILY furosemide 40 mg tablet 20 mg PO DAILY Referrals Follow up/Referrals: Tre Woodall MD [Primary Care Provider] - See instructions Activity Restrictions/Add. 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 Continue to take all medication as prescribed. Clinical Impressions Clinical Impression: Pacemaker, Chest pain Instructions Patient Instructions: DI for Atypical Chest Pain Print Language Print Language: [place] Island[place] Discharge ED Provider: Krysta Vasquez General Adult HPI General Chief complaint: Chest Pain Stated complaint: Chest Pain Time Seen by Provider: 04/11/24 18:10 Mode of Arrival: Ambulatory Source of Information: Patient and Spouse Limitations: No Limitations History of Present Illness HPI narrative: This is a 64-year-old male who presents to the emergency department chest pain some radiation to the back, is located substernally, patient have an episode of chest pain last night that only lasted for like 20 minutes radiation to the left arm, chest pain episode today started approximate around 4:30 PM today, he endorses shortness of breath, the chest pain is nonpositional, no nausea, no fever no chills, no recent illness, no cough congestion, no sore throat, abdominal pain, hematuria, melena, hematochezia, hematemesis, constipation no diarrhea, no urinary type symptomatology. Patient is a non-smoker, denies any alcohol or drug use, past medical history consistent with chondrosarcoma of the right femur/pelvis, that was surgically resected at [place] in October 2023, atrial fibrillation with implantable pacemaker, on anticoagulation therapy with Xarelto, CKD, thrombocytopenia, hyperlipidemia, GERD, of note according to spouse at the bedside, patient took approximately 2 baby aspirin today for symptomatic relief. Patient's pain is currently a 7 out of 10, triage vitals grossly unremarkable. Onset (ago): hour(s) Related Data Home Medications ?Medication ?Instructions ?Recorded ?Confirmed finasteride 5 mg tablet 5 mg PO DAILY 07/09/17 01/28/24 pantoprazole 40 mg tablet,delayed 40 mg PO DAILY 09/04/23 01/28/24 release potassium chloride 10 mEq 10 meq PO DAILY 09/04/23 01/28/24 capsule,extended release oxycodone-acetaminophen 10 mg-325 1 tab PO Q6HP PRN Pain (Scale 09/24/23 01/28/24 mg tablet Score 4-6) trazodone 50 mg tablet 50 mg PO HSP PRN Sleep 09/24/23 01/28/24 loperamide 2 mg capsule 2 mg PO Q2HP PRN Diarrhea 11/02/23 01/28/24 metoprolol succinate 50 mg 50 mg PO DAILY 05/20/24 08/15/24 tablet,extended release 24 hr promethazine 25 mg tablet 25 mg PO Q6HP PRN Nausea 11/02/23 01/28/24 furosemide 40 mg tablet 20 mg PO DAILY 01/28/24 01/28/24 gabapentin 600 mg tablet 300 mg PO BID 01/28/24 01/28/24 Previous Rx's ?Medication ?Instructions ?Recorded atorvastatin 80 mg tablet 80 mg PO DAILY cholestrol #90 tabs 05/24/21 sotalol 80 mg tablet 40 mg (1/2 x 80 mg) PO BID Heart 06/04/21 disease #60 tabs ondansetron 4 mg disintegrating 4 mg PO Q8H PRN nausea and 11/04/23 tablet vomiting #20 tabs rivaroxaban 20 mg tablet (Xarelto) 20 mg PO DAILY #30 tabs 01/28/24 Allergies Allergy/AdvReac Type Severity Reaction Status Date / Time codeine AdvReac Mild NA-NAUSEA/V Verified 01/28/24 11:23 OMITING hydrocodone AdvReac Mild NA-NAUSEA/V Verified 01/28/24 11:23 OMITING PFSH PFSH Disclaimer: The information contained in this section may have been updated after the patient was seen, as this information can be updated by other users. Medical History Ventricular arrhythmia Fever of unknown origin Sepsis without septic shock Myalgia Fever Bilateral leg edema Allergy to adhesive tape Central stenosis of spinal canal Multilevel neural foraminal stenosis Back pain Active follow-up with [facility] pain management Obesity (BMI 35.0-39.9 without comorbidity) 13 pound weight loss since last visit Lumbar spinal stenosis Lumbar facet arthropathy Lumbar radiculopathy Degenerative disc disease, lumbar BMI 34.0-34.9,adult Obstructive sleep apnea syndrome Severe nonpositional JULIO which was untreated in the setting of acute back pain, noncompliant on CPAP status post unknown spinal surgery (Dr. Valadez) due to moderate to severe stenosis with significantly elevated AHI in the setting of narcotic pain medication which has just recently been completed. 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 Difficulty sleeping due to pain. Appt with oncologist today. Metastatic neoplastic disease Chondrosarcoma right pelvis, [facility] appts 08/12/2023 Epistaxis Daytime somnolence Snoring Paroxysmal atrial fibrillation Dyspnea Left arm numbness Carotid artery stenosis Dizziness Edema of right forearm HLD (hyperlipidemia) HTN (hypertension) CAD (coronary artery disease) Surgical History History of back surgery History of carpal tunnel release of both wrists H/O arthroscopy of left knee Family History Other Diabetes Heart attack Hypertension Social History Smoking Status: Never smoker second hand exposure: No alcohol intake: never counseling provided: none substance use type: denies use 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al status: retired Travel in the last 8 weeks: None household members: spouse housing: house marital status: 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 [employer] 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al exposures/hazards: No caffeine: Yes Other Medical History Have you received the Flu Vaccine for this season: No Have you received the Pneumonia Vaccine: No ROS Obtained: Yes All systems reviewed & no additional complaints except as documented Physical Exam General General appearance: alert and in no apparent distress Head Head exam: atraumatic and normocephalic Eye Eye exam: Present normal appearance, PERRL and EOMI Neck Neck exam: Present full ROM; Absent meningismus Chest Chest inspection: Present normal inspection, tenderness and other (There is mild chest wall tenderness to palpation located substernally) Respiratory Respiratory exam: Absent respiratory distress, wheezes, stridor, accessory muscle use or prolonged expiratory phase Cardiovascular Cardiovascular exam: Present normal rhythm, Pacemaker/defibrillator and other (Pulses equal and symmetric in bilateral upper and lower extremities, there is a port located in the right upper chest wall) Abdominal Exam Abdominal exam: Absent distention, tenderness, guarding, rebound or rigidity Extremities Exam Extremities exam: Absent edema Neurological Exam Neurological exam: Present alert Psychiatric Psychiatric exam: Present normal affect Skin Skin exam: Present warm and dry Medical Decision Making Medical Records Medical records reviewed: Yes I reviewed the patient's medical records. Screening: Per USPSTF and CDC recommendations, given the prevalence of disease in our region, it is our hospital?s policy to screen for HIV and viral Hepatitis for all patients aged 18 and over and those with ongoing risk factors. Mike Inquiry Pt receiving controlled substance: No Vital Signs: 04/11/24 18:06 04/11/24 18:30 04/11/24 19:00 Temperature 98.0 F Temperature Source Oral Pulse Rate 67 Pulse Rate [Apical] 67 Respiratory Rate 18 15 24 Blood Pressure 112/71 123/73 Blood Pressure [Right Arm] 144/83 H Blood Pressure Mean Blood Pressure Mean [Right Arm] 103 Blood Pressure Source [Right Arm] Automatic Cuff Blood Pressure Position [Right Arm] Sitting 02 Sat by Pulse Oximetry 99 95 Oxygen Delivery Method Room Air Room Air 04/11/24 19:30 04/11/24 20:00 04/11/24 20:30 Temperature Temperature Source Pulse Rate 62 65 Pulse Rate [Apical] Respiratory Rate 22 20 13 Blood Pressure 119/73 127/73 124/76 Blood Pressure [Right Arm] Blood Pressure Mean Blood Pressure Mean [Right Arm] Blood Pressure Source [Right Arm] Blood Pressure Position [Right Arm] 02 Sat by Pulse Oximetry 98 97 Oxygen Delivery Method 04/11/24 21:00 Temperature Temperature Source Pulse Rate 66 Pulse Rate [Apical] Respiratory Rate 15 Blood Pressure 116/72 Blood Pressure [Right Arm] Blood Pressure Mean 87 Blood Pressure Mean [Right Arm] Blood Pressure Source [Right Arm] Blood Pressure Position [Right Arm] 02 Sat by Pulse Oximetry 90 L Oxygen Delivery Method Lab Data Lab results reviewed: Yes I reviewed the patient's lab results. Lab Results 04/11/24 18:26: WBC 7.9, RBC 3.10 L, Hgb 10.3 L, Hct 30.2 L, MCV 97.2 H, MCH 33.3 H, MCHC 34.2, RDW 13.8, Plt Count 249, MPV 7.8, Neut % (Auto) 68.0, Lymph % (Auto) 20.3, Young % (Auto) 8.9, Eos % (Auto) 2.4, Baso % (Auto) 0.3, Neut # (Auto) 5.4, Lymph # (Auto) 1.6, Young # (Auto) 0.7, Eos # (Auto) 0.2, Baso # (Auto) 0.0, PT 16.5 H, INR 1.54 H, Sodium 138, Potassium 3.8, Chloride 97 L, Carbon Dioxide 27, Anion Gap 17.8 H, BUN 33 H, Creatinine 1.30 H, Estimated Creat Clear 73, Estimated GFR 56 L, Est GFR ( Amer) 67, Glucose 118 H, Calcium 9.1, Magnesium 1.3 L, Total Bilirubin 0.4, AST 24, ALT 16, Alkaline Phosphatase 130 H, Total Creatine Kinase 97, Troponin I < 0.01, NT-Pro-B Natriuret Pep 152 H, Total Protein 6.5, Albumin 3.7, Globulin 2.8, Albumin/Globulin Ratio 1.3, HIV 1&2 Antibody Rapid Nonreactive 04/11/24 20:42: Troponin I < 0.01 04/11/24 18:26 04/11/24 18:26 Orders (Tests/Meds): ED MEDICATIONS Discontinued Medications Generic Name Dose Route Start Last Admin Trade Name Freq PRN Reason Stop Dose Admin Iopamidol 80 ml 04/11/24 20:23 04/11/24 20:24 Iopamidol-370 (76%);100ml Bottle IV 04/11/24 20:24 80 ml ONCE ONE Administration Morphine Sulfate 4 mg 04/11/24 19:51 04/11/24 20:02 Morphine 4mg/Ml Syringe IV 04/11/24 19:52 4 mg ONCE ONE Administration Sodium Chloride 50 ml 04/11/24 20:23 04/11/24 20:24 0.9 % Sodium Chloride 50 Ml Vial IV 04/11/24 20:24 50 ml ONCE ONE Administration Sodium Chloride 10 ml 04/11/24 20:23 04/11/24 20:24 Sodium Chloride 0.9% 10ml Syr (Rad Only) IV 04/11/24 20:24 10 ml ONCE ONE Administration ORDERS Category Date Time Status CTA Chest [CT angio chest - dissection] Stat Cat Scan 04/11/24 18:20 Completed XR chest portable Stat Exams 04/11/24 18:08 Completed CK [Creatine Kinase] Stat Lab 04/11/24 18:26 Completed Complete Blood Count Auto Diff Stat Lab 04/11/24 18:26 Completed Comprehensive Metabolic Panel Stat Lab 04/11/24 18:26 Completed HIV (1&2) Antibody Rapid Stat Lab 04/11/24 18:26 Completed Hep C Ab with Reflex to RNA Stat Lab 04/11/24 18:26 Received Magnesium Stat Lab 04/11/24 18:26 Completed NT Pro Brain Natriuretic Pep. Stat Lab 04/11/24 18:26 Completed PT INR [Prothrombin Time INR] Stat Lab 04/11/24 18: Completed Troponin I Q3H Lab 04/11/24 20:42 Completed Troponin I Q3H Lab 04/12/24 00:15 Ordered Troponin I Stat Lab 04/11/24 18:26 Completed Medical Decision Narrative: 64-year-old male presents to the emergency department with chest pain that radiates to the back, with some shortness of breath, since 4:30 PM today, differential diagnose include but limited to, ACS, PE, aortic dissection, costochondritis, pneumonia, gastritis, GERD, PUD, cardiac arrhythmia, electrolyte disturbance, CHF exacerbation, malignancy. Will obtain CBC CMP, CK, magnesium level, proBNP, PT/INR, troponin, CXR, continuous pulse oximetry monitoring, continuous cardiac monitoring, obtain CTA chest with and without contrast dissection protocol I discussed this patient's case with the attending physician Dr. Vasquez I along with the attending physician with the patient's EKG, NSR at 67 bpm, HI interval and QT interval within normal limits there is no STEMI. CBC notable for anemia, appears chronic, MCV is elevated at 97.2, erythrocytecytopenia at 3.1 PT is elevated at 16.5, INR is elevated 1.54 I reviewed the patient's chest x-ray along the corresponding radiologic report, no dense parenchymal consolidation pleural effusion or pneumothorax, there is a right chest port in place catheter tip projects over the SVC, tubes catheters and devices, there is a left chest implanted cardiac device. CMP notable for acute kidney injury with BUN elevation at 33, creatinine at 1.3, opponent within normal limits. Patient is now complaining of worsening pain, will give 4 mg IV morphine for pain. I along with the attending physician reviewed the patient's repeat EKG, NSR at 67 bpm, HI interval and QT interval within normal limits, there is no STEMI. proBNP is elevated mildly at 152 otherwise unremarkable CMP Reviewed the patient's CTA chest with without contrast, there is no pulmonary emboli, low-attenuation renal cyst measuring up to 9 mm in diameter, lung nodules measuring up to 3 mm that are unchanged, Repeat troponin within normal limits. Heart score is 3, repeat EKG x 2, repeat troponin negative, patient chest pain is improved with morphine administration, patient's chest pain is reproducible, with palpation and movement, no other concerning signs and symptoms on his laboratory studies, CTA negative, patient need to follow-up with PCP/foundry operator as directed, strict ED return precaution given to the patient and at the bedside, patient famine agreement current treatment plan/discharge plan. Critical Care Critical Care Time Critical Care Time: No
--- NOTE | 2024-04-11 18:20 | CT_ITS ---
PROCEDURE INFORMATION: Exam: CTA Chest With Contrast Exam date and time: 04/11/2024 8:16 PM Age: 64 years old Clinical indication: Pain; Chest pressure; Additional info: Severe, chest pain rating to the back TECHNIQUE: Imaging protocol: Computed tomographic angiography of the chest with contrast. Exam focused on the arteries. 3D rendering (Not supervised by radiologist): MIP and/or 3D reconstructed images were created by the technologist. Radiation optimization: All CT scans at this facility use at least one of these dose optimization techniques: automated exposure control; mA and/or kV adjustment per patient size (includes targeted exams where dose is matched to clinical indication); or iterative reconstruction. Contrast material: ISOVUE; Contrast volume: 80 ml; Contrast route: INTRAVENOUS (IV); COMPARISON: CT ANGIO CHEST PE PROTOCOL 03/09/2023 21:04 FINDINGS: Tubes, catheters and devices: Right port tip is most likely in the lower SVC. Unchanged cardiac pacemaker wires. Pulmonary arteries: No pulmonary emboli. Aorta: The aorta demonstrates mild atherosclerotic disease. Ascending aortic ectasia measuring up to 3.9 cm. Lungs: Mild scarring and atelectasis in the lower lungs. Scattered right upper lobe nodules measuring up to 3 mm, unchanged. These are easiest to see on coronal MIP images. Pleural spaces: Unremarkable. No pneumothorax. No pleural effusion. Heart: Cardiomegaly. Lymph nodes: Unremarkable. No enlarged lymph nodes. Kidneys: Low attenuation renal lesions measuring up to 9 mm in diameter are incompletely characterized, but are likely cysts. No followup imaging is warranted. Bones/joints: Unremarkable. No acute fracture. Soft tissues: Asymmetric left gynecomastia. Other findings: Stigmata of old granulomatous disease. IMPRESSION: No pulmonary emboli. COMMENTS: Consistent with the [employer]'s Incidental Findings Committee white paper (J Am Dylon Radiol 2018): Any incidental renal lesion less than 1 cm or classified as too small to characterize, or any incidental cystic renal lesion characterized as simple-appearing, is likely benign. No follow-up imaging is recommended for these lesions per consensus recommendations based on imaging criteria.
[2024-04-11 18:34] LABS: Basophils % 0.3 % (0.1-2.0); Eosinophils # 0.2 K/mm3 (0.0-0.4); Eosinophils % 2.4 % (0.1-12.0); Hematocrit 30.2 % (42.0-52.0); Hemoglobin 10.3 g/dL (14.1-18.0); Lymphocytes # 1.6 K/mm3 (0.7-4.5); Lymphocytes % 20.3 % (10-50); Mean Corpuscular HGB Conc 34.2 g/dL (31.8-35.4); Mean Corpuscular Hemoglobin 33.3 pg (27.0-31.2); Mean Corpuscular Volume 97.2 fl (80-94); Mean Platelet Volume 7.8 fl (7.4-10.4); Monocytes # 0.7 K/mm3 (0.1-1.0); Monocytes % 8.9 % (1.7-9.3); Neutrophils # 5.4 K/mm3 (1.8-7.8); Platelet Count 249 K/mm3 (142-424); Red Cell Distribution Width 13.8 % (11.5-17.5); White Blood Count 7.9 K/mm3 (4.8-10.8)
[2024-04-11 18:42] LABS: INR 1.54 (0.9-1.1); Prothrombin Time 16.5 seconds (10.1-12.5)
[2024-04-11 18:53] LABS: Alanine Aminotransferase 16 U/L (12-78); Albumin Level 3.7 g/dl (3.5-5.0); Albumin/Globulin Ratio 1.3 (1.1-1.8); Alkaline Phosphatase 130 U/L (38-126); Anion Gap 17.8 mEq/L (5-15); Aspartate Amino Transferase 24 U/L (17-59); Bilirubin,Total 0.4 mg/dl (0.2-1.3); Blood Urea Nitrogen 33 mg/dl (9-20); Calcium 9.1 mg/dl (8.4-10.2); Carbon Dioxide 27 mmol/L (22.0-30.0); Chloride 97 mmol/L (98-107); Creatine Kinase 97 U/L (55-170); Creatinine Clearance Estimated 73 mL/min (50-200); Estimated Glomerular Filt Rate 56 ml/min (>60); GFR (African American) 67 ML/MIN (>60); Globulin 2.8 g/dL (1.3-3.2); Glucose 118 mg/dl (74-100); Potassium 3.8 mmoL/L (3.5-5.1); Sodium 138 mmol/L (136-145); Total Protein,Serum 6.5 g/dl (6.3-8.2)
[2024-04-11 19:44] LABS: Troponin I < 0.01 ng/ml (0.00-0.034)
[2024-04-11 19:55] LABS: Magnesium 1.3 mg/dl (1.6-2.3)
--- NOTE | 2024-04-11 19:55 | ECG_ITS ---
APPROVED REPORT Exam: Resting ECG HR:67 bpm ECG Measurements Heart Rate 67 AXES MA 172 P 53 QRSd 98 QRS 6 QT 390 T 50 QTc 406 Conclusion SINUS RHYTHM NORMAL ECG UNCONFIRMED REPORT Electronically signed by : Mayur Vasquez, 04/11/2024 22:57:32
[2024-04-11] MEDS: MORPHINE 4MG/ML SYRINGE 4 MG IV (20:02)
[2024-04-11 20:04] LABS: NT Pro Brain Natriuretic Pep. 152 pg/mL (0-125)
[2024-04-11 20:11] LABS: HIV (1&2) Antibody Rapid NONREACTIVE (NONREACTIVE)
[2024-04-11] MEDS: IOPAMIDOL-370 (76%);100ML BOTTLE 80 ML IV (20:24)
[2024-04-11] MEDS: SODIUM CHLORIDE 0.9% 10ML SYR (RAD ONLY) 10 ML IV (20:24)
[2024-04-11] MEDS: 0.9 % SODIUM CHLORIDE 50 ML VIAL IV (20:24)
[2024-04-11 21:31] LABS: Troponin I < 0.01 ng/ml (0.00-0.034)
[2024-04-13 08:25] LABS: HCV Ab Non Reactive (Non Reactive)
== END 2024-04-11 22:15 | disposition home or self-care (01) ==
PROVIDERS: Physician Assistant; Emergency Provider Student in an Organized Health Care Education/Training Program; PCP Family Medicine
DX: R07.9 Chest pain, unspecified (principal); Z95.0 Presence of cardiac pacemaker
CPT/HCPCS: 71045; 71275; 80053; 82550; 83735; 83880; 84484; 85025; 85610; 86803; 87389; 93005; 96374; 99285; J2270; Q9967

== ENCOUNTER 2024-04-20 14:32 | Observation (INO) | payer BC, SELFPAY ==
[2024-04-20] VITALS (25 sets, daily range): BP systolic 89–158; BP diastolic 50–95; PULSE 60–68; RESP 16–20; TEMP 36.6–36.7; O2SAT 95–100; BMI 28.4; BMI 27.7
--- NOTE | 2024-04-20 11:56 | CT_ITS ---
APPROVED REPORT Internet Marketing Executive: CLINICAL INDICATION Chest Pain TECHNIQUE Image Acquisition: A 128 slice MDCT scanner (Pubstera View) was used for data acquisition. A noncontrast coronary calcium scan was performed. A CT attenuation threshold of 130 Hounsfield units (HU) was used for the detection of calcium in contiguous voxels of 1 sq mm in area to be counted as individual lesions. Bolus tracking in the ascending aorta with a threshold of 180 HU was performed. Immediately afterwards, ECG synchronized cardiac CT was then performed from the cardiac base to apex using retrospective gating with ECG tube current modulation. A total of 85 mL of Isovue 370 mg/mL contrast medium was administered at 5 mL/sec followed by a saline flush using a biphasic injection protocol. A tube voltage of 120 KVp was used. The patient received the following medications prior to the cardiac CT. 50 mg of oral metoprolol 15 mg of oral ivabradine 0.8 mg of sublingual nitroglycerin The average heart rate at the time of acquisition was 59 bpm and regular. Image Reconstruction Transaxial images were reconstructed at 0.67 mm slide thickness. Data was reviewed interactively on an advanced workstation capable of 2 and 3-dimensional displays in all conventional reconstruction formats, including multiplanar reformations, maximum intensity projections, curved multiplanar reformations, and volume rendered reconstructions. When applicable, selected routine images describing the relevant coronary anatomy and pathology were saved and sent to PACS. Complications None Technical Quality Overall image quality was suboptimal due to significant motion and blurring. Coronary artery opacification was adequate. Total DLP (Dose-Length Product) is 2119.0 mGy-cm. The reported value represents the total of one or more individual components during the CT acquisition of this date and at this time, and as such, the same value may appear in more than one CT report depending on the interpreting/reporting physicians. COMPARISON None FINDINGS CT Coronary Calcium Scoring LMA (Left Main Artery) = 27 LAD (Left Anterior Descending) = 100 LCX (Left Coronary Circumflex) = 19 RCA (Right Coronary Artery) = 28 Total Calcium Score = 174 using the AJ-130 method. The observed calcium score of 174 is at 67th percentile for subjects of the same age, sex, and race/ethnicity. The interpretation of the calcium heart score is based on the following continuum*: 0 = no calcified plaque detected (risk of coronary artery disease is very low ??? less than 5%) 1-10 = calcium detected in extremely minimal levels (risk of coronary diseases is still low ??? less than 10%) 11-100 = mild levels of plaque detected with certainty (mild or minimal narrowing of heart arteries is likely) 101-400 = definite,at least moderate levels of plaque detected (relatively high risk of a heart attack within 3-5 years) >401-999 = extensive levels of plaque detected (high risk of heart attack, high levels of vascular disease are present, high likelihood of at least one significant coronary narrowing) *The calcium heart score quantifies the burden of coronary calcification/plaque in the coronary arteries. The calcium heart score is not able to evaluate the presence or burden of non-calcified (i.e. soft) plaque. There is mild calcification in the ascending thoracic aorta. Coronary CT Angiography The coronary arterial system is right dominant. Quantitative Stenosis Grading: Left Main (LM): The left main originates normally from the left sinus of Valsalva. The LM bifurcates into the left anterior descending artery and left circumflex artery. There is calcified plaque noted in the proximal LM, with no evidence of luminal stenosis. Left Anterior Descending (LAD) and Diagonal Branches: The LAD gives off 3 diagonal branch(es). There is mixed calcified/noncalcified plaque noted in the proximal LAD, with up to 50 to 70% luminal stenosis. There is no evidence of LAD-myocardial bridge. Left Circumflex (LCX) and Obtuse Marginals (OM): The LCX gives off 1 Obtuse Marginal (OM) branch(es). There is calcified plaque in the proximal LCx, with < 25% luminal stenosis. Right Coronary Artery (RCA): The RCA originates normally from the right sinus of Valsalva. The RCA gives off a posterior descending artery (PDA) and posterolateral (PL) branches. There is calcified plaque in the proximal RCA, with no evidence of luminal stenosis. Non-Coronary Cardiac Findings: Analysis of the left ventricular (LV) structure and function was performed after 3-D reconstruction of the LV from axial images, with user-corrected automatic contouring for assessment of LV volumes and user-defined reconstruction from oblique planes for measurement of 3-D cardiac structure and function. -The left ventricle systolic function is normal. -There is no left atrial appendage filling defect. Two right pulmonary veins and two left pulmonary veins drain normally into the left atrium. -No pericardial thickening or calcification. -Central and branch pulmonary arteries in the [id number]-jd-[id number] are unremarkable. -Thoracic aorta within the visualized thoracic aortic-branches in the itark-sz-tuue is unremarkable. Extracardiac Structures No significant extra-cardiac findings. Note, however, that this study is focused on the cardiac findings. IMPRESSION -Suboptimal study due to significant blurring in motion. -Presence of coronary calcification with an Agatston score = 174 using the AJ-130 method. -The observed calcium score of 174 is at 67th percentile for subjects of the same age, sex, and race/ethnicity. -Likely moderate mixed calcified/noncalcified plaque in the proximal LAD segment, with possible evidence of significant flow-limiting atherosclerosis of the coronary arteries. The CCTA may overestimate the degree of luminal stenosis in the setting of suboptimal study. -CAD-RADS 3. Management recommendations per ACC/AHA guidelines*, as clinically appropriate. *Recommendations: CAD RADS 0: Reassurance. Consider non-atherosclerotic causes of chest pain. CAD RADS 1: Consider non-atherosclerotic causes of chest pain. Consider preventive therapy and risk factor modification. CAD RADS 2: Consider non-atherosclerotic causes of chest pain. Consider preventive therapy and risk factor modification, particularly for patients with nonobstructive plaque in multiple segments. CAD RADS 3: Consider further functional testing. Consider symptom-guided anti-ischemic and preventive pharmacotherapy as well as risk factor modification per published guideline statements. CAD RADS 4A: Consider further functional testing or invasive coronary angiography with revascularization per published guideline statements. Consider symptom-guided anti-ischemic and preventive pharmacotherapy as well as risk factor modification per published guideline statements. CAD RADS 4B: Invasive coronary angiography recommended with revascularization per published guideline statements. Consider symptom-guided anti-ischemic and preventive pharmacotherapy as well as risk factor modification per published guideline statements. CAD RADS 5: Consider invasive angiography and/or viability assessment with revascularization per published guideline statements. Consider symptom-guided anti-ischemic and preventive pharmacotherapy as well as risk factor modification per published guideline statements. CRITICAL RESULT None COMMUNICATION The above findings were communicated with the primary provider at the time of image acquisition on the same day of the patient's clinic visit (prior to dictation of this report). As the patient had escalating symptoms of angina, in the setting of possible LAD stenosis (albeit suboptimal study), the plan was to proceed with invasive coronary angiography for further evaluation. The coronary and cardiac findings of this CCTA were reviewed, reported, and signed by Juan Pino MD (Dater Assembler) Conclusion Electronically signed by : Melany Pino MD 04/27/2024 10:38:26
[2024-04-20] MEDS: IVABRADINE HCL 7.5MG TABLET PO (12:17)
[2024-04-20] MEDS: METOPROLOL TARTRATE 50MG TABLET PO (12:17)
--- NOTE | 2024-04-20 13:11 | PC.NURSE ---
PT TRANSPORTED TO RADIOLOGY BY Reanna YOUNGER RN AND CAROLYN KAUFMAN RN FOR CTA.
[2024-04-20] MEDS: NITROGLYCERIN 0.4MG SL TABLET SL (13:24)
--- NOTE | 2024-04-20 13:45 | PC.NURSE ---
PT BACK FROM CTA. PT SITTING UP IN CHAIR DRINKING WATER. AT BEDSIDE.
[2024-04-20] MEDS: IOPAMIDOL-370 (76%);100ML BOTTLE 85 ML IV (13:54)
[2024-04-20] MEDS: 0.9 % SODIUM CHLORIDE 50 ML VIAL IV (13:54)
[2024-04-20] MEDS: SODIUM CHLORIDE 0.9% 10ML SYR (RAD ONLY) 10 ML IV (13:54)
--- NOTE | 2024-04-20 13:59 | ECG_ITS ---
APPROVED REPORT Exam: Resting ECG HR:60 bpm ECG Measurements Heart Rate 60 AXES TN 180 P 254 QRSd 98 QRS -19 QT 417 T 11 QTc 417 Conclusion ELECTRONIC ATRIAL PACEMAKER ABNORMAL RHYTHM ECG UNCONFIRMED REPORT Electronically signed by : Francisco Mixon MD 04/24/2024 12:53:05
[2024-04-20] MEDS: NITROGLYCERIN 0.4MG SL TABLET 0.4 MG SL ×2 (14:06→14:28)
--- NOTE | 2024-04-20 14:30 | PC.NURSE ---
1354 PT REPORTS HAVING CHEST PAIN 10/10 [facility] IN MIDDLE OF CHEST. CARDIOLOGY OFFICE CALLED Krysta YU NOTIFIED. 1356 EKG COMPLETED. PT RATING CHEST PAIN 8/10 [facility]. 1357 EKG TAKEN TO ER BY CAROLYN KAUFMAN RN TO BE READ BY ER PHYSICIAN. 1358 Ariana KAUFMAN RN RETURNED WITH EKG INTERPRETED WITH NO ST ELEVATION NOTED BY PHYSICIAN. 1405 KIRK YU CALLED SPOKE WITH Nano DOMINGO RN. ORDERS RECEIVED TO GIVEN 0.4 MG NITROGLYCERIN SL X1 NOW. 1406 NITRO 0.4MG GIVEN AT THIS TIME. PT REPORTS CHEST PAIN A LITTLE BETTER. PT RATING CHEST PAIN 6/10. 1415 GIGI PANTOJA IN DEPARTMENT ORDERS RECEIVED TO GET STAT TROPONIN. 1417 GIGI PANTOJA IN ROOM ASSESSING PT. 1424 PER KIRK YU PT BEING ADMITTED TO [facility] 1425 VERBAL ORDER . PER GIGI PANTOJA GIVE ANOTHER DOSE OF 0.4 MG NITROGLYCERIN SL X1 NOW R/V 1425 PT REPORTS CHEST PAIN GETTING BETTER. PT RATING PAIN 4/10. REPORT CALLED TO FLOOR BY Ariana LEA RN. PT STABLE AWAKE WITH AT BEDSIDE. PT TRANSPORTED TO FLOOR VIA WHEELCHAIR BY STAFF.
--- NOTE | 2024-04-20 14:37 | P.CONCA_ITS ---
History of Present Illness History of Present Illness Consult date: 04/20/24 Requesting physician: Tre Woodall Consult reason: chest pain Chief complaint: chest pain Additional Medical History:: 1. CAD Moderate disease in 2018. Lexiscan stress test-Medium sized, moderate, fixed perfusion defect in the basal to mid inferior and inferior septal LV herman. Gated imaging demonstrates mild reduction in global LV systolic function. There is moderate hypokinesis of the basal inferior LV wall. LVEF is calculated at 44%. ECHO: (2022) Technically difficult study due to poor accoustic windows. Normal biventricular systolic function. Mild RV dilation. Biatrial dilation. Mild MR. Mild TR. Mild [place]. Interatrial shunt is likely present on color Doppler. 2. PPM in place ,2018 On Sotalol, for ventricular arrhythmias historically, documented along with history of SSS/Tachy-bneny syndrome with A. fib. 3. HLD-LDL goal is <55. LDL 51 (2022). Pt is on a statin. 4. AMINATA-less than 20% bilateral ICA. 5. Back surgery APR 2023. 6. 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 PET scan: Right pelvic activity with an expansile lesion consistent with malignancy Extended hospitalization Had right pelvis and top of right femur (6.5 in bone removal)removed due to chondrosarcoma He is home now and going to start PT. 7. Anemia related to cancer. History of present illness: 64 yo WM came to outpatient services for CCTA due to recent onset of angina symptoms that have been waking him up at night. He did have the CCTA and then began having chest pain despite receiving metoprolol and NTG SL for the test. I was called to see the patient in the post op area and ordered additional SL NTG X 1 with stat troponin. CCTA was reviewed by Dr. Mosley with evidence of significant CAD of the left coronary system. I went to the post op area to see the patient. The chest pain had improved to a 3-4. Additional SL NTG X 1 ordered. Due to unstable angina and abnormal CCTA, I recommended admission with plans to proceed with [facility]. Pt and agreed. I contacted Dr. Woodall who agreed to admit him. [facility] Disclaimer: The information contained in this section may have been updated after the patient was seen, as this information can be updated by other users. Medical History (Updated 04/20/24 @ 14:47 by GIGI aSndy) Cerebrovascular accident HLD (hyperlipidemia) HTN (hypertension) CAD (coronary artery disease) Ventricular arrhythmia Fever of unknown origin Sepsis without septic shock Myalgia Fever Bilateral leg edema Allergy to adhesive tape Central stenosis of spinal canal Multilevel neural foraminal stenosis Back pain Obesity (BMI 35.0-39.9 without comorbidity) Lumbar spinal stenosis Lumbar facet arthropathy Lumbar radiculopathy Degenerative disc disease, lumbar BMI 34.0-34.9,adult Obstructive sleep apnea syndrome Palpitations Chronic GERD Numbness and tingling in both hands Chest pain Cough Sinusitis Paresthesias Angina pectoris SOB (shortness of breath) Angina, class III Lower leg edema Near syncope Sinus bradycardia Heat exhaustion Post procedure discomfort Pacemaker History of TIA (transient ischemic attack) 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 Epistaxis Daytime somnolence Snoring Paroxysmal atrial fibrillation Dyspnea Left arm numbness Carotid artery stenosis Dizziness Edema of right forearm Surgical History History of back surgery History of carpal tunnel release of both wrists H/O arthroscopy of left knee Family History Other Diabetes Heart attack Hypertension Social History Smoking Status: Never smoker second hand exposure: No alcohol intake: never counseling provided: none substance use type: denies use 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al status: retired Travel in the last 8 weeks: None household members: spouse housing: house marital status: 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al exposures/hazards: No caffeine: Yes Review of Systems Review of Systems Review of systems:: pertinent systems reviewed and negative unless documented below *Cardiovascular Cardiovascular: Reports chest pain and Denies dyspnea on exertion *Respiratory Respiratory: Denies dyspnea on exertion Exam Data for Last 24 hours Vital signs and Labs for Last 24 Hours: Temp Pulse Resp BP Pulse Ox O2 Del Method 97.9 F 60 16 100/56 L 96 Room Air 04/20/24 12:10 04/20/24 13:38 04/20/24 13:38 04/20/24 13:38 04/20/24 13:38 04/20/24 13:38 I & O for Last 24 hours: Intake & Output 04/18/24 04/19/24 04/20/24 04/21/24 11:59 11:59 11:59 11:59 Weight 198 lb Constitutional Constitutional: mild distress and moderate distress *Routine Respiratory Exam Respiratory: Present CTA bilaterally *Routine Cardiovascular Exam Cardiovascular: Present RRR *Routine Extremities Exam Extremities: Absent edema Meds Home Medications and Allergies Home Medications ?Medication ?Instructions ?Recorded ?Confirmed ?Type finasteride 5 mg tablet 5 mg PO DAILY 07/09/17 04/20/24 History sotalol 80 mg tablet 40 mg (1/2 x 80 mg) PO BID Heart 06/04/21 04/20/24 Rx disease #60 tabs pantoprazole 40 mg tablet,delayed 40 mg PO DAILY 09/04/23 04/20/24 History release potassium chloride 10 mEq 10 meq PO DAILY 09/04/23 04/20/24 History capsule,extended release metoprolol succinate 50 mg 50 mg PO DAILY 11/02/23 04/20/24 History tablet,extended release 24 hr furosemide 40 mg tablet 40 mg PO DAILY 01/28/24 04/20/24 History gabapentin 600 mg tablet 300 mg PO BID 01/28/24 04/20/24 History atorvastatin 80 mg tablet 80 mg PO DAILY 04/20/24 04/20/24 History clopidogrel 75 mg tablet 75 mg PO DAILY 04/20/24 04/20/24 History rivaroxaban 20 mg tablet (Xarelto) 20 mg PO QPMWITHMEAL 04/20/24 04/20/24 History New Prescriptions to Start Prescriptions: Allergies Allergy/AdvReac Type Severity Reaction Status Date / Time codeine AdvReac Mild NA-NAUSEA/V Verified 04/20/24 12:08 OMITING hydrocodone AdvReac Mild NA-NAUSEA/V Verified 04/20/24 12:08 OMITING Assessment and Plan *Assessment and plan (1) Coronary artery disease with unstable angina pectoris: Status: Acute Qualifiers: Coronary Disease-Associated Artery/Lesion type: [place] artery [place] vs. transplanted heart: [place] heart Qualified Code(s): I25.110 - Atherosclerotic heart disease of [place] coronary artery with unstable angina pectoris Category: Medical Code(s): I25.110 - Atherosclerotic heart disease of [place] coronary artery with unstable angina pectoris (2) HTN (hypertension): Status: Acute Qualifiers: Hypertension type: essential hypertension Qualified Code(s): I10 - Essential (primary) hypertension Category: Medical Code(s): I10 - Essential (primary) hypertension (3) HLD (hyperlipidemia): Status: Acute Qualifiers: Hyperlipidemia type: mixed hyperlipidemia Qualified Code(s): E78.2 - Mixed hyperlipidemia Category: Medical Code(s): E78.5 - Hyperlipidemia, unspecified (4) Pacemaker: Status: Chronic Category: Medical Code(s): Z95.0 - Presence of cardiac pacemaker (5) Metastatic neoplastic disease: Status: Acute Qualifiers: Area of secondary neoplastic involvement: unspecified site Qualified Code(s): C79.9 - Secondary malignant neoplasm of unspecified site Category: Medical Code(s): C79.9 - Secondary malignant neoplasm of unspecified site (6) Chondrosarcoma: Problem Comment: right pelvis, [facility] appts 08/12/2023 Status: Acute Category: Medical Code(s): C41.9 - Malignant neoplasm of bone and articular cartilage, unspecified (7) Anemia: Status: Acute Qualifiers: Anemia type: unspecified type Qualified Code(s): D64.9 - Anemia, unspecified Category: Medical Code(s): D64.9 - Anemia, unspecified Plan 1. CAD with [place] and abnormal CCTA -admit -NTG patch plus home meds -proceed with [facility] 2. Chondrosarcoma -s/p surgery to pelvis at [facility] this year 3. CKD, Cr 1.3 4. Anemia, Hgb 10.3 last week 5. Pacer in situ, 2018 -on sotalol for V. Tach -on Xarelto for history of A. fib [facility] today if troponin is elevated. If normal then hold Xarelto and proceed in AM.
--- NOTE | 2024-04-20 14:41 | HMH.PHAINT1 ---
Pharmacy Intervention Comments: Home medication list verified using list from outpatient pharmacy
[2024-04-20 14:57] LABS: Troponin I < 0.01 ng/ml (0.00-0.034)
[2024-04-20 15:04] LABS: Chloride 100 mmol/L (98-107); Sodium 134 mmol/L (136-145)
[2024-04-20 15:05] LABS: Potassium 4.3 mmoL/L (3.5-5.1)
[2024-04-20 15:07] LABS: Blood Urea Nitrogen 30 mg/dl (9-20); Creatinine Clearance Estimated 73 mL/min (50-200); Estimated Glomerular Filt Rate 56 ml/min (>60); GFR (African American) 67 ML/MIN (>60)
[2024-04-20 15:08] LABS: Anion Gap 12.3 mEq/L (5-15); Carbon Dioxide 26 mmol/L (22.0-30.0); Glucose 102 mg/dl (74-100)
[2024-04-20 15:31] LABS: Basophils % 0.3 % (0.1-2.0); Eosinophils # 0.2 K/mm3 (0.0-0.4); Eosinophils % 1.8 % (0.1-12.0); Hematocrit 27.6 % (42.0-52.0); Hemoglobin 9.7 g/dL (14.1-18.0); Lymphocytes # 1.5 K/mm3 (0.7-4.5); Lymphocytes % 12.3 % (10-50); Mean Corpuscular Hemoglobin 32.2 pg (27.0-31.2); Mean Platelet Volume 7.4 fl (7.4-10.4); Monocytes # 0.7 K/mm3 (0.1-1.0); Monocytes % 5.8 % (1.7-9.3); Neutrophils # 9.4 K/mm3 (1.8-7.8); Neutrophils % 79.7 % (37.0-80.0); Platelet Count 324 K/mm3 (142-424); Red Cell Distribution Width 13.8 % (11.5-17.5); White Blood Count 11.8 K/mm3 (4.8-10.8)
--- NOTE | 2024-04-20 15:34 | EXP.HP ---
History of Present Illness *Admission Date: 04/20/24 *Reason for visit:: chest pain *History of present illness: 64 yo WM came to outpatient services for CCTA due to recent onset of angina symptoms that have been waking him up at night. He did have the CCTA and then began having chest pain despite receiving metoprolol and NTG SL for the test. I was called to see the patient in the post op area and ordered additional SL NTG X 1 with stat troponin. CCTA was reviewed by Dr. Mosley with evidence of significant CAD of the left coronary system. I went to the post op area to see the patient. The chest pain had improved to a 3-4. Additional SL NTG X 1 ordered. Due to unstable angina and abnormal CCTA, I recommended admission with plans to proceed with [facility]. Pt and agreed. I contacted Dr. Woodall who agreed to admit him. (above as per cardiology) Patient is now on the floor and states his chest pain is much better after nitro. [facility] Disclaimer: The information contained in this section may have been updated after the patient was seen, as this information can be updated by other users. Medical History (Updated 04/20/24 @ 14:47 by GIGI Sandy) Cerebrovascular accident HLD (hyperlipidemia) HTN (hypertension) CAD (coronary artery disease) Ventricular arrhythmia Fever of unknown origin Sepsis without septic shock Myalgia Fever Bilateral leg edema Allergy to adhesive tape Central stenosis of spinal canal Multilevel neural foraminal stenosis Back pain Obesity (BMI 35.0-39.9 without comorbidity) Lumbar spinal stenosis Lumbar facet arthropathy Lumbar radiculopathy Degenerative disc disease, lumbar BMI 34.0-34.9,adult Obstructive sleep apnea syndrome Palpitations Chronic GERD Numbness and tingling in both hands Chest pain Cough Sinusitis Paresthesias Angina pectoris SOB (shortness of breath) Angina, class III Lower leg edema Near syncope Sinus bradycardia Heat exhaustion Post procedure discomfort Pacemaker History of TIA (transient ischemic attack) 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 Epistaxis Daytime somnolence Snoring Paroxysmal atrial fibrillation Dyspnea Left arm numbness Carotid artery stenosis Dizziness Edema of right forearm Surgical History History of back surgery History of carpal tunnel release of both wrists H/O arthroscopy of left knee Family History Diabetes Heart attack Hypertension Social History Smoking Status: Never smoker second hand exposure: No alcohol intake: never counseling provided: none substance use type: denies use 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al status: retired Travel in the last 8 weeks: None household members: spouse housing: house marital status: 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 [employer] 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al exposures/hazards: No caffeine: Yes Other Medical History Have you received the Flu Vaccine for this season: No Have you received the Pneumonia Vaccine: No Review of Systems Constitutional Constitutional: Denies fatigue, Denies headache(s) and Denies weakness Eyes Eyes: Denies blurry vision and Denies diplopia ENT Ears, Nose, Mouth, and Throat: Denies headache(s), Denies nasal congestion, Denies sore throat and Denies vertigo *Cardiovascular Cardiovascular: Reports chest pain, Reports dyspnea and Denies leg edema *Respiratory Respiratory: Denies cough and Reports dyspnea *Gastrointestinal Gastrointestinal: Denies abdominal pain, Denies loose stools, Denies nausea and Denies vomiting *Genitourinary Genitourinary: Denies difficulty urinating and Denies dysuria *Musculoskeletal Musculoskeletal: Denies arthralgias and Denies myalgias *Neurologic Neurologic: Denies headache(s), Denies vertigo and Denies weakness Endocrine Endocrine: Denies fatigue Meds Home Medications and Allergies Home Medications ?Medication ?Instructions ?Recorded ?Confirmed ?Type finasteride 5 mg tablet 5 mg PO DAILY 07/09/17 04/20/24 History sotalol 80 mg tablet 40 mg (1/2 x 80 mg) PO BID Heart 06/04/21 04/20/24 Rx disease #60 tabs pantoprazole 40 mg tablet,delayed 40 mg PO DAILY 09/04/23 04/20/24 History release potassium chloride 10 mEq 10 meq PO DAILY 09/04/23 04/20/24 History capsule,extended release metoprolol succinate 50 mg 50 mg PO DAILY 11/02/23 04/20/24 History tablet,extended release 24 hr furosemide 40 mg tablet 40 mg PO DAILY 01/28/24 04/20/24 History gabapentin 600 mg tablet 300 mg PO BID 01/28/24 04/20/24 History atorvastatin 80 mg tablet 80 mg PO DAILY 04/20/24 04/20/24 History clopidogrel 75 mg tablet 75 mg PO DAILY 04/20/24 04/20/24 History rivaroxaban 20 mg tablet (Xarelto) 20 mg PO QPMWITHMEAL 04/20/24 04/20/24 History New Prescriptions to Start Prescriptions: Allergies Allergy/AdvReac Type Severity Reaction Status Date / Time codeine AdvReac Mild NA-NAUSEA/V Verified 04/20/24 12:08 OMITING hydrocodone AdvReac Mild NA-NAUSEA/V Verified 04/20/24 12:08 OMITING Exam Data for Last 24 hours Vital signs and Labs for Last 24 Hours: Temp Pulse Resp BP Pulse Ox O2 Del Method 97.9 F 61 16 107/63 L 98 Room Air 04/20/24 15:00 04/20/24 15:00 04/20/24 15:00 04/20/24 15:00 04/20/24 15:00 04/20/24 14:30 Laboratory Results - last 24 hr 04/20/24 14:18: Sodium 134 L, Potassium 4.3, Chloride 100, Carbon Dioxide 26, Anion Gap 12.3, BUN 30 H, Creatinine 1.30 H, Estimated Creat Clear 73, Estimated GFR 56 L, Est GFR ( Amer) 67, Glucose 102 H, Calcium 9.0, Troponin I < 0.01 I & O for Last 24 hours: Intake & Output 04/18/24 04/19/24 04/20/24 04/21/24 11:59 11:59 11:59 11:59 Weight 193 lb 11.2 oz Constitutional Constitutional: no acute distress *Routine HEENT Exam Head: Present normocephalic and atraumatic Eye: Present EOMI and PERRL ENT: Present mucous membranes moist *Routine Neck Exam Neck: Present supple and full ROM *Routine Respiratory Exam Respiratory: Present CTA bilaterally *Routine Cardiovascular Exam Cardiovascular: Present RRR *Routine Abdominal Exam Abdominal: Present soft and normoactive bowel sounds; Absent tenderness *Routine Rectal Exam Rectal:: deferred *Routine Genitalia Exam Genitalia:: deferred *Routine Extremities Exam Extremities: Present edema (mild edema in the RLE); Absent cyanosis or clubbing *Routine Skin Exam Skin: Present intact; Absent erythema *Routine Neurological Exam Neurological: Present alert and oriented X3 H&P: Result Impressions CCTA results pending Assessment and Plan *Assessment and plan (1) Coronary artery disease with unstable angina pectoris: Status: Acute Qualifiers: Coronary Disease-Associated Artery/Lesion type: [place] artery [place] vs. transplanted heart: [place] heart Qualified Code(s): I25.110 - Atherosclerotic heart disease of [place] coronary artery with unstable angina pectoris Category: Medical Code(s): I25.110 - Atherosclerotic heart disease of [place] coronary artery with unstable angina pectoris (2) HTN (hypertension): Status: Acute Qualifiers: Hypertension type: essential hypertension Qualified Code(s): I10 - Essential (primary) hypertension Category: Medical Code(s): I10 - Essential (primary) hypertension (3) HLD (hyperlipidemia): Status: Acute Qualifiers: Hyperlipidemia type: mixed hyperlipidemia Qualified Code(s): E78.2 - Mixed hyperlipidemia Category: Medical Code(s): E78.5 - Hyperlipidemia, unspecified (4) CAD (coronary artery disease): Status: Acute Qualifiers: Associated angina: with other forms of angina Coronary Disease-Associated Artery/Lesion type: [place] artery [place] vs. transplanted heart: [place] heart Qualified Code(s): I25.118 - Atherosclerotic heart disease of [place] coronary artery with other forms of angina pectoris Category: Medical Code(s): I25.10 - Atherosclerotic heart disease of [place] coronary artery without angina pectoris (5) Cerebrovascular accident: Status: Acute Qualifiers: CVA mechanism: unspecified Qualified Code(s): I63.9 - Cerebral infarction, unspecified Category: Medical Code(s): I63.9 - Cerebral infarction, unspecified (6) Pacemaker: Status: Chronic Category: Medical Code(s): Z95.0 - Presence of cardiac pacemaker (7) Chondrosarcoma: Problem Comment: right pelvis, [facility] appts 08/12/2023 Status: Acute Category: Medical Code(s): C41.9 - Malignant neoplasm of bone and articular cartilage, unspecified (8) Metastatic neoplastic disease: Status: Acute Qualifiers: Area of secondary neoplastic involvement: unspecified site Qualified Code(s): C79.9 - Secondary malignant neoplasm of unspecified site Category: Medical Code(s): C79.9 - Secondary malignant neoplasm of unspecified site Plan Patient's troponin is normal. He will be kept overnight with plans for a heart cath tomorrow. Dr. Woodall entry - Saw patient, agree with above note.
[2024-04-20] MEDS: NITROGLYCERIN 1 GM OINTMENT TD ×2 (18:00→22:45)
[2024-04-20] MEDS: GABAPENTIN 300MG CAPSULE 300 MG PO (20:29)
[2024-04-20] MEDS: PANTOPRAZOLE 40MG TABLET 40 MG PO (20:29)
[2024-04-20] MEDS: SOTALOL 80MG TABLET 40 MG PO (20:29)
[2024-04-20] MEDS: ATORVASTATIN 40MG TABLET 80 MG PO (20:29)
[2024-04-21] VITALS (15 sets, daily range): BP systolic 100–131; BP diastolic 54–78; PULSE 56–81; RESP 13–20; TEMP 36.4–36.6; O2SAT 94–100; BMI 28.4
--- NOTE | 2024-04-21 00:16 | PC.NURSE ---
pt asleep in bed. pt has had no complaints so far this shift. Pt denies chest pain. Paced @ 60 bpm on tele. VSS.
--- NOTE | 2024-04-21 04:46 | PC.NURSE ---
pt has rested well t/o the night. pt has had no complaints, denies chest pain. Paced @60 bpm on tele. NPO since 0000.
[2024-04-21] MEDS: NITROGLYCERIN 1 GM OINTMENT TD ×2 (06:56→15:02)
[2024-04-21 07:05] LABS: Basophils % 0.2 % (0.1-2.0); Eosinophils # 0.1 K/mm3 (0.0-0.4); Eosinophils % 2.1 % (0.1-12.0); Lymphocytes # 1.1 K/mm3 (0.7-4.5); Lymphocytes % 17.6 % (10-50); Mean Corpuscular HGB Conc 33.9 g/dL (31.8-35.4); Mean Corpuscular Hemoglobin 32.1 pg (27.0-31.2); Mean Corpuscular Volume 94.8 fl (80-94); Mean Platelet Volume 7.2 fl (7.4-10.4); Monocytes # 0.5 K/mm3 (0.1-1.0); Monocytes % 7.2 % (1.7-9.3); Neutrophils # 4.7 K/mm3 (1.8-7.8); Neutrophils % 72.9 % (37.0-80.0); Platelet Count 273 K/mm3 (142-424); Red Blood Count 2.88 M/mm3 (4.60-6.20); Red Cell Distribution Width 13.6 % (11.5-17.5); White Blood Count 6.4 K/mm3 (4.8-10.8)
[2024-04-21 07:14] LABS: Alanine Aminotransferase 18 U/L (12-78); Albumin Level 3.5 g/dl (3.5-5.0); Albumin/Globulin Ratio 1.3 (1.1-1.8); Alkaline Phosphatase 110 U/L (38-126); Anion Gap 8.9 mEq/L (5-15); Aspartate Amino Transferase 20 U/L (17-59); Bilirubin,Total 0.5 mg/dl (0.2-1.3); Blood Urea Nitrogen 27 mg/dl (9-20); Calcium 9.3 mg/dl (8.4-10.2); Carbon Dioxide 29 mmol/L (22.0-30.0); Chloride 103 mmol/L (98-107); Creatinine Clearance Estimated 73 mL/min (50-200); Estimated Glomerular Filt Rate 56 ml/min (>60); GFR (African American) 67 ML/MIN (>60); Globulin 2.6 g/dL (1.3-3.2); Glucose 83 mg/dl (74-100); Potassium 3.9 mmoL/L (3.5-5.1); Sodium 137 mmol/L (136-145); Total Protein,Serum 6.1 g/dl (6.3-8.2)
--- NOTE | 2024-04-21 07:17 | IR_ITS ---
APPROVED REPORT Patient Location: Inpatient PROCEDURES Left heart catheterization Left ventriculogram Selective coronary angiogram INDICATION Angina pectoris, Abnormal CCTA, Coronary artery disease Informed consent was obtained prior to the procedure. COMPLICATIONS NONE Estimated Blood Loss: LESS THAN 10 ML TECHNIQUE One percent lidocaine used to anesthetize the right anterior aspect of the wrist. The right radial artery was accessed via the Seldinger technique. A 6 [place] sheath was placed in the right radial artery. 2.5 mg of Verapamil, 800 mcg of nitroglycerin, 1mg Lidocaine and 5000 U Heparin were given through the arterial sheath. The 6 [place] JL 3 guide catheter r was also used to perform left heart catheterization, left ventriculogram and selective coronary angiogram. At the end of the procedure the sheath was removed good hemostasis was achieved using Traclet band, patient was transferred to the postop holding area in stable condition. ANGIOGRAPHIC RESULTS The left main artery Normal The left anterior descending artery Proximally normal with a smooth mid vessel 10 to 20% concentric stenosis The circumflex artery Nondominant with proximal 10% luminal regularities The right coronary artery Large dominant normal The JORGENSEN ventriculogram reveals Normal 65% The left ventricular end-diastolic pressure 10 mmHg IMPRESSION Mild nonflow limiting coronary artery disease Normal ejection fraction Normal LVEDP PLAN 1. Evaluation of nonischemic chest pain 2. Ongoing risk factor modification Electronically signed by : Tulio Meyer MD 04/21/2024 13:58:57
[2024-04-21 07:25] LABS: Hematocrit 27.3 % (42.0-52.0); Hemoglobin 9.2 g/dL (14.1-18.0)
--- NOTE | 2024-04-21 08:32 | EXP.ACUTE.PN ---
Subjective *Date: 04/21/24 *Time: 09:09 Interval history: Patient is feeling better today. He has not had any further chest pain. He is to have a heart cath this am. He slept well. Medical Exam Vital signs and Labs for Last 24 Hours: Vital Signs Temp Pulse Pulse Resp BP Pulse Ox O2 Del Method 04/21/24 07:55 97.9 F 60 16 109/67 L 97 04/21/24 05:00 Nasal Cannula 04/21/24 04:00 60 04/21/24 04:00 97.6 F 60 16 112/70 99 Nasal Cannula 04/21/24 02:58 Nasal Cannula 04/21/24 01:00 Nasal Cannula 04/21/24 00:00 60 04/21/24 00:00 97.9 F 60 13 116/73 98 Nasal Cannula 04/20/24 23:00 Nasal Cannula 04/20/24 21:00 Room Air 04/20/24 20:00 60 04/20/24 20:00 Room Air 04/20/24 19:50 98.0 F 60 20 114/71 95 Room Air 04/20/24 18:34 Room Air 04/20/24 17:00 Room Air 04/20/24 16:00 60 04/20/24 16:00 98 F 60 16 103/60 L 100 Room Air 04/20/24 15:00 Room Air 04/20/24 15:00 97.9 F 61 16 107/63 L 98 04/20/24 14:30 60 18 110/71 97 Room Air 04/20/24 14:25 60 18 127/74 98 Room Air 04/20/24 14:20 60 18 116/95 H 98 Room Air 04/20/24 14:15 60 18 120/82 99 Room Air 04/20/24 14:10 60 18 116/66 98 Room Air 04/20/24 14:05 60 18 140/63 99 Room Air 04/20/24 14:00 60 18 140/81 99 Room Air 04/20/24 13:55 60 18 144/79 H 98 Room Air 04/20/24 13:50 61 18 112/73 98 Room Air 04/20/24 13:45 60 16 122/78 97 Room Air 04/20/24 13:44 60 16 134/82 97 Room Air 04/20/24 13:43 60 16 96/58 L 98 Room Air 04/20/24 13:38 60 16 100/56 L 96 Room Air 04/20/24 13:33 60 16 89/50 L 97 Room Air 04/20/24 13:28 60 16 110/62 99 Room Air 04/20/24 13:23 60 16 135/86 98 Room Air 04/20/24 13:11 60 16 158/90 H 99 Room Air 04/20/24 12:54 63 16 133/83 99 Room Air 04/20/24 12:39 66 16 136/81 98 Room Air 04/20/24 12:24 67 16 136/84 97 Room Air 04/20/24 12:10 97.9 F 68 16 139/89 98 Room Air O2 Flow Rate 04/21/24 07:55 04/21/24 05:00 2 04/21/24 04:00 04/21/24 04:00 2 04/21/24 02:58 2 04/21/24 01:00 2 04/21/24 00:00 04/21/24 00:00 2 04/20/24 23:00 2 04/20/24 21:00 04/20/24 20:00 04/20/24 20:00 04/20/24 19:50 04/20/24 18:34 04/20/24 17:00 04/20/24 16:00 04/20/24 16:00 04/20/24 15:00 04/20/24 15:00 04/20/24 14:30 04/20/24 14:25 04/20/24 14:20 04/20/24 14:15 04/20/24 14:10 04/20/24 14:05 04/20/24 14:00 04/20/24 13:55 04/20/24 13:50 04/20/24 13:45 04/20/24 13:44 04/20/24 13:43 04/20/24 13:38 04/20/24 13:33 04/20/24 13:28 04/20/24 13:23 04/20/24 13:11 04/20/24 12:54 04/20/24 12:39 04/20/24 12:24 04/20/24 12:10 Intake and Output 04/20/24 04/21/24 04/21/24 19:59 03:59 11:59 Intake Total 480 / 480 Output Total 600 / 900 300 / 900 Balance 480 / -420 -600 / -420 -300 / -420 Intake: Intake, Oral Amount 480 / 480 Output: Output, Urine Amount 600 / 900 300 / 900 Other: Weight 193 lb 11.2 oz 198 lb 8 oz Patient Weight 04/21/24 11:59 Weight 198 lb 8 oz Laboratory Results - last 24 hr 04/20/24 14:18: Sodium 134 L, Potassium 4.3, Chloride 100, Carbon Dioxide 26, Anion Gap 12.3, BUN 30 H, Creatinine 1.30 H, Estimated Creat Clear 73, Estimated GFR 56 L, Est GFR ( Amer) 67, Glucose 102 H, Calcium 9.0, Troponin I < 0.01 04/20/24 15:17: WBC 11.8 H, RBC 3.00 L, Hgb 9.7 L, Hct 27.6 L, MCV 92.0, MCH 32.2 H, MCHC 35.0, RDW 13.8, Plt Count 324, MPV 7.4, Neut % (Auto) 79.7, Lymph % (Auto) 12.3, [place] % (Auto) 5.8, Eos % (Auto) 1.8, Baso % (Auto) 0.3, Neut # (Auto) 9.4 H, Lymph # (Auto) 1.5, [place] # (Auto) 0.7, Eos # (Auto) 0.2, Baso # (Auto) 0.0 04/21/24 06:50: WBC 6.4 D, RBC 2.88 L, Hgb 9.2 L, Hct 27.3 L, MCV 94.8 H, MCH 32.1 H, MCHC 33.9, RDW 13.6, Plt Count 273, MPV 7.2 L, Neut % (Auto) 72.9, Lymph % (Auto) 17.6, [place] % (Auto) 7.2, Eos % (Auto) 2.1, Baso % (Auto) 0.2, Neut # (Auto) 4.7, Lymph # (Auto) 1.1, [place] # (Auto) 0.5, Eos # (Auto) 0.1, Baso # (Auto) 0.0, Sodium 137, Potassium 3.9, Chloride 103, Carbon Dioxide 29, Anion Gap 8.9, BUN 27 H, Creatinine 1.30 H, Estimated Creat Clear 73, Estimated GFR 56 L, Est GFR ( Amer) 67, Glucose 83, Calcium 9.3, Total Bilirubin 0.5, AST 20, ALT 18, Alkaline Phosphatase 110, Total Protein 6.1 L, Albumin 3.5, Globulin 2.6, Albumin/Globulin Ratio 1.3 I & O for Labs for Last 24 Hours: Intake & Output 04/18/24 04/19/24 04/20/24 04/21/24 11:59 11:59 11:59 11:59 Intake Total 480 / 480 Output Total 900 / 900 Balance -420 / -420 Weight 198 lb 8 oz Constitutional: Present no acute distress Respiratory: Present CTA bilaterally (Anteriorly and posteriorly) Cardiac: Present Reg Rate and Rhythm GI: Present soft and normal bowel sounds; Absent distention, tenderness or guarding Extremities: Present full ROM; Absent edema or calf tenderness Neuro: Present alert and oriented x 3 Assessment and Plan *Assessment and plan (1) Coronary artery disease with unstable angina pectoris: Status: Acute Qualifiers: Coronary Disease-Associated Artery/Lesion type: [place] artery [place] vs. transplanted heart: [place] heart Qualified Code(s): I25.110 - Atherosclerotic heart disease of [place] coronary artery with unstable angina pectoris Category: Medical Code(s): I25.110 - Atherosclerotic heart disease of [place] coronary artery with unstable angina pectoris (2) HTN (hypertension): Status: Acute Qualifiers: Hypertension type: essential hypertension Qualified Code(s): I10 - Essential (primary) hypertension Category: Medical Code(s): I10 - Essential (primary) hypertension (3) HLD (hyperlipidemia): Status: Acute Qualifiers: Hyperlipidemia type: mixed hyperlipidemia Qualified Code(s): E78.2 - Mixed hyperlipidemia Category: Medical Code(s): E78.5 - Hyperlipidemia, unspecified (4) CAD (coronary artery disease): Status: Acute Qualifiers: Associated angina: with other forms of angina Coronary Disease-Associated Artery/Lesion type: [place] artery [place] vs. transplanted heart: [place] heart Qualified Code(s): I25.118 - Atherosclerotic heart disease of [place] coronary artery with other forms of angina pectoris Category: Medical Code(s): I25.10 - Atherosclerotic heart disease of [place] coronary artery without angina pectoris (5) Cerebrovascular accident: Status: Acute Qualifiers: CVA mechanism: unspecified Qualified Code(s): I63.9 - Cerebral infarction, unspecified Category: Medical Code(s): I63.9 - Cerebral infarction, unspecified (6) Pacemaker: Status: Chronic Category: Medical Code(s): Z95.0 - Presence of cardiac pacemaker (7) Chondrosarcoma: Problem Comment: right pelvis, [facility] appts 08/12/2023 Status: Acute Category: Medical Code(s): C41.9 - Malignant neoplasm of bone and articular cartilage, unspecified (8) Metastatic neoplastic disease: Status: Acute Qualifiers: Area of secondary neoplastic involvement: unspecified site Qualified Code(s): C79.9 - Secondary malignant neoplasm of unspecified site Category: Medical Code(s): C79.9 - Secondary malignant neoplasm of unspecified site Plan Will have a heart cath this am. Dr. Woodall entry - Saw patient, agree with above note.
[2024-04-21] MEDS: GABAPENTIN 300MG CAPSULE 300 MG PO (08:39)
[2024-04-21] MEDS: CLOPIDOGREL 75MG TAB 75 MG PO (08:39)
[2024-04-21] MEDS: FINASTERIDE 5MG TABLET 5 MG PO (08:39)
[2024-04-21] MEDS: SOTALOL 80MG TABLET 40 MG PO (08:41)
[2024-04-21] MEDS: METOPROLOL SUCCINATE XL 50MG TABLET 50 MG PO (08:41)
[2024-04-21] MEDS: POTASSIUM CHLORIDE 10MEQ CAPSULE.ER 10 MEQ PO (08:41)
[2024-04-21] MEDS: HEPARIN 1,000 UNITS/ML 10ML VIAL (CATH LAB) 10000 UNIT IV (11:10)
[2024-04-21] MEDS: diphenhydrAMINE 50MG/ML VIAL 50 MG IV (11:10)
[2024-04-21] MEDS: VERAPAMIL 2.5MG/ML 2ML VIAL 2.5 MG IV (11:11)
[2024-04-21] MEDS: NITROGLYCERIN 800MCG/8ML SYR (CATH LAB) 800 MCG IA (11:11)
[2024-04-21] MEDS: LIDOCAINE 1% 10ML MDV 20 ML IJ (11:11)
[2024-04-21] MEDS: HEPARIN 1,000 UNITS/500ML NS (CATH LAB) 3000 UNIT IV (11:12)
[2024-04-21] MEDS: 0.9 % SODIUM CHLORIDE 500 ML 25 ML IV (11:12)
[2024-04-21] MEDS: MIDAZOLAM HCL 1MG/ML 5ML VIAL 1 MG IV (11:43)
[2024-04-21] MEDS: FENTANYL 100MCG/2ML VIAL 50 MCG IV (11:44)
[2024-04-21] MEDS: IOPAMIDOL-370 (76%);100ML BOTTLE 50 ML IV (12:12)
--- NOTE | 2024-04-21 13:12 | EXP.CARD.PN ---
Subjective Subjective Date: 04/21/24 Time: 13:12 Principal diagnosis: [place], abnormal CCTA Interval history: 64-year-old white male admitted yesterday for unstable angina in the setting of an abnormal CCTA with known prior coronary artery disease. Troponins returned normal yesterday. No acute EKG changes noted. Symptoms did resolve with nitroglycerin tablets and paced. Patient did undergo cardiac catheterization today with nonobstructive coronary artery disease noted and no need for coronary stenting. Exam Data for Last 24 hours Vital signs and Labs for Last 24 Hours: Temp Pulse Resp BP Pulse Ox O2 Del Method O2 Flow Rate 97.9 F 63 18 112/66 97 Room Air 2 04/21/24 07:55 04/21/24 12:20 04/21/24 12:20 04/21/24 12:20 04/21/24 12:20 04/21/24 12:20 04/21/24 05:00 Laboratory Results - last 24 hr 04/20/24 14:18: Sodium 134 L, Potassium 4.3, Chloride 100, Carbon Dioxide 26, Anion Gap 12.3, BUN 30 H, Creatinine 1.30 H, Estimated Creat Clear 73, Estimated GFR 56 L, Est GFR ( Amer) 67, Glucose 102 H, Calcium 9.0, Troponin I < 0.01 04/20/24 15:17: WBC 11.8 H, RBC 3.00 L, Hgb 9.7 L, Hct 27.6 L, MCV 92.0, MCH 32.2 H, MCHC 35.0, RDW 13.8, Plt Count 324, MPV 7.4, Neut % (Auto) 79.7, Lymph % (Auto) 12.3, [place] % (Auto) 5.8, Eos % (Auto) 1.8, Baso % (Auto) 0.3, Neut # (Auto) 9.4 H, Lymph # (Auto) 1.5, [place] # (Auto) 0.7, Eos # (Auto) 0.2, Baso # (Auto) 0.0 04/21/24 06:50: WBC 6.4 D, RBC 2.88 L, Hgb 9.2 L, Hct 27.3 L, MCV 94.8 H, MCH 32.1 H, MCHC 33.9, RDW 13.6, Plt Count 273, MPV 7.2 L, Neut % (Auto) 72.9, Lymph % (Auto) 17.6, [place] % (Auto) 7.2, Eos % (Auto) 2.1, Baso % (Auto) 0.2, Neut # (Auto) 4.7, Lymph # (Auto) 1.1, [place] # (Auto) 0.5, Eos # (Auto) 0.1, Baso # (Auto) 0.0, Sodium 137, Potassium 3.9, Chloride 103, Carbon Dioxide 29, Anion Gap 8.9, BUN 27 H, Creatinine 1.30 H, Estimated Creat Clear 73, Estimated GFR 56 L, Est GFR ( Amer) 67, Glucose 83, Calcium 9.3, Total Bilirubin 0.5, AST 20, ALT 18, Alkaline Phosphatase 110, Total Protein 6.1 L, Albumin 3.5, Globulin 2.6, Albumin/Globulin Ratio 1.3 I & O for Last 24 hours: Intake & Output 04/19/24 04/20/24 04/21/24 04/22/24 11:59 11:59 11:59 11:59 Intake Total 480 / 480 Output Total 1400 / 1400 Balance -920 / -920 Weight 198 lb 8 oz Constitutional Constitutional: no acute distress *Routine Respiratory Exam Respiratory: Present CTA bilaterally *Routine Cardiovascular Exam Cardiovascular: Present RRR *Routine Extremities Exam Extremities: Absent edema Progress Note: A&P Assessment and plan (1) Coronary artery disease with unstable angina pectoris: Status: Acute (2) HTN (hypertension): Status: Acute (3) HLD (hyperlipidemia): Status: Acute (4) CAD (coronary artery disease): Status: Acute (5) Cerebrovascular accident: Status: Acute (6) Pacemaker: Status: Chronic (7) Chondrosarcoma: Problem details: right pelvis, [facility] appts 08/12/2023 Status: Acute (8) Metastatic neoplastic disease: Status: Acute Assessment and Plan Assessment and Plan for All Diagnoses:: 1. CAD with [place] and abnormal CCTA [facility] showed mild non-flow limiting CAD, continue medical therapy -possibly due to esophageal spasm, continue pantoprazole 2. Chondrosarcoma -s/p surgery to pelvis at [facility] this year 3. CKD, Cr 1.3 4. Anemia, Hgb 10.3 last week 5. Pacer in situ, 2018 -on sotalol for V. Tach -on Xarelto for history of A. fib Stable for discharge from cardiac standpoint. Resume home medications. Follow-up in our office in 1 week.
[2024-04-21] MEDS: FUROSEMIDE 40 MG TABLET PO (15:03)
--- NOTE | 2024-04-22 13:39 | CARE MANAGER ---
Contacted patient related to hospital discharge. He states he is feeling better. He attempted to call cardiology today because since his medication was increased by them the pharmacy needs a new order to get a refill. Patient states he left a message. I also attempted to contact them and could not get anyone. Also suggested if he doesn't hear anything to try his PCP as perhaps they would call it in. He is aware of follow up appointments and denies any questions or concerns. EMILEE Marrero
--- NOTE | 2024-04-25 16:00 | P.DS_ITS ---
General Admission date:: 04/20/24 Discharge date: 04/21/24 HPI HPI HPI: 64 yo WM came to outpatient services for CCTA due to recent onset of angina symptoms that have been waking him up at night. He did have the CCTA and then began having chest pain despite receiving metoprolol and NTG SL for the test. I was called to see the patient in the post op area and ordered additional SL NTG X 1 with stat troponin. CCTA was reviewed by Dr. Mosley with evidence of significant CAD of the left coronary system. I went to the post op area to see the patient. The chest pain had improved to a 3-4. Additional SL NTG X 1 ordered. Due to unstable angina and abnormal CCTA, I recommended admission with plans to proceed with [facility]. Pt and agreed. I contacted Dr. Woodall who agreed to admit him. (above as per cardiology) Patient is now on the floor and states his chest pain is much better after nitro. Hospital Course Hospital Course Hospital Course: Patient was admitted for unstable angina in the setting of an abnormal CCTA with known prior coronary artery disease. Troponins returned normal with no acute EKG changes noted. Pain did resolve with nitroglycerin tablets. Patient did undergo a cardiac catheterization on 04/21/2024 with nonobstructive coronary artery disease noted with no need for coronary stenting. He was followed by cardiology who felt he was stable for discharge after the cardiac cath. He was to resume his home medications and follow-up with them in 1 week as well as with Dr. Woodall. Exam Data for Last 24 hours Vital signs and Labs for Last 24 Hours: Temp Pulse Resp BP Pulse Ox O2 Del Method O2 Flow Rate 97.9 F 65 18 107/58 L 97 Room Air 2 04/21/24 07:55 04/21/24 15:05 04/21/24 15:05 04/21/24 15:05 04/21/24 15:05 04/21/24 15:05 04/21/24 05:00 Narrative: Constitutional: Present no acute distress Respiratory: Present CTA bilaterally (Anteriorly and posteriorly) Cardiac: Present Reg Rate and Rhythm GI: Present soft and normal bowel sounds; Absent distention, tenderness or guarding Extremities: Present full ROM; Absent edema or calf tenderness Neuro: Present alert and oriented x 3 Results Data Completed and Pending Completed studies during hospitalization [Text1]: 04/21/2024 cardiac cath: ANGIOGRAPHIC RESULTS The left main artery Normal The left anterior descending artery Proximally normal with a smooth mid vessel 10 to 20% concentric stenosis The circumflex artery Nondominant with proximal 10% luminal regularities The right coronary artery Large dominant normal The [place] ventriculogram reveals Normal 65% The left ventricular end-diastolic pressure 10 mmHg IMPRESSION Mild nonflow limiting coronary artery disease Normal ejection fraction Normal LVEDP PLAN 1. Evaluation of nonischemic chest pain 2. Ongoing risk factor modification 04/20/24 14:18: Sodium 134 L, Potassium 4.3, Chloride 100, Carbon Dioxide 26, Anion Gap 12.3, BUN 30 H, Creatinine 1.30 H, Estimated Creat Clear 73, Estimated GFR 56 L, Est GFR ( Amer) 67, Glucose 102 H, Calcium 9.0, Troponin I < 0.01 04/20/24 15:17: WBC 11.8 H, RBC 3.00 L, Hgb 9.7 L, Hct 27.6 L, MCV 92.0, MCH 32.2 H, MCHC 35.0, RDW 13.8, Plt Count 324, MPV 7.4, Neut % (Auto) 79.7, Lymph % (Auto) 12.3, [place] % (Auto) 5.8, Eos % (Auto) 1.8, Baso % (Auto) 0.3, Neut # (Auto) 9.4 H, Lymph # (Auto) 1.5, [place] # (Auto) 0.7, Eos # (Auto) 0.2, Baso # (Auto) 0.0 04/21/24 06:50: WBC 6.4 D, RBC 2.88 L, Hgb 9.2 L, Hct 27.3 L, MCV 94.8 H, MCH 32.1 H, MCHC 33.9, RDW 13.6, Plt Count 273, MPV 7.2 L, Neut % (Auto) 72.9, Lymph % (Auto) 17.6, [place] % (Auto) 7.2, Eos % (Auto) 2.1, Baso % (Auto) 0.2, Neut # (Auto) 4.7, Lymph # (Auto) 1.1, [place] # (Auto) 0.5, Eos # (Auto) 0.1, Baso # (Auto) 0.0, Sodium 137, Potassium 3.9, Chloride 103, Carbon Dioxide 29, Anion Gap 8.9, BUN 27 H, Creatinine 1.30 H, Estimated Creat Clear 73, Estimated GFR 56 L, Est GFR ( Amer) 67, Glucose 83, Calcium 9.3, Total Bilirubin 0.5, AST 20, ALT 18, Alkaline Phosphatase 110, Total Protein 6.1 L, Albumin 3.5, Globulin 2.6, Albumin/Globulin Ratio 1.3 DS: Diagnosis Discharge Diagnosis (1) Coronary artery disease with unstable angina pectoris: Status: Acute Code(s): I25.110 - Atherosclerotic heart disease of [place] coronary artery with unstable angina pectoris Qualifiers: Coronary Disease-Associated Artery/Lesion type: [place] artery [place] vs. transplanted heart: [place] heart Qualified Code(s): I25.110 - Atherosclerotic heart disease of [place] coronary artery with unstable angina pectoris (2) HTN (hypertension): Status: Acute Code(s): I10 - Essential (primary) hypertension Qualifiers: Hypertension type: essential hypertension Qualified Code(s): I10 - Essential (primary) hypertension (3) HLD (hyperlipidemia): Status: Acute Code(s): E78.5 - Hyperlipidemia, unspecified Qualifiers: Hyperlipidemia type: mixed hyperlipidemia Qualified Code(s): E78.2 - Mixed hyperlipidemia (4) CAD (coronary artery disease): Status: Acute Code(s): I25.10 - Atherosclerotic heart disease of [place] coronary artery without angina pectoris Qualifiers: Coronary Disease-Associated Artery/Lesion type: [place] artery [place] vs. 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.9 - Malignant neoplasm of bone and articular cartilage, unspecified Problem details: right pelvis, [facility] appts 08/12/2023 (8) Metastatic neoplastic disease: Status: Acute Code(s): C79.9 - Secondary malignant neoplasm of unspecified site Qualifiers: Area of secondary neoplastic involvement: unspecified site Qualified Code(s): C79.9 - Secondary malignant neoplasm of unspecified site Meds Home Medications and Allergies Home Medications ?Medication ?Instructions ?Recorded ?Confirmed ?Type finasteride 5 mg tablet 5 mg PO DAILY 07/09/17 04/20/24 History sotalol 80 mg tablet 40 mg (1/2 x 80 mg) PO BID Heart 06/04/21 04/20/24 Rx disease #60 tabs potassium chloride 10 mEq 10 meq PO DAILY 09/04/23 04/20/24 History capsule,extended release metoprolol succinate 50 mg 50 mg PO DAILY 11/02/23 04/20/24 History tablet,extended release 24 hr furosemide 40 mg tablet 40 mg PO DAILY 01/28/24 04/20/24 History gabapentin 600 mg tablet 300 mg PO BID 01/28/24 04/20/24 History atorvastatin 80 mg tablet 80 mg PO DAILY 04/20/24 04/20/24 History clopidogrel 75 mg tablet 75 mg PO DAILY 04/20/24 04/20/24 History rivaroxaban 20 mg tablet (Xarelto) 20 mg PO QPMWITHMEAL 04/20/24 04/20/24 Hist ory pantoprazole 40 mg tablet,delayed 40 mg PO BID #60 tabs 04/21/24 04/20/24 Rx release New Prescriptions to Start Prescriptions: Allergies Allergy/AdvReac Type Severity Reaction Status Date / Time codeine AdvReac Mild NA-NAUSEA/V Verified 04/20/24 12:08 OMITING hydrocodone AdvReac Mild NA-NAUSEA/V Verified 04/20/24 12:08 OMITING Discharge Plan Disposition Patient Disposition: Home, Self-Care Condition: Fair Follow up Plan Follow up with: Tre Woodall MD [Primary Care Provider] - 05/05/24 11:30 am Tulio Meyer MD [Staff Physician] - 04/28/24 10:30 am Prescriptions/Medication Reconciliation: Continued finasteride 5 mg tablet 5 mg PO DAILY gabapentin 600 mg tablet 300 mg PO BID Patient Comments: TAKE 1/2 (ONE-HALF) TABLET BY MOUTH TWICE DAILY sotalol 80 mg tablet 40 mg PO BID Qty: 60 5RF metoprolol succinate 50 mg tablet extended release 24 hr 50 mg PO DAILY Patient Comments: TAKE 1 TABLET BY MOUTH ONCE DAILY clopidogrel 75 mg tablet 75 mg PO DAILY atorvastatin 80 mg tablet 80 mg PO DAILY Xarelto 20 mg tablet 20 mg PO QPMWITHMEAL Rx Instructions: must administer with evening meal potassium chloride 10 mEq capsule, extended release 10 meq PO DAILY furosemide 40 mg tablet 40 mg PO DAILY Changed pantoprazole 40 mg tablet,delayed release (DR/EC) 40 mg PO BID Qty: 60 0RF Patient Comments: TAKE 1 TABLET BY MOUTH ONCE DAILY Problem Reconciliation Problems Reviewed?: Yes Patient Discharge Instructions ACTIVITY: Ambulate as tolerated DIET: continue same diet Patient Instructions: DI for Cardiac Catheterization, DI for Surgical Site Infection Print Language: Hebrew Providers Primary Care Provider: Tre Woodall Admit Provider: Tre Woodall Attending Provider: Tre Woodall
== END 2024-04-21 16:04 | disposition home or self-care (01) ==
LOC: ICU 14:33 → 2ND 04-21 12:36
PROVIDERS: Internal Medicine; Internal Medicine Adolescent Medicine; Physician Assistant; Admitting Provider Family Medicine; PCP Family Medicine; Visit Provider Family Medicine
DX: I25.119 Atherosclerotic heart disease of native coronary artery with unspecified angina pectoris (principal); E78.5 Hyperlipidemia, unspecified; I10 Essential (primary) hypertension; Z86.73 Personal history of transient ischemic attack (TIA), and cerebral infarction without residual deficits; C79.9 Secondary malignant neoplasm of unspecified site; C41.4 Malignant neoplasm of pelvic bones, sacrum and coccyx; D49.9 Neoplasm of unspecified behavior of unspecified site; D63.0 Anemia in neoplastic disease; Z95.0 Presence of cardiac pacemaker; Z85.830 Personal history of malignant neoplasm of bone
CPT/HCPCS: 75574; 80048; 80053; 84484; 85025; 93005; 93458; 99152; C1725; C1769; G0378; J1200; J1642; J1644; J2250; J3010; Q9967

== ENCOUNTER 2024-07-03 13:51 | Observation (INO) | payer BC, SELFPAY ==
[2024-07-03] VITALS (15 sets, daily range): BP systolic 126–158; BP diastolic 57–97; PULSE 72–84; RESP 16–18; TEMP 36.6–37.2; O2SAT 92–100; BMI 27.8; BMI 27.7
--- NOTE | 2024-07-03 14:02 | CT_ITS ---
PROCEDURE INFORMATION: Exam: CTA Chest With Contrast Exam date and time: 07/03/2024 3:09 PM Age: 64 years old Clinical indication: Other: Chest pain TECHNIQUE: Imaging protocol: Computed tomographic angiography of the chest with contrast. Exam focused on the arteries. 3D rendering (Not supervised by radiologist): MIP and/or 3D reconstructed images were created by the technologist. Radiation optimization: All CT scans at this facility use at least one of these dose optimization techniques: automated exposure control; mA and/or kV adjustment per patient size (includes targeted exams where dose is matched to clinical indication); or iterative reconstruction. Contrast material: ISO 370; Contrast volume: 70 ml; Contrast route: INTRAVENOUS (IV); COMPARISON: CT ANGIO CHEST 04/11/2024 8:16 PM FINDINGS: Tubes, catheters and devices: Left chest wall dual lead pacemaker in place. Right chest port in place with catheter extending to the distal SVC. Pulmonary arteries: Normal. No pulmonary emboli. Aorta: No significant atherosclerotic plaque in the thoracic aorta. Mild fusiform dilatation of the ascending thoracic aorta measuring 4.0 cm. Lungs: Unchanged 3 mm noncalcified nodules in the right upper lobe. Right upper lobe calcified granuloma. Bilateral dependent atelectasis. Pleural spaces: No pleural effusion or pneumothorax. Heart: No cardiomegaly or pericardial effusion. Pacer leads terminate in the right atrium and right ventricle. Mediastinal space: Right-sided mediastinal mass posterior to the trachea and superior to the right mainstem bronchus measures 6.5 x 5.2 x 4.9 cm. The mass abuts the right T5 and T6 vertebral bodies and appears to minimally extend into the right posterior pleural or extrapleural space. Lymph nodes: Calcified right paratracheal lymph node is unchanged. Bones/joints: Lytic lesions at T1, T3, T4, and T6. Sclerosis of T5 with a small superior endplate lytic lesion. Soft tissues: Unremarkable. IMPRESSION: 1. No evidence of a pulmonary embolism. 2. Right-sided mediastinal mass posterior to the trachea and superior to the right mainstem bronchus measures 6.5 x 5.2 x 4.9 cm. The mass abuts the right T5 and T6 vertebral bodies and appears to minimally extend into the right posterior pleural or extrapleural space. This appears consistent with malignancy. 3. Several osseous lytic lesions are present and there is sclerosis of T5. Findings are suspicious for metastatic disease.
--- NOTE | 2024-07-03 14:02 | CT_ITS ---
PROCEDURE INFORMATION: Exam: CT Abdomen And Pelvis With Contrast Exam date and time: 07/03/2024 3:09 PM Age: 64 years old Clinical indication: Other: Reflux; Additional info: Severe reflux TECHNIQUE: Imaging protocol: Computed tomography of the abdomen and pelvis with contrast. 3D rendering (Not supervised by radiologist): MIP and/or 3D reconstructed images were created by the technologist. Radiation optimization: All CT scans at this facility use at least one of these dose optimization techniques: automated exposure control; mA and/or kV adjustment per patient size (includes targeted exams where dose is matched to clinical indication); or iterative reconstruction. Contrast material: ISOVUE; Contrast volume: 70 ml; Contrast route: IV; COMPARISON: CT ABDOMEN PELVIS W CON 09/03/2023 9:04 PM FINDINGS: Liver: Normal. No mass. Gallbladder and biliary ducts: Normal. No calcified stones. No ductal dilation. Pancreas: Normal. No ductal dilation. Spleen: Calcified granulomas in the spleen. No splenomegaly. Adrenal glands: Normal. No mass. Kidneys and ureters: Exophytic simple cysts in the left kidney measure up to 0.9 cm. No hydronephrosis or calculi. Stomach and bowel: Minimal distal colonic diverticulosis. No dilated or thickened bowel loops. Appendix: No evidence of appendicitis. Intraperitoneal space: Unremarkable. No free air. No significant fluid collection. Vasculature: Unremarkable. No abdominal aortic aneurysm. Lymph nodes: Unremarkable. No enlarged lymph nodes. Urinary bladder: Unremarkable as visualized. Reproductive: Unremarkable as visualized. Bones/joints: Extensive resection of the right pelvic bones including most of the iliac wing, acetabulum, portions of the superior pubic ramus, and the right femoral head and neck. Periosteal reaction around the proximal right femoral shaft. Healing fracture of the right inferior pubic ramus. Moderate lumbar spine degenerative change. Soft tissues: Extensive soft tissue density in the right pelvis surrounding the proximal right femoral shaft measuring approximately 14.1 x 10.1 x 7.8 cm. There are small areas of internal fluid density with the largest pocket medial to the proximal femoral shaft measuring 6.2 x 4.2 x 2.4 cm. Rounded calcifications in the right anterior pelvic wall are presumably dystrophic calcification given the adjacent postoperative change. IMPRESSION: 1. Extensive resection of the right pelvic bones including most of the iliac wing, acetabulum, portions of the superior pubic ramus, and the right femoral head and neck. 2. Extensive soft tissue density in the right pelvis surrounding the proximal right femoral shaft measuring approximately 14.1 x 10.1 x 7.8 cm. There are small areas of internal fluid density with the largest pocket medial to the proximal femoral shaft measuring 6.2 x 4.2 x 2.4 cm. Differential includes tumor versus extensive scarring. Internal fluid density also raises possibility of an infection with abscess formation. COMMENTS: Consistent with the [place] [employer]'s Incidental Findings Committee white paper (J Am Dylon Radiol 2018): Any incidental renal lesion less than 1 cm or classified as too small to characterize, or any incidental cystic renal lesion characterized as simple-appearing, is likely benign. No follow-up imaging is recommended for these lesions per consensus recommendations based on imaging criteria.
--- NOTE | 2024-07-03 14:04 | ECG_ITS ---
APPROVED REPORT Exam: Resting ECG HR:80 bpm ECG Measurements Heart Rate 80 AXES MN 151 P 21 QRSd 98 QRS -24 QT 378 T -9 QTc 414 Conclusion SINUS RHYTHM WITH OCCASIONAL VENTRICULAR PREMATURE COMPLEXES BORDERLINE LEFT AXIS DEVIATION [QRS AXIS < -20] NONSPECIFIC T-WAVE ABNORMALITY No STEMI Electronically signed by : MADDISON MOORE, 07/03/2024 15:41:02
--- NOTE | 2024-07-03 14:09 | ED_ITS ---
<Statement entered by Krysta Vasquez MD - 07/03/24 22:57> I was consulted by the ULISSES, and we discussed the complexity of the problems being addressed. I approved the treatment and management plan for this patient's care in the emergency department, thus performing a substantive portion of the medical decision making. Krysta Vasquez MD, DUGLAS, FACEP Discharge Plan Disposition Patient Disposition: Admitted Condition: Good Clinical Impressions Clinical Impression: Mass of mediastinum Discharge ED Provider: Chelo Jacome General Adult HPI <GIGI Hernandez - Last Filed: 07/03/24 19:12> General Chief complaint: PAIN Stated complaint: back pain, chest congestion Time Seen by Provider: 07/03/24 13:54 Mode of Arrival: Wheelchair Source of Information: Patient Limitations: No Limitations Description of Symptoms (Recalled from ER Triage Doc. by RN): pt reports esophagitis x8 weeks. supposed to have a scope in july. increasing pain 10/10 in his sternum History of Present Illness HPI narrative: Patient presents with chest pain radiating to his back. He reports he was diagnosed with gastritis and has an EGD scheduled in 1 month. He reports pain has been present for 8 weeks, most intense for 2 days. He has been sleeping in the recliner to alleviate pain. He has taken hyoscyamine three times without relief. He is taking pantoprazole as well. Denies N/V. He does report a temperature of 99.9 today, relieved with tylenol. complaint: chest pain Onset (ago): day(s) (2) Location: chest Radiation: back Severity: severe Severity scale (1-10): >10 Quality: sharp Consistency: constant Relieving factors: none and other (recliner) Exacerbating factors: other (laying flat ) Associated symptoms: negative fever/chills Treatments prior to arrival: other (PPI, hyoscyamine ) Related Data Home Medications ?Medication ?Instructions ?Recorded ?Confirmed finasteride 5 mg tablet 5 mg PO DAILY 07/09/17 07/03/24 potassium chloride 10 mEq 10 meq PO DAILY 09/04/23 07/03/24 capsule,extended release metoprolol succinate 50 mg 50 mg PO DAILY 11/02/23 07/03/24 tablet,extended release 24 hr gabapentin 600 mg tablet 300 mg PO BID 01/28/24 07/03/24 atorvastatin 80 mg tablet 80 mg PO DAILY 04/20/24 07/03/24 rivaroxaban 20 mg tablet (Xarelto) 20 mg PO QPMWITHMEAL 04/20/24 07/03/24 docusate sodium 100 mg capsule 100 mg PO DAILY 05/11/24 07/03/24 (Stool Softener) Previous Rx's ?Medication ?Instructions ?Recorded sotalol 80 mg tablet 40 mg (1/2 x 80 mg) PO BID Heart 06/04/21 disease #60 tabs pantoprazole 40 mg tablet,delayed 40 mg PO BID #60 tabs 05/23/24 release hyoscyamine sulfate 0.125 mg 0.25 mg (2 x 0.125 mg) sublingual 06/22/24 sublingual tablet TID #270 tabs Allergies Allergy/AdvReac Type Severity Reaction Status Date / Time codeine AdvReac Mild NA-NAUSEA/V Verified 06/27/24 08:48 OMITING hydrocodone AdvReac Mild NA-NAUSEA/V Verified 06/27/24 08:48 OMITING PFSH <GIGI Hernandez - Last Filed: 07/03/24 19:12> PFSH Disclaimer: The information contained in this section may have been updated after the patient was seen, as this information can be updated by other users. Medical History Nausea vomiting and diarrhea Chemotherapy-induced nausea and vomiting Thrombocytopenia SUNNY (acute kidney injury) Anemia Anemia Fatigue Right leg weakness GERD (gastroesophageal reflux disease) Cerebrovascular accident HLD (hyperlipidemia) HTN (hypertension) CAD (coronary artery disease) Ventricular arrhythmia Fever of unknown origin Sepsis without septic shock Myalgia Fever Bilateral leg edema Allergy to adhesive tape Central stenosis of spinal canal Multilevel neural foraminal stenosis Back pain Active follow-up with [facility] pain management Obesity (BMI 35.0-39.9 without comorbidity) 13 pound weight loss since last visit Lumbar spinal stenosis Lumbar facet arthropathy Lumbar radiculopathy Degenerative disc disease, lumbar BMI 34.0-34.9,adult Obstructive sleep apnea syndrome Severe nonpositional JULIO which was untreated in the setting of acute back pain, noncompliant on CPAP status post unknown spinal surgery (Dr. Valadez) due to moderate to severe stenosis with significantly elevated AHI in the setting of narcotic pain medication which has just recently been completed. 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 Difficulty sleeping due to pain. Appt with oncologist today. Metastatic neoplastic disease Chondrosarcoma right pelvis, [facility] appts 08/12/2023 Epistaxis Daytime somnolence Snoring Paroxysmal atrial fibrillation Dyspnea Left arm numbness Carotid artery stenosis Dizziness Edema of right forearm Surgical History History of back surgery History of carpal tunnel release of both wrists H/O arthroscopy of left knee Family History Other Diabetes Heart attack Hypertension Social History (Updated 07/03/24 @ 22:17 by Samantha Santana RN) Smoking Status: Never smoker second hand exposure: No alcohol intake: never counseling provided: none substance use type: denies use 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al status: retired Travel in the last 8 weeks: None household members: spouse housing: house marital status: 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al exposures/hazards: No caffeine: Yes Have you lived/traveled outside [place] in past 30 days?: No Contact w/someone who lives/traveled outside US past 30 days?: No Exposure to someone with infectious disease in past 14 days?: No Do you have a fever (greater than 100.4 F or 38 C)?: No Have you tested positive for COVID-19: No Exposed to someone with COVID-19 in past 14 days?: No Do you have a sore throat?: No Do you have a cough?: No Do you have any weakness?: No Do you have any diarrhea?: No Are you experiencing any unusual bleeding?: No Do you have any muscle aches/pain?: No Do you have any abdominal pain?: No Are you experiencing loss of taste or smell?: No Other Medical History Have you received the Flu Vaccine for this season: No Have you received the Pneumonia Vaccine: No <GIGI Hernandez - Last Filed: 07/03/24 19:12> ROS Obtained: Yes Systems reviewed as appropriate & no additional complaints except as documented Physical Exam <GIGI Hernandez - Last Filed: 07/03/24 19:12> General General appearance: alert and in no apparent distress Head Head exam: atraumatic and normocephalic Eye Eye exam: Present normal appearance and EOMI Chest Chest inspection: Present symmetric chest wall rise Respiratory Respiratory exam: Present normal lung sounds bilaterally; Absent wheezes or stridor Cardiovascular Cardiovascular exam: Present regular rate and normal rhythm; Absent systolic murmur Abdominal Exam Abdominal exam: Present soft; Absent distention or tenderness Neurological Exam Neurological exam: Present alert and oriented X3 Psychiatric Psychiatric exam: Present normal affect and normal mood Skin Skin exam: Present warm, dry and intact Medical Decision Making <GIGI Hernandez - Last Filed: 07/03/24 19:12> Medical Records Screening: Per USPSTF and CDC recommendations, given the prevalence of disease in our region, it is our hospital?s policy to screen for HIV and viral Hepatitis for all patients aged 18 and over and those with ongoing risk factors. Mike Inquiry Pt receiving controlled substance: No Vital Signs: 07/03/24 13:52 07/03/24 14:18 07/03/24 14:30 Temperature 98.1 F Temperature Source Oral Pulse Rate 77 74 Pulse Rate [Right] 84 Respiratory Rate 18 Blood Pressure 136/82 Blood Pressure [Right Arm] 138/87 Blood Pressure Mean Blood Pressure Mean [Right Arm] 104 Blood Pressure Source [Right Arm] 02 Sat by Pulse Oximetry 98 100 96 Oxygen Delivery Method Room Air Room Air 07/03/24 15:00 07/03/24 15:30 07/03/24 16:01 Temperature Temperature Source Pulse Rate 75 80 79 Pulse Rate [Right] Respiratory Rate 18 Blood Pressure 126/88 151/88 H 157/92 H Blood Pressure [Right Arm] Blood Pressure Mean 100 100 Blood Pressure Mean [Right Arm] Blood Pressure Source [Right Arm] 02 Sat by Pulse Oximetry 96 99 98 Oxygen Delivery Method Room Air Room Air 07/03/24 16:30 07/03/24 17:00 07/03/24 17:30 Temperature Temperature Source Pulse Rate 83 81 80 Pulse Rate [Right] Respiratory Rate 18 Blood Pressure 139/90 137/87 154/89 H Blood Pressure [Right Arm] Blood Pressure Mean 110 Blood Pressure Mean [Right Arm] Blood Pressure Source [Right Arm] 02 Sat by Pulse Oximetry 100 99 99 Oxygen Delivery Method Room Air 07/03/24 18:00 07/03/24 18:31 07/03/24 19:01 Temperature Temperature Source Pulse Rate 81 81 75 Pulse Rate [Right] Respiratory Rate Blood Pressure 158/97 H 135/57 L 136/76 Blood Pressure [Right Arm] Blood Pressure Mean 84 Blood Pressure Mean [Right Arm] Blood Pressure Source [Right Arm] 02 Sat by Pulse Oximetry 97 92 L 95 Oxygen Delivery Method Room Air Room Air Room Air 07/03/24 19:30 07/03/24 20:00 Temperature 97.8 F Temperature Source Oral Pulse Rate 78 Pulse Rate [Right] 72 Respiratory Rate 18 Blood Pressure 126/80 Blood Pressure [Right Arm] 131/78 Blood Pressure Mean 92 Blood Pressure Mean [Right Arm] 95 Blood Pressure Source [Right Arm] Automatic Cuff 02 Sat by Pulse Oximetry 97 97 Oxygen Delivery Method Room Air Room Air Lab Data Lab Results 07/03/24 14:15: WBC 10.0, RBC 3.06 L, Hgb 9.0 L, Hct 27.5 L, MCV 89.9, MCH 29.4, MCHC 32.7, RDW 14.2, Plt Count 285, MPV 9.4, Neut % (Auto) 78.6, Lymph % (Auto) 10.0, Ell[place] % (Auto) 10.0 H, Eos % (Auto) 0.8, Baso % (Auto) 0.1, Neut # (Auto) 7.9 H, Lymph # (Auto) 1.0, Ellsworth # (Auto) 1.0, Eos # (Auto) 0.1, Baso # (Auto) 0.0, Sodium 134 L, Potassium 3.9, Chloride 100, Carbon Dioxide 28, Anion Gap 9.9, BUN 28 H, Creatinine 1.20, Estimated Creat Clear 77, Estimated GFR 61, Est GFR ( Amer) 74, Glucose 89, Calcium 9.6, Total Bilirubin 0.5, AST 32, ALT 39, Alkaline Phosphatase 249 H, Troponin I < 0.01, Total Protein 6.9, Albumin 3.9, Globulin 3.0, Albumin/Globulin Ratio 1.3, Lipase 42, HCV Ab SABRA w/Rflx PCR Qn Negative, HIV Ag/Ab Combo Qual Negative 07/03/24 18:00: Troponin I < 0.01 07/03/24 14:15 07/03/24 14:15 Orders (Tests/Meds): ED MEDICATIONS Discontinued Medications Generic Name Dose Route Start Last Admin Trade Name Freq PRN Reason Stop Dose Admin Acetaminophen 500 mg 07/03/24 22:49 Acetaminophen 500mg Tab PO 08/02/24 22:48 Q8HP PRN Mild Pain (1-3) Acetaminophen 1,000 mg 07/03/24 23:01 07/03/24 23:09 Acetaminophen 500mg Tab PO 08/02/24 22:48 1,000 mg Q8HP PRN Administration Mild Pain (1-3) Belladonna Alkaloids 60 ml 07/03/24 14:07 07/03/24 14:14 Belladonna Alkaloids 60 Ml Ml PO 07/03/24 14:08 60 ml ONCE ONE Administration Finasteride 5 mg 07/04/24 09:00 Finasteride 5mg Tablet PO 08/03/24 08:59 DAILY SLADE Finasteride 5 mg 07/04/24 09:00 Finasteride 5mg Tablet PO 08/03/24 08:59 DAILY SLADE Gabapentin 300 mg 07/03/24 23:00 07/03/24 23:03 Gabapentin 300mg Capsule PO 08/02/24 22:59 Not Given BID SLADE Gabapentin 300 mg 07/04/24 09:00 Gabapentin 300mg Capsule PO 08/02/24 22:59 BID SLADE Hyoscyamine 0.25 mg 07/03/24 23:00 07/03/24 23:03 Hyoscyamine 0.125mg Tablet PO 08/02/24 22:59 Not Given TID SLADE Hyoscyamine 0.25 mg 07/04/24 09:00 Hyoscyamine 0.125mg Tablet PO 08/02/24 22:59 TID SLADE Iopamidol 70 ml 07/03/24 15:10 07/03/24 15:11 Iopamidol-370 (76%);100ml Bottle IV 07/03/24 15:11 70 ml ONCE ONE Administration Metoprolol Succinate 50 mg 07/04/24 09:00 Metoprolol Succinate Xl 50mg Tablet PO 08/03/24 08:59 DAILY SLADE Metoprolol Succinate 50 mg 07/04/24 09:00 Metoprolol Succinate Xl 50mg Tablet PO 08/03/24 08:59 DAILY [facility] Morphine Sulfate 4 mg 07/03/24 17:54 07/03/24 18:08 Morphine 4mg/Ml Syringe IV 07/03/24 17:55 4 mg ONCE ONE Administration Ondansetron HCl 4 mg 07/03/24 18:10 07/03/24 18:12 Ondansetron 4mg/2ml Vial IV 07/03/24 18:11 4 mg ONCE ONE Administration Pantoprazole Sodium 40 mg 07/04/24 09:00 Pantoprazole 40mg Tablet PO 08/03/24 08:59 DAILY SLADE Pantoprazole Sodium 40 mg 07/04/24 09:00 Pantoprazole 40mg Tablet PO 08/03/24 08:59 DAILY SLADE Rivaroxaban 20 mg 07/03/24 23:00 07/03/24 23:03 Rivaroxaban 10mg Tablet PO 08/02/24 22:59 Not Given HS SLADE Rivaroxaban 20 mg 07/04/24 21:00 Rivaroxaban 10mg Tablet PO 08/02/24 22:59 HS SLADE Sodium Chloride 10 ml 07/03/24 14:02 Sodium Chloride 0.9% 10ml Flush Syringe IV 08/02/24 14:01 NEEDED PRN Maintain IV Site Sodium Chloride 50 ml 07/03/24 15:10 07/03/24 15:11 0.9 % Sodium Chloride 50 Ml Vial IV 07/03/24 15:11 50 ml ONCE ONE Administration Sodium Chloride 10 ml 07/03/24 15:10 07/03/24 15:11 Sodium Chloride 0.9% 10ml Syr (Rad Only) IV 07/03/24 15:11 10 ml ONCE ONE Administration Sodium Chloride 10 ml 07/03/24 23:01 Sodium Chloride 0.9% 10ml Flush Syringe IV 08/02/24 14:01 NEEDED PRN Maintain IV Site Tramadol HCl 50 mg 07/04/24 00:30 07/04/24 00:25 Tramadol 50mg Tablet PO 07/04/24 00:31 50 mg ONCE ONE Administration ORDERS Category Date Time Status CT abdomen pelvis w con Stat Cat Scan 07/03/24 14:02 Completed CTA Chest [CT angio chest PE protocol] Stat Cat Scan 07/03/24 14:02 Completed Complete Blood Count Auto Diff Stat Lab 07/03/24 14:15 Completed Comprehensive Metabolic Panel Stat Lab 07/03/24 14:15 Completed HIV Combo Stat Lab 07/03/24 14:15 Completed Hepatitis C Ab Qual. W/ RFX Stat Lab 07/03/24 14:15 Completed Lipase Stat Lab 07/03/24 14:15 Completed Troponin I Q3H Lab 07/03/24 18:00 Completed Troponin I Q3H Lab 07/03/24 22:10 Completed Troponin I Stat Lab 07/03/24 14:15 Completed Medical Decision Narrative: In summary patient is a 64-year-old male who presents the emergency department for evaluation of chest pain. Patient is hemodynamically stable upon arrival, afebrile. Unremarkable physical exam. Differential diagnosis includes gastritis, esophagitis, pulmonary embolism, ACS, pancreatitis, metastatic disease with his known condrosarcoma. Initial workup will be conducted with hematologic labs, CTA chest, CT abdomen and pelvis, EKG, Trope. Initial inventions include GI cocktail. Initial workup reviewed by me mediastinal mass on CT. Upon repeat evaluation patient had improvement of symptoms with GI cocktail. Given this discussed with patient's oncologist at [facility], Dr. Clarke. They advised transfer if patient required pain control, which she does. Patient will have a biopsy of his mediastinal mass. Excepted by Dr. Barrett. Admitted to [facility] pending bed assignment at [facility]. DO Ayaz: I was consulted by the ULISSES, and we discussed the complexity of the problems being addressed. I approved the treatment and management plan for this patient's care in the emergency department, thus performing a substantive portion of the medical decision making. I was involved in the patient's care until 1514 at time of signout to oncoming provider, Dr. Pedro Jacome DO <Chelo Jacome DO - Last Filed: 07/04/24 07:11> Vital Signs: 07/03/24 13:52 07/03/24 14:18 07/03/24 14:30 Temperature 98.1 F Temperature Source Oral Pulse Rate 77 74 Pulse Rate [Right] 84 Respiratory Rate 18 Blood Pressure 136/82 Blood Pressure [Right Arm] 138/87 Blood Pressure Mean Blood Pressure Mean [Right Arm] 104 Blood Pressure Source [Right Arm] 02 Sat by Pulse Oximetry 98 100 96 Oxygen Delivery Method Room Air Room Air 07/03/24 15:00 07/03/24 15:30 07/03/24 16:01 Temperature Temperature Source Pulse Rate 75 80 79 Pulse Rate [Right] Respiratory Rate 18 Blood Pressure 126/88 151/88 H 157/92 H Blood Pressure [Right Arm] Blood Pressure Mean 100 100 Blood Pressure Mean [Right Arm] Blood Pressure Source [Right Arm] 02 Sat by Pulse Oximetry 96 99 98 Oxygen Delivery Method Room Air Room Air 07/03/24 16:30 07/03/24 17:00 07/03/24 17:30 Temperature Temperature Source Pulse Rate 83 81 80 Pulse Rate [Right] Respiratory Rate 18 Blood Pressure 139/90 137/87 154/89 H Blood Pressure [Right Arm] Blood Pressure Mean 110 Blood Pressure Mean [Right Arm] Blood Pressure Source [Right Arm] 02 Sat by Pulse Oximetry 100 99 99 Oxygen Delivery Method Room Air 07/03/24 18:00 07/03/24 18:31 07/03/24 19:01 Temperature Temperature Source Pulse Rate 81 81 75 Pulse Rate [Right] Respiratory Rate Blood Pressure 158/97 H 135/57 L 136/76 Blood Pressure [Right Arm] Blood Pressure Mean 84 Blood Pressure Mean [Right Arm] Blood Pressure Source [Right Arm] 02 Sat by Pulse Oximetry 97 92 L 95 Oxygen Delivery Method Room Air Room Air Room Air 07/03/24 19:30 07/03/24 20:00 Temperature 97.8 F Temperature Source Oral Pulse Rate 78 Pulse Rate [Right] 72 Respiratory Rate 18 Blood Pressure 126/80 Blood Pressure [Right Arm] 131/78 Blood Pressure Mean 92 Blood Pressure Mean [Right Arm] 95 Blood Pressure Source [Right Arm] Automatic Cuff 02 Sat by Pulse Oximetry 97 97 Oxygen Delivery Method Room Air Room Air Lab Data Lab Results 07/03/24 14:15: WBC 10.0, RBC 3.06 L, Hgb 9.0 L, Hct 27.5 L, MCV 89.9, MCH 29.4, MCHC 32.7, RDW 14.2, Plt Count 285, MPV 9.4, Neut % (Auto) 78.6, Lymph % (Auto) 10.0, Ell[place] % (Auto) 10.0 H, Eos % (Auto) 0.8, Baso % (Auto) 0.1, Neut # (Auto) 7.9 H, Lymph # (Auto) 1.0, Ell[place] # (Auto) 1.0, Eos # (Auto) 0.1, Baso # (Auto) 0.0, Sodium 134 L, Potassium 3.9, Chloride 100, Carbon Dioxide 28, Anion Gap 9.9, BUN 28 H, Creatinine 1.20, Estimated Creat Clear 77, Estimated GFR 61, Est GFR ( Amer) 74, Glucose 89, Calcium 9.6, Total Bilirubin 0.5, AST 32, ALT 39, Alkaline Phosphatase 249 H, Troponin I < 0.01, Total Protein 6.9, Albumin 3.9, Globulin 3.0, Albumin/Globulin Ratio 1.3, Lipase 42, HCV Ab SABRA w/Rflx PCR Qn Negative, HIV Ag/Ab Combo Qual Negative 07/03/24 18:00: Troponin I < 0.01 Orders (Tests/Meds): ED MEDICATIONS Discontinued Medications Generic Name Dose Route Start Last Admin Trade Name Freq PRN Reason Stop Dose Admin Acetaminophen 500 mg 07/03/24 22:49 Acetaminophen 500mg Tab PO 08/02/24 22:48 Q8HP PRN Mild Pain (1-3) Acetaminophen 1,000 mg 07/03/24 23:01 07/03/24 23:09 Acetaminophen 500mg Tab PO 08/02/24 22:48 1,000 mg Q8HP PRN Administration Mild Pain (1-3) Belladonna Alkaloids 60 ml 07/03/24 14:07 07/03/24 14:14 Belladonna Alkaloids 60 Ml Ml PO 07/03/24 14:08 60 ml ONCE ONE Administration Finasteride 5 mg 07/04/24 09:00 Finasteride 5mg Tablet PO 08/03/24 08:59 DAILY SLADE Finasteride 5 mg 07/04/24 09:00 Finasteride 5mg Tablet PO 08/03/24 08:59 DAILY [facility]ADE Gabapentin 300 mg 07/03/24 23:00 07/03/24 23:03 Gabapentin 300mg Capsule PO 08/02/24 22:59 Not Given BID SLADE Gabapentin 300 mg 07/04/24 09:00 Gabapentin 300mg Capsule PO 08/02/24 22:59 BID SLADE Hyoscyamine 0.25 mg 07/03/24 23:00 07/03/24 23:03 Hyoscyamine 0.125mg Tablet PO 08/02/24 22:59 Not Given TID SLADE Hyoscyamine 0.25 mg 07/04/24 09:00 Hyoscyamine 0.125mg Tablet PO 08/02/24 22:59 TID SLADE Iopamidol 70 ml 07/03/24 15:10 07/03/24 15:11 Iopamidol-370 (76%);100ml Bottle IV 07/03/24 15:11 70 ml ONCE ONE Administration Metoprolol Succinate 50 mg 07/04/24 09:00 Metoprolol Succinate Xl 50mg Tablet PO 08/03/24 08:59 DAILY [facility]ADE Metoprolol Succinate 50 mg 07/04/24 09:00 Metoprolol Succinate Xl 50mg Tablet PO 08/03/24 08:59 DAILY [facility] Morphine Sulfate 4 mg 07/03/24 17:54 07/03/24 18:08 Morphine 4mg/Ml Syringe IV 07/03/24 17:55 4 mg ONCE ONE Administration Ondansetron HCl 4 mg 07/03/24 18:10 07/03/24 18:12 Ondansetron 4mg/2ml Vial IV 07/03/24 18:11 4 mg ONCE ONE Administration Pantoprazole Sodium 40 mg 07/04/24 09:00 Pantoprazole 40mg Tablet PO 08/03/24 08:59 DAILY [facility] Pantoprazole Sodium 40 mg 07/04/24 09:00 Pantoprazole 40mg Tablet PO 08/03/24 08:59 DAILY [facility] Rivaroxaban 20 mg 07/03/24 23:00 07/03/24 23:03 Rivaroxaban 10mg Tablet PO 08/02/24 22:59 Not Given HS [facility] Rivaroxaban 20 mg 07/04/24 21:00 Rivaroxaban 10mg Tablet PO 08/02/24 22:59 HS [facility] Sodium Chloride 10 ml 07/03/24 14:02 Sodium Chloride 0.9% 10ml Flush Syringe IV 08/02/24 14:01 NEEDED PRN Maintain IV Site Sodium Chloride 50 ml 07/03/24 15:10 07/03/24 15:11 0.9 % Sodium Chloride 50 Ml Vial IV 07/03/24 15:11 50 ml ONCE ONE Administration Sodium Chloride 10 ml 07/03/24 15:10 07/03/24 15:11 Sodium Chloride 0.9% 10ml Syr (Rad Only) IV 07/03/24 15:11 10 ml ONCE ONE Administration Sodium Chloride 10 ml 07/03/24 23:01 Sodium Chloride 0.9% 10ml Flush Syringe IV 08/02/24 14:01 NEEDED PRN Maintain IV Site Tramadol HCl 50 mg 07/04/24 00:30 07/04/24 00:25 Tramadol 50mg Tablet PO 07/04/24 00:31 50 mg ONCE ONE Administration ORDERS Category Date Time Status CT abdomen pelvis w con Stat Cat Scan 07/03/24 14:02 Completed CTA Chest [CT angio chest PE protocol] Stat Cat Scan 07/03/24 14:02 Completed Complete Blood Count Auto Diff Stat Lab 07/03/24 14:15 Completed Comprehensive Metabolic Panel Stat Lab 07/03/24 14:15 Completed HIV Combo Stat Lab 07/03/24 14:15 Completed Hepatitis C Ab Qual. W/ RFX Stat Lab 07/03/24 14:15 Completed Lipase Stat Lab 07/03/24 14:15 Completed Troponin I Q3H Lab 07/03/24 18:00 Completed Troponin I Q3H Lab 07/03/24 22:10 Completed Troponin I Stat Lab 07/03/24 14:15 Completed ECG Data Tracing #1: I reviewed this ECG and interpreted as documented below: Normal sinus rhythm with occasional PVC. No acute STEMI. Nonspecific ST/T wave change. Borderline left axis deviation. Normal intervals ECG initial impression date: 07/03/24 ECG initial impression time: 14:07 Medical Decision Narrative: In summary patient is a 64-year-old male who presents the emergency department for evaluation of chest pain. Patient is hemodynamically stable upon arrival, afebrile. Unremarkable physical exam. Differential diagnosis includes gastritis, esophagitis, pulmonary embolism, ACS, pancreatitis. Initial workup will be conducted with hematologic labs, CTA chest, CT abdomen and pelvis, EKG, Trope. Initial inventions include GI cocktail. Initial workup reviewed by me [hematologic labs are remarkable for? Imaging remarkable for? Urinalysis remarkable for?]. Upon repeat evaluation [patient had acceptable resolution of symptoms, had persistent pain for which additional interventions were conducted (describe interventions), tolerated p.o., was ambulatory, etc.]. Given this [patient is appropriate for discharge at this time will be discharged with a prescription for? The case was discussed with hospital medicine regarding management and they will meet the patient their service for continued valuation at this time? Etc.]. DO Ayaz: I was consulted by the ULISSES, and we discussed the complexity of the problems being addressed. I approved the treatment and management plan for this patient's care in the emergency department, thus performing a substantive portion of the medical decision making. I was involved in the patient's care until 1514 at time of signout to oncoming provider, Dr. Pedro Jacome, DO Critical Care <GIGI Hernandez - Last Filed: 07/03/24 19:12> Critical Care Time Critical Care Time: No
[2024-07-03] MEDS: BELLADONNA ALKALOIDS 60 ML ML PO (14:14)
[2024-07-03 14:31] LABS: Basophils % 0.1 % (0.1-2.0); Eosinophils # 0.1 K/mm3 (0.0-0.4); Eosinophils % 0.8 % (0.1-12.0); Hematocrit 27.5 % (42.0-52.0); Mean Corpuscular HGB Conc 32.7 g/dL (31.8-35.4); Mean Corpuscular Hemoglobin 29.4 pg (27.0-31.2); Mean Corpuscular Volume 89.9 fl (80-94); Mean Platelet Volume 9.4 fl (7.4-10.4); Neutrophils # 7.9 K/mm3 (1.8-7.8); Neutrophils % 78.6 % (37.0-80.0); Platelet Count 285 K/mm3 (142-424); Red Blood Count 3.06 M/mm3 (4.60-6.20); Red Cell Distribution Width 14.2 % (11.5-17.5)
[2024-07-03 14:38] LABS: Albumin Level 3.9 g/dl (3.5-5.0); Chloride 100 mmol/L (98-107); Sodium 134 mmol/L (136-145)
[2024-07-03 14:39] LABS: Potassium 3.9 mmoL/L (3.5-5.1)
[2024-07-03 14:41] LABS: Alanine Aminotransferase 39 U/L (12-78); Albumin/Globulin Ratio 1.3 (1.1-1.8); Alkaline Phosphatase 249 U/L (38-126); Anion Gap 9.9 mEq/L (5-15); Aspartate Amino Transferase 32 U/L (17-59); Bilirubin,Total 0.5 mg/dl (0.2-1.3); Blood Urea Nitrogen 28 mg/dl (9-20); Carbon Dioxide 28 mmol/L (22.0-30.0); Creatinine Clearance Estimated 77 mL/min (50-200); Estimated Glomerular Filt Rate 61 ml/min (>60); GFR (African American) 74 ML/MIN (>60); Total Protein,Serum 6.9 g/dl (6.3-8.2)
[2024-07-03 14:42] LABS: Calcium 9.6 mg/dl (8.4-10.2); Glucose 89 mg/dl (74-100); Lipase 42 U/L (23-300)
[2024-07-03 14:56] LABS: Troponin I < 0.01 ng/ml (0.00-0.034)
[2024-07-03] MEDS: 0.9 % SODIUM CHLORIDE 50 ML VIAL IV (15:11)
[2024-07-03] MEDS: IOPAMIDOL-370 (76%);100ML BOTTLE 70 ML IV (15:11)
[2024-07-03] MEDS: SODIUM CHLORIDE 0.9% 10ML SYR (RAD ONLY) 10 ML IV (15:11)
--- NOTE | 2024-07-03 17:50 | PC.NURSE ---
kristin is speaking to at [facility]
[2024-07-03] MEDS: MORPHINE 4MG/ML SYRINGE 4 MG IV (18:08)
[2024-07-03] MEDS: ONDANSETRON 4MG/2ML VIAL 4 MG IV (18:12)
[2024-07-03 18:55] LABS: Troponin I < 0.01 ng/ml (0.00-0.034)
--- NOTE | 2024-07-03 20:44 | PC.NURSE ---
report called to EMILEE Singh
--- NOTE | 2024-07-03 21:30 | PC.NURSE ---
Patient arrived to floor via stretcher from ED at 21:11.
[2024-07-03 22:48] LABS: Troponin I < 0.01 ng/ml (0.00-0.034)
[2024-07-03] MEDS: ACETAMINOPHEN 500MG TAB 1000 MG PO (23:09)
--- NOTE | 2024-07-03 23:50 | PC.NURSE ---
Received phone call from [facility] that patient has a bed, [address] room 445. Informed patient and MD Horace of transfer.
[2024-07-04] MEDS: TRAMADOL 50MG TABLET 50 MG PO (00:25)
[2024-07-04 04:18] LABS: HIV Combo NEGATIVE (Negative)
[2024-07-04 04:26] LABS: Hepatitis C Ab Qual. W/ RFX NEGATIVE (Negative)
--- NOTE | 2024-07-04 08:44 | EXP.HPDC ---
General Admission date:: 07/03/24 Discharge date: 07/04/24 *Admission Date: 07/03/24 *Chief complaint: chest pain; SOB *History of present illness: Mr. 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 Patient presented to [facility] emergency room for ongoing and worsening chest pain radiating into the back. He has been followed by cardiology and gastroenterology . On 06/22/2024 patient was seen by gastroenterology and medication changes were made to include Carafate 4 times a day and Protonix was increased to twice daily. Voquezna was discontinued and amitriptyline 25 mg with added at at bedtime. Reglan was discontinued as well since he had not had any improvement after being on this med for 4 weeks and due to possibile side effects of this particular medicine. Also noted was that he had an EGD at [facility] in November 2023 and found to have a grade C reflux esophagitis. Repeat EGD was scheduled. He was also seen by cardiology on 06/27/2024 who noted the EGD to be done in July. He was also scheduled to have a PET scan. No further cardiac testing was needed prior to the EGD. HPI narrative as per [facility] ER documentation: Patient presents with chest pain radiating to his back. He reports he was diagnosed with gastritis and has an EGD scheduled in 1 month. He reports pain has been present for 8 weeks, most intense for 2 days. He has been sleeping in the recliner to alleviate pain. He has taken hyoscyamine three times without relief. He is taking pantoprazole as well. Denies N/V. He does report a temperature of 99.9 today, relieved with tylenol. MD complaint: chest pain Onset (ago): day(s) (2) Location: chest Radiation: back Severity: severe Severity scale (1-10): >10 Quality: sharp Consistency: constant Relieving factors: none and other (recliner) Exacerbating factors: other (laying flat ) Associated symptoms: negative fever/chills Treatments prior to arrival: other (PPI, hyoscyamine ) The above as per ER documentation PFSH PFSH Disclaimer: The information contained in this section may have been updated after the patient was seen, as this information can be updated by other users. Medical History Nausea vomiting and diarrhea Chemotherapy-induced nausea and vomiting Thrombocytopenia SUNNY (acute kidney injury) Anemia Anemia Fatigue Right leg weakness GERD (gastroesophageal reflux disease) Cerebrovascular accident HLD (hyperlipidemia) HTN (hypertension) CAD (coronary artery disease) Ventricular arrhythmia Fever of unknown origin Sepsis without septic shock Myalgia Fever Bilateral leg edema Allergy to adhesive tape Central stenosis of spinal canal Multilevel neural foraminal stenosis Back pain Active follow-up with [facility] pain management Obesity (BMI 35.0-39.9 without comorbidity) 13 pound weight loss since last visit Lumbar spinal stenosis Lumbar facet arthropathy Lumbar radiculopathy Degenerative disc disease, lumbar BMI 34.0-34.9,adult Obstructive sleep apnea syndrome Severe nonpositional JULIO which was untreated in the setting of acute back pain, noncompliant on CPAP status post unknown spinal surgery (Dr. Valadez) due to moderate to severe stenosis with significantly elevated AHI in the setting of narcotic pain medication which has just recently been completed. 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 Difficulty sleeping due to pain. Appt with oncologist today. Metastatic neoplastic disease Chondrosarcoma right pelvis, [facility] appts 08/12/2023 Epistaxis Daytime somnolence Snoring Paroxysmal atrial fibrillation Dyspnea Left arm numbness Carotid artery stenosis Dizziness Edema of right forearm Surgical History History of back surgery History of carpal tunnel release of both wrists H/O arthroscopy of left knee Family History Other Diabetes Heart attack Hypertension Social History (Updated 07/03/24 @ 22:17 by Samantha Santana RN) Smoking Status: Never smoker second hand exposure: No alcohol intake: never counseling provided: none substance use type: denies use 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al status: retired Travel in the last 8 weeks: None household members: spouse housing: house marital status: 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 [employer] 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al exposures/hazards: No caffeine: Yes Have you lived/traveled outside [place] in past 30 days?: No Contact w/someone who lives/traveled outside US past 30 days?: No Exposure to someone with infectious disease in past 14 days?: No Do you have a fever (greater than 100.4 F or 38 C)?: No Have you tested positive for COVID-19: No Exposed to someone with COVID-19 in past 14 days?: No Do you have a sore throat?: No Do you have a cough?: No Do you have any weakness?: No Do you have any diarrhea?: No Are you experiencing any unusual bleeding?: No Do you have any muscle aches/pain?: No Do you have any abdominal pain?: No Are you experiencing loss of taste or smell?: No Other Medical History Have you received the Flu Vaccine for this season: No Have you received the Pneumonia Vaccine: No Review of Systems Review of Systems Review of systems:: unable to obtain (Patient transferred to [facility] soon after admission and prior to H&P; all information obtained from previous documentation) Exam Data for Last 24 hours Vital signs and Labs for Last 24 Hours: Temp Pulse Resp BP Pulse Ox O2 Del Method 99.0 F 77 16 131/78 97 Room Air 07/03/24 21:15 07/03/24 21:15 07/03/24 21:15 07/03/24 21:15 07/03/24 20:00 07/04/24 01:00 Laboratory Results - last 24 hr 07/03/24 14:15: WBC 10.0, RBC 3.06 L, Hgb 9.0 L, Hct 27.5 L, MCV 89.9, MCH 29.4, MCHC 32.7, RDW 14.2, Plt Count 285, MPV 9.4, Neut % (Auto) 78.6, Lymph % (Auto) 10.0, [place] % (Auto) 10.0 H, Eos % (Auto) 0.8, Baso % (Auto) 0.1, Neut # (Auto) 7.9 H, Lymph # (Auto) 1.0, [place] # (Auto) 1.0, Eos # (Auto) 0.1, Baso # (Auto) 0.0, Sodium 134 L, Potassium 3.9, Chloride 100, Carbon Dioxide 28, Anion Gap 9.9, BUN 28 H, Creatinine 1.20, Estimated Creat Clear 77, Estimated GFR 61, Est GFR ( Amer) 74, Glucose 89, Calcium 9.6, Total Bilirubin 0.5, AST 32, ALT 39, Alkaline Phosphatase 249 H, Troponin I < 0.01, Total Protein 6.9, Albumin 3.9, Globulin 3.0, Albumin/Globulin Ratio 1.3, Lipase 42, HCV Ab SABRA w/Rflx PCR Qn Negative, HIV Ag/Ab Combo Qual Negative 07/03/24 18:00: Troponin I < 0.01 07/03/24 22:10: Troponin I < 0.01 I & O for Last 24 hours: Intake & Output 07/01/24 07/02/24 07/03/24 07/04/24 11:59 11:59 11:59 11:59 Output Total 0 / 0 Balance 0 / 0 Weight 193 lb 12.581 oz Narrative: Physical Exam <GIGI Hernandez - Last Filed: 07/03/24 19:12> General General appearance: alert and in no apparent distress Head Head exam: atraumatic and normocephalic Eye Eye exam: Present normal appearance and EOMI Chest Chest inspection: Present symmetric chest wall rise Respiratory Respiratory exam: Present normal lung sounds bilaterally; Absent wheezes or stridor Cardiovascular Cardiovascular exam: Present regular rate and normal rhythm; Absent systolic murmur Abdominal Exam Abdominal exam: Present soft; Absent distention or tenderness Neurological Exam Neurological exam: Present alert and oriented X3 Psychiatric Psychiatric exam: Present normal affect and normal mood Skin Skin exam: Present warm, dry and intact Constitutional Constitutional: no acute distress *Routine HEENT Exam Head: Present other (normal) Eye: Present other (normal) ENT: Present other (normsal) *Routine Respiratory Exam Respiratory: Present other (normal bilaterally) *Routine Cardiovascular Exam Cardiovascular: Present RRR *Routine Abdominal Exam Abdominal: Present soft; Absent tenderness or distended *Routine Rectal Exam Rectal:: deferred *Routine Genitalia Exam Genitalia:: deferred *Routine Skin Exam Skin: Present dry and warm *Routine Neurological Exam Neurological: Present alert and oriented X3 Routine Psychiatric Exam Psychiatric: Present normal affect Meds Home Medications and Allergies Home Medications ?Medication ?Instructions ?Recorded ?Confirmed ?Type finasteride 5 mg tablet 5 mg PO DAILY 07/09/17 07/03/24 History sotalol 80 mg tablet 40 mg (1/2 x 80 mg) PO BID Heart 06/04/21 07/03/24 Rx disease #60 tabs potassium chloride 10 mEq 10 meq PO DAILY 09/04/23 07/03/24 History capsule,extended release metoprolol succinate 50 mg 50 mg PO DAILY 11/02/23 07/03/24 History tablet,extended release 24 hr gabapentin 600 mg tablet 300 mg PO BID 01/28/24 07/03/24 History atorvastatin 80 mg tablet 80 mg PO DAILY 04/20/24 07/03/24 History rivaroxaban 20 mg tablet (Xarelto) 20 mg PO QPMWITHMEAL 04/20/24 07/03/24 History docusate sodium 100 mg capsule 100 mg PO DAILY 05/11/24 07/03/24 History (Stool Softener) pantoprazole 40 mg tablet,delayed 40 mg PO BID #60 tabs 05/23/24 07/03/24 Rx release hyoscyamine sulfate 0.125 mg 0.25 mg (2 x 0.125 mg) sublingual 06/22/24 07/03/24 Rx sublingual tablet TID #270 tabs New Prescriptions to Start Prescriptions: Allergies Allergy/AdvReac Type Severity Reaction Status Date / Time codeine AdvReac Mild NA-NAUSEA/V Verified 06/27/24 08:48 OMITING hydrocodone AdvReac Mild NA-NAUSEA/V Verified 06/27/24 08:48 OMITING Hospital Course Hospital Course Hospital Course: Tracing #1: I reviewed this ECG and interpreted as documented below: Normal sinus rhythm with occasional PVC. No acute STEMI. Nonspecific ST/T wave change. Borderline left axis deviation. Normal intervals ECG initial impression date: 07/03/24 ECG initial impression time: 14:07 Medical Decision Narrative: In summary patient is a 64-year-old male who presents the emergency department for evaluation of chest pain. Patient is hemodynamically stable upon arrival, afebrile. Unremarkable physical exam. Differential diagnosis includes gastritis, esophagitis, pulmonary embolism, ACS, pancreatitis, metastatic disease with his known condrosarcoma. Initial workup will be conducted with hematologic labs, CTA chest, CT abdomen and pelvis, EKG, Trope. Initial inventions include GI cocktail. Initial workup reviewed by me mediastinal mass on CT. Upon repeat evaluation patient had improvement of symptoms with GI cocktail. Given this discussed with patient's oncologist at [facility], Dr. Clarke. They advised transfer if patient required pain control, which she does. Patient will have a biopsy of his mediastinal mass. Excepted by Dr. Barrett. Admitted to [facility] pending bed assignment at [facility]. The above as per ER documentation on admission. Bed became available at [facility] unit 4a room 445 ready for patient transfer. During patient's brief stay on the medical floor vital signs were stable, patient did void with standby assistance, and he seemed comfortable. He was transferred via ambulance to [place] in [facility]. Condition at transfer was stable and satisfactory Patient was transferred prior to being seen for official history and physical. All documentation is obtained from ER and nursing notes. Results Data Completed and Pending Completed studies during hospitalization [Text1]: 07/03/2024 chest CTA IMPRESSION: 1. No evidence of a pulmonary embolism. 2. Right-sided mediastinal mass posterior to the trachea and superior to the right mainstem bronchus measures 6.5 x 5.2 x 4.9 cm. The mass abuts the right T5 and T6 vertebral bodies and appears to minimally extend into the right posterior pleural or extrapleural space. This appears consistent with malignancy. 3. Several osseous lytic lesions are present and there is sclerosis of T5. Findings are suspicious for metastatic disease. 07/03/2024 abd/pelvis CT IMPRESSION: 1. Extensive resection of the right pelvic bones including most of the iliac wing, acetabulum, portions of the superior pubic ramus, and the right femoral head and neck. 2. Extensive soft tissue density in the right pelvis surrounding the proximal right femoral shaft measuring approximately 14.1 x 10.1 x 7.8 cm. There are small areas of internal fluid density with the largest pocket medial to the proximal femoral shaft measuring 6.2 x 4.2 x 2.4 cm. Differential includes tumor versus extensive scarring. Internal fluid density also raises possibility of an infection with abscess formation. Labs on day of discharge: Labs from last 24 hours 07/03/24 07/03/24 07/03/24 22:10 18:00 14:15 WBC 10.0 RBC 3.06 L Hgb 9.0 L Hct 27.5 L MCV 89.9 MCH 29.4 MCHC 32.7 RDW 14.2 Plt Count 285 MPV 9.4 Neut % (Auto) 78.6 Lymph % (Auto) 10.0 [place] % (Auto) 10.0 H Eos % (Auto) 0.8 Baso % (Auto) 0.1 Neut # (Auto) 7.9 H Lymph # (Auto) 1.0 [place] # (Auto) 1.0 Eos # (Auto) 0.1 Baso # (Auto) 0.0 Sodium 134 L Potassium 3.9 Chloride 100 Carbon Dioxide 28 Anion Gap 9.9 BUN 28 H Creatinine 1.20 Estimated Creat Clear 77 Estimated GFR 61 Est GFR ( Amer) 74 Glucose 89 Calcium 9.6 Total Bilirubin 0.5 AST 32 ALT 39 Alkaline Phosphatase 249 H Troponin I < 0.01 < 0.01 < 0.01 Total Protein 6.9 Albumin 3.9 Globulin 3.0 Albumin/Globulin Ratio 1.3 Lipase 42 HCV Ab SABRA w/Rflx PCR Qn Negative HIV Ag/Ab Combo Qual Negative DS: Diagnosis Discharge Diagnosis (1) Mass of mediastinum: Status: Acute Code(s): J98.59 - Other diseases of mediastinum, not elsewhere classified (2) Esophageal spasm: Status: Acute Code(s): K22.4 - Dyskinesia of esophagus (3) Coronary artery disease with unstable angina pectoris: Status: Resolved Code(s): I25.110 - Atherosclerotic heart disease of [place] coronary artery with unstable angina pectoris Qualifiers: Coronary Disease-Associated Artery/Lesion type: [place] artery [place] vs. transplanted heart: [place] heart Qualified Code(s): I25.110 - Atherosclerotic heart disease of [place] coronary artery with unstable angina pectoris (4) HTN (hypertension): Status: Acute Code(s): I10 - Essential (primary) hypertension Qualifiers: Hypertension type: essential hypertension Qualified Code(s): I10 - Essential (primary) hypertension (5) HLD (hyperlipidemia): Status: Acute Code(s): E78.5 - Hyperlipidemia, unspecified Qualifiers: Hyperlipidemia type: mixed hyperlipidemia Qualified Code(s): E78.2 - Mixed hyperlipidemia (6) CAD (coronary artery disease): Status: Acute Code(s): I25.10 - Atherosclerotic heart disease of [place] coronary artery without angina pectoris Qualifiers: Coronary Disease-Associated Artery/Lesion type: [place] artery [place] vs. transplanted heart: [place] heart Associated angina: with other forms of angina Qualified Code(s): I25.118 - Atherosclerotic heart disease of [place] coronary artery with other forms of angina pectoris (7) Cerebrovascular accident: Status: Inactive Code(s): I63.9 - Cerebral infarction, unspecified Qualifiers: CVA mechanism: unspecified Qualified Code(s): I63.9 - Cerebral infarction, unspecified (8) Pacemaker: Status: Inactive Code(s): Z95.0 - Presence of cardiac pacemaker (9) Chondrosarcoma: Status: Inactive Code(s): C41.9 - Malignant neoplasm of bone and articular cartilage, unspecified Problem details: right pelvis, [facility] appts 08/12/2023 (10) Metastatic neoplastic disease: Status: Inactive Code(s): C79.9 - Secondary malignant neoplasm of unspecified site Qualifiers: Area of secondary neoplastic involvement: unspecified site Qualified Code(s): C79.9 - Secondary malignant neoplasm of unspecified site (11) Non-cardiac chest pain: Status: Acute Code(s): R07.89 - Other chest pain (12) Esophagitis: Status: Acute Code(s): K20.90 - Esophagitis, unspecified without bleeding (13) GERD (gastroesophageal reflux disease): Status: Acute Code(s): K21.9 - Gastro-esophageal reflux disease without esophagitis Discharge Plan Disposition Patient Disposition: Xfer Other Condition: Good Discharge Order Discharge Orders: Discharge Order (Routine); Ordered 07/04/24 Ordered By: Pat Torres Follow up Plan Prescriptions/Medication Reconciliation: No Action docusate sodium [Stool Softener] 100 mg capsule 100 mg PO DAILY finasteride 5 mg tablet 5 mg PO DAILY gabapentin 600 mg tablet 300 mg PO BID Patient Comments: TAKE 1/2 (ONE-HALF) TABLET BY MOUTH TWICE DAILY hyoscyamine sulfate 0.125 mg tablet, sublingual 0.25 mg sublingual TID Qty: 270 2RF sotalol 80 mg tablet 40 mg PO BID Qty: 60 5RF pantoprazole 40 mg tablet,delayed release (DR/EC) 40 mg PO BID Qty: 60 6RF Patient Comments: TAKE 1 TABLET BY MOUTH ONCE DAILY metoprolol succinate 50 mg tablet extended release 24 hr 50 mg PO DAILY Patient Comments: TAKE 1 TABLET BY MOUTH ONCE DAILY atorvastatin 80 mg tablet 80 mg PO DAILY Xarelto 20 mg tablet 20 mg PO QPMWITHMEAL Rx Instructions: must administer with evening meal potassium chloride 10 mEq capsule, extended release 10 meq PO DAILY Problem Reconciliation Problems Reviewed?: Yes Patient Discharge Instructions Stand Alone Forms: Transfer Record Patient Instructions: DI for Hernia Repair Print Language: Telugu Providers Primary Care Provider: Tre Woodall Admit Provider: Marleen Lebron Attending Provider: Tre Woodall
== END 2024-07-04 03:36 | disposition short-term general hospital (02) ==
LOC: ER 19:12 → 2ND 19:40
PROVIDERS: Physician Assistant; Admitting Provider Family Medicine; Emergency Provider Emergency Medicine; PCP Family Medicine; Visit Provider Family Medicine
DX: R22.2 Localized swelling, mass and lump, trunk (principal); R07.9 Chest pain, unspecified; I25.110 Atherosclerotic heart disease of native coronary artery with unstable angina pectoris; K21.9 Gastro-esophageal reflux disease without esophagitis; E78.5 Hyperlipidemia, unspecified; G47.33 Obstructive sleep apnea (adult) (pediatric); I10 Essential (primary) hypertension; Z85.830 Personal history of malignant neoplasm of bone; Z79.899 Other long term (current) drug therapy; Z79.01 Long term (current) use of anticoagulants
CPT/HCPCS: 36415; 71275; 74177; 80053; 83690; 84484; 85025; 86803; 87389; 93005; 99285; G0378; J2270; J2405; Q9967